=== PATIENT | female | born 1935 | race Caucasian/White ===

== ENCOUNTER 2017-07-21 22:40 | Inpatient (IN) | payer MEDICARE, BC ==
[2017-07-21 22:56] LABS: Glucose,Whole Blood 131 mg/dL (75-99)
--- NOTE | 2017-07-21 23:21 | ED ---
General Adult HPI - General Chief complaint: Recheck/Abnormal Lab/Rx Stated complaint: hypoglycemia Time Seen by Provider: 07/21/17 22:53 Source: patient, family, EMS, RN notes reviewed Mode of arrival: EMS Limitations: no limitations - History of Present Illness Initial comments: 82-year-old female presents with altered mental status confusion. Patient was found by EMS to have a blood sugar in the 40s. She was given dextrose. At the time my evaluation patient was alert and oriented 4, no complaints. She does have past medical history of CAD status post open heart surgery. She is a diabetic currently taking glyburide. She is not on any insulin. She did eat dinner this evening. She has been holding her nighttime dose of glyburide for the past several days secondary to cough and URI symptoms. She took this medication approximately 2 hours prior to the episode. Patient states that multiple family members have influenza and although she had a cough URI symptoms he seemed to be improving. No chest pain or shortness of breath. No nausea vomiting. No diarrhea. - Related Data Home Medications Medication Instructions Recorded Confirmed Allopurinol [Zyloprim] 100 mg PO DAILY 07/21/17 07/21/17 Amiodarone [Cordarone] 200 mg PO DAILY 07/21/17 07/21/17 Furosemide [Lasix] 40 mg PO DAILY 07/21/17 07/21/17 Levothyroxine Sodium [Synthroid] 50 mcg PO DAILY 07/21/17 07/21/17 Metoprolol Tartrate [Lopressor] 25 mg PO BID 07/21/17 07/21/17 Simvastatin [Zocor] 20 mg PO HS 07/21/17 07/21/17 Spironolactone [Aldactone] 25 mg PO BID 07/21/17 07/21/17 glyBURIDE [Diabeta] 5 mg PO AC-BID 07/21/17 07/21/17 Allergies Allergy/AdvReac Type Severity Reaction Status Date / Time No Known Allergies Allergy Verified 07/04/16 18:21 Review of Systems ROS Statement: Those systems with pertinent positive or pertinent negative responses have been documented in the HPI. ROS Other: All systems not noted in ROS Statement are negative. Past Medical History Past Medical History: Coronary Artery Disease (CAD), Diabetes Mellitus, Hypertension, Thyroid Disorder History of Any Multi-Drug Resistant Organisms: None Reported Past Surgical History: Coronary Bypass/CABG, Hysterectomy, Joint Replacement, Orthopedic Surgery Additional Past Surgical History / Comment(s): heart valve replacement, knee replaced, ankle Past Psychological History: No Psychological Hx Reported Smoking Status: Never smoker Past Alcohol Use History: None Reported Past Drug Use History: None Reported General Exam Limitations: no limitations General appearance: alert, in no apparent distress Head exam: Present: atraumatic, normocephalic Eye exam: Present: normal appearance, PERRL ENT exam: Present: normal exam Neck exam: Present: normal inspection. Absent: tenderness, meningismus Respiratory exam: Present: rales (Bilateral lung bases) Cardiovascular Exam: Present: regular rate, normal rhythm GI/Abdominal exam: Present: soft. Absent: distended, tenderness Extremities exam: Present: pedal edema (trace) Neurological exam: Present: alert, oriented X3, CN II-XII intact. Absent: motor sensory deficit Psychiatric exam: Present: normal affect, normal mood Skin exam: Present: warm, dry, intact. Absent: cyanosis, diaphoretic Course Vital Signs 07/21/17 07/22/17 22:42 00:05 Temperature 97 F L Pulse Rate 83 72 Respiratory 18 18 Rate Blood Pressure 165/82 158/95 O2 Sat by Pulse 94 L 96 Oximetry Medical Decision Making - Medical Decision Making 82-year-old female presenting for evaluation of altered mental status, confusion. Patient noted to be hypoglycemic by EMS. Given 1 amp of dextrose. Blood sugar in the emergency department initially normal, there is some down trending with a blood sugar at its lowest 81. Patient is able to eat and drink in the emergency department and blood sugar improved. She is a history of chronic kidney disease, takes glyburide 5 mg twice daily. Took glyburide approximately 2 hours prior to this episode. Patient is also complaining of some shortness of breath and URI symptoms. Influenza A is positive. White blood cell count normal 7.0, hemoglobin 14.7, creatinine is 1.8 which is improved from previous of 2.7. Troponin is elevated at 0.099, no chest pain, likely secondary to CK D. Chest x-ray shows worsening cardiomegaly, pulmonary vascular congestion. BNP is elevated at 5000. Patient does have rails on auscultation. This is likely a combination of congestive heart failure and kidney disease. Patient's symptoms consistent with influenza are improving and greater than 72 hours in duration. Given the mild pulmonary edema and elevated BNP, patient will be placed in observation for diuresis and further monitoring of blood glucose as glyburide has a half-life 10 hours. - Lab Data Result diagrams: 07/21/17 22:51 07/21/17 22:51 Lab Results 07/21/17 07/21/17 07/21/17 Range/Units 22:50 22:51 22:51 WBC 7.1 (3.8-10.6) k/uL RBC 4.51 (3.80-5.40) m/uL Hgb 14.7 (11.4-16.0) gm/dL Hct 46.6 H (34.0-46.0) % MCV 103.4 H (80.0-100.0) fL MCH 32.5 (25.0-35.0) pg MCHC 31.5 (31.0-37.0) g/dL RDW 15.1 (11.5-15.5) % Plt Count 139 L (150-450) k/uL Neutrophils % 87 % Lymphocytes % 6 % Monocytes % 5 % Eosinophils % 0 % Basophils % 1 % Neutrophils # 6.2 (1.3-7.7) k/uL Lymphocytes # 0.4 L (1.0-4.8) k/uL Monocytes # 0.4 (0-1.0) k/uL Eosinophils # 0.0 (0-0.7) k/uL Basophils # 0.0 (0-0.2) k/uL Macrocytosis Slight PT (9.0-12.0) sec INR (<1.2) APTT (22.0-30.0) sec Sodium (137-145) mmol/L Potassium (3.5-5.1) mmol/L Chloride (98-107) mmol/L Carbon Dioxide (22-30) mmol/L Anion Gap mmol/L BUN (7-17) mg/dL Creatinine (0.52-1.04) mg/dL Est GFR (MDRD) Af Amer (>60 ml/min/1.73 sqM) Est GFR (MDRD) Non-Af (>60 ml/min/1.73 sqM) Glucose (74-99) mg/dL POC Glucose (mg/dL) 131 H (75-99) mg/dL POC Glu Bed Manager ID Watt, Emma Calcium (8.4-10.2) mg/dL Magnesium (1.6-2.3) mg/dL Total Bilirubin (0.2-1.3) mg/dL AST (14-36) U/L ALT (9-52) U/L Alkaline Phosphatase (38-126) U/L Total Creatine Kinase 41 (30-135) U/L CK-MB (CK-2) 0.9 (0.0-2.4) ng/mL CK-MB (CK-2) Rel Index 2.2 Troponin I 0.099 H* (0.000-0.034) ng/mL NT-Pro-B Natriuret Pep pg/mL Total Protein (6.3-8.2) g/dL Albumin (3.5-5.0) g/dL Influenza Type A RNA (Not Detectd) Influenza Type B (PCR) (Not Detectd) 07/21/17 07/21/17 07/21/17 Range/Units 22:51 22:51 22:51 WBC (3.8-10.6) k/uL RBC (3.80-5.40) m/uL Hgb (11.4-16.0) gm/dL Hct (34.0-46.0) % MCV (80.0-100.0) fL MCH (25.0-35.0) pg MCHC (31.0-37.0) g/dL RDW (11.5-15.5) % Plt Count (150-450) k/uL Neutrophils % % Lymphocytes % % Monocytes % % Eosinophils % % Basophils % % Neutrophils # (1.3-7.7) k/uL Lymphocytes # (1.0-4.8) k/uL Monocytes # (0-1.0) k/uL Eosinophils # (0-0.7) k/uL Basophils # (0-0.2) k/uL Macrocytosis PT 10.3 (9.0-12.0) sec INR 1.1 (<1.2) APTT 24.9 (22.0-30.0) sec Sodium 134 L (137-145) mmol/L Potassium 3.9 (3.5-5.1) mmol/L Chloride 97 L (98-107) mmol/L Carbon Dioxide 26 (22-30) mmol/L Anion Gap 11 mmol/L BUN 48 H (7-17) mg/dL Creatinine 1.80 H (0.52-1.04) mg/dL Est GFR (MDRD) Af Amer 33 (>60 ml/min/1.73 sqM) Est GFR (MDRD) Non-Af 27 (>60 ml/min/1.73 sqM) Glucose 138 H (74-99) mg/dL POC Glucose (mg/dL) (75-99) mg/dL POC Glu Bed Manager ID Calcium 8.8 (8.4-10.2) mg/dL Magnesium 2.3 (1.6-2.3) mg/dL Total Bilirubin 0.6 (0.2-1.3) mg/dL AST 82 H (14-36) U/L ALT 124 H (9-52) U/L Alkaline Phosphatase 68 (38-126) U/L Total Creatine Kinase (30-135) U/L CK-MB (CK-2) (0.0-2.4) ng/mL CK-MB (CK-2) Rel Index Troponin I (0.000-0.034) ng/mL NT-Pro-B Natriuret Pep 5070 pg/mL Total Protein 5.8 L (6.3-8.2) g/dL Albumin 3.4 L (3.5-5.0) g/dL Influenza Type A RNA (Not Detectd) Influenza Type B (PCR) (Not Detectd) 07/21/17 07/21/17 07/22/17 Range/Units 23:27 23:28 00:04 WBC (3.8-10.6) k/uL RBC (3.80-5.40) m/uL Hgb (11.4-16.0) gm/dL Hct (34.0-46.0) % MCV (80.0-100.0) fL MCH (25.0-35.0) pg MCHC (31.0-37.0) g/dL RDW (11.5-15.5) % Plt Count (150-450) k/uL Neutrophils % % Lymphocytes % % Monocytes % % Eosinophils % % Basophils % % Neutrophils # (1.3-7.7) k/uL Lymphocytes # (1.0-4.8) k/uL Monocytes # (0-1.0) k/uL Eosinophils # (0-0.7) k/uL Basophils # (0-0.2) k/uL Macrocytosis PT (9.0-12.0) sec INR (<1.2) APTT (22.0-30.0) sec Sodium (137-145) mmol/L Potassium (3.5-5.1) mmol/L Chloride (98-107) mmol/L Carbon Dioxide (22-30) mmol/L Anion Gap mmol/L BUN (7-17) mg/dL Creatinine (0.52-1.04) mg/dL Est GFR (MDRD) Af Amer (>60 ml/min/1.73 sqM) Est GFR (MDRD) Non-Af (>60 ml/min/1.73 sqM) Glucose (74-99) mg/dL POC Glucose (mg/dL) 108 H 81 (75-99) mg/dL POC Glu Bed Manager ELAINE Watt, Emma WatEmma romero Calcium (8.4-10.2) mg/dL Magnesium (1.6-2.3) mg/dL Total Bilirubin (0.2-1.3) mg/dL AST (14-36) U/L ALT (9-52) U/L Alkaline Phosphatase (38-126) U/L Total Creatine Kinase (30-135) U/L CK-MB (CK-2) (0.0-2.4) ng/mL CK-MB (CK-2) Rel Index Troponin I (0.000-0.034) ng/mL NT-Pro-B Natriuret Pep pg/mL Total Protein (6.3-8.2) g/dL Albumin (3.5-5.0) g/dL Influenza Type A RNA Detected H (Not Detectd) Influenza Type B (PCR) Not Detected (Not Detectd) 07/22/17 Range/Units 00:42 WBC (3.8-10.6) k/uL RBC (3.80-5.40) m/uL Hgb (11.4-16.0) gm/dL Hct (34.0-46.0) % MCV (80.0-100.0) fL MCH (25.0-35.0) pg MCHC (31.0-37.0) g/dL RDW (11.5-15.5) % Plt Count (150-450) k/uL Neutrophils % % Lymphocytes % % Monocytes % % Eosinophils % % Basophils % % Neutrophils # (1.3-7.7) k/uL Lymphocytes # (1.0-4.8) k/uL Monocytes # (0-1.0) k/uL Eosinophils # (0-0.7) k/uL Basophils # (0-0.2) k/uL Macrocytosis PT (9.0-12.0) sec INR (<1.2) APTT (22.0-30.0) sec Sodium (137-145) mmol/L Potassium (3.5-5.1) mmol/L Chloride (98-107) mmol/L Carbon Dioxide (22-30) mmol/L Anion Gap mmol/L BUN (7-17) mg/dL Creatinine (0.52-1.04) mg/dL Est GFR (MDRD) Af Amer (>60 ml/min/1.73 sqM) Est GFR (MDRD) Non-Af (>60 ml/min/1.73 sqM) Glucose (74-99) mg/dL POC Glucose (mg/dL) 111 H (75-99) mg/dL POC Glu Bed Manager ID Orquidea Weber Calcium (8.4-10.2) mg/dL Magnesium (1.6-2.3) mg/dL Total Bilirubin (0.2-1.3) mg/dL AST (14-36) U/L ALT (9-52) U/L Alkaline Phosphatase (38-126) U/L Total Creatine Kinase (30-135) U/L CK-MB (CK-2) (0.0-2.4) ng/mL CK-MB (CK-2) Rel Index Troponin I (0.000-0.034) ng/mL NT-Pro-B Natriuret Pep pg/mL Total Protein (6.3-8.2) g/dL Albumin (3.5-5.0) g/dL Influenza Type A RNA (Not Detectd) Influenza Type B (PCR) (Not Detectd) Disposition Clinical Impression: Chronic kidney disease, Fluid overload, Hypoglycemia Disposition: ADMITTED IP TO THIS HOSP Condition: Stable Referrals: Rhys Strange DO [Primary Care Provider] - 1-2 days Decision to Admit Reason: Admit from EC Decision Date: 07/22/17 Decision Time: 00:57
[2017-07-21 23:29] LABS: Basophils % (A) 1 %; Eosinophils % (A) 0 %; HCT 46.6 % (34.0-46.0); HGB 14.7 gm/dL (11.4-16.0); Lymphocytes # (A) 0.4 k/uL (1.0-4.8); Lymphocytes % (A) 6 %; MCH 32.5 pg (25.0-35.0); MCHC 31.5 g/dL (31.0-37.0); MCV 103.4 fL (80.0-100.0); Macrocytosis Slight; Mean Platelet Volume 7.7; Monocytes # (A) 0.4 k/uL (0-1.0); Monocytes % (A) 5 %; Neutrophils # (A) 6.2 k/uL (1.3-7.7); Neutrophils % (A) 87 %; Platelet Count 139 k/uL (150-450); RBC 4.51 m/uL (3.80-5.40); RDW 15.1 % (11.5-15.5); WBC 7.1 k/uL (3.8-10.6)
[2017-07-21 23:30] LABS: Glucose,Whole Blood 108 mg/dL (75-99)
[2017-07-21 23:36] LABS: INR 1.1 (<1.2)
[2017-07-21 23:37] LABS: Partial Thromboplastin Time 24.9 sec (22.0-30.0); Prothrombin Time 10.3 sec (9.0-12.0)
[2017-07-21 23:48] LABS: Albumin 3.4 g/dL (3.5-5.0); Calcium 8.8 mg/dL (8.4-10.2); Magnesium 2.3 mg/dL (1.6-2.3); Potassium 3.9 mmol/L (3.5-5.1); Total Bilirubin 0.6 mg/dL (0.2-1.3); Total Protein 5.8 g/dL (6.3-8.2)
--- NOTE | 2017-07-21 23:59 | XR ---
EXAMINATION TYPE: XR chest 2V DATE OF EXAM: 07/21/2017 COMPARISON: NONE HISTORY: Hypertension and difficulty breathing TECHNIQUE: Frontal and lateral views of the chest are obtained. FINDINGS: Heart is enlarged. Thoracic aorta is atheromatous. There are sternal wires. There is mild pulmonary vascular congestion. There is coarse interstitial density. IMPRESSION: Cardiomegaly that appears worse than last exam. Pulmonary interstitial fibrosis. Mild he art failure is probably present. Lung markings are increased slightly compared to last exam.
[2017-07-22 00:07] LABS: Creatine Kinase MB 0.9 ng/mL (0.0-2.4)
[2017-07-22 00:08] LABS: Glucose,Whole Blood 81 mg/dL (75-99)
[2017-07-22 00:17] LABS: Troponin I 0.099 ng/mL (0.000-0.034)
[2017-07-22 00:43] LABS: Glucose,Whole Blood 111 mg/dL (75-99)
[2017-07-22] MEDS ORDERED: FUROSEMIDE 10 MG/ML 4 ML VIAL IV ONE (00:43)
[2017-07-22] MEDS ORDERED: ASPIRIN 325 MG TAB PO STA (00:45)
[2017-07-22] MEDS ORDERED: MORPHINE SULFATE 5 MG/ML SYRINGE IV PRN (00:58)
[2017-07-22] MEDS ORDERED: NALOXONE 0.4 MG/ML 1 ML VIAL IV PRN (00:58)
[2017-07-22 04:27] LABS: Glucose,Whole Blood 44 mg/dL (75-99)
[2017-07-22 05:21] LABS: Glucose,Whole Blood 110 mg/dL (75-99)
[2017-07-22 08:53] LABS: Glucose,Whole Blood 89 mg/dL (75-99)
[2017-07-22] MEDS: SPIRONOLACTONE 25 MG TAB PO SCH ×2 (09:34→21:21)
[2017-07-22] MEDS: FUROSEMIDE 10 MG/ML 2 ML VIAL IV SCH ×2 (09:34→21:21)
[2017-07-22] MEDS: METOPROLOL TARTRATE 25 MG TAB PO SCH ×2 (09:34→21:21)
[2017-07-22] MEDS: AMIODARONE 200 MG TAB PO SCH (09:34)
[2017-07-22] MEDS: LEVOTHYROXINE 50 MCG TAB PO SCH (09:34)
[2017-07-22 11:39] LABS: Glucose,Whole Blood 48 mg/dL (75-99)
[2017-07-22 11:39] LABS: Glucose,Whole Blood 48 mg/dL (75-99)
[2017-07-22 12:21] LABS: Glucose,Whole Blood 61 mg/dL (75-99)
[2017-07-22 12:21] LABS: Glucose,Whole Blood 61 mg/dL (75-99)
[2017-07-22] MEDS: ACETAMINOPHEN TAB 325 MG TAB PO PRN (13:30)
[2017-07-22 14:28] LABS: Appearance,Urine Clear (Clear); Bilirubin,Urine Negative (Negative); Blood,Urine Negative (Negative); Color,Urine Light Yellow; Glucose,Urine (UA) Negative (Negative); Hyaline Casts,Urine 7 /lpf (0-2); Ketones,Urine Negative (Negative); Leukocyte Esterase,Urine Trace (Negative); Mucus,Urine Rare /hpf; Nitrite,Urine Negative (Negative); Protein,Urine Negative (Negative); RBC,Urine 1 /hpf (0-5); Specific Gravity,Urine 1.007 (1.001-1.035); Squamous Epithelial Cell,Urine 1 /hpf (0-4); Urobilinogen,Urine <2.0 mg/dL (<2.0); WBC,Urine 2 /hpf (0-5)
[2017-07-22] MEDS ORDERED: OSELTAMIVIR 75 MG CAP PO SCH (14:30)
[2017-07-22] MEDS: OSELTAMIVIR 60 MG/10 ML ORAL SYRINGE PO SCH (16:29)
[2017-07-22 17:06] LABS: Glucose,Whole Blood 75 mg/dL (75-99)
[2017-07-22] MEDS: D5W WITH KCL 20 MEQ/L 1,000 ML IV SCH (18:33)
[2017-07-22 18:40] LABS: Glucose,Whole Blood 110 mg/dL (75-99)
[2017-07-22] MEDS ORDERED: TEMAZEPAM 15 MG CAP PO PRN (19:10)
[2017-07-22] MEDS ORDERED: ALPRAZolam 0.25 MG TAB PO PRN (19:10)
[2017-07-22 20:53] LABS: Glucose,Whole Blood 77 mg/dL (75-99)
[2017-07-22] MEDS: HEPARIN SODIUM,PORCINE 5,000 UNIT/ML 1 ML VIAL SQ SCH (21:21)
[2017-07-22] MEDS: ATORVASTATIN 10 MG TAB PO SCH (21:21)
--- NOTE | 2017-07-22 22:20 | HP ---
HISTORY AND PHYSICAL DATE OF SERVICE: 07/22/2017 CHIEF COMPLAINT: Change in mental status, hypoglycemia. I am covering for Dr. Strange. HISTORY OF PRESENT ILLNESS: This 82-year-old woman with past medical history of CAD, diabetes, hypertension, history of hyperlipidemia, CHF, CAD and CABG being followed by Dr. Rhys Starnge in the outpatient setting not feeling well since this morning. The patient had a change in mental status and apparently her dog found unresponsive and the patient was EMS was called. Blood sugars in 30s and 40s improved. Subsequently with interventions and the patient was given glucose and patient apparently was not eating for the last several days because of cough and sputum and respiratory symptoms. The patient Influenza A was positive. Troponins found to be 0.9. Patient admitted for further evaluation and treatment. Even after admission, the blood sugar was found to be dropping at 111, 110 and 261 and subsequently 261. There is no history of fever, rigors or chills. No hematochezia or melena at this time. PAST MEDICAL: CAD, CHF, diabetes, hypertension, hypothyroid, CAD, CABG. MEDICATIONS: Prior to admission include: Glyburide, DiaBeta 5 mg a.c. b.i.d., Aldactone 25 mg b.i.d. Zocor 20 mg q.h.s., Lopressor 25 mg b.i.d., Synthroid 50 mg p.o. daily, Lasix 20 mg daily, Cordarone 200 mg daily and Serevent 100 mg p.o. daily. ALLERGIES: None. FAMILY HISTORY: No history of heart disease or strokes in the family. SOCIAL HISTORY: No history of smoking. No alcohol intake. REVIEW OF SYSTEMS: ENT: No diminished vision. No diminished hearing. Cardio system as mentioned earlier. Respiration: No cough or hemoptysis. Gastrointestinal: No nausea or vomiting. : No dysuria. Nervous system: No numbness, weakness. Allergy/Immunology: No asthma or hayfever. Musculoskeletal as mentioned earlier. Hematology/Oncology: No history of anemia. Endocrine: Diabetes. Constitutional: As mentioned earlier. Rheumatology negative. Dermatology: Negative. Psychiatric: As mentioned earlier. PHYSICAL EXAMINATION: Alert and oriented times three. Pulse 92, blood pressure 130/70, respiration 16, temperature 98.2, pulse ox 98% on room air. HEENT: Conjunctivae normal. Oral mucosa moist. Neck is no jugular venous distention. No carotid bruit. No lymph node enlargement. Cardiovascular system: S1, S2 muffled. No S3, no S4. Respiratory: Breath sounds diminished in the bases. A few scattered rhonchi and crackles. ABDOMEN: Soft, nontender. No mass palpable. Legs: No edema and no swelling. Central nervous system: Higher functions as mentioned earlier. Moves all four limbs. No focal motor or sensory deficits. Lymphatics: No lymph nodes palpable in the neck, axillae or groin. Skin no ulcer, rash or bleeding. LABS: WBC 7.9, and MCV 103.4. Sodium 134, otherwise, Accu-Cheks are noted. ASSESSMENT: 1. Severe hypoglycemia possibly medication induced. 2. Change in mental status, metabolic encephalopathy secondary to hypoglycemia. 3. Acute influenza A. 4. Troponin 0.09 indeterminate. 5. History of congestive heart failure. 6. History of coronary artery disease. 7. Diabetes type 2. 8. Hypertension. 9. Hypothyroidism. 10.History of coronary artery disease, coronary artery bypass grafting. 11.History of degenerative joint disease. 12.FULL CODE. RECOMMENDATIONS AND DISCUSSION: This 82-year-old woman who presented with multiple complex medical issues, we will monitor the patient closely. Continue the current management. Continue symptomatic treatment. Stop antidiabetic medications. Continue to monitor, D5 water and monitor potassium closely. Monitor renal functions closely. Otherwise Tamiflu for five doses. DVT prophylaxis. The prognosis is guarded because of multiple complex medical issues. Further recommendations to follow. See orders for details. A copy of dictation being forwarded to Dr. Strange who is the primary physician. [id number] / IJN: [id number] /
[2017-07-22 23:18] VITALS: BMI 28.8
[2017-07-23 01:23] LABS: Glucose,Whole Blood 151 mg/dL (75-99)
[2017-07-23] MEDS: D5W WITH KCL 20 MEQ/L 1,000 ML IV SCH (03:30)
[2017-07-23 05:39] LABS: Glucose,Whole Blood 154 mg/dL (75-99)
[2017-07-23 06:08] LABS: Glucose,Whole Blood 156 mg/dL (75-99)
[2017-07-23] MEDS: PANTOPRAZOLE 40 MG TABLET PO SCH (07:01)
[2017-07-23 07:12] LABS: Basophils % (A) 0 %; Eosinophils % (A) 0 %; HCT 44.5 % (34.0-46.0); HGB 14.6 gm/dL (11.4-16.0); Lymphocytes # (A) 0.8 k/uL (1.0-4.8); Lymphocytes % (A) 9 %; MCH 32.8 pg (25.0-35.0); MCHC 32.9 g/dL (31.0-37.0); MCV 99.7 fL (80.0-100.0); Mean Platelet Volume 7.4; Monocytes # (A) 0.4 k/uL (0-1.0); Monocytes % (A) 5 %; Neutrophils # (A) 6.6 k/uL (1.3-7.7); Neutrophils % (A) 83 %; Platelet Count 150 k/uL (150-450); RBC 4.46 m/uL (3.80-5.40)
[2017-07-23 07:17] LABS: Magnesium 2.1 mg/dL (1.6-2.3); Potassium 4.6 mmol/L (3.5-5.1)
[2017-07-23] MEDS: FUROSEMIDE 10 MG/ML 2 ML VIAL IV SCH ×2 (08:34→21:05)
[2017-07-23] MEDS: METOPROLOL TARTRATE 25 MG TAB PO SCH ×2 (08:35→21:05)
[2017-07-23] MEDS: HEPARIN SODIUM,PORCINE 5,000 UNIT/ML 1 ML VIAL SQ SCH ×2 (08:35→21:05)
[2017-07-23] MEDS: AMIODARONE 200 MG TAB PO SCH (08:35)
[2017-07-23] MEDS: ALLOPURINOL 100 MG TAB PO SCH (08:36)
[2017-07-23] MEDS: LEVOTHYROXINE 50 MCG TAB PO SCH (08:36)
[2017-07-23] MEDS: OSELTAMIVIR 60 MG/10 ML ORAL SYRINGE PO SCH (08:36)
[2017-07-23] MEDS: SPIRONOLACTONE 25 MG TAB PO SCH ×2 (08:37→21:05)
[2017-07-23 10:55] LABS: Glucose,Whole Blood 235 mg/dL (75-99)
--- NOTE | 2017-07-23 12:51 | CDI ---
Last Revision, June 2017 Documentation Clarification Form Date: 07/23/2017 12:27:00 PM From: Paulina Vazquez RN Admit Date: 07/22/2017 12:57:00 AM Patient Name: Kathryn Torres Visit Number: [id number] ATTENTION: The Clinical Documentation Specialists (CDI) and [facility] Coding Staff appreciate your assistance in clarifying documentation. Please respond to the clarification below the line at the bottom and electronically sign. The CDI & [facility] Coding staff will review the response and follow-up if needed. Please note: Queries are made part of the Legal Health Record. If you have any questions, please contact the author of this message via ITS. Carlos Alberto Leger, History/Risk Factors: CHF, CAD, DM, HTN, Hypothyroidism, DJD V Lasix administered Clinical Indicators: On admission: BUN 48, CR 1.80, GFR 27 Current: BUN 42, CR 1.51, GFR 33 Treatment: Monitor Labs In order to capture the severity of condition, please clarify if the condition signifies: Acute renal failure, Please specify etiology (if known) Acute on chronic renal failure please stage if known Chronic renal failure/Chronic Kidney disease (CKD) please stage if known CKD Stage 3 GFR 30-59 CKD Stage 4 GFR 15-29 CKD other Stage Other, please specify Unable to determine Please continue to document in your progress notes and discharge summary in order to capture severity of illness and risk of mortality. Include clinical findings that support your diagnosis. CKD Stage 3 GFR 30-59 MTDD
--- NOTE | 2017-07-23 13:30 | CDI ---
Last Revision, June 2017 Documentation Clarification Form Date: 07/23/2017 1:17:00 PM From: Paulina Vazquez RN Admit Date: 07/22/2017 12:57:00 AM Patient Name: Kathryn Torres Visit Number: [id number] ATTENTION: The Clinical Documentation Specialists (CDI) and [facility] Coding Staff appreciate your assistance in clarifying documentation. Please respond to the clarification below the line at the bottom and electronically sign. The CDI & [facility] Coding staff will review the response and follow-up if needed. Please note: Queries are made part of the Legal Health Record. If you have any questions, please contact the author of this message via ITS. Dr. Ashli Carcamo, History/Risk Factors:. CAD, CHF, DM, HTN, Hypothyroid, CABG Clinical Indicators: BNP: 5070 Chest X Ray: cardiomegaly worse than last exam. Pulmonary interstitial fibrosis. Mild heart failure is probably present. Treatment: Lasix IV q 12 hours In your professional opinion, can you please clarify the acuity and type of CHF if known? Systolic Heart Failure: Acute Chronic Acute on Chronic Diastolic Heart Failure: Acute Chronic Acute on Chronic Systolic & Diastolic Heart Failure: Acute Chronic Acute on Chronic Heart Failure Unable to Determine Other, please specify Please continue to document in your progress notes and discharge summary in order to capture severity of illness and risk of mortality. Include clinical findings that support your diagnosis. chf Unable to Determine MTDD
[2017-07-23 14:50] LABS: Glucose,Whole Blood 184 mg/dL (75-99)
[2017-07-23] MEDS: INSULIN ASPART 100 UNIT/ML 1 ML 10 ML VIAL SQ SCH ×2 (19:01→22:10)
[2017-07-23] MEDS: ATORVASTATIN 10 MG TAB PO SCH (21:05)
[2017-07-23 22:08] LABS: Glucose,Whole Blood 204 mg/dL (75-99)
[2017-07-24 01:58] LABS: Glucose,Whole Blood 115 mg/dL (75-99)
[2017-07-24 02:51] LABS: Hemoglobin A1C 6.2 % (4.0-6.0)
[2017-07-24 05:49] LABS: Glucose,Whole Blood 117 mg/dL (75-99)
[2017-07-24 06:09] LABS: Basophils % (A) 1 %; Eosinophils % (A) 1 %; HCT 44.4 % (34.0-46.0); Lymphocytes # (A) 0.9 k/uL (1.0-4.8); Lymphocytes % (A) 13 %; MCH 31.4 pg (25.0-35.0); MCHC 31.6 g/dL (31.0-37.0); MCV 99.5 fL (80.0-100.0); Macrocytosis Slight; Mean Platelet Volume 7.9; Monocytes # (A) 0.5 k/uL (0-1.0); Monocytes % (A) 7 %; Neutrophils # (A) 5.5 k/uL (1.3-7.7); Neutrophils % (A) 77 %; Platelet Count 166 k/uL (150-450); RBC 4.47 m/uL (3.80-5.40); RDW 14.9 % (11.5-15.5); WBC 7.1 k/uL (3.8-10.6)
[2017-07-24 06:25] LABS: Calcium 9.1 mg/dL (8.4-10.2); Potassium 4.1 mmol/L (3.5-5.1)
[2017-07-24] MEDS: INSULIN ASPART 100 UNIT/ML 1 ML 10 ML VIAL SQ SCH ×4 (06:33→21:33)
[2017-07-24] MEDS: PANTOPRAZOLE 40 MG TABLET PO SCH (06:34)
[2017-07-24] MEDS: ACETAMINOPHEN TAB 325 MG TAB PO PRN (08:34)
[2017-07-24] MEDS: HEPARIN SODIUM,PORCINE 5,000 UNIT/ML 1 ML VIAL SQ SCH (08:41)
[2017-07-24] MEDS: FUROSEMIDE 10 MG/ML 2 ML VIAL IV SCH ×2 (08:41→20:55)
[2017-07-24] MEDS: ALLOPURINOL 100 MG TAB PO SCH (08:41)
[2017-07-24] MEDS: AMIODARONE 200 MG TAB PO SCH (08:41)
[2017-07-24] MEDS: SPIRONOLACTONE 25 MG TAB PO SCH ×2 (08:41→20:56)
[2017-07-24] MEDS: LEVOTHYROXINE 50 MCG TAB PO SCH (08:41)
[2017-07-24] MEDS: METOPROLOL TARTRATE 25 MG TAB PO SCH ×2 (08:41→20:55)
--- NOTE | 2017-07-24 10:03 | P.CRDCN ---
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 Beside that she does have diabetes, hypertension, dyslipidemia. She was brought to the hospital by her daughter who found her confused in the morning. The patient was diagnosed with influenza A and she has been sick for a week where she was not eating and drinking but she continues to take her diabetes medications. She was found to be hypoglycemic. The glucose was 30. She was given glucose with improvement in her symptoms. She did not have any symptoms of chest pain or discomfort or shortness of breath. We get involved in the care of the patient because her cardiac enzymes were slightly elevated but more importantly she was found to be in A. fib with controlled heart rates. She is not aware of any history of atrial fibrillation and she was not receiving any oral anticoagulation as an outpatient. Currently she is in A. fib with controlled heart rate. Beside that the creatinine was slightly elevated. The BNP came in to be around 5000s. On physical examination she does have rhonchi in both lung bases. The patient was started on Lasix. Currently she is on metoprolol for heart rate control but she is not on any oral anticoagulation. Past Medical History Past Medical History: Coronary Artery Disease (CAD), Heart Failure, Diabetes Mellitus, Hypertension, Thyroid Disorder History of Any Multi-Drug Resistant Organisms: None Reported Past Surgical History: Coronary Bypass/CABG, Hysterectomy, Joint Replacement, Orthopedic Surgery Additional Past Surgical History / Comment(s): heart valve replacement, knee replaced, ankle Past Psychological History: No Psychological Hx Reported Smoking Status: Never smoker Past Alcohol Use History: None Reported Past Drug Use History: None Reported Medications and Allergies Home Medications Medication Instructions Recorded Confirmed Type Allopurinol [Zyloprim] 100 mg PO DAILY 07/21/17 07/21/17 History Amiodarone [Cordarone] 200 mg PO DAILY 07/21/17 07/21/17 History Furosemide [Lasix] 40 mg PO DAILY 07/21/17 07/21/17 History Levothyroxine Sodium [Synthroid] 50 mcg PO DAILY 07/21/17 07/21/17 History Metoprolol Tartrate [Lopressor] 25 mg PO BID 07/21/17 07/21/17 History Simvastatin [Zocor] 20 mg PO HS 07/21/17 07/21/17 History Spironolactone [Aldactone] 25 mg PO BID 07/21/17 07/21/17 History glyBURIDE [Diabeta] 5 mg PO AC-BID 07/21/17 07/21/17 History Allergies Allergy/AdvReac Type Severity Reaction Status Date / Time No Known Allergies Allergy Verified 07/04/16 18:21 Physical Exam Vitals: Vital Signs Temp Pulse Resp BP Pulse Ox 07/24/17 04:00 97.8 F 90 19 124/71 97 07/24/17 00:00 98.4 F 70 19 133/67 98 07/23/17 20:00 98.1 F 75 19 122/70 97 07/23/17 16:00 96.4 F L 75 18 140/71 97 07/23/17 12:00 97.8 F 92 16 140/72 96 Intake and Output 07/23/17 07/24/17 07/24/17 22:59 06:59 14:59 Intake Total 240 Output Total 800 Balance -560 Intake: Oral 240 Output: Urine 800 Other: Voiding Method Toilet Toilet # Voids 1 1 Weight 81.9 kg - Constitutional General appearance: no acute distress - Respiratory Respiratory: bilateral: rhonchi - Cardiovascular Rhythm: irregularly irregular Heart sounds: normal: S1, S2 Abnormal Heart Sounds: systolic murmur Results 07/24/17 05:45 07/24/17 05:45 CBC 07/24/17 Range/Units 05:45 WBC 7.1 (3.8-10.6) k/uL RBC 4.47 (3.80-5.40) m/uL Hgb 14.0 (11.4-16.0) gm/dL Hct 44.4 (34.0-46.0) % Plt Count 166 (150-450) k/uL Comprehensive Metabolic Panel 07/24/17 Range/Units 05:45 Sodium 133 L (137-145) mmol/L Potassium 4.1 (3.5-5.1) mmol/L Chloride 98 (98-107) mmol/L Carbon Dioxide 24 (22-30) mmol/L BUN 49 H (7-17) mg/dL Creatinine 1.56 H (0.52-1.04) mg/dL Glucose 116 H (74-99) mg/dL Calcium 9.1 (8.4-10.2) mg/dL Current Medications Generic Name Dose Route Start Last Admin Trade Name Freq PRN Reason Stop Dose Admin Acetaminophen 650 mg 07/22/17 00:58 07/24/17 08:34 Tylenol Tab PO 650 mg Q6HR PRN Administration Mild Pain or Fever > 100.5 Allopurinol 100 mg 07/23/17 09:00 07/24/17 08:41 Zyloprim PO 100 mg DAILY ELIJAH Administration Alprazolam 0.25 mg 07/22/17 19:10 Xanax PO TID PRN Anxiety Amiodarone HCl 200 mg 07/22/17 09:00 07/24/17 08:41 Cordarone PO 200 mg DAILY ELIJAH Administration Atorvastatin Calcium 10 mg 07/22/17 21:00 07/23/17 21:05 Lipitor PO 10 mg HS ELIJAH Administration Furosemide 20 mg 07/22/17 09:00 07/24/17 08:41 Lasix IV 20 mg Q12HR ELIJAH Administration Heparin Sodium (Porcine) 5,000 unit 07/22/17 21:00 07/24/17 08:41 Heparin SQ 5,000 unit Q12HR ELIJAH Administration Insulin Aspart 0 unit 07/23/17 17:30 07/24/17 06:33 Novolog SQ Not Given ACHS [facility] Protocol Levothyroxine Sodium 50 mcg 07/22/17 09:00 07/24/17 08:41 Synthroid PO 50 mcg DAILY ELIJAH Administration Metoprolol Tartrate 25 mg 07/22/17 09:00 07/24/17 08:41 Lopressor PO 25 mg BID ELIJAH Administration Morphine Sulfate 4 mg 07/22/17 00:58 Morphine Sulfate IV Q4HR PRN Severe Pain Naloxone HCl 0.2 mg 07/22/17 00:58 Narcan IV Q2M PRN Opioid Reversal Oseltamivir Phosphate 30 mg 07/22/17 15:00 07/23/17 08:36 Tamiflu PO 07/26/17 09:01 30 mg Q24HR ELIJAH Administration Pantoprazole Sodium 40 mg 07/23/17 07:30 07/24/17 06:34 Protonix PO 40 mg AC-[id number] ELIJAH Administration Spironolactone 25 mg 07/22/17 09:00 07/24/17 08:41 Aldactone PO 25 mg BID ELIJAH Administration Temazepam 15 mg 07/22/17 19:10 Restoril PO HS PRN Insomnia Intake and Output 07/23/17 07/24/17 07/24/17 22:59 06:59 14:59 Intake Total 240 Output Total 800 Balance -560 Intake: Oral 240 Output: Urine 800 Other: Voiding Method Toilet Toilet # Voids 1 1 Weight 81.9 kg 07/24/17 05:45 07/24/17 05:45 Assessment and Plan Assessment: Assessment #1 change in mental status which has improved #2 hypoglycemia which has improved which is likely to be medication related #3 chronic atrial fibrillation was controlled heart rate #4 mild congestive heart failure exacerbation and known if it's due to systolic or diastolic dysfunction #5 chronic artery disease and status post CABG #6 valvular heart disease #7 multiple comorbid conditions Plan #1 continue the metoprolol for heart rate control #2 start the patient on oral anticoagulation #3 obtain an echocardiogram was Doppler #4 check the TSH #5 continue the Lasix for additional 24 hours #6 monitor the kidney function and electrolytes. Thank you for allowing us participate in her care
[2017-07-24] MEDS: OSELTAMIVIR 60 MG/10 ML ORAL SYRINGE PO SCH (11:44)
[2017-07-24 11:58] LABS: Glucose,Whole Blood 144 mg/dL (75-99)
--- NOTE | 2017-07-24 12:44 | ECHOF ---
Referral Reason:a.fib MEASUREMENTS -------- HEIGHT: 170.2 cm WEIGHT: 81.7 kg BP: 124/71 IVSd: 1.2 cm (0.6 - 1.1) LVIDd: 3.3 cm (3.9 - 5.3) LVPWd: 1.1 cm (0.6 - 1.1) IVSs: 1.6 cm LVIDs: 2.7 cm LVPWs: 1.6 cm LAESV Index (A-L): 54.56 ml/m Ao Diam: 2.5 cm (2.0 - 3.7) LA Diam: 3.6 cm (2.7 - 3.8) MV EXCURSION: 14.230 mm (> 18.000) MV EF SLOPE: 73 mm/s (70 - 150) EPSS: 0.8 cm AV maxP.37 mmHg AV meanP.03 mmHg RAP: 5.00 mmHg RVSP: 30.96 mmHg FINDINGS -------- Atrial fibrillation. Paced rhythm. This was a technically difficult study with suboptimal views. The left ventricular size is normal. There is mild concentric left ventricular hypertrophy. Overa ll left ventricular systolic function is severely impaired with, an EF < 20%. Anterior is hypokinet ic Septal Hypokinesis [place] Hypokinesis. The right ventricle is normal in size and function. LA is severely dilated >40 ml/m2 The right atrium is normal in size. 1.5mg of Definity was utilized for enhancement of images Peak/mean gradient across the Aortic Valve is 33.37mmHg / 19.03mmHg. Normally functioning bioprosth etic valve. The mitral valve leaflets are mildly thickened. Mild mitral regurgitation is present. Mild tricuspid regurgitation present. The right ventricular systolic pressure, as measured by Doppl er, is 30.96mmHg. Pulmonic valve appears structurally normal. The aortic root size is normal. The pericardium is normal. CONCLUSIONS -------- 1. Atrial fibrillation. 2. Paced rhythm. 3. This was a technically difficult study with suboptimal views. 4. The left ventricular size is normal. 5. There is mild concentric left ventricular hypertrophy. 6. Overall left ventricular systolic function is severely impaired with, an EF < 20%. 7. Anterior is hypokinetic 8. Septal Hypokinesis 9. [place] Hypokinesis. 10. The right ventricle is normal in size and function. 11. LA is severely dilated >40 ml/m2 12. The right atrium is normal in size. 13. 1.5mg of Definity was utilized for enhancement of images 14. Peak/mean gradient across the Aortic Valve is 33.37mmHg / 19.03mmHg. 15. Normally functioning bioprosthetic valve. 16. The mitral valve leaflets are mildly thickened. 17. Mild mitral regurgitation is present. 18. Mild tricuspid regurgitation present. 19. The right ventricular systolic pressure, as measured by Doppler, is 30.96mmHg. 20. Pulmonic valve appears structurally normal. 21. The aortic root size is normal. 22. The pericardium is normal. TUNNELLER: Yani Garcia RDCS
[2017-07-24] MEDS: APIXABAN 2.5 MG TABLET PO SCH ×2 (14:30→20:55)
[2017-07-24 17:20] LABS: Glucose,Whole Blood 185 mg/dL (75-99)
--- NOTE | 2017-07-24 17:42 | P.PN ---
Subjective Progress Note Date: 07/23/17 Progress note being dictated for Dr. Carcamo. Interval history: This is an 82-year-old female admitted with severe hypoglycemia, possibly medication induced, acute metabolic encephalopathy, acute influenza a, elevated troponin and multiple other medical issues. Maintained on D5W, Tamiflu. Blood sugars ranging from 156 200s. Potassium within normal limits. Renal function improving. Denies chest pain, palpitations or increasing shortness of breath. Objective - Vital Signs Vital signs: Vital Signs Temp 96.4 F L 07/23/17 16:00 Pulse 75 07/23/17 16:00 Resp 18 07/23/17 16:00 BP 140/71 07/23/17 16:00 Pulse Ox 97 07/23/17 16:00 Intake & Output 07/22/17 07/23/17 07/23/17 18:59 06:59 18:59 Intake Total 600 120 Output Total 1300 875 700 Balance -700 -875 -580 Weight 83.461 kg 81.7 kg Intake: Oral 600 120 Output: Urine 1300 875 700 Other: Voiding Method Toilet # Voids 1 1 - Exam PHYSICAL EXAM: VITAL SIGNS: As above GENERAL: Sitting up in bed, no acute distress HEENT: Conjunctivae normal. eyes normal. NECK: No JVD. No thyroid enlargement. No LNs CARDIOVASCULAR: S1, S2 muffled. No murmur RESPIRATION: Breath sounds diminished in the bases. Scattered rhonchi and crackles. No bronchial breathing. ABDOMEN: Soft, nontender . No guarding. no masses palpable. Bowel sounds heard. LEGS: No edema. no swelling PSYCHIATRY: Alert and oriented -3, mood and affect normal. NERVOUS SYSTEM: Cranial N 2-12 grossly normal. Moves all 4 limbs. Diffuse weakness No focal deficits. No sensory deficit. Skin: no ulcer no rash Joints: No active swelling. No inflammation. Lymphatic system. No LN neck axilla or groin. - Labs CBC & Chem 7: 07/24/17 05:45 07/24/17 05:45 Labs: Abnormal Lab Results - Last 24 Hours (Table) 07/22/17 07/23/17 07/23/17 Range/Units 18:20 01:02 05:28 Lymphocytes # (1.0-4.8) k/uL Sodium (137-145) mmol/L Chloride (98-107) mmol/L BUN (7-17) mg/dL Creatinine (0.52-1.04) mg/dL Glucose (74-99) mg/dL POC Glucose (mg/dL) 110 H 151 H 154 H (75-99) mg/dL 07/23/17 07/23/17 07/23/17 Range/Units 06:02 06:44 06:44 Lymphocytes # 0.8 L (1.0-4.8) k/uL Sodium 130 L (137-145) mmol/L Chloride 96 L (98-107) mmol/L BUN 42 H (7-17) mg/dL Creatinine 1.51 H (0.52-1.04) mg/dL Glucose 161 H (74-99) mg/dL POC Glucose (mg/dL) 156 H (75-99) mg/dL 07/23/17 07/23/17 Range/Units 10:43 14:36 Lymphocytes # (1.0-4.8) k/uL Sodium (137-145) mmol/L Chloride (98-107) mmol/L BUN (7-17) mg/dL Creatinine (0.52-1.04) mg/dL Glucose (74-99) mg/dL POC Glucose (mg/dL) 235 H 184 H (75-99) mg/dL Microbiology - Last 24 Hours (Table) 07/22/17 13:30 Urine Culture - Preliminary Urine,Clean Catch Assessment and Plan Assessment: 1. Severe hypoglycemia, possibly medication induced. 2. [ Change in mental status, acute metabolic encephalopathy secondary to hypoglycemia]. 3. [ Acute influenza A]. 4. [ Troponin 0.09, indeterminate]. 5. [ CAD, history of CABG]. 6. [ History of CHF]. 7. [ Diabetes mellitus type 2]. 8. Atrial fibrillation with controlled ventricular rate, possibly new onset but not on any anticoagulation at home. Plan: Continue on current medication regime , Tamiflu, monitoring, symptomatic treatment. Discontinue D5W, initiate NovoLog sliding scale before meals and at bedtime. RN instructed to facilitate diabetic teaching with focus on insulin administration, given potential of being discharged on insulin. Updated on plan of care, stated understanding of, agreed with.Cardiology consulted regarding A. fib. Echo ordered. The impression and plan of care has been dictated as directed. : I performed a history and examination of this patient, discussed the same with the dictator. I agree with the dictator's note ,documented as a scribe. Any additional findings or plans will be noted.
--- NOTE | 2017-07-24 17:47 | P.PN ---
Subjective Progress Note Date: 07/24/17 Progress note being dictated for Dr. Carcamo. Interval history: This is an 82-year-old female admitted with severe hypoglycemia, possibly medication induced, acute metabolic encephalopathy, acute influenza a, elevated troponin and multiple other medical issues. Maintained on D5W, Tamiflu. Blood sugars ranging from 156 200s. Potassium within normal limits. Renal function improving. Denies chest pain, palpitations or increasing shortness of breath. 07/24/2017 no overnight events. Blood sugars controlled. Evaluated by cardiology with recommendations noted, echo pending. Renal function continues to improve. Denies chest pain, palpitations or increasing shortness of breath. Afebrile. Objective - Vital Signs Vital signs: Vital Signs Temp 97.9 F 07/24/17 16:00 Pulse 92 07/24/17 16:00 Resp 19 07/24/17 16:00 BP 129/63 07/24/17 16:00 Pulse Ox 95 07/24/17 16:00 Intake & Output 07/23/17 07/24/17 07/24/17 18:59 06:59 18:59 Intake Total 360 400 Output Total 1150 900 Balance -790 -500 Weight 81.9 kg 81.9 kg Intake: Oral 360 400 Output: Urine 1150 900 Other: Voiding Method Toilet Toilet # Voids 1 1 2 - Exam PHYSICAL EXAM: VITAL SIGNS: As above GENERAL: Sitting up in bed, no acute distress HEENT: Conjunctivae normal. eyes normal. Oral mucosa moist. NECK: No JVD. No thyroid enlargement. No LNs CARDIOVASCULAR: S1, S2 muffled. No murmur RESPIRATION: Breath sounds diminished in the bases. Scattered rhonchi and crackles. ABDOMEN: Soft, nontender . No guarding. no masses palpable. Bowel sounds heard. LEGS: No edema. no swelling PSYCHIATRY: Alert and oriented -3, mood and affect normal. NERVOUS SYSTEM: Cranial N 2-12 grossly normal. Moves all 4 limbs. Diffuse weakness No focal deficits. No sensory deficit. Skin: no ulcer no rash Joints: No active swelling. No inflammation. Lymphatic system. No LN neck axilla or groin. - Labs CBC & Chem 7: 07/24/17 05:45 07/24/17 05:45 Labs: Abnormal Lab Results - Last 24 Hours (Table) 07/21/17 07/23/17 07/24/17 Range/Units 22:51 21:59 01:56 Lymphocytes # (1.0-4.8) k/uL Sodium (137-145) mmol/L BUN (7-17) mg/dL Creatinine (0.52-1.04) mg/dL Glucose (74-99) mg/dL POC Glucose (mg/dL) 204 H 115 H (75-99) mg/dL Hemoglobin A1c 6.2 H (4.0-6.0) % 07/24/17 07/24/17 07/24/17 Range/Units 05:45 05:45 05:48 Lymphocytes # 0.9 L (1.0-4.8) k/uL Sodium 133 L (137-145) mmol/L BUN 49 H (7-17) mg/dL Creatinine 1.56 H (0.52-1.04) mg/dL Glucose 116 H (74-99) mg/dL POC Glucose (mg/dL) 117 H (75-99) mg/dL Hemoglobin A1c (4.0-6.0) % 07/24/17 07/24/17 Range/Units 11:48 17:06 Lymphocytes # (1.0-4.8) k/uL Sodium (137-145) mmol/L BUN (7-17) mg/dL Creatinine (0.52-1.04) mg/dL Glucose (74-99) mg/dL POC Glucose (mg/dL) 144 H 185 H (75-99) mg/dL Hemoglobin A1c (4.0-6.0) % Microbiology - Last 24 Hours (Table) 07/22/17 13:30 Urine Culture - Final Urine,Clean Catch Assessment and Plan Assessment: 1. Severe hypoglycemia, possibly medication induced. 2. [ Change in mental status, acute metabolic encephalopathy secondary to hypoglycemia, improving]. 3. [ Acute influenza A]. 4. [ Troponin 0.09, indeterminate]. 5. [ CAD, history of CABG]. 6. [ History of CHF]. 7. [ Diabetes mellitus type 2]. 8. Atrial fibrillation with controlled ventricular rate, possibly new onset but not on any anticoagulation at home. Plan: Continue on current medication regime , Tamiflu, monitoring, symptomatic treatment. Continue holding oral hypoglycemics, maintain NovoLog sliding scale. Echo pending. Anticoagulated on Eliquis. Follow closely with cardiology. Discharge planning in progress for tomorrow. The impression and plan of care has been dictated as directed. : I performed a history and examination of this patient, discussed the same with the dictator. I agree with the dictator's note ,documented as a scribe. Any additional findings or plans will be noted.
[2017-07-24] MEDS: ATORVASTATIN 10 MG TAB PO SCH (20:55)
[2017-07-24 21:25] LABS: Glucose,Whole Blood 180 mg/dL (75-99)
[2017-07-25 00:29] LABS: Glucose,Whole Blood 144 mg/dL (75-99)
[2017-07-25 06:04] LABS: Basophils # (A) 0.1 k/uL (0-0.2); Basophils % (A) 1 %; Eosinophils # (A) 0.1 k/uL (0-0.7); Eosinophils % (A) 1 %; HCT 45.9 % (34.0-46.0); HGB 14.5 gm/dL (11.4-16.0); Lymphocytes % (A) 13 %; MCH 31.8 pg (25.0-35.0); MCHC 31.7 g/dL (31.0-37.0); MCV 100.5 fL (80.0-100.0); Macrocytosis Slight; Mean Platelet Volume 8.7; Monocytes # (A) 0.7 k/uL (0-1.0); Monocytes % (A) 9 %; Neutrophils # (A) 5.8 k/uL (1.3-7.7); Neutrophils % (A) 74 %; Platelet Count 193 k/uL (150-450); RBC 4.57 m/uL (3.80-5.40); WBC 7.9 k/uL (3.8-10.6)
[2017-07-25 06:08] LABS: Glucose,Whole Blood 133 mg/dL (75-99)
[2017-07-25 06:14] LABS: Calcium 9.2 mg/dL (8.4-10.2); Potassium 4.8 mmol/L (3.5-5.1)
[2017-07-25] MEDS: PANTOPRAZOLE 40 MG TABLET PO SCH (06:20)
[2017-07-25] MEDS: INSULIN ASPART 100 UNIT/ML 1 ML 10 ML VIAL SQ SCH ×4 (06:20→21:36)
[2017-07-25] MEDS: METOPROLOL TARTRATE 25 MG TAB PO SCH ×2 (09:12→20:50)
[2017-07-25] MEDS: AMIODARONE 200 MG TAB PO SCH (09:12)
[2017-07-25] MEDS: FUROSEMIDE 10 MG/ML 2 ML VIAL IV SCH (09:12)
[2017-07-25] MEDS: ALLOPURINOL 100 MG TAB PO SCH (09:12)
[2017-07-25] MEDS: LEVOTHYROXINE 50 MCG TAB PO SCH (09:12)
[2017-07-25] MEDS: OSELTAMIVIR 60 MG/10 ML ORAL SYRINGE PO SCH ×2 (09:12→12:31)
[2017-07-25] MEDS: SPIRONOLACTONE 25 MG TAB PO SCH (09:12)
[2017-07-25] MEDS: APIXABAN 2.5 MG TABLET PO SCH ×2 (09:12→20:50)
[2017-07-25 11:42] LABS: Glucose,Whole Blood 194 mg/dL (75-99)
--- NOTE | 2017-07-25 11:49 | PN ---
PROGRESS NOTE Mrs. Torres is an 82-year-old female with a known history of coronary artery disease, status post coronary artery bypass grafting and aortic valve replacement, who presented with symptoms of confusion and fatigue. She was hypoglycemic. She had some element of heart failure. She is feeling better today. Her breathing is stable. She denies any symptoms of chest pain. She denies any dizziness or palpitation. She denies any nausea. She had an echocardiogram that revealed a severely impaired left ventricular systolic function with segmental wall motion abnormality and normal functioning of her bioprosthetic aortic valve with mild mitral and tricuspid regurgitation. There was no evidence of pulmonary hypertension. She continues to be at this time on: 1. Amiodarone 200 mg daily. 2. Eliquis 2.5 mg twice a day. 3. Lipitor 10 mg daily. 4. Lasix 20 mg daily. 5. Metoprolol tartrate 25 mg twice a day. 6. Spironolactone 25 mg twice a day. PHYSICAL EXAMINATION: Blood pressure 120/50 with a heart rate in the 80s. LUNGS: Mild decrease in the breath sounds. No wheezes. HEART: S1, S2. Irregularly irregular with a systolic ejection murmur. No diastolic murmur. No rub. ABDOMEN: Soft, nontender. Positive bowel sounds. Obese. EXTREMITIES: Trace edema. LAB DATA: BUN and creatinine of 57 and 1.74. IMPRESSION: 1. Status post coronary artery bypass grafting with no evidence to suggest recurrent angina pectoris. 2. Cardiomyopathy, severe; duration unclear. 3. Heart failure with impaired left ventricular systolic function. 4. Change in mental status, improved. 5. Chronic atrial fibrillation. RECOMMENDATION: From the cardiac standpoint, I will change her to oral diuretics. Will follow her renal function. If her GFR remains below 30, then Eliquis needs to be changed. I will add hydralazine to her regimen and I will stop the amiodarone. Depending on her progress, further recommendations will be made. MMODL / IJN: [id number] /
[2017-07-25] MEDS: hydrALAZINE HCL 25 MG TAB PO SCH ×2 (12:40→20:50)
[2017-07-25 16:36] LABS: Glucose,Whole Blood 151 mg/dL (75-99)
[2017-07-25] MEDS: FUROSEMIDE 40 MG TAB PO SCH (18:08)
--- NOTE | 2017-07-25 19:10 | XR ---
EXAMINATION TYPE: XR chest 1V portable DATE OF EXAM: 07/25/2017 CLINICAL HISTORY: Difficulty breathing and CHF progress study. TECHNIQUE: Single AP portable upright view of the chest is obtained. COMPARISON: Chest x-ray from 4 days earlier and older studies. FINDINGS: Sternal wires are redemonstrated. There is persistent gross cardiomegaly. There is atherot ic and ectatic aorta causing mass effect on trachea redemonstrated. There is chronic thickening right paratracheal stripe. There is persistent mild to moderate central vascular congestion. No large pleu ral effusion or pneumothorax is present bilaterally. Osseous structures are intact. IMPRESSION: Suspect CHF exacerbation as there is cardiomegaly with central vascular congestion felt p resent. No significant change from most recent chest x-ray.
[2017-07-25] MEDS: IPRATROPIUM-ALBUTEROL 3 ML NEB INHALATION SCH (19:30)
[2017-07-25] MEDS: ATORVASTATIN 20 MG TAB PO SCH (20:50)
--- NOTE | 2017-07-25 21:02 | PN ---
PROGRESS NOTE DATE OF SERVICE: 07/25/2017. INTERVAL HISTORY: This 82-year-old woman who was admitted with significant hypoglycemia, also had some change in mental status. The patient also had acute influenza A and the patient has been closely monitored at this time. A 2D echo with Doppler was done which showed ejection fraction less than 20%. The chest x-ray done a couple days ago showed cardiomegaly, which is slightly worse than previous and history of pulmonary fibrosis also. The patient's vitals are the pulse ox is normal at this time. Cardiology is following the patient closely, the diuretics have been changed to p.o. PAST MEDICAL: Reviewed. REVIEW OF SYSTEMS: Cardiovascular: As mentioned earlier. Respiratory: As mentioned earlier. GI: No nausea or vomiting. : No dysuria. Central nervous system: No numbness or weakness. CURRENT MEDICATIONS ARE: Reviewed and include: 1. Tylenol 650 p.o. q.6h p.r.n. 2. Zyloprim 100 mg p.o. daily. 3. Xanax 0.25 mg p.o. t.i.d. 4. Eliquis 2.5 mg b.i.d. 5. Lipitor 20 mg q.h.s. 6. Lasix 40 mg p.o. b.i.d. 7. Apresoline 25 mg b.i.d. 8. NovoLog scale. 9. Synthroid 50 mcg. 10.Lopressor 25 mg b.i.d. 11.Morphine sulfate. 12.Narcan. 13.Tamiflu 30 mg p.o. b.i.d. 14.Aldactone. 15.Restoril. 16.Protonix 40 mg p.o. b.i.d. PHYSICAL EXAM: Patient is alert, oriented times three, pulse 70, blood pressure is 120/77, respiratory rate 18, temp 97.4, pulse ox 97% room air. HEENT: Conjunctivae normal. Oral mucosa moist. Neck is no JVD. No carotid bruit. No lymph node enlargement. Cardiovascular S1-S2 muffled. No S3, no S4. Respiratory: Breath sounds diminished at the bases. A few scattered rhonchi. No crackles. ABDOMEN: Soft, nontender. No mass palpable. Legs no edema. Nervous system: Diffusely weak. LABS: Creatinine is 1.74 . Glucose noted. Other labs are noted.flu positive. ASSESSMENT: 1. Severe hypoglycemia possibly medication induced. 2. Change in mental status acute metabolic encephalopathy secondary to hypoglycemia improved. 3. Acute influenza A. 4. Troponin 0.09 indeterminate. 5. History of coronary artery disease, coronary artery bypass grafting. 6. History of congestive heart failure. 7. Diabetes type 2. 8. Cardiomegaly with possible cardiomyopathy of undetermined origin with chronic systolic dysfunction. Ejection fraction of 10 to 20%. 9. Atrial fibrillation with controlled ventricular rate, possibly new onset but not on any anticoagulation at home. RECOMMENDATIONS AND DISCUSSION: Recommend to continue current medications, symptomatic treatment, management and continue to monitor. I would also recommend a chest x-ray today to evaluate for the fluid and electrolytes balance situation and increase ambulation. The patient is stable and if it is okay with Cardiology, the patient might be a candidate for discharge, but as mentioned earlier, the prognosis extremely guarded. МАРИНА / SUJEY: [id number] / MTDD
[2017-07-25 21:46] LABS: Glucose,Whole Blood 195 mg/dL (75-99)
[2017-07-26 06:24] LABS: Basophils # (A) 0.1 k/uL (0-0.2); Basophils % (A) 1 %; Eosinophils # (A) 0.1 k/uL (0-0.7); Eosinophils % (A) 1 %; HCT 45.5 % (34.0-46.0); HGB 14.6 gm/dL (11.4-16.0); Lymphocytes # (A) 1.2 k/uL (1.0-4.8); Lymphocytes % (A) 13 %; MCH 32.2 pg (25.0-35.0); MCHC 32.2 g/dL (31.0-37.0); MCV 100.2 fL (80.0-100.0); Macrocytosis Slight; Mean Platelet Volume 7.7; Monocytes # (A) 0.7 k/uL (0-1.0); Monocytes % (A) 8 %; Neutrophils # (A) 6.9 k/uL (1.3-7.7); Neutrophils % (A) 76 %; Platelet Count 249 k/uL (150-450); RBC 4.54 m/uL (3.80-5.40); RDW 14.6 % (11.5-15.5); WBC 9.1 k/uL (3.8-10.6)
[2017-07-26 06:32] LABS: Glucose,Whole Blood 144 mg/dL (75-99)
[2017-07-26] MEDS: INSULIN ASPART 100 UNIT/ML 1 ML 10 ML VIAL SQ SCH ×4 (06:35→21:33)
[2017-07-26] MEDS: PANTOPRAZOLE 40 MG TABLET PO SCH (06:35)
[2017-07-26 06:38] LABS: Potassium 4.6 mmol/L (3.5-5.1)
[2017-07-26 06:39] LABS: Calcium 9.4 mg/dL (8.4-10.2)
[2017-07-26] MEDS: IPRATROPIUM-ALBUTEROL 3 ML NEB INHALATION SCH ×3 (08:54→20:59)
[2017-07-26] MEDS: LEVOTHYROXINE 50 MCG TAB PO SCH (08:55)
[2017-07-26] MEDS: METOPROLOL TARTRATE 25 MG TAB PO SCH ×2 (08:55→21:32)
[2017-07-26] MEDS: ALLOPURINOL 100 MG TAB PO SCH (08:55)
[2017-07-26] MEDS: FUROSEMIDE 40 MG TAB PO SCH (08:55)
[2017-07-26] MEDS: APIXABAN 2.5 MG TABLET PO SCH ×2 (08:55→21:32)
[2017-07-26] MEDS: hydrALAZINE HCL 25 MG TAB PO SCH ×2 (08:55→21:32)
[2017-07-26] MEDS: SPIRONOLACTONE 25 MG TAB PO SCH (08:55)
[2017-07-26] MEDS: OSELTAMIVIR 60 MG/10 ML ORAL SYRINGE PO SCH (08:56)
[2017-07-26] MEDS: ACETAMINOPHEN TAB 325 MG TAB PO PRN (08:57)
[2017-07-26 11:30] LABS: Glucose,Whole Blood 158 mg/dL (75-99)
--- NOTE | 2017-07-26 13:35 | PN ---
PROGRESS NOTE This is an 82-year-old female with known history of coronary disease status post bypass grafting, history of cardiomyopathy, aortic valve replacement, who presented with symptoms of progressive dyspnea. She is feeling better today. Her breathing is better. She continues to be fatigued. No chest pain. No palpitation. No nausea. She continues to be at this time on Eliquis 2.5 mg twice a day, Lipitor 20 mg daily, furosemide 40 mg twice a day, hydralazine 25 mg twice a day, metoprolol tartrate 25 mg twice a day, and spironolactone 25 mg daily. PHYSICAL EXAMINATION: Blood pressure 137/60 with a heart rate in the 70s. LUNGS: Clear. Heart irregular regular S1, S2. No S3 with systolic murmur. No diastolic murmur. No rub. ABDOMEN: Soft, nontender. Extremities no significant edema. LAB DATA: Reviewed. Creatinine 58 and 1.9. Potassium 4.6. Hemoglobin 14.6. IMPRESSION: 1. Atrial fibrillation. The patient has been anticoagulated, but her renal function GFR is impaired. 2. Status post coronary artery bypass grafting. 3. Hyperlipidemia. 4. Status post aortic valve replacement. 5. Cardiomyopathy. RECOMMENDATION: I will cut down the dose of her Lasix to once a day. If her renal function remains with a GFR below 30, then I would recommend to switch her to Coumadin. In the meantime, we will continue present therapy. Follow her renal function closely and depending on her progress, further recommendation will be made. MMODL / IJN: [id number] /
[2017-07-26 16:59] LABS: Glucose,Whole Blood 193 mg/dL (75-99)
[2017-07-26 21:26] LABS: Glucose,Whole Blood 182 mg/dL (75-99)
[2017-07-26] MEDS: ATORVASTATIN 20 MG TAB PO SCH (21:32)
[2017-07-27 06:15] LABS: Glucose,Whole Blood 183 mg/dL (75-99)
[2017-07-27 06:39] LABS: Basophils # (A) 0.1 k/uL (0-0.2); Basophils % (A) 1 %; Eosinophils # (A) 0.1 k/uL (0-0.7); Eosinophils % (A) 1 %; HGB 14.5 gm/dL (11.4-16.0); Lymphocytes # (A) 0.9 k/uL (1.0-4.8); Lymphocytes % (A) 8 %; MCH 31.8 pg (25.0-35.0); MCHC 30.9 g/dL (31.0-37.0); MCV 102.8 fL (80.0-100.0); Macrocytosis Slight; Mean Platelet Volume 7.4; Monocytes # (A) 0.7 k/uL (0-1.0); Monocytes % (A) 6 %; Neutrophils # (A) 9.8 k/uL (1.3-7.7); Neutrophils % (A) 83 %; Platelet Count 280 k/uL (150-450); RBC 4.57 m/uL (3.80-5.40); WBC 11.8 k/uL (3.8-10.6)
[2017-07-27] MEDS: INSULIN ASPART 100 UNIT/ML 1 ML 10 ML VIAL SQ SCH ×4 (06:39→21:44)
[2017-07-27] MEDS: PANTOPRAZOLE 40 MG TABLET PO SCH (06:39)
[2017-07-27 07:07] LABS: Calcium 9.6 mg/dL (8.4-10.2); Potassium 4.7 mmol/L (3.5-5.1)
[2017-07-27] MEDS: IPRATROPIUM-ALBUTEROL 3 ML NEB INHALATION SCH ×3 (08:07→20:08)
[2017-07-27] MEDS: hydrALAZINE HCL 25 MG TAB PO SCH ×2 (08:49→20:50)
[2017-07-27] MEDS: APIXABAN 2.5 MG TABLET PO SCH ×2 (08:49→20:50)
[2017-07-27] MEDS: FUROSEMIDE 40 MG TAB PO SCH (08:49)
[2017-07-27] MEDS: ALLOPURINOL 100 MG TAB PO SCH (08:49)
[2017-07-27] MEDS: METOPROLOL TARTRATE 25 MG TAB PO SCH ×2 (08:50→20:50)
[2017-07-27] MEDS: LEVOTHYROXINE 50 MCG TAB PO SCH (08:50)
[2017-07-27] MEDS: SPIRONOLACTONE 25 MG TAB PO SCH (08:50)
--- NOTE | 2017-07-27 08:58 | PN ---
PROGRESS NOTE DATE OF SERVICE: 07/26/2017 INTERVAL HISTORY: This 82-year-old woman was admitted with significant hypoglycemia, also had respiratory difficulty. The patient also had recent acute influenza A. The most recent chest x- ray showed some CHF exacerbation. The patient is on a p.o. Lasix at this time. No chest pain. No palpitations. No fever. EXAM: Alert and oriented times three. Pulse is 87, blood pressure 130/60, respiration 18, temperature 97.2, pulse ox 97% on room air. HEENT: Conjunctivae normal. Neck: No jugular venous distention. Cardiovascular: S1, S2 muffled. Respiratory: Breath sounds diminished in the bases. A few scattered rhonchi and crackles. Abdomen is soft, nontender. No mass palpable. Legs: No edema. No swelling. Central nervous system: No focal deficits. LAB STUDIES: At this time shows sodium 135, creatinine 1.74. ASSESSMENT: 1. Severe hypoglycemia possibly medication induced, present on admission. 2. Change in mental status acute metabolic encephalopathy, secondary to hypoglycemia, improved. 3. Acute influenza A. 4. Troponin 0.7 indeterminate. 5. History of coronary artery disease, coronary artery bypass grafting. 6. History of congestive heart failure. 7. Diabetes type 2. 8. Cardiomegaly with possible cardiomyopathy of undetermined origin with chronic systolic dysfunction ejection fraction 20%.No evidence of acute exacerbation. . 9. Atrial fibrillation with controlled ventricular rate, possibly new onset but not on any anticoagulation at home. RECOMMENDATIONS AND DISCUSSION: In this 82-year-old woman who presented with multiple complex medical issues, we will monitor the patient closely, continue the current medications, continue symptomatic treatment. Otherwise, I would recommend repeat labs tomorrow. Otherwise the patient is stable. Patient might be able to be discharged home. Increase ambulation. Otherwise, guarded prognosis because of the multiple complex medical issues and further recommendations to follow. MMODL / IJN: [id number] /
--- NOTE | 2017-07-27 11:21 | P.PN ---
Subjective Progress Note Date: 07/27/17 82-year-old female who presented to the emergency room on 07/21/2017 secondary to mental status changes. In route to the hospital, EMS found the patient's blood sugar to be in the 40s. She was treated with dextrose. The patient states she has been having symptoms of an upper respiratory infection the past 3 days and has not been eating as much. She states she did take her Glyburide a few hours before coming to the hospital. In the emergency room, a chest x-ray was completed revealing cardiomegaly, pulmonary interstitial fibrosis, and evidence of heart failure. The patient was found to be positive for influenza A. BNP was 5070. Troponin 0.099. Sodium 134. Potassium 3.9. BUN 48. Creatinine 1.0. Magnesium 2.3. EKG on admission reveals atrial fibrillation, which appears to be new onset for the patient. The patient has a history of coronary artery disease with previous CABG and aVR , diabetes mellitus, congestive heart failure, hypothyroidism, and hyperlipidemia. Patient was seen and examined at the bedside. She remains in atrial fibrillation with a controlled rate. Blood pressure is stable with a last reading of 146/79. She is on room air with an oxygen saturation greater than 92 %. He repeat chest x-ray was completed on 07/25/2017 which reveals CHF exacerbation, cardia likely, and central venous congestion. Echocardiogram from 07/24/2017 reveals an ejection fraction less than 20%, mild mitral regurgitation, mild tricuspid regurgitation, hypokinesis, and severely dilated left atrium. Cardiology has been following for new onset A. fib. She was taking amiodarone which has since been discontinued per cardiology. She was started on hydralazine 25 mg by mouth twice a day. She is currently taking Eliquis 2.5mg PO BID, however documentation per cardiology is considering switching patient to Coumadin secondary to chronic kidney disease. Her creatinine this morning is 1.89. eGFR is 25. Her blood sugars have been improved and has not had any recent episodes of hypoglycemia. Her blood sugars are ranging from 158 to 193. She remains on a NovoLog sliding scale. Glyburide has been discontinued. A prescription for insulin has been sent to the patient' s preferred pharmacy. Spoke with Lisandro House NP for hospitalist group that was covering for Dr. Strange prior to today. She states the patient has been educated on insulin administration. They recommended patient be discharged home on insulin and continue to hold her glyburide. The patient is to check her blood sugars before meals and at bedtime and cover with NovoLog sliding scale. The patient is to keep a log of her blood sugars and bring them to her follow-up appointment with Dr. Strange. Objective - Vital Signs Vital signs: Vital Signs Temp 98.0 F 07/27/17 08:00 Pulse 72 07/27/17 08:19 Resp 14 07/27/17 08:00 BP 146/79 07/27/17 08:00 Pulse Ox 96 07/27/17 08:00 Intake & Output 07/26/17 07/27/17 07/27/17 18:59 06:59 18:59 Intake Total 1020 240 Output Total 500 Balance 520 240 Weight 80 kg Intake: Oral 1020 240 Output: Urine 500 Other: Voiding Method Toilet Toilet # Voids 1 1 1 # Bowel Movements 0 - Exam GENERAL: This is a 82-year-old female in no apparent distress at the time of examination. Pleasant and cooperative. HEENT: Head is atraumatic, normocephalic. Pupils are equal, round, and reactive to light. Sclerae anicteric. Conjunctivae are clear. Mucus membranes of the mouth are moist. Neck is supple. RESPIRATORY: Diminished at the bases. No use of accessory muscles. Patient maintaining oxygen saturation greater than 92%. No chest wall tenderness is noted on palpation or with deep breathing. CARDIOVASCULAR: Irregular rhythm. Telemetry reveals atrial fibrillation. S1 and S2 noted. Systolic murmur auscultated. No JVD noted. No S3 or S4 noted. GASTROINTESTINAL: No distention noted. Abdomen soft and round. Normal active bowel sounds auscultated X 4 quadrants. No pain or tenderness noted upon palpation. INTEGUMENTARY: No cyanosis. No jaundice. No rashes noted. No cellulitis noted. EXTREMITIES: 2+ peripheral pulses. No peripheral edema. No calf tenderness noted. NEUROLOGIC: Cranial nerves II-XII intact. PSYCHIATRIC: Awake, alert, and oriented X 3. Appropriate affect. Intact judgement and insight. - Labs CBC & Chem 7: 07/27/17 05:48 07/27/17 05:48 Labs: Abnormal Lab Results - Last 24 Hours (Table) 07/26/17 07/26/17 07/26/17 Range/Units 11:28 16:57 21:24 WBC (3.8-10.6) k/uL Hct (34.0-46.0) % MCV (80.0-100.0) fL MCHC (31.0-37.0) g/dL Neutrophils # (1.3-7.7) k/uL Lymphocytes # (1.0-4.8) k/uL Sodium (137-145) mmol/L Chloride (98-107) mmol/L BUN (7-17) mg/dL Creatinine (0.52-1.04) mg/dL Glucose (74-99) mg/dL POC Glucose (mg/dL) 158 H 193 H 182 H (75-99) mg/dL 07/27/17 07/27/17 07/27/17 Range/Units 05:48 05:48 06:11 WBC 11.8 H (3.8-10.6) k/uL Hct 47.0 H (34.0-46.0) % MCV 102.8 H (80.0-100.0) fL MCHC 30.9 L (31.0-37.0) g/dL Neutrophils # 9.8 H (1.3-7.7) k/uL Lymphocytes # 0.9 L (1.0-4.8) k/uL Sodium 134 L (137-145) mmol/L Chloride 97 L (98-107) mmol/L BUN 60 H (7-17) mg/dL Creatinine 1.89 H (0.52-1.04) mg/dL Glucose 178 H (74-99) mg/dL POC Glucose (mg/dL) 183 H (75-99) mg/dL Assessment and Plan Plan: ASSESSMENT: Altered mental status and metabolic encephalopathy, present on admission, secondary to hypoglycemia, resolved Severe hypoglycemia, present on admission, likely medication induced as patient continued to take Glyburide with decreased oral intake, resolved Atrial fibrillation, appears to be new onset, started on anticoagulation with Eliquis Acute influenza A, present on admission, completed course of Tamiflu Acute exacerbation of systolic congestive heart failure, echo reveals EF of 20% Chronic kidney disease, stage IV, eGFR 25 History of diabetes mellitus, type II, hemoglobin A1c 6.2% History of coronary disease with previous CABG and aortic valve replacement Hyperlipidemia PLAN: -Cardiology on consult. Appreciate recommendations and input -Continue Eliquis at this time per cardiology. Possible switch to Coumadin. Await further input from cardiology -Continue Lasix 40 mg by mouth daily -Continue metoprolol and hydralazine per cardiology -Home meds as appropriate -Monitor labs -Continue to hold glyburide -Capillary blood glucose Accu-Cheks before meals and at bedtime -NovoLog sliding scale coverage before meals and at bedtime -Patient to be discharged home on insulin sliding scale AC/HS and is to keep a log of her blood sugars to bring to her follow up appointment with Dr. Strange -GI prophylaxis: Protonix 40 mg by mouth daily -DVT prophylaxis: Currently receiving Eliquis 2.5mg BID -Monitor vital signs and address as appropriate -Consult physical therapy for evaluation -Discharge planning: Patient to return home when stable with home care -Further recommendations pending patient's course -Possible discharge home this afternoon per Dr. Strange pending cardiology recommendations Nurse practitioner note has been reviewed by physician. Signing provider agrees with the documented findings, assessment, and plan of care.
[2017-07-27 12:05] LABS: Glucose,Whole Blood 202 mg/dL (75-99)
--- NOTE | 2017-07-27 12:53 | P.PN ---
Subjective Progress Note Date: 07/27/17 Principal diagnosis: Atrial fibrillation This is a pleasant 82-year-old female with known history of coronary artery disease and prior bypass surgery, history of cardiomyopathy, aortic valve replacement, who presented to the hospital with symptoms of dyspnea. He and examined sitting up in the chair today, overall feeling much better. Lungs are clear today. Blood pressure 126/66, heart rate in the 70s, 95% on room air. BUN 60, creatinine 1.8, potassium 4.7. Objective - Vital Signs Vital signs: Vital Signs Temp 98.1 F 07/27/17 12:00 Pulse 79 07/27/17 12:00 Resp 18 07/27/17 12:00 BP 127/66 07/27/17 12:00 Pulse Ox 95 07/27/17 12:00 Intake & Output 07/26/17 07/27/17 07/27/17 18:59 06:59 18:59 Intake Total 1020 240 Output Total 500 Balance 520 240 Weight 80 kg Intake: Oral 1020 240 Output: Urine 500 Other: Voiding Method Toilet Toilet # Voids 1 1 1 # Bowel Movements 0 - Exam PHYSICAL EXAMINATION: HEENT: Head is atraumatic, normocephalic. Pupils equal, round. Neck is supple. There is no elevated jugular venous pressure. HEART EXAMINATION: Heart S1 and S2 systolic murmur is heard. CHEST EXAMINATION: Lungs are clear to auscultation and precussion. No chest wall tenderness is noted on palpation or with deep breathing. ABDOMEN: Soft, nontender. Bowel sounds are heard. No organomegaly noted. EXTREMITIES: 2+ peripheral pulses with trace evidence of peripheral edema and no calf tenderness noted. NEUROLOGIC patient is awake, alert and oriented -3. . - Labs CBC & Chem 7: 07/27/17 05:48 07/27/17 05:48 Labs: Abnormal Lab Results - Last 24 Hours (Table) 07/26/17 07/26/17 07/27/17 Range/Units 16:57 21:24 05:48 WBC 11.8 H (3.8-10.6) k/uL Hct 47.0 H (34.0-46.0) % MCV 102.8 H (80.0-100.0) fL MCHC 30.9 L (31.0-37.0) g/dL Neutrophils # 9.8 H (1.3-7.7) k/uL Lymphocytes # 0.9 L (1.0-4.8) k/uL Sodium (137-145) mmol/L Chloride (98-107) mmol/L BUN (7-17) mg/dL Creatinine (0.52-1.04) mg/dL Glucose (74-99) mg/dL POC Glucose (mg/dL) 193 H 182 H (75-99) mg/dL 07/27/17 07/27/17 07/27/17 Range/Units 05:48 06:11 11:52 WBC (3.8-10.6) k/uL Hct (34.0-46.0) % MCV (80.0-100.0) fL MCHC (31.0-37.0) g/dL Neutrophils # (1.3-7.7) k/uL Lymphocytes # (1.0-4.8) k/uL Sodium 134 L (137-145) mmol/L Chloride 97 L (98-107) mmol/L BUN 60 H (7-17) mg/dL Creatinine 1.89 H (0.52-1.04) mg/dL Glucose 178 H (74-99) mg/dL POC Glucose (mg/dL) 183 H 202 H (75-99) mg/dL Assessment and Plan Plan: Assessment and plan #1 chronic persistent atrial fibrillation #2 known history of coronary artery disease with prior bypass surgery #3 hyperlipidemia #4 status post aortic valve replacement #5 systolic congestive heart failure acute on chronic Plan We'll check lytes BUN and creatinine in the morning. Continue current medications. Plan for possible discharge home in 24 hours if stable. DNP note has been reviewed, I agree with a documented findings and plan of care. Patient was seen and examined.
[2017-07-27 17:05] LABS: Glucose,Whole Blood 208 mg/dL (75-99)
[2017-07-27] MEDS: ATORVASTATIN 20 MG TAB PO SCH (20:50)
[2017-07-27 21:41] LABS: Glucose,Whole Blood 256 mg/dL (75-99)
[2017-07-27 21:41] LABS: Glucose,Whole Blood 429 mg/dL (75-99)
[2017-07-28 06:02] LABS: Glucose,Whole Blood 167 mg/dL (75-99)
[2017-07-28 06:26] LABS: Calcium 9.3 mg/dL (8.4-10.2); Potassium 4.3 mmol/L (3.5-5.1)
[2017-07-28] MEDS: PANTOPRAZOLE 40 MG TABLET PO SCH (06:37)
[2017-07-28] MEDS: INSULIN ASPART 100 UNIT/ML 1 ML 10 ML VIAL SQ SCH (06:37)
[2017-07-28] MEDS: IPRATROPIUM-ALBUTEROL 3 ML NEB INHALATION SCH ×2 (08:16→12:01)
[2017-07-28] MEDS: ALLOPURINOL 100 MG TAB PO SCH (09:11)
[2017-07-28] MEDS: APIXABAN 2.5 MG TABLET PO SCH (09:11)
[2017-07-28] MEDS: FUROSEMIDE 40 MG TAB PO SCH (09:11)
[2017-07-28] MEDS: hydrALAZINE HCL 25 MG TAB PO SCH (09:11)
[2017-07-28] MEDS: LEVOTHYROXINE 50 MCG TAB PO SCH (09:12)
[2017-07-28] MEDS: METOPROLOL TARTRATE 25 MG TAB PO SCH (09:12)
[2017-07-28] MEDS: SPIRONOLACTONE 25 MG TAB PO SCH (09:12)
[2017-07-28 09:38] VITALS: RESP 16
--- NOTE | 2017-07-28 09:47 | P.DS ---
Providers Date of admission: 07/22/17 00:57 Expected date of discharge: 07/28/17 Attending physician: Rhys Strange Consults: 07/24/17 09:21 Consult Physician Routine Consulting Provider: Romeo Garcia Consult Reason/Comments: New onset afib Do you want consulting provider notified?: Yes Primary care physician: Rhys Strange [facility] Course: 82-year-old female who presented to the emergency room on 07/21/2017 secondary to mental status changes. In route to the hospital, EMS found the patient's blood sugar to be in the 40s. She was treated with dextrose. The patient states she has been having symptoms of an upper respiratory infection the past 3 days and has not been eating as much. She states she did take her Glyburide a few hours before coming to the hospital. In the emergency room, a chest x-ray was completed revealing cardiomegaly, pulmonary interstitial fibrosis, and evidence of heart failure. BNP was 5070. Troponin 0.099. Sodium 134. Potassium 3.9. BUN 48. Creatinine 1.0. Magnesium 2.3. EKG on admission reveals atrial fibrillation. The patient has a history of coronary artery disease with previous CABG and aVR , diabetes mellitus, congestive heart failure, hypothyroidism, and hyperlipidemia. The patient was found to be positive for influenza A. She did complete a course of Tamiflu during hospitalization. Her repeat chest x-ray was completed on 07/25/2017 which reveals CHF exacerbation, cardia likely, and central venous congestion. Echocardiogram from 07/24/2017 reveals an ejection fraction less than 20%, mild mitral regurgitation, mild tricuspid regurgitation, hypokinesis, and severely dilated left atrium. Cardiology has been following for A. fib. She was taking amiodarone which has since been discontinued per cardiology. She was started on hydralazine 25 mg by mouth twice a day and metoprolol 25mg BID per cardiology. She is currently taking Eliquis 2.5mg PO BID. The patient's blood sugars were low initially during hospitalization, likely secondary to decreased oral intake and the patient taking her glyburide. Initially the patient was going to be discharged home on insulin. However at this time her blood sugars have stabilized and she has had no further episodes of hypoglycemia. The patient is requesting to be discharged home on her glyburide and not insulin. Her hemoglobin A1c is 6.2. The patient is to be discharged home on her regular dose of glyburide. The patient was educated on not taking her medication if she is not feeling well or is not eating. Patient verbalized understanding. The patient was deemed stable for discharge per Dr. Strange. She is to follow up on an outpatient basis with Dr. Strange and her indigo vat tender cloth. DISCHARGE DIAGNOSIS: Altered mental status and metabolic encephalopathy, present on admission, secondary to hypoglycemia, resolved Severe hypoglycemia, present on admission, likely medication induced as patient continued to take Glyburide with decreased oral intake, resolved Atrial fibrillation, appears to be new onset, started on anticoagulation with Eliquis Acute influenza A, present on admission, completed course of Tamiflu Acute exacerbation of systolic congestive heart failure, echo reveals EF of 20% Chronic kidney disease, stage IV, eGFR 25 History of diabetes mellitus, type II, hemoglobin A1c 6.2% History of coronary disease with previous CABG and aortic valve replacement Hyperlipidemia Nurse practitioner note has been reviewed by physician. Signing provider agrees with the documented findings, assessment, and plan of care. Patient Condition at Discharge: Stable Plan - Discharge Summary Discharge Rx Participant: Yes New Discharge Prescriptions: New Apixaban [Eliquis] 2.5 mg PO BID tablet Pantoprazole [Protonix] 40 mg PO AC-BRKFST #30 tablet. hydrALAZINE HCL [Apresoline] 25 mg PO BID #60 tab Spironolactone [Aldactone] 25 mg PO DAILY tab glyBURIDE [Diabeta] 5 mg PO AC-BID #60 tablet Continue Levothyroxine Sodium [Synthroid] 50 mcg PO DAILY Simvastatin [Zocor] 20 mg PO HS Metoprolol Tartrate [Lopressor] 25 mg PO BID Furosemide [Lasix] 40 mg PO DAILY Allopurinol [Zyloprim] 100 mg PO DAILY Discontinued Spironolactone [Aldactone] 25 mg PO BID Amiodarone [Cordarone] 200 mg PO DAILY Discharge Medication List Allopurinol [Zyloprim] 100 mg PO DAILY 07/21/17 [History] Furosemide [Lasix] 40 mg PO DAILY 07/21/17 [History] Levothyroxine Sodium [Synthroid] 50 mcg PO DAILY 07/21/17 [History] Metoprolol Tartrate [Lopressor] 25 mg PO BID 07/21/17 [History] Simvastatin [Zocor] 20 mg PO HS 07/21/17 [History] Apixaban [Eliquis] 2.5 mg PO BID tablet 07/24/17 [Rx] Pantoprazole [Protonix] 40 mg PO AC-BRKFST #30 tablet. 07/24/17 [Rx] Spironolactone [Aldactone] 25 mg PO DAILY tab 07/28/17 [Rx] glyBURIDE [Diabeta] 5 mg PO AC-BID #60 tablet 07/28/17 [Rx] hydrALAZINE HCL [Apresoline] 25 mg PO BID #60 tab 07/28/17 [Rx] Follow up Appointment(s)/Referral(s): Thalia Benson MD [STAFF PHYSICIAN] - 08/11/17 9:15 am Rhys Strange DO [Primary Care Provider] - 3 Days () [facility] Visiting Nurse, [NON-STAFF] - Ambulatory/Diagnostic Orders: Complete Blood Count w/diff [LAB.AMB] Time Frame: 3 Days, Location: Determined By Patient Patient Instructions/Handouts: Hypoglycemia in a Person with Diabetes (DC), Influenza (DC) Activity/Diet/Wound Care/Special Instructions: Diet: Consistent carb (DIABETIC DIET) Keep a log of your blood sugars and bring with you to your next appointment with Dr. Strange Activity: Limited until follow up Discharge Disposition: HOME WITH HOME HEALTH SERVICES
[2017-07-28 12:23] LABS: Glucose,Whole Blood 247 mg/dL (75-99)
[2017-07-28 12:37] VITALS: BP 123/78; PULSE 95; TEMP 98
--- NOTE | 2017-07-28 14:42 | P.PN ---
Subjective Progress Note Date: 07/28/17 Principal diagnosis: Atrial fibrillation This is a pleasant 82-year-old female with known history of coronary artery disease and prior bypass surgery, history of cardiomyopathy, aortic valve replacement, who presented to the hospital with symptoms of dyspnea. Seen and examined sitting up in the chair today, overall feeling much better. Lungs are clear today. Blood pressure 126/66, heart rate in the 70s, 95% on room air. BUN 56, creatinine 1.8, potassium 4.3. Patient will be discharged home today, a follow-up appointment will be made with Dr. Lucero in the office post discharge. Objective - Vital Signs Vital signs: Vital Signs Temp 98.0 F 07/28/17 12:00 Pulse 101 H 07/28/17 12:13 Resp 16 07/28/17 12:00 BP 123/78 07/28/17 12:00 Pulse Ox 97 07/28/17 12:00 Intake & Output 07/27/17 07/28/17 07/28/17 18:59 06:59 18:59 Intake Total 200 Balance 200 Weight 80.3 kg Intake: Oral 200 Other: Voiding Method Toilet # Voids 2 2 - Exam PHYSICAL EXAMINATION: HEENT: Head is atraumatic, normocephalic. Pupils equal, round. Neck is supple. There is no elevated jugular venous pressure. HEART EXAMINATION: Heart S1 and S2 systolic murmur is heard. CHEST EXAMINATION: Lungs are clear to auscultation and precussion. No chest wall tenderness is noted on palpation or with deep breathing. ABDOMEN: Soft, nontender. Bowel sounds are heard. No organomegaly noted. EXTREMITIES: 2+ peripheral pulses with trace evidence of peripheral edema and no calf tenderness noted. NEUROLOGIC patient is awake, alert and oriented -3. . - Labs CBC & Chem 7: 07/27/17 05:48 07/28/17 05:40 Labs: Abnormal Lab Results - Last 24 Hours (Table) 07/27/17 07/27/17 07/27/17 Range/Units 17:04 21:37 21:38 Sodium (137-145) mmol/L Chloride (98-107) mmol/L BUN (7-17) mg/dL Creatinine (0.52-1.04) mg/dL Glucose (74-99) mg/dL POC Glucose (mg/dL) 208 H 429 H 256 H (75-99) mg/dL 07/28/17 07/28/17 07/28/17 Range/Units 05:40 05:58 12:19 Sodium 133 L (137-145) mmol/L Chloride 97 L (98-107) mmol/L BUN 56 H (7-17) mg/dL Creatinine 1.65 H (0.52-1.04) mg/dL Glucose 162 H (74-99) mg/dL POC Glucose (mg/dL) 167 H 247 H (75-99) mg/dL Assessment and Plan Plan: Assessment and plan #1 chronic persistent atrial fibrillation #2 known history of coronary artery disease with prior bypass surgery #3 hyperlipidemia #4 status post aortic valve replacement #5 systolic congestive heart failure acute on chronic Plan Patient will be discharged home, f/u with Dr Garcia post discharge. DNP note has been reviewed, I agree with a documented findings and plan of care. Patient was seen and examined.
== END 2017-07-28 13:29 | disposition home health service (06) | DRG 637 ==
LOC: EC 22:40 → 6SEL 07-22 00:57
PROVIDERS: ADMIT Family Medicine; ATTEND Family Medicine
DX: E11.649 Type 2 diabetes mellitus with hypoglycemia without coma (principal); G93.41 Metabolic encephalopathy; I50.23 Acute on chronic systolic (congestive) heart failure; I48.1 Persistent atrial fibrillation; N18.4 Chronic kidney disease, stage 4 (severe); I42.9 Cardiomyopathy, unspecified; I08.1 Rheumatic disorders of both mitral and tricuspid valves; I48.2 Chronic atrial fibrillation; I13.0 Hypertensive heart and chronic kidney disease with heart failure and stage 1 through stage 4 chronic kidney disease, or unspecified chronic kidney disease; E11.22 Type 2 diabetes mellitus with diabetic chronic kidney disease; E03.9 Hypothyroidism, unspecified; E78.5 Hyperlipidemia, unspecified; I25.10 Atherosclerotic heart disease of native coronary artery without angina pectoris; J10.1 Influenza due to other identified influenza virus with other respiratory manifestations; J84.10 Pulmonary fibrosis, unspecified; M19.90 Unspecified osteoarthritis, unspecified site; R74.8 Abnormal levels of other serum enzymes; T38.3X5A Adverse effect of insulin and oral hypoglycemic [antidiabetic] drugs, initial encounter; Z79.899 Other long term (current) drug therapy; Z79.84 Long term (current) use of oral hypoglycemic drugs; Z95.2 Presence of prosthetic heart valve; Z95.1 Presence of aortocoronary bypass graft; Z90.710 Acquired absence of both cervix and uterus; Z96.659 Presence of unspecified artificial knee joint; Y92.009 Unspecified place in unspecified non-institutional (private) residence as the place of occurrence of the external cause
CPT/HCPCS: 36415; 71045; 71046; 80048; 80053; 81001; 82550; 82553; 83036; 83735; 83880; 84484; 85025; 85610; 85730; 87086; 87502; 93005; 93306; 94640; 96374; 99285

== ENCOUNTER 2017-10-08 06:46 | Observation (INO) | payer MEDICARE, BC ==
--- NOTE | 2017-10-08 06:59 | ED ---
SOB HPI <Yadiel Knott - Last Filed: 10/08/17 07:14> <Gorge Fofana - Last Filed: 10/08/17 09:16> - General Stated Complaint: MARY KATE Time Seen by Provider: 10/08/17 06:49 - History of Present Illness Initial Comments: This is an 82-year-old female with a history of CAD, CHF, valve replacement who presents emergency department for shortness of breath. She states that she woke up this morning and felt severely short of breath and had an acid taste in her mouth. She states that she felt like she could not catch her breath. She states that she has not been coughing. No fevers or chills. She denies any chest discomfort or pain. She called her name jasmeet brought her to the emergency department. She did get a breathing treatment in route. She states that she feels improved at this time. States that she does not have any underlying lung disease. She denies any lower [place] swelling that is worse than normal. No leg pain. No history of PE or DVT. No other acute complaints. (Yadiel Knott) - Related Data Home Medications Medication Instructions Recorded Confirmed Allopurinol [Zyloprim] 100 mg PO DAILY 07/21/17 10/08/17 Furosemide [Lasix] 40 mg PO DAILY 07/21/17 10/08/17 Levothyroxine Sodium [Synthroid] 50 mcg PO DAILY 07/21/17 10/08/17 Metoprolol Tartrate [Lopressor] 25 mg PO BID 07/21/17 10/08/17 Simvastatin [Zocor] 20 mg PO HS 07/21/17 10/08/17 Aspirin EC [Ecotrin Low Dose] 81 mg PO DAILY 07/28/17 10/08/17 Ferrous Sulfate [Iron] 325 mg PO DIRECTED 10/08/17 10/08/17 Folic Acid-Vit B Complex-Vit C 1 cap PO DAILY 10/08/17 10/08/17 [Nephrocaps] amLODIPine [Norvasc] 2.5 mg PO DAILY 10/08/17 10/08/17 Previous Rx's Medication Instructions Recorded Apixaban [Eliquis] 2.5 mg PO BID tablet 07/24/17 Pantoprazole [Protonix] 40 mg PO DAILY #30 tab 01/09/18 Spironolactone [Aldactone] 25 mg PO DAILY tab 07/28/17 glyBURIDE [Diabeta] 5 mg PO AC-BID #60 tablet 07/28/17 hydrALAZINE HCL [Apresoline] 25 mg PO BID #60 tab 07/28/17 Allergies Allergy/AdvReac Type Severity Reaction Status Date / Time No Known Allergies Allergy Verified 10/08/17 07:29 Review of Systems ROS Other: All systems not noted in ROS Statement are negative. <Yadiel Knott - Last Filed: 10/08/17 07:14> ROS Other: All systems not noted in ROS Statement are negative. <Gorge Fofana - Last Filed: 10/08/17 09:16> ROS Statement: Those systems with pertinent positive or pertinent negative responses have been documented in the HPI. Past Medical History Past Medical History: Coronary Artery Disease (CAD), Heart Failure, Diabetes Mellitus, Hypertension, Thyroid Disorder History of Any Multi-Drug Resistant Organisms: None Reported Past Surgical History: Coronary Bypass/CABG, Hysterectomy, Joint Replacement, Orthopedic Surgery Additional Past Surgical History / Comment(s): heart valve replacement, knee replaced, ankle Past Psychological History: No Psychological Hx Reported Smoking Status: Never smoker Past Alcohol Use History: None Reported Past Drug Use History: None Reported <Yadiel Knott - Last Filed: 10/08/17 07:14> General Exam <Yadiel Knott - Last Filed: 10/08/17 07:14> <Gorge Fofana - Last Filed: 10/08/17 09:16> - General Exam Comments Initial Comments: Constitutional: Awake alert Appears comfortable Head: Normocephalic atraumatic Eyes: no conjunctival injection No scleral icterus EOMI Neck: No JVD Supple Heart: Irregularly irregular rhythm normal S1-S2 no murmurs Lungs: Clear to auscultation bilaterally No wheezing No rales, decreased breath sounds bilaterally Abdomen: Soft nondistended nontender Extremities: Mild edema to bilateral lower extremities DP pulses intact Radial pulses intact Neuro: A&Ox3 No focal neurologic deficits Psych: Appropriate mood and affect (Yadiel Knott) Course <Yadiel Knott - Last Filed: 10/08/17 07:14> <Gorge Fofana - Last Filed: 10/08/17 09:16> Vital Signs 10/08/17 10/08/17 10/08/17 06:56 07:05 07:27 Temperature 98.3 F 97.6 F Pulse Rate 96 85 Respiratory 20 20 14 Rate Blood Pressure 156/77 127/61 O2 Sat by Pulse 95 2 L Oximetry 10/08/17 09:01 Temperature Pulse Rate 67 Respiratory 14 Rate Blood Pressure 142/64 O2 Sat by Pulse 97 Oximetry - Reevaluation(s) Reevaluation #1: 10/08/17 07:14 EKG showing H of fibrillation with a rate of 90. There is a left bundle-branch block. There is no abnormal ST segment changes or T-wave inversions. QTC is 504. Other intervals are normal except for the QRS which is prolonged because of the bundle-branch block. There is one PVC.. (Yadiel Knott) Medical Decision Making <Yadiel Knott - Last Filed: 10/08/17 07:14> - Lab Data Result diagrams: 10/08/17 07:03 10/08/17 07:03 <Gorge Fofana - Last Filed: 10/08/17 09:16> - Medical Decision Making This patient was signed out to me by Dr. Knott. I went back into reevaluate the patient patient stated she was having some chest discomfort this morning she thought it was heartburn and that with her shortness of breath is the reason she came in. Patient states currently she is feeling pretty good she no longer has any chest discomfort or shortness of breath. Patient did not tell the previous physician that she was having chest discomfort but she indicated to me and told me she just thought it was heartburn. Chest x-ray does show some venous congestion without overt failure. I spoke with Dr. Strange he agreed to admit the patient admitted the patient wrote admitting orders. (Gorge Fofana) - Lab Data Lab Results 10/08/17 10/08/17 10/08/17 Range/Units 07:03 07:03 07:03 WBC 9.3 (3.8-10.6) k/uL RBC 4.02 (3.80-5.40) m/uL Hgb 12.8 (11.4-16.0) gm/dL Hct 39.8 (34.0-46.0) % MCV 99.1 (80.0-100.0) fL MCH 31.9 (25.0-35.0) pg MCHC 32.2 (31.0-37.0) g/dL RDW 14.1 (11.5-15.5) % Plt Count 203 (150-450) k/uL Neutrophils % 72 % Lymphocytes % 16 % Monocytes % 7 % Eosinophils % 2 % Basophils % 1 % Neutrophils # 6.7 (1.3-7.7) k/uL Lymphocytes # 1.5 (1.0-4.8) k/uL Monocytes # 0.6 (0-1.0) k/uL Eosinophils # 0.1 (0-0.7) k/uL Basophils # 0.1 (0-0.2) k/uL Macrocytosis Slight PT (9.0-12.0) sec INR (<1.2) APTT (22.0-30.0) sec Sodium 140 (137-145) mmol/L Potassium 4.1 (3.5-5.1) mmol/L Chloride 103 (98-107) mmol/L Carbon Dioxide 26 (22-30) mmol/L Anion Gap 11 mmol/L BUN 54 H (7-17) mg/dL Creatinine 1.72 H (0.52-1.04) mg/dL Est GFR (CKD-EPI)AfAm 32 (>60 ml/min/1.73 sqM) Est GFR (CKD-EPI)NonAf 27 (>60 ml/min/1.73 sqM) Glucose 95 (74-99) mg/dL Calcium 9.4 (8.4-10.2) mg/dL Magnesium 2.4 H (1.6-2.3) mg/dL Total Bilirubin 0.9 (0.2-1.3) mg/dL AST 18 (14-36) U/L ALT 21 (9-52) U/L Alkaline Phosphatase 90 (38-126) U/L CK-MB (CK-2) 0.6 (0.0-2.4) ng/mL Troponin I <0.012 (0.000-0.034) ng/mL NT-Pro-B Natriuret Pep pg/mL Total Protein 6.0 L (6.3-8.2) g/dL Albumin 3.7 (3.5-5.0) g/dL 10/08/17 10/08/17 Range/Units 07:03 07:03 WBC (3.8-10.6) k/uL RBC (3.80-5.40) m/uL Hgb (11.4-16.0) gm/dL Hct (34.0-46.0) % MCV (80.0-100.0) fL MCH (25.0-35.0) pg MCHC (31.0-37.0) g/dL RDW (11.5-15.5) % Plt Count (150-450) k/uL Neutrophils % % Lymphocytes % % Monocytes % % Eosinophils % % Basophils % % Neutrophils # (1.3-7.7) k/uL Lymphocytes # (1.0-4.8) k/uL Monocytes # (0-1.0) k/uL Eosinophils # (0-0.7) k/uL Basophils # (0-0.2) k/uL Macrocytosis PT 11.0 (9.0-12.0) sec INR 1.1 (<1.2) APTT 25.3 (22.0-30.0) sec Sodium (137-145) mmol/L Potassium (3.5-5.1) mmol/L Chloride (98-107) mmol/L Carbon Dioxide (22-30) mmol/L Anion Gap mmol/L BUN (7-17) mg/dL Creatinine (0.52-1.04) mg/dL Est GFR (CKD-EPI)AfAm (>60 ml/min/1.73 sqM) Est GFR (CKD-EPI)NonAf (>60 ml/min/1.73 sqM) Glucose (74-99) mg/dL Calcium (8.4-10.2) mg/dL Magnesium (1.6-2.3) mg/dL Total Bilirubin (0.2-1.3) mg/dL AST (14-36) U/L ALT (9-52) U/L Alkaline Phosphatase (38-126) U/L CK-MB (CK-2) (0.0-2.4) ng/mL Troponin I (0.000-0.034) ng/mL NT-Pro-B Natriuret Pep 5310 pg/mL Total Protein (6.3-8.2) g/dL Albumin (3.5-5.0) g/dL Disposition <Yadiel Knott - Last Filed: 10/08/17 07:14> Time of Disposition: 09:15 <Gorge Fofana - Last Filed: 10/08/17 09:16> Clinical Impression: Chest pain, Dyspnea Disposition: ADMITTED IP TO THIS HOSP Referrals: Rhys Strange DO [Primary Care Provider] - 1-2 days
[2017-10-08 07:16] LABS: Basophils # (A) 0.1 k/uL (0-0.2); Basophils % (A) 1 %; Eosinophils # (A) 0.1 k/uL (0-0.7); Eosinophils % (A) 2 %; HCT 39.8 % (34.0-46.0); HGB 12.8 gm/dL (11.4-16.0); Lymphocytes # (A) 1.5 k/uL (1.0-4.8); Lymphocytes % (A) 16 %; MCH 31.9 pg (25.0-35.0); MCHC 32.2 g/dL (31.0-37.0); MCV 99.1 fL (80.0-100.0); Macrocytosis Slight; Mean Platelet Volume 7.2; Monocytes # (A) 0.6 k/uL (0-1.0); Monocytes % (A) 7 %; Neutrophils # (A) 6.7 k/uL (1.3-7.7); Neutrophils % (A) 72 %; Platelet Count 203 k/uL (150-450); RBC 4.02 m/uL (3.80-5.40); RDW 14.1 % (11.5-15.5); WBC 9.3 k/uL (3.8-10.6)
[2017-10-08 07:22] LABS: INR 1.1 (<1.2); Partial Thromboplastin Time 25.3 sec (22.0-30.0)
--- NOTE | 2017-10-08 07:22 | XR ---
EXAMINATION TYPE: XR chest 2V DATE OF EXAM: 10/08/2017 COMPARISON: 07/25/2017 HISTORY: Shortness of breath TECHNIQUE: Frontal and lateral views of the chest are obtained. FINDINGS: Scattered senescent parenchymal changes noted. Hyperinflation compatible with COPD. No evidence for infiltrate. No evidence for atelectasis. The heart is enlarged. Pulmonary venous congestion without overt failure. Mediastinal structures are stable and grossly unremarkable. No evidence for hilar prominence. Degenerative changes dorsal spine. IMPRESSION: 1. The heart is enlarged. Pulmonary venous congestion without overt failure.
[2017-10-08 07:33] LABS: Albumin 3.7 g/dL (3.5-5.0); Calcium 9.4 mg/dL (8.4-10.2); Magnesium 2.4 mg/dL (1.6-2.3); Potassium 4.1 mmol/L (3.5-5.1); Total Bilirubin 0.9 mg/dL (0.2-1.3)
[2017-10-08 07:51] LABS: Creatine Kinase MB 0.6 ng/mL (0.0-2.4); Troponin I <0.012 ng/mL (0.000-0.034)
[2017-10-08] MEDS ORDERED: NITROGLYCERIN SL TABS 0.4 MG TAB SUBLINGUAL PRN (09:17)
[2017-10-08] MEDS ORDERED: ASPIRIN 81 MG PO STA (09:17)
[2017-10-08] MEDS ORDERED: FUROSEMIDE 10 MG/ML 4 ML VIAL IV STA (09:20)
[2017-10-08] MEDS ORDERED: NON-FORMULARY DRUG (Aspirin Ec 81 MG) PO SCH (10:45)
[2017-10-08] MEDS ORDERED: FERROUS SULFATE 325 MG TAB PO SCH (10:45)
[2017-10-08] MEDS ORDERED: INFLUENZA VACCINE (6 MOS+) 60 MCG/0.5 ML SYRINGE IM ONE (10:45)
[2017-10-08 11:04] LABS: Glucose,Whole Blood 134 mg/dL (75-99)
[2017-10-08] MEDS ORDERED: LOSARTAN 25 MG TAB PO STA (11:49)
[2017-10-08] MEDS: LEVOTHYROXINE 50 MCG TAB PO SCH (11:55)
[2017-10-08] MEDS: ALLOPURINOL 100 MG TAB PO SCH (11:55)
[2017-10-08] MEDS: PANTOPRAZOLE 40 MG TABLET PO SCH (11:55)
[2017-10-08] MEDS: FOLIC ACID-VIT B COMPLEX-VIT C 1 CAP PO SCH (11:55)
[2017-10-08] MEDS: amLODIPine 2.5 MG TAB PO SCH (11:55)
[2017-10-08] MEDS: glipiZIDE 10 MG TAB PO SCH ×2 (11:56→20:48)
[2017-10-08] MEDS: NITROGLYCERIN OINT 1 INCH/GM PACKET TOPICAL SCH ×2 (12:50→20:24)
[2017-10-08 14:00] LABS: Creatine Kinase MB 0.8 ng/mL (0.0-2.4); Troponin I 0.012 ng/mL (0.000-0.034)
[2017-10-08 17:52] LABS: Glucose,Whole Blood 87 mg/dL (75-99)
[2017-10-08 19:33] LABS: Creatine Kinase MB 0.7 ng/mL (0.0-2.4); Troponin I 0.013 ng/mL (0.000-0.034)
[2017-10-08 20:39] LABS: Glucose,Whole Blood 66 mg/dL (75-99)
[2017-10-08] MEDS: hydrALAZINE HCL 25 MG TAB PO SCH ×3 (20:42→22:18)
[2017-10-08] MEDS: METOPROLOL TARTRATE 25 MG TAB PO SCH (20:48)
[2017-10-08] MEDS: APIXABAN 2.5 MG TABLET PO SCH (20:48)
[2017-10-08] MEDS ORDERED: hydrALAZINE HCL 25 MG TAB PO SCH (21:00)
[2017-10-08] MEDS ORDERED: ATORVASTATIN 10 MG TAB PO SCH (21:00)
[2017-10-08] MEDS ORDERED: FUROSEMIDE 10 MG/ML 4 ML VIAL IV SCH (21:00)
[2017-10-09] MEDS: NITROGLYCERIN OINT 1 INCH/GM PACKET TOPICAL SCH ×2 (05:17→08:03)
[2017-10-09 07:11] LABS: Calcium 9.4 mg/dL (8.4-10.2)
[2017-10-09 07:34] LABS: Glucose,Whole Blood 69 mg/dL (75-99)
[2017-10-09] MEDS ORDERED: ASPIRIN 81 MG PO SCH (09:00)
[2017-10-09] MEDS ORDERED: FUROSEMIDE 40 MG TAB PO SCH (09:00)
[2017-10-09] MEDS ORDERED: SPIRONOLACTONE 25 MG TAB PO SCH (09:00)
[2017-10-09] MEDS ORDERED: hydrALAZINE HCL 25 MG TAB PO SCH (09:00)
[2017-10-09] MEDS ORDERED: LOSARTAN 25 MG TAB PO SCH (09:00)
[2017-10-09] MEDS ORDERED: ASPIRIN 325 MG TAB PO SCH (09:00)
[2017-10-09 09:04] VITALS: RESP 18
[2017-10-09] MEDS: glipiZIDE 10 MG TAB PO SCH (09:32)
[2017-10-09] MEDS: PANTOPRAZOLE 40 MG TABLET PO SCH (09:37)
[2017-10-09] MEDS: APIXABAN 2.5 MG TABLET PO SCH (09:38)
[2017-10-09] MEDS: amLODIPine 2.5 MG TAB PO SCH (09:38)
[2017-10-09] MEDS: FOLIC ACID-VIT B COMPLEX-VIT C 1 CAP PO SCH (09:38)
[2017-10-09] MEDS: ALLOPURINOL 100 MG TAB PO SCH (09:38)
[2017-10-09] MEDS: METOPROLOL TARTRATE 25 MG TAB PO SCH (09:38)
[2017-10-09] MEDS: LEVOTHYROXINE 50 MCG TAB PO SCH (09:39)
[2017-10-09 11:56] VITALS: BP 121/79; PULSE 62; TEMP 97.8
[2017-10-09 12:14] LABS: Glucose,Whole Blood 90 mg/dL (75-99)
--- NOTE | 2017-10-09 14:53 | PN ---
PROGRESS NOTE Mrs Torers is comfortable, resting. Her breathing is easier. Denies chest pain, shortness of breath has improved. Vital signs are stable. S1, S2 heard normally. Ejection systolic murmur at the base is audible. Lungs are clear. Abdomen and lower extremity exam unchanged. This lady has history of CAD, prior bypass surgery and aortic valve replacement. Ejection fraction is significantly impaired, but with the addition of Lasix, she will do better, I hope. We can increase activity and discharged home today. Prognosis remains guarded. Discussed my thoughts in detail with the patient. MMODL / IJN: [id number] /
--- NOTE | 2017-10-09 15:33 | P.DS ---
Providers Date of admission: 10/08/17 09:17 Expected date of discharge: 10/09/17 Attending physician: Rhys Strange Consults: 10/08/17 09:17 Consult Physician Urgent Consulting Provider: [facility] Reason/Comments: Chest pain, dyspnea Do you want consulting provider notified?: Yes Primary care physician: Rhys Strange [facility] Course: This document serves as an H&P and discharge summary 82-year-old female who presented to the emergency room with a chief complaint of chest pain and shortness of breath. patient stated that she felt like she could not catch her breath. Originally, the patient did not have complaints of chest pain but while in the emergency room she complained of an episode of chest pain. The patient denied any further episodes of chest pain. Denies dizziness or lightheadedness. denies nausea or vomiting. Chest x-ray: enlarged heart. Pulmonary venous congestion without overt failure. Laboratory data: WBC 9.3. Hemoglobin 12.8. Platelet count 203. Sodium 140. Potassium 4.1. BUN 54. Creatinine 1.72. GFR 27. Glucose 95. Magnesium 2.4. The patient was admitted to the hospital under the care of Dr. Strange to the observation unit. The patient was evaluated by cardiology during hospitalization. She was started on IV lasix which was transitioned to oral lasix per cardiology. She was lasix lasix one time daily at home. This was increased to BID at the time of discharge. The Patient was also started on Cozaar per cardiology. She was cleared for discharge from a cardiac standpoint. The patient was deemed stable for discharge. She is to follow up on an outpatient basis. Prescriptions were sent to the patients preferred pharmacy for cozaar 25mg daily and lasix 40mg BID. DISCHARGE DIAGNOSIS: Dyspnea and chest pain, present on admission, acute coronary syndrome ruled out , likely secondary to mild exacerbation of systolic congestive heart failure Coronary artery disease with previous CABG and aortic valve replacement Diabetes mellitus, type II Chronic kidney disease, stage III Chronic atrial fibrillation Essential hypertension Hyperlipidemia Nurse practitioner note has been reviewed by physician. Signing provider agrees with the documented findings, assessment, and plan of care. Plan - Discharge Summary Discharge Rx Participant: No New Discharge Prescriptions: New Furosemide [Lasix] 40 mg PO BID@0900,1600 #60 tab Losartan [Cozaar] 25 mg PO DAILY #30 tab Continue Levothyroxine Sodium [Synthroid] 50 mcg PO DAILY Simvastatin [Zocor] 20 mg PO HS Metoprolol Tartrate [Lopressor] 25 mg PO BID Allopurinol [Zyloprim] 100 mg PO DAILY Apixaban [Eliquis] 2.5 mg PO BID tablet hydrALAZINE HCL [Apresoline] 25 mg PO BID #60 tab Spironolactone [Aldactone] 25 mg PO DAILY tab glyBURIDE [Diabeta] 5 mg PO AC-BID #60 tablet Pantoprazole [Protonix] 40 mg PO DAILY #30 tab Aspirin EC [Ecotrin Low Dose] 81 mg PO DAILY Folic Acid-Vit B Complex-Vit C [Nephrocaps] 1 cap PO DAILY amLODIPine [Norvasc] 2.5 mg PO DAILY Ferrous Sulfate [Iron] 325 mg PO DIRECTED Discontinued Furosemide [Lasix] 40 mg PO DAILY Discharge Medication List Allopurinol [Zyloprim] 100 mg PO DAILY 07/21/17 [History] Levothyroxine Sodium [Synthroid] 50 mcg PO DAILY 07/21/17 [History] Metoprolol Tartrate [Lopressor] 25 mg PO BID 07/21/17 [History] Simvastatin [Zocor] 20 mg PO HS 07/21/17 [History] Apixaban [Eliquis] 2.5 mg PO BID tablet 07/24/17 [Rx] Aspirin EC [Ecotrin Low Dose] 81 mg PO DAILY 07/28/17 [History] Pantoprazole [Protonix] 40 mg PO DAILY #30 tab 07/28/17 [Rx] Spironolactone [Aldactone] 25 mg PO DAILY tab 07/28/17 [Rx] glyBURIDE [Diabeta] 5 mg PO AC-BID #60 tablet 07/28/17 [Rx] hydrALAZINE HCL [Apresoline] 25 mg PO BID #60 tab 07/28/17 [Rx] Ferrous Sulfate [Iron] 325 mg PO DIRECTED 10/08/17 [History] Folic Acid-Vit B Complex-Vit C [Nephrocaps] 1 cap PO DAILY 10/08/17 [History] amLODIPine [Norvasc] 2.5 mg PO DAILY 10/08/17 [History] Furosemide [Lasix] 40 mg PO BID@0900,1600 #60 tab 10/09/17 [Rx] Losartan [Cozaar] 25 mg PO DAILY #30 tab 10/09/17 [Rx] Follow up Appointment(s)/Referral(s): Romeo Garcia MD [STAFF PHYSICIAN] - As Needed (Patient currently has an existing appointment next week with Dr. Garcia) Rhys Strange DO [Primary Care Provider] - 10/12/17 Patient Instructions/Handouts: Chest Pain (DC), Dyspnea (GEN) Discharge Disposition: HOME SELF-CARE
== END 2017-10-09 14:51 | disposition home or self-care (01) ==
LOC: EC 06:46 → 3OBS 09:17
PROVIDERS: ADMIT Family Medicine; ATTEND Family Medicine
DX: R06.00 Dyspnea, unspecified (principal); R07.89 Other chest pain; I13.0 Hypertensive heart and chronic kidney disease with heart failure and stage 1 through stage 4 chronic kidney disease, or unspecified chronic kidney disease; I50.20 Unspecified systolic (congestive) heart failure; N18.3 Chronic kidney disease, stage 3 (moderate); E11.22 Type 2 diabetes mellitus with diabetic chronic kidney disease; I25.10 Atherosclerotic heart disease of native coronary artery without angina pectoris; I48.2 Chronic atrial fibrillation; E78.5 Hyperlipidemia, unspecified; Z95.2 Presence of prosthetic heart valve; Z95.1 Presence of aortocoronary bypass graft; Z79.01 Long term (current) use of anticoagulants; Z79.84 Long term (current) use of oral hypoglycemic drugs; Z79.82 Long term (current) use of aspirin; Z79.899 Other long term (current) drug therapy; E07.9 Disorder of thyroid, unspecified
CPT/HCPCS: 99285; 96374 ×2; 96376; 96365; 36415; 93005; 83880; 80061; 80053; 80048; 82550; 82553; 83735; 84484; 85025; 85610; 85730; 83036; 71046; G0378 ×2; J1940

== ENCOUNTER 2018-11-15 02:12 | Emergency (ER) | payer MEDICARE, BC ==
[2018-11-15 02:19] VITALS: TEMP 97.6
--- NOTE | 2018-11-15 02:39 | ED ---
Recheck HPI - General Chief Complaint: Recheck/Abnormal Lab/Rx Stated Complaint: High Blood Pressure Time Seen by Provider: 11/15/18 02:22 Source: patient, family Mode of arrival: wheelchair Limitations: no limitations - History of Present Illness MD Complaint: other -: hour(s) Returns Today for: other Symptoms Since Prior Visit: no new symptoms Associated Symptoms: none - Related Data Home Medications Medication Instructions Recorded Confirmed Allopurinol [Zyloprim] 100 mg PO DAILY 07/21/17 11/15/18 Levothyroxine Sodium [Synthroid] 50 mcg PO DAILY 07/21/17 11/15/18 Metoprolol Tartrate [Lopressor] 25 mg PO BID 07/21/17 11/15/18 Simvastatin [Zocor] 20 mg PO HS 07/21/17 11/15/18 Aspirin EC [Ecotrin Low Dose] 81 mg PO DAILY 07/28/17 11/15/18 Ferrous Sulfate [Iron] 325 mg PO DIRECTED 10/08/17 11/15/18 Folic Acid-Vit B Complex-Vit C 1 cap PO DAILY 10/08/17 11/15/18 [Nephrocaps] amLODIPine [Norvasc] 2.5 mg PO DAILY 10/08/17 11/15/18 Previous Rx's Medication Instructions Recorded Apixaban [Eliquis] 2.5 mg PO BID tablet 07/24/17 Pantoprazole [Protonix] 40 mg PO DAILY #30 tab 07/28/17 Spironolactone [Aldactone] 25 mg PO DAILY tab 07/28/17 glyBURIDE [Diabeta] 5 mg PO AC-BID #60 tablet 07/28/17 hydrALAZINE HCL [Apresoline] 25 mg PO BID #60 tab 07/28/17 Furosemide [Lasix] 40 mg PO BID@0900,1600 #60 tab 10/09/17 Losartan [Cozaar] 25 mg PO DAILY #30 tab 10/09/17 Allergies Allergy/AdvReac Type Severity Reaction Status Date / Time No Known Allergies Allergy Verified 11/15/18 02:19 Review of Systems ROS Statement: Those systems with pertinent positive or pertinent negative responses have been documented in the HPI. ROS Other: All systems not noted in ROS Statement are negative. Past Medical History Past Medical History: Atrial Fibrillation, Coronary Artery Disease (CAD), Heart Failure, Diabetes Mellitus, GERD/Reflux, Hyperlipidemia, Hypertension, Osteoarthritis (OA), Renal Disease, Thyroid Disorder Additional Past Medical History / Comment(s): Pt/yancy state that last admission, pt nearly developed decub on heel and are requesting that heel be kept off bed, NIDDM type II, 07/24/17 echo with 20% EF, chronic kidney disease stage III, bilateral tinnitis, arthritis multiple joints, gout, back pain. 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 Additional Past Anesthesia/Blood Transfusion Reaction / Comment(s): Pt states she was hypertensive after waking from D&C. Pt has clausterphobia. Past Psychological History: No Psychological Hx Reported Smoking Status: Never smoker Past Alcohol Use History: None Reported Past Drug Use History: None Reported - Past Family History Father History Unknown: Yes Mother History Unknown: Yes Additional Family Medical History / Comment(s): Mother after childbirth at the age of 35yrs. General Exam Limitations: no limitations General appearance: alert, in no apparent distress Head exam: Present: atraumatic, normocephalic Eye exam: Present: normal appearance. Absent: scleral icterus, conjunctival injection Respiratory exam: Present: normal lung sounds bilaterally. Absent: respiratory distress, wheezes, rales, rhonchi, stridor Cardiovascular Exam: Present: regular rate, normal rhythm, normal heart sounds. Absent: systolic murmur, diastolic murmur, rubs, gallop GI/Abdominal exam: Present: soft. Absent: distended, tenderness, guarding, rebound, rigid, mass Extremities exam: Present: normal inspection, normal capillary refill. Absent: pedal edema, calf tenderness Neurological exam: Present: alert Skin exam: Present: warm, dry, intact, normal color. Absent: rash Course Vital Signs 11/15/18 11/15/18 11/15/18 02:14 02:30 02:45 Temperature 97.6 F Pulse Rate 112 H Respiratory 20 Rate Blood Pressure 162/85 166/105 O2 Sat by Pulse 100 96 98 Oximetry 11/15/18 03:15 Temperature Pulse Rate 86 Respiratory 18 Rate Blood Pressure 125/83 O2 Sat by Pulse 97 Oximetry Medical Decision Making - Lab Data Result diagrams: 11/15/18 02:34 11/15/18 02:34 Lab Results 11/15/18 11/15/18 11/15/18 Range/Units 02:27 02:34 02:34 WBC 12.2 H (3.8-10.6) k/uL RBC 4.56 (3.80-5.40) m/uL Hgb 14.9 (11.4-16.0) gm/dL Hct 45.0 (34.0-46.0) % MCV 98.7 (80.0-100.0) fL MCH 32.7 (25.0-35.0) pg MCHC 33.2 (31.0-37.0) g/dL RDW 13.7 (11.5-15.5) % Plt Count 213 (150-450) k/uL Neutrophils % 77 % Lymphocytes % 13 % Monocytes % 6 % Eosinophils % 2 % Basophils % 1 % Neutrophils # 9.4 H (1.3-7.7) k/uL Lymphocytes # 1.5 (1.0-4.8) k/uL Monocytes # 0.7 (0-1.0) k/uL Eosinophils # 0.2 (0-0.7) k/uL Basophils # 0.1 (0-0.2) k/uL Sodium 137 (137-145) mmol/L Potassium 3.9 (3.5-5.1) mmol/L Chloride 99 (98-107) mmol/L Carbon Dioxide 26 (22-30) mmol/L Anion Gap 12 mmol/L BUN 49 H (7-17) mg/dL Creatinine 2.22 H (0.52-1.04) mg/dL Est GFR (CKD-EPI)AfAm 23 (>60 ml/min/1.73 sqM) Est GFR (CKD-EPI)NonAf 20 (>60 ml/min/1.73 sqM) Glucose 209 H (74-99) mg/dL POC Glucose (mg/dL) 213 H (75-99) mg/dL POC Glu Cancer Genetics Assistant ID Bhakti Carrion Calcium 9.9 (8.4-10.2) mg/dL Troponin I (0.000-0.034) ng/mL 11/15/18 Range/Units 02:34 WBC (3.8-10.6) k/uL RBC (3.80-5.40) m/uL Hgb (11.4-16.0) gm/dL Hct (34.0-46.0) % MCV (80.0-100.0) fL MCH (25.0-35.0) pg MCHC (31.0-37.0) g/dL RDW (11.5-15.5) % Plt Count (150-450) k/uL Neutrophils % % Lymphocytes % % Monocytes % % Eosinophils % % Basophils % % Neutrophils # (1.3-7.7) k/uL Lymphocytes # (1.0-4.8) k/uL Monocytes # (0-1.0) k/uL Eosinophils # (0-0.7) k/uL Basophils # (0-0.2) k/uL Sodium (137-145) mmol/L Potassium (3.5-5.1) mmol/L Chloride (98-107) mmol/L Carbon Dioxide (22-30) mmol/L Anion Gap mmol/L BUN (7-17) mg/dL Creatinine (0.52-1.04) mg/dL Est GFR (CKD-EPI)AfAm (>60 ml/min/1.73 sqM) Est GFR (CKD-EPI)NonAf (>60 ml/min/1.73 sqM) Glucose (74-99) mg/dL POC Glucose (mg/dL) (75-99) mg/dL POC Glu Cancer Genetics Assistant ID Calcium (8.4-10.2) mg/dL Troponin I <0.012 (0.000-0.034) ng/mL Disposition Clinical Impression: Hypertension Disposition: HOME SELF-CARE Condition: Good Instructions (If sedation given, give patient instructions): Chronic Hypertension (DC) Additional Instructions: As we discussed, your creatinine, which can be a measure of your kidney function, is slightly elevated compared with the last set of lab tests that we have. As we discussed, follow-up with your physician to have this rechecked in 3 days, return here should there be any worsening or any other symptoms develop. Is patient prescribed a controlled substance at d/c from ED?: No Referrals: Rhys Strange DO [Primary Care Provider] - 1-2 days
[2018-11-15] MEDS ORDERED: hydrALAZINE HCL 20 MG/ML 1 ML VIAL IVP STA (02:42)
[2018-11-15 02:56] LABS: Basophils # (A) 0.1 k/uL (0-0.2); Basophils % (A) 1 %; Eosinophils # (A) 0.2 k/uL (0-0.7); Eosinophils % (A) 2 %; HGB 14.9 gm/dL (11.4-16.0); Lymphocytes # (A) 1.5 k/uL (1.0-4.8); Lymphocytes % (A) 13 %; MCH 32.7 pg (25.0-35.0); MCHC 33.2 g/dL (31.0-37.0); MCV 98.7 fL (80.0-100.0); Mean Platelet Volume 6.7; Monocytes # (A) 0.7 k/uL (0-1.0); Monocytes % (A) 6 %; Neutrophils # (A) 9.4 k/uL (1.3-7.7); Neutrophils % (A) 77 %; Platelet Count 213 k/uL (150-450); RBC 4.56 m/uL (3.80-5.40); RDW 13.7 % (11.5-15.5); WBC 12.2 k/uL (3.8-10.6)
[2018-11-15 03:06] LABS: Glucose,Whole Blood 213 mg/dL (75-99)
[2018-11-15 03:06] LABS: Calcium 9.9 mg/dL (8.4-10.2); Potassium 3.9 mmol/L (3.5-5.1)
[2018-11-15 03:24] VITALS: RESP 18
[2018-11-15 03:42] VITALS: BP 136/81; PULSE 73
== END 2018-11-15 04:03 | disposition home or self-care (01) ==
LOC: EC 02:12
DX: I10 Essential (primary) hypertension (principal); I48.91 Unspecified atrial fibrillation; I25.10 Atherosclerotic heart disease of native coronary artery without angina pectoris; I13.0 Hypertensive heart and chronic kidney disease with heart failure and stage 1 through stage 4 chronic kidney disease, or unspecified chronic kidney disease; I50.9 Heart failure, unspecified; N18.3 Chronic kidney disease, stage 3 (moderate); E11.22 Type 2 diabetes mellitus with diabetic chronic kidney disease; E78.5 Hyperlipidemia, unspecified; M19.90 Unspecified osteoarthritis, unspecified site; E07.9 Disorder of thyroid, unspecified; M10.9 Gout, unspecified; Z79.82 Long term (current) use of aspirin; Z79.890 Hormone replacement therapy; Z79.899 Other long term (current) drug therapy; Z95.1 Presence of aortocoronary bypass graft; Z95.2 Presence of prosthetic heart valve; Z96.652 Presence of left artificial knee joint
CPT/HCPCS: 36415; 93005; 80048; 84484; 85025; 99283; 96374; J0360

== ENCOUNTER 2018-11-22 17:29 | Inpatient (IN) | payer MEDICARE, BC ==
[2018-11-22] MEDS ORDERED: SODIUM CHLORIDE 0.9% 1,000 ML IV STA ×2 (17:56→20:38)
--- NOTE | 2018-11-22 17:58 | ED ---
Abdominal Pain HPI - General Chief Complaint: Abdominal Pain Stated Complaint: lump in abd Time Seen by Provider: 11/22/18 17:56 Source: patient, RN notes reviewed, old records reviewed Mode of arrival: ambulatory Limitations: no limitations - History of Present Illness Initial Comments: This is an 83-year-old female the ER for evaluation of bowel pain. Patient is had recent elevated blood pressure and she is complaining of anterior abdominal pain suprapubic pain pelvic pain. No nausea no vomiting no fevers. Patient has no modifying factors for pain. No injury noted. No diarrheal illnesses no dysuria. MD Complaint: abdominal pain (Suprapubic pain) -: hour(s) Location: suprapubic Radiation: suprapubic Migration to: suprapubic Severity: moderate Severity scale (1-10): 4 Quality: aching Consistency: constant Improves With: nothing Worsens With: nothing Associated Symptoms: nausea, diarrhea - Related Data Home Medications Medication Instructions Recorded Confirmed Allopurinol [Zyloprim] 100 mg PO DAILY 07/21/17 11/22/18 Levothyroxine Sodium [Synthroid] 50 mcg PO DAILY 07/21/17 11/22/18 Simvastatin [Zocor] 20 mg PO HS 07/21/17 11/22/18 Aspirin EC [Ecotrin Low Dose] 81 mg PO DAILY 07/28/17 11/22/18 Folic Acid-Vit B Complex-Vit C 1 cap PO DAILY 10/08/17 11/22/18 [Nephrocaps] Ferrous Sulfate [Iron (65 MG 325 mg PO DAILY 11/22/18 11/22/18 Elemental)] Metoprolol Tartrate [Lopressor] 12.5 mg PO DAILY 11/22/18 11/22/18 Metoprolol Tartrate [Lopressor] 25 mg PO DAILY 11/22/18 11/22/18 Previous Rx's Medication Instructions Recorded Apixaban [Eliquis] 2.5 mg PO BID tablet 07/24/17 Pantoprazole [Protonix] 40 mg PO DAILY #30 tab 07/28/17 Spironolactone [Aldactone] 25 mg PO DAILY tab 07/28/17 glyBURIDE [Diabeta] 5 mg PO AC-BID #60 tablet 07/28/17 hydrALAZINE HCL [Apresoline] 25 mg PO BID #60 tab 07/28/17 Furosemide [Lasix] 40 mg PO BID@0900,1600 #60 tab 10/09/17 Allergies Allergy/AdvReac Type Severity Reaction Status Date / Time No Known Allergies Allergy Verified 11/22/18 17:48 Review of Systems ROS Statement: Those systems with pertinent positive or pertinent negative responses have been documented in the HPI. ROS Other: All systems not noted in ROS Statement are negative. Past Medical History Past Medical History: Atrial Fibrillation, Coronary Artery Disease (CAD), Heart Failure, Diabetes Mellitus, GERD/Reflux, Hyperlipidemia, Hypertension, Osteoarthritis (OA), Renal Disease, Thyroid Disorder Additional Past Medical History / Comment(s): Pt/yancy state that last admission, pt nearly developed decub on heel and are requesting that heel be kept off bed, NIDDM type II, 07/24/17 echo with 20% EF, chronic kidney disease stage III, bilateral tinnitis, arthritis multiple joints, gout, back pain. 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 Additional Past Anesthesia/Blood Transfusion Reaction / Comment(s): Pt states she was hypertensive after waking from D&C. Pt has clausterphobia. Past Psychological History: No Psychological Hx Reported Smoking Status: Never smoker Past Alcohol Use History: None Reported Past Drug Use History: None Reported - Past Family History Father History Unknown: Yes Mother History Unknown: Yes Additional Family Medical History / Comment(s): Mother after childbirth at the age of 35yrs. General Exam Limitations: no limitations General appearance: alert, in no apparent distress Head exam: Present: atraumatic, normocephalic, normal inspection Eye exam: Present: normal appearance, PERRL, EOMI. Absent: scleral icterus, conjunctival injection, periorbital swelling ENT exam: Present: normal exam, mucous membranes moist Neck exam: Present: normal inspection. Absent: tenderness, meningismus, lymphadenopathy Respiratory exam: Present: normal lung sounds bilaterally. Absent: respiratory distress, wheezes, rales, rhonchi, stridor Cardiovascular Exam: Present: regular rate, normal rhythm, normal heart sounds. Absent: systolic murmur, diastolic murmur, rubs, gallop, clicks GI/Abdominal exam: Present: soft, normal bowel sounds. Absent: distended, tenderness, guarding, rebound, rigid Extremities exam: Present: normal inspection, full ROM, normal capillary refill. Absent: tenderness, pedal edema, joint swelling, calf tenderness Back exam: Present: normal inspection Neurological exam: Present: alert, oriented X3, CN II-XII intact Psychiatric exam: Present: normal affect, normal mood Skin exam: Present: warm, dry, intact, normal color. Absent: rash Course Vital Signs 11/22/18 11/22/18 17:45 20:00 Temperature 98.2 F 100.7 F H Pulse Rate 83 104 H Respiratory 18 19 Rate Blood Pressure 121/67 150/83 O2 Sat by Pulse 97 99 Oximetry - Reevaluation(s) Reevaluation #1: 11/22/18 18:48 Medical record is reviewed Reevaluation #2: 11/22/18 18:48 Prior ER visit is reviewed Medical Decision Making - Medical Decision Making 83 female the ER for evaluation of jaw pain. Patient does have HYSTERECTOMY surgery, underneath the lower suprapubic area of her scars are and above first suprapubic bone is an abscess on exam as well as labs with a computed tomography scan, will admit for surgical evaluation and IV antibiotics - Lab Data Result diagrams: 11/22/18 18:40 11/22/18 18:40 Lab Results 11/22/18 11/22/18 11/22/18 Range/Units 18:40 18:40 18:40 WBC 15.7 H (3.8-10.6) k/uL RBC 4.75 (3.80-5.40) m/uL Hgb 15.3 (11.4-16.0) gm/dL Hct 46.7 H (34.0-46.0) % MCV 98.4 (80.0-100.0) fL MCH 32.1 (25.0-35.0) pg MCHC 32.6 (31.0-37.0) g/dL RDW 14.4 (11.5-15.5) % Plt Count 325 (150-450) k/uL Neutrophils % 85 % Lymphocytes % 8 % Monocytes % 5 % Eosinophils % 1 % Basophils % 1 % Neutrophils # 13.3 H (1.3-7.7) k/uL Lymphocytes # 1.3 (1.0-4.8) k/uL Monocytes # 0.7 (0-1.0) k/uL Eosinophils # 0.1 (0-0.7) k/uL Basophils # 0.1 (0-0.2) k/uL PT (9.0-12.0) sec INR (<1.2) APTT (22.0-30.0) sec Sodium 136 L (137-145) mmol/L Potassium 3.9 (3.5-5.1) mmol/L Chloride 97 L (98-107) mmol/L Carbon Dioxide 26 (22-30) mmol/L Anion Gap 13 mmol/L BUN 52 H (7-17) mg/dL Creatinine 1.66 H (0.52-1.04) mg/dL Est GFR (CKD-EPI)AfAm 33 (>60 ml/min/1.73 sqM) Est GFR (CKD-EPI)NonAf 28 (>60 ml/min/1.73 sqM) Glucose 186 H (74-99) mg/dL Plasma Lactic Acid Kenneth 1.6 (0.7-2.0) mmol/L Calcium 9.7 (8.4-10.2) mg/dL Total Bilirubin 0.7 (0.2-1.3) mg/dL AST 23 (14-36) U/L ALT 22 (9-52) U/L Alkaline Phosphatase 114 (38-126) U/L Creatine Kinase 40 (30-135) U/L Troponin I (0.000-0.034) ng/mL Total Protein 6.6 (6.3-8.2) g/dL Albumin 4.1 (3.5-5.0) g/dL Amylase 69 (30-110) U/L Lipase 229 (23-300) U/L Urine Color Urine Appearance (Clear) Urine pH (5.0-8.0) Ur Specific Ingalls (1.001-1.035) Urine Protein (Negative) Urine Glucose (UA) (Negative) Urine Ketones (Negative) Urine Blood (Negative) Urine Nitrite (Negative) Urine Bilirubin (Negative) Urine Urobilinogen (<2.0) mg/dL Ur Leukocyte Esterase (Negative) Urine RBC (0-5) /hpf Urine WBC (0-5) /hpf Ur Squamous Epith Cells (0-4) /hpf Hyaline Casts (0-2) /lpf 11/22/18 11/22/18 11/22/18 Range/Units 18:40 18:40 19:00 WBC (3.8-10.6) k/uL RBC (3.80-5.40) m/uL Hgb (11.4-16.0) gm/dL Hct (34.0-46.0) % MCV (80.0-100.0) fL MCH (25.0-35.0) pg MCHC (31.0-37.0) g/dL RDW (11.5-15.5) % Plt Count (150-450) k/uL Neutrophils % % Lymphocytes % % Monocytes % % Eosinophils % % Basophils % % Neutrophils # (1.3-7.7) k/uL Lymphocytes # (1.0-4.8) k/uL Monocytes # (0-1.0) k/uL Eosinophils # (0-0.7) k/uL Basophils # (0-0.2) k/uL PT 10.7 (9.0-12.0) sec INR 1.0 (<1.2) APTT 26.1 (22.0-30.0) sec Sodium (137-145) mmol/L Potassium (3.5-5.1) mmol/L Chloride (98-107) mmol/L Carbon Dioxide (22-30) mmol/L Anion Gap mmol/L BUN (7-17) mg/dL Creatinine (0.52-1.04) mg/dL Est GFR (CKD-EPI)AfAm (>60 ml/min/1.73 sqM) Est GFR (CKD-EPI)NonAf (>60 ml/min/1.73 sqM) Glucose (74-99) mg/dL Plasma Lactic Acid Kenneth (0.7-2.0) mmol/L Calcium (8.4-10.2) mg/dL Total Bilirubin (0.2-1.3) mg/dL AST (14-36) U/L ALT (9-52) U/L Alkaline Phosphatase (38-126) U/L Creatine Kinase (30-135) U/L Troponin I <0.012 (0.000-0.034) ng/mL Total Protein (6.3-8.2) g/dL Albumin (3.5-5.0) g/dL Amylase (30-110) U/L Lipase (23-300) U/L Urine Color Yellow Urine Appearance Clear (Clear) Urine pH 5.5 (5.0-8.0) Ur Specific Ingalls 1.010 (1.001-1.035) Urine Protein Negative (Negative) Urine Glucose (UA) Negative (Negative) Urine Ketones Negative (Negative) Urine Blood Negative (Negative) Urine Nitrite Negative (Negative) Urine Bilirubin Negative (Negative) Urine Urobilinogen <2.0 (<2.0) mg/dL Ur Leukocyte Esterase Moderate H (Negative) Urine RBC 1 (0-5) /hpf Urine WBC 11 H (0-5) /hpf Ur Squamous Epith Cells <1 (0-4) /hpf Hyaline Casts 10 H (0-2) /lpf - Radiology Data Radiology results: report reviewed (CT abd Pelvis positive for abscess), image reviewed Disposition Clinical Impression: UTI (urinary tract infection), Fever, Abdominal pain, Abscess Disposition: ADMITTED IP TO THIS HOSP Condition: Fair Is patient prescribed a controlled substance at d/c from ED?: No Referrals: Rhys Strange DO [Primary Care Provider] - 1-2 days
[2018-11-22 19:01] LABS: Basophils # (A) 0.1 k/uL (0-0.2); Basophils % (A) 1 %; Eosinophils # (A) 0.1 k/uL (0-0.7); Eosinophils % (A) 1 %; HCT 46.7 % (34.0-46.0); HGB 15.3 gm/dL (11.4-16.0); Lymphocytes # (A) 1.3 k/uL (1.0-4.8); Lymphocytes % (A) 8 %; MCH 32.1 pg (25.0-35.0); MCHC 32.6 g/dL (31.0-37.0); MCV 98.4 fL (80.0-100.0); Mean Platelet Volume 7.4; Monocytes # (A) 0.7 k/uL (0-1.0); Monocytes % (A) 5 %; Neutrophils # (A) 13.3 k/uL (1.3-7.7); Neutrophils % (A) 85 %; Platelet Count 325 k/uL (150-450); RBC 4.75 m/uL (3.80-5.40); RDW 14.4 % (11.5-15.5); WBC 15.7 k/uL (3.8-10.6)
[2018-11-22 19:03] LABS: Partial Thromboplastin Time 26.1 sec (22.0-30.0); Prothrombin Time 10.7 sec (9.0-12.0)
[2018-11-22 19:11] LABS: Albumin 4.1 g/dL (3.5-5.0); Calcium 9.7 mg/dL (8.4-10.2); Potassium 3.9 mmol/L (3.5-5.1); Total Bilirubin 0.7 mg/dL (0.2-1.3); Total Protein 6.6 g/dL (6.3-8.2)
[2018-11-22 19:19] LABS: Appearance,Urine Clear (Clear); Bilirubin,Urine Negative (Negative); Blood,Urine Negative (Negative); Color,Urine Yellow; Glucose,Urine (UA) Negative (Negative); Hyaline Casts,Urine 10 /lpf (0-2); Ketones,Urine Negative (Negative); Leukocyte Esterase,Urine Moderate (Negative); Nitrite,Urine Negative (Negative); PH, Urine 5.5 (5.0-8.0); Protein,Urine Negative (Negative); RBC,Urine 1 /hpf (0-5); Squamous Epithelial Cell,Urine <1 /hpf (0-4); Urobilinogen,Urine <2.0 mg/dL (<2.0); WBC,Urine 11 /hpf (0-5)
[2018-11-22] MEDS ORDERED: SODIUM CHLORIDE 0.9% 1,000 ML IV ONE (20:36)
[2018-11-22] MEDS ORDERED: IBUPROFEN 800 MG TAB PO STA (20:36)
[2018-11-22] MEDS ORDERED: ACETAMINOPHEN TAB 325 MG TAB PO STA (20:36)
--- NOTE | 2018-11-22 20:39 | CT ---
EXAMINATION TYPE: CT abdomen pelvis wo con DATE OF EXAM: 11/22/2018 COMPARISON: None HISTORY: abdominal pain, RLQ pain CT DLP: 510.8 mGycm Automated exposure control for dose reduction was used. TECHNIQUE: Helical acquisition of images was performed from the lung bases through the pelvis. FINDINGS: There is minimal scarring or subsegmental atelectasis at the lung bases. Heart is enlarged. Thoracic aorta and abdominal aorta atheromatous. There is no pericardial effusion. Liver appears normal. Bile ducts are not dilated. There are multiple calcified small gallstones. Sple en appears normal. Stomach appears normal. There is no pancreatic mass. There is no adrenal mass. Kidneys have normal size and contour. There is no hydronephrosis. There is small umbilical hernia that contains fat. There is no retroperitoneal adenopathy. Ureters are not dil ated. Bladder distends smoothly. There is complex 4 cm mass in the subcutaneous fat over the right in ferior pubic bone. There is fat stranding around the mass and likely related to an abscess. There is hysterectomy. There are spondylotic changes in the lumbar spine. There is no compression fra cture. Bony pelvis is intact. There is no evidence of free air. There is no ascites. There is no mesenteric edema. There is no evid ence of a bowel obstruction. Appendix is not seen. There is no sign of a thickened appendix. IMPRESSION: MULTIPLE CALCIFIED GALLSTONES. MILD SCARRING IS SUBSEGMENTAL ATELECTASIS AT THE LUNG BASES. ATHEROSCL EROTIC VASCULAR DISEASE. RIGHT SUPRAPUBIC SUBCUTANEOUS MASS CONSISTENT WITH AN ABSCESS.
[2018-11-22] MEDS ORDERED: VANCOMYCIN IV PER PHARMACY 1 EACH MISC MISCELLANE PRN (20:43)
[2018-11-22] MEDS ORDERED: VANCOMYCIN 1,250 MG in SODIUM CHLORIDE 0.9% 250 ML IVPB ONE (22:00)
[2018-11-22 22:30] LABS: Glucose,Whole Blood 148 mg/dL (75-99)
[2018-11-22 22:45] VITALS: BMI 21.9
[2018-11-23] MEDS: AMPICILLIN-SULBACTAM 3 GM in SODIUM CHLORIDE 0.9% 100 ML IVPB SCH ×5 (00:50→23:22)
[2018-11-23 07:05] LABS: Glucose,Whole Blood 91 mg/dL (75-99)
[2018-11-23] MEDS: ACETAMINOPHEN TAB 500 MG TAB PO PRN ×2 (08:42→21:06)
[2018-11-23] MEDS ORDERED: METOPROLOL TARTRATE 25 MG TAB PO SCH (09:00)
[2018-11-23] MEDS: hydrALAZINE HCL 25 MG TAB PO SCH ×2 (10:03→21:07)
[2018-11-23] MEDS: LEVOTHYROXINE 50 MCG TAB PO SCH (10:03)
[2018-11-23] MEDS: METOPROLOL TARTRATE 12.5 MG TAB PO SCH (10:04)
[2018-11-23 10:20] LABS: Calcium 9.2 mg/dL (8.4-10.2); Potassium 3.6 mmol/L (3.5-5.1)
[2018-11-23] MEDS ORDERED: HYDROmorphone 1 MG/ML 1 ML SYRINGE ONE (11:52)
[2018-11-23] MEDS ORDERED: LIDOCAINE 1% INJ 10MG/ML (20 ML MDV) SQ ONE (11:55)
[2018-11-23 12:19] LABS: Glucose,Whole Blood 109 mg/dL (75-99)
--- NOTE | 2018-11-23 12:31 | P.GSCN ---
History of Present Illness Consult date: 11/23/18 Reason for Consult: abscess Requesting physician: Gorge Moy History of present illness: CHIEF COMPLAINT: Abdominal pain HISTORY OF PRESENT ILLNESS: 83-year-old female who presented to the emergency room due to abdominal pain. CAT scan was performed revealing right suprapubic abscess. PAST MEDICAL HISTORY: See list. PAST SURGICAL HISTORY: See list. SOCIAL HISTORY: No illicit drug use. REVIEW OF SYSTEMS: CONSTITUTIONAL: Denies fever or chills. HEENT: Denies blurred vision, vision changes, or eye pain. Denies hemoptysis CARDIOVASCULAR: Denies chest pain or pressure. RESPIRATORY: No shortness of breath. GASTROINTESTINAL: Refer to [facility] for pertinent findings HEMATOLOGIC: Denies bleeding disorders. GENITOURINARY: Denies any blood in urine. SKIN: Denies pruitis. Denies rash. PHYSICAL EXAM: VITAL SIGNS: Reviewed. GENERAL: Well-developed in no acute distress. HEENT: No sclera icterus. Extraocular movements grossly intact. Moist buccal mucosa. Head is atraumatic, normocephalic. ABDOMEN: Soft. Nondistended. Firm mass near pubic region with surrounding erythema. No drainage noted. NEUROLOGIC: Alert and oriented. Cranial nerves II through XII grossly intact. ASSESSMENT: 1. Suprapubic abscess PLAN: 1. Patient to undergo bedside incision and drainage 2. Hold Eliquis. May resume after I&D 3. Diet per primary medicine Nurse practitioner note has been reviewed by physician. Signing provider agrees with the documented findings, assessment, and plan of care. Past Medical History Past Medical History: Atrial Fibrillation, Coronary Artery Disease (CAD), Heart Failure, Diabetes Mellitus, GERD/Reflux, Hyperlipidemia, Hypertension, Osteoarthritis (OA), Renal Disease, Thyroid Disorder Additional Past Medical History / Comment(s): NIDDM type II, 07/24/17 echo with 20% EF, chronic kidney disease stage III, bilateral tinnitis, arthritis multiple joints, gout, back pain. 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 Past Anesthesia/Blood Transfusion Reactions: Previous Problems w/ Anesthesia Additional Past Anesthesia/Blood Transfusion Reaction / Comm: Pt states she was hypertensive after waking from D&C. Pt has clausterphobia. Past Psychological History: Depression Additional Psychological History / Comment(s): Pt resides with her yancy, Alena Mooney. Her daughter is her caregiver. Pt has a walker if she needs to use one but currently does not. Pt no longer drives, yancy takes her to appointments. Smoking Status: Never smoker Past Alcohol Use History: None Reported Past Drug Use History: None Reported - Past Family History Father History Unknown: Yes Additional Family Medical History / Comment(s): pt was adopted Mother History Unknown: Yes Additional Family Medical History / Comment(s): Mother after childbirth at the age of 35yrs. Medications and Allergies Home Medications Medication Instructions Recorded Confirmed Type Allopurinol [Zyloprim] 100 mg PO DAILY 07/21/17 11/22/18 History Levothyroxine Sodium [Synthroid] 50 mcg PO DAILY 07/21/17 11/22/18 History Simvastatin [Zocor] 20 mg PO HS 07/21/17 11/22/18 History Apixaban [Eliquis] 2.5 mg PO BID tablet 07/24/17 11/22/18 Rx Aspirin EC [Ecotrin Low Dose] 81 mg PO DAILY 07/28/17 11/22/18 History Pantoprazole [Protonix] 40 mg PO DAILY #30 tab 07/28/17 11/22/18 Rx Spironolactone [Aldactone] 25 mg PO DAILY tab 07/28/17 11/22/18 Rx glyBURIDE [Diabeta] 5 mg PO AC-BID #60 tablet 07/28/17 11/22/18 Rx hydrALAZINE HCL [Apresoline] 25 mg PO BID #60 tab 07/28/17 11/22/18 Rx Folic Acid-Vit B Complex-Vit C 1 cap PO DAILY 10/08/17 11/22/18 History [Nephrocaps] Furosemide [Lasix] 40 mg PO BID@0900,1600 #60 tab 10/09/17 11/22/18 Rx Ferrous Sulfate [Iron (65 MG 325 mg PO DAILY 11/22/18 11/22/18 History Elemental)] Metoprolol Tartrate [Lopressor] 12.5 mg PO DAILY 11/22/18 11/22/18 History Metoprolol Tartrate [Lopressor] 25 mg PO DAILY 11/22/18 11/22/18 History Allergies Allergy/AdvReac Type Severity Reaction Status Date / Time No Known Allergies Allergy Verified 11/22/18 17:48 Surgical - Exam Vital Signs Temp Pulse Resp BP Pulse Ox 98.2 F 83 18 121/67 97 11/22/18 17:45 11/22/18 17:45 11/22/18 17:45 11/22/18 17:45 11/22/18 17:45 Results - Labs 11/22/18 18:40 11/23/18 08:33 Abnormal Lab Results - Last 24 Hours (Table) 11/22/18 11/22/18 11/22/18 Range/Units 18:40 18:40 19:00 WBC 15.7 H (3.8-10.6) k/uL Hct 46.7 H (34.0-46.0) % Neutrophils # 13.3 H (1.3-7.7) k/uL Sodium 136 L (137-145) mmol/L Chloride 97 L (98-107) mmol/L BUN 52 H (7-17) mg/dL Creatinine 1.66 H (0.52-1.04) mg/dL Glucose 186 H (74-99) mg/dL POC Glucose (mg/dL) (75-99) mg/dL Ur Leukocyte Esterase Moderate H (Negative) Urine WBC 11 H (0-5) /hpf Hyaline Casts 10 H (0-2) /lpf 11/22/18 11/23/18 11/23/18 Range/Units 22:17 08:33 12:18 WBC (3.8-10.6) k/uL Hct (34.0-46.0) % Neutrophils # (1.3-7.7) k/uL Sodium (137-145) mmol/L Chloride (98-107) mmol/L BUN 38 H (7-17) mg/dL Creatinine 1.32 H (0.52-1.04) mg/dL Glucose (74-99) mg/dL POC Glucose (mg/dL) 148 H 109 H (75-99) mg/dL Ur Leukocyte Esterase (Negative) Urine WBC (0-5) /hpf Hyaline Casts (0-2) /lpf Microbiology - Last 24 Hours (Table) 11/22/18 19:00 Urine Culture - Preliminary Urine,Voided Diabetes panel 11/22/18 11/23/18 Range/Units 18:40 08:33 Sodium 136 L 141 (137-145) mmol/L Potassium 3.9 3.6 (3.5-5.1) mmol/L Chloride 97 L 107 (98-107) mmol/L Carbon Dioxide 26 24 (22-30) mmol/L BUN 52 H 38 H (7-17) mg/dL Creatinine 1.66 H 1.32 H (0.52-1.04) mg/dL Glucose 186 H 93 (74-99) mg/dL Calcium 9.7 9.2 (8.4-10.2) mg/dL AST 23 (14-36) U/L ALT 22 (9-52) U/L Alkaline Phosphatase 114 (38-126) U/L Total Protein 6.6 (6.3-8.2) g/dL Albumin 4.1 (3.5-5.0) g/dL Calcium panel 11/22/18 11/23/18 Range/Units 18:40 08:33 Calcium 9.7 9.2 (8.4-10.2) mg/dL Albumin 4.1 (3.5-5.0) g/dL Pituitary panel 11/22/18 11/23/18 Range/Units 18:40 08:33 Sodium 136 L 141 (137-145) mmol/L Potassium 3.9 3.6 (3.5-5.1) mmol/L Chloride 97 L 107 (98-107) mmol/L Carbon Dioxide 26 24 (22-30) mmol/L BUN 52 H 38 H (7-17) mg/dL Creatinine 1.66 H 1.32 H (0.52-1.04) mg/dL Glucose 186 H 93 (74-99) mg/dL Calcium 9.7 9.2 (8.4-10.2) mg/dL Adrenal panel 11/22/18 11/23/18 Range/Units 18:40 08:33 Sodium 136 L 141 (137-145) mmol/L Potassium 3.9 3.6 (3.5-5.1) mmol/L Chloride 97 L 107 (98-107) mmol/L Carbon Dioxide 26 24 (22-30) mmol/L BUN 52 H 38 H (7-17) mg/dL Creatinine 1.66 H 1.32 H (0.52-1.04) mg/dL Glucose 186 H 93 (74-99) mg/dL Calcium 9.7 9.2 (8.4-10.2) mg/dL Total Bilirubin 0.7 (0.2-1.3) mg/dL AST 23 (14-36) U/L ALT 22 (9-52) U/L Alkaline Phosphatase 114 (38-126) U/L Total Protein 6.6 (6.3-8.2) g/dL Albumin 4.1 (3.5-5.0) g/dL
[2018-11-23] MEDS ORDERED: VANCOMYCIN 1,250 MG in SODIUM CHLORIDE 0.9% 250 ML IVPB ONE (16:00)
[2018-11-23] MEDS: HYDROmorphone 0.5 MG/0.5 ML SYRINGE IVP PRN (16:19)
--- NOTE | 2018-11-23 16:58 | P.HPIM ---
History of Present Illness H&P Date: 11/23/18 Chief Complaint: Abdominal pain This is an 83-year-old female admitted to the ER. Abdominal /suprapubic pain in a patient with history of CAD, atrial fibrillation, CHF, diabetes mellitus, gastroesophageal or reflux disease hypertension, thyroid disorder, renal disease, osteoarthritis and multiple other medical issues. Denies nausea vomiting or diarrhea. T-max 100.7, WBC 15.7. Creatinine elevated 1.66, improving with IV fluids down to 1.32.UA with moderate leukocytes. Abdomen/pelvis CT reported right suprapubic subcutaneous abscess. IV antibiotics initiated with vancomycin and Unasyn.Surgery consulted for further recommendations to follow. Review of Systems ROS Statement: Those systems with pertinent positive or pertinent negative responses have been documented in the HPI. ROS Other: All systems not noted in ROS Statement are negative. Past Medical History Past Medical History: Atrial Fibrillation, Coronary Artery Disease (CAD), Heart Failure, Diabetes Mellitus, GERD/Reflux, Hyperlipidemia, Hypertension, Osteoarthritis (OA), Renal Disease, Thyroid Disorder Additional Past Medical History / Comment(s): NIDDM type II, 07/24/17 echo with 20% EF, chronic kidney disease stage III, bilateral tinnitis, arthritis multiple joints, gout, back pain. 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 Past Anesthesia/Blood Transfusion Reactions: Previous Problems w/ Anesthesia Additional Past Anesthesia/Blood Transfusion Reaction / Comment(s): Pt states she was hypertensive after waking from D&C. Pt has clausterphobia. Past Psychological History: Depression Additional Psychological History / Comment(s): Pt resides with her yancy, Alena Mooney. Her daughter is her caregiver. Pt has a walker if she needs to use one but currently does not. Pt no longer drives, yacny takes her to appointments. Smoking Status: Never smoker Past Alcohol Use History: None Reported Past Drug Use History: None Reported - Past Family History Father History Unknown: Yes Additional Family Medical History / Comment(s): pt was adopted Mother History Unknown: Yes Additional Family Medical History / Comment(s): Mother after childbirth at the age of 35yrs. Medications and Allergies Home Medications Medication Instructions Recorded Confirmed Type Allopurinol [Zyloprim] 100 mg PO DAILY 07/21/17 11/22/18 History Levothyroxine Sodium [Synthroid] 50 mcg PO DAILY 07/21/17 11/22/18 History Simvastatin [Zocor] 20 mg PO HS 07/21/17 11/22/18 History Apixaban [Eliquis] 2.5 mg PO BID tablet 07/24/17 11/22/18 Rx Aspirin EC [Ecotrin Low Dose] 81 mg PO DAILY 07/28/17 11/22/18 History Pantoprazole [Protonix] 40 mg PO DAILY #30 tab 07/28/17 11/22/18 Rx Spironolactone [Aldactone] 25 mg PO DAILY tab 07/28/17 11/22/18 Rx glyBURIDE [Diabeta] 5 mg PO AC-BID #60 tablet 07/28/17 11/22/18 Rx hydrALAZINE HCL [Apresoline] 25 mg PO BID #60 tab 07/28/17 11/22/18 Rx Folic Acid-Vit B Complex-Vit C 1 cap PO DAILY 10/08/17 11/22/18 History [Nephrocaps] Furosemide [Lasix] 40 mg PO BID@0900,1600 #60 tab 10/09/17 11/22/18 Rx Ferrous Sulfate [Iron (65 MG 325 mg PO DAILY 11/22/18 11/22/18 History Elemental)] Metoprolol Tartrate [Lopressor] 12.5 mg PO DAILY 11/22/18 11/22/18 History Metoprolol Tartrate [Lopressor] 25 mg PO DAILY 11/22/18 11/22/18 History Allergies Allergy/AdvReac Type Severity Reaction Status Date / Time No Known Allergies Allergy Verified 11/22/18 17:48 Physical Exam Vitals: Vital Signs Temp Pulse Pulse Resp BP BP Pulse Ox 11/23/18 07:56 16 11/23/18 05:00 98.0 F 85 16 142/85 96 11/22/18 22:13 98.5 F 106 H 16 164/95 98 11/22/18 20:00 100.7 F H 104 H 19 150/83 99 11/22/18 17:45 98.2 F 83 18 121/67 97 Intake and Output 11/22/18 11/23/18 11/23/18 22:59 06:59 14:59 Intake Total 1190 Balance 1190 Intake: Intake, IV Titration 600 Amount Ampicillin-Sulbactam 3 gm 200 In Sodium Chloride 0.9% 100 ml @ 200 mls/hr IVPB Q6HR [facility] Rx#:[id number] Sodium Chloride 0.9% 1, 400 000 ml @ 100 mls/hr IV . Q10H [facility] Rx#:[id number] Oral 590 Other: Voiding Method Toilet Toilet Weight 79.379 kg 63.5 kg PHYSICAL EXAM: VITAL SIGNS: [As above] GENERAL: Sitting up in bed, no acute distress HEENT: Conjunctivae normal. eyes normal. Oral mucosa dry NECK: No JVD. No thyroid enlargement. No LNs CARDIOVASCULAR: S1, S2 muffled. No murmur RESPIRATION: Breath sounds diminished in the bases. No rhonchi or crackles. No bronchial breathing. ABDOMEN: Soft, suprapubic area firm with erythema without drainage. No guarding. no masses palpable. Bowel sounds heard. LEGS: No edema. no swelling PSYCHIATRY: Alert and oriented -3, mood and affect normal. NERVOUS SYSTEM: Cranial N 2-12 grossly normal. Moves all 4 limbs. Diffuse weakness No focal deficits. Skin: no lesions, no rash Lymphatic system. No LN neck axilla or groin. Results CBC & Chem 7: 11/22/18 18:40 11/23/18 08:33 Labs: Abnormal Lab Results - Last 24 Hours (Table) 11/22/18 11/22/18 11/22/18 Range/Units 18:40 18:40 19:00 WBC 15.7 H (3.8-10.6) k/uL Hct 46.7 H (34.0-46.0) % Neutrophils # 13.3 H (1.3-7.7) k/uL Sodium 136 L (137-145) mmol/L Chloride 97 L (98-107) mmol/L BUN 52 H (7-17) mg/dL Creatinine 1.66 H (0.52-1.04) mg/dL Glucose 186 H (74-99) mg/dL POC Glucose (mg/dL) (75-99) mg/dL Ur Leukocyte Esterase Moderate H (Negative) Urine WBC 11 H (0-5) /hpf Hyaline Casts 10 H (0-2) /lpf 11/22/18 Range/Units 22:17 WBC (3.8-10.6) k/uL Hct (34.0-46.0) % Neutrophils # (1.3-7.7) k/uL Sodium (137-145) mmol/L Chloride (98-107) mmol/L BUN (7-17) mg/dL Creatinine (0.52-1.04) mg/dL Glucose (74-99) mg/dL POC Glucose (mg/dL) 148 H (75-99) mg/dL Ur Leukocyte Esterase (Negative) Urine WBC (0-5) /hpf Hyaline Casts (0-2) /lpf Microbiology - Last 24 Hours (Table) 11/22/18 19:00 Urine Culture - Preliminary Urine,Voided Thrombosis Risk Factor Assmnt - Choose All That Apply Any of the Below Risk Factors Present?: No Other Risk Factors: Yes Each Risk Factor Represents 3 Points: Age 75 years or older Thrombosis Risk Factor Assessment Total Risk Factor Score: 3 Thrombosis Risk Factor Assessment Level: Moderate Risk Assessment and Plan Assessment: -Abdominal/suprapubic pain, CT suggestive of abscess -Possible acute UTI -Acute renal failure secondary to the above -Diabetes mellitus II -Chronic CHF, systolic dysfunction, EF 20% -CAD -Atrial fibrillation, chronic -Gastroesophageal reflux disease -Hypertension -Hyperlipidemia -Osteoarthritis -Thyroid disorder -Chronic kidney disease, stage III Plan: Continue current medication regime ,monitoring and symptomatic treatment. IV antibiotics. Hold Eliquis for potential I&D and resume once cleared by surgery .Surgery consulted for potential I&D. Home meds have been reviewed and resumed. Further recommendations to follow. The impression and plan of care has been dictated as directed. : I performed a history and examination of this patient, discussed the same with the dictator. I agree with the dictator's note ,documented as a scribe. Any additional findings or plans will be noted. Time taken: 35 minutes
[2018-11-23 17:23] LABS: Glucose,Whole Blood 194 mg/dL (75-99)
[2018-11-23] MEDS: PANTOPRAZOLE 40 MG/10 ML VIAL IVP SCH (18:36)
[2018-11-23] MEDS: HYDROcodone/APAP 7.5-325MG 1 EACH TAB PO PRN (18:36)
[2018-11-23] MEDS: SODIUM CHLORIDE 0.9% 1,000 ML IV SCH (18:40)
[2018-11-23 20:56] LABS: Glucose,Whole Blood 224 mg/dL (75-99)
[2018-11-23] MEDS: ATORVASTATIN 10 MG TAB PO SCH (21:07)
[2018-11-23] MEDS: METOPROLOL TARTRATE 25 MG TAB PO SCH (21:09)
[2018-11-23 21:54] LABS: HCT 36.6 % (34.0-46.0); MCH 33.1 pg (25.0-35.0); MCHC 33.2 g/dL (31.0-37.0); MCV 99.6 fL (80.0-100.0); Macrocytosis Slight; Mean Platelet Volume 7.2; Platelet Count 292 k/uL (150-450); RBC 3.67 m/uL (3.80-5.40); RDW 14.2 % (11.5-15.5); WBC 14.6 k/uL (3.8-10.6)
[2018-11-23 21:59] LABS: HGB 12.2 gm/dL (11.4-16.0)
[2018-11-24] MEDS: HYDROmorphone 0.5 MG/0.5 ML SYRINGE IVP PRN ×3 (00:20→20:00)
[2018-11-24] MEDS: AMPICILLIN-SULBACTAM 3 GM in SODIUM CHLORIDE 0.9% 100 ML IVPB SCH ×4 (05:29→23:30)
[2018-11-24] MEDS: LEVOTHYROXINE 50 MCG TAB PO SCH (05:30)
[2018-11-24 06:58] LABS: Glucose,Whole Blood 119 mg/dL (75-99)
[2018-11-24] MEDS: hydrALAZINE HCL 25 MG TAB PO SCH ×2 (08:00→21:02)
[2018-11-24] MEDS: METOPROLOL TARTRATE 12.5 MG TAB PO SCH (08:01)
[2018-11-24] MEDS: PANTOPRAZOLE 40 MG/10 ML VIAL IVP SCH (08:01)
[2018-11-24 10:09] LABS: HCT 35.7 % (34.0-46.0); HGB 11.9 gm/dL (11.4-16.0); MCH 33.6 pg (25.0-35.0); MCHC 33.3 g/dL (31.0-37.0); MCV 100.8 fL (80.0-100.0); Macrocytosis Slight; Mean Platelet Volume 7.6; Platelet Count 200 k/uL (150-450); RBC 3.54 m/uL (3.80-5.40); RDW 13.7 % (11.5-15.5); WBC 10.7 k/uL (3.8-10.6)
[2018-11-24] MEDS: HYDROcodone/APAP 7.5-325MG 1 EACH TAB PO PRN (11:07)
--- NOTE | 2018-11-24 11:20 | P.PN ---
Subjective Progress Note Date: 11/24/18 CHIEF COMPLAINT: Abdominal pain HISTORY OF PRESENT ILLNESS: Patient is s/p I&D of suprapubic abscess. Patient had a lot of bleeding from site yesterday per nursing. This morning, site looks good. No further bleeding or purulent drainage. Pain is controlled. Hemoglobin 11.9. WBC 10.7. Cultures revealing presumptive staph aureus. PHYSICAL EXAM: VITAL SIGNS: Reviewed. GENERAL: Well-developed in no acute distress. HEENT: No sclera icterus. Extraocular movements grossly intact. Moist buccal mucosa. Head is atraumatic, normocephalic. ABDOMEN: Soft. Nondistended. I&D site without further drainage or bleeding. New dressing applied. NEUROLOGIC: Alert and oriented. Cranial nerves II through XII grossly intact. ASSESSMENT: 1. Suprapubic abscess PLAN: 1. Continue dressing changes daily and PRN 2. Await final wound cultures. Antibiotics per primary medicine. Nurse practitioner note has been reviewed by physician. Signing provider agrees with the documented findings, assessment, and plan of care. Objective - Vital Signs Vital signs: Vital Signs Temp 98 F 11/24/18 05:00 Pulse 103 H 11/24/18 05:00 Resp 16 11/24/18 08:00 BP 132/83 11/24/18 05:00 Pulse Ox 95 11/24/18 05:00 Intake & Output 11/23/18 11/24/18 11/24/18 18:59 06:59 18:59 Intake Total 950 2170 Output Total 350 Balance 950 1820 Weight 64.2 kg Intake: Intake, IV Titration 500 580 Amount Ampicillin-Sulbactam 3 gm 100 100 In Sodium Chloride 0.9% 100 ml @ 200 mls/hr IVPB Q6HR [facility] Rx#:[id number] Sodium Chloride 0.9% 1, 400 000 ml @ 100 mls/hr IV . Q10H [facility] Rx#:[id number] Sodium Chloride 0.9% 1, 480 000 ml @ 50 mls/hr IV . Q20H [facility] Rx#:[id number] Oral 450 1590 Output: Urine 350 Other: Voiding Method Toilet Toilet Toilet Bedside Commode # Voids 3 2 - Labs CBC & Chem 7: 11/24/18 09:36 11/23/18 08:33 Labs: Abnormal Lab Results - Last 24 Hours (Table) 05/07/19 05/07/19 05/07/19 Range/Units 12:18 17:22 20:41 WBC (3.8-10.6) k/uL RBC (3.80-5.40) m/uL MCV (80.0-100.0) fL POC Glucose (mg/dL) 109 H 194 H 224 H (75-99) mg/dL 11/23/18 11/24/18 11/24/18 Range/Units 21:30 06:57 09:36 WBC 14.6 H 10.7 H (3.8-10.6) k/uL RBC 3.67 L 3.54 L (3.80-5.40) m/uL MCV 100.8 H (80.0-100.0) fL POC Glucose (mg/dL) 119 H (75-99) mg/dL Microbiology - Last 24 Hours (Table) 11/23/18 12:00 Gram Stain - Preliminary Abdomen Wound Culture - Preliminary Presumptive Staph aureus 11/22/18 19:00 Urine Culture - Final Urine,Voided
[2018-11-24 11:41] LABS: Calcium 9.6 mg/dL (8.4-10.2)
[2018-11-24 11:46] LABS: Vancomycin,Random 13.1 ug/mL
[2018-11-24 12:07] LABS: Glucose,Whole Blood 141 mg/dL (75-99)
[2018-11-24 12:30] LABS: Potassium 4.4 mmol/L (3.5-5.1)
[2018-11-24] MEDS ORDERED: VANCOMYCIN 1,250 MG in SODIUM CHLORIDE 0.9% 250 ML IVPB ONE (14:00)
[2018-11-24 16:56] LABS: Glucose,Whole Blood 145 mg/dL (75-99)
--- NOTE | 2018-11-24 18:05 | P.PN ---
Subjective Progress Note Date: 11/24/18 This is an 83-year-old female admitted to the ER. Abdominal /suprapubic pain in a patient with history of CAD, atrial fibrillation, CHF, diabetes mellitus, gastroesophageal or reflux disease hypertension, thyroid disorder, renal disease, osteoarthritis and multiple other medical issues. Denies nausea vom iting or diarrhea. T-max 100.7, WBC 15.7. Creatinine elevated 1.66, improving with IV fluids down to 1.32.UA with moderate leukocytes. Abdomen/pelvis CT reported right suprapubic subcutaneous abscess. IV antibiotics initiated with vancomycin and Unasyn.Surgery consulted for further recommendations to follow. 11/24/18 yesterday underwent I&D at bedside with surgery. Nursing reported some bleeding during the night. Hemoglobin stable with no further bleeding. Hemoglobin 11.7. Pain controlled. Afebrile, WBC 10.7. Renal function improving, down to 1.28. Objective - Vital Signs Vital signs: Vital Signs Temp 98.4 F 11/24/18 12:48 Pulse 91 11/24/18 12:48 Resp 16 11/24/18 12:48 BP 134/68 11/24/18 12:48 Pulse Ox 97 11/24/18 12:48 Intake & Output 11/23/18 11/24/18 11/24/18 18:59 06:59 18:59 Intake Total 950 2170 Output Total 350 Balance 950 1820 Weight 64.2 kg Intake: Intake, IV Titration 500 580 Amount Ampicillin-Sulbactam 3 gm 100 100 In Sodium Chloride 0.9% 100 ml @ 200 mls/hr IVPB Q6HR [facility] Rx#:[id number] Sodium Chloride 0.9% 1, 400 000 ml @ 100 mls/hr IV . Q10H [facility] Rx#:[id number] Sodium Chloride 0.9% 1, 480 000 ml @ 50 mls/hr IV . Q20H [facility] Rx#:[id number] Oral 450 1590 Output: Urine 350 Other: Voiding Method Toilet Toilet Toilet Bedside Commode # Voids 3 2 - Exam VITAL SIGNS: [As above] GENERAL: Sitting up in bed, no acute distress HEENT: Conjunctivae normal. eyes normal. Oral mucosa dry NECK: No JVD. No thyroid enlargement. No LNs CARDIOVASCULAR: S1, S2 muffled. No murmur RESPIRATION: Breath sounds diminished in the bases. No rhonchi or crackles. No bronchial breathing. ABDOMEN: Soft, nondistended , dressing clean dry and intact.No guarding. no masses palpable. Bowel sounds heard. LEGS: No edema. no swelling PSYCHIATRY: Alert and oriented -3, mood and affect normal. NERVOUS SYSTEM: Cranial N 2-12 grossly normal. Moves all 4 limbs. Diffuse weakness No focal deficits. Microbiology 11/23/18 09:23 Blood Blood Culture - Preliminary No Growth after 24 hours 11/23/18 12:00 Abdomen Gram Stain - Preliminary 11/23/18 12:00 Abdomen Wound Culture - Preliminary Presumptive Staph aureus 11/22/18 19:00 Urine,Voided Urine Culture - Final - Labs CBC & Chem 7: 11/24/18 09:36 11/24/18 09:36 Labs: Abnormal Lab Results - Last 24 Hours (Table) 11/23/18 11/23/18 11/23/18 Range/Units 17:22 20:41 21:30 WBC 14.6 H (3.8-10.6) k/uL RBC 3.67 L (3.80-5.40) m/uL MCV (80.0-100.0) fL Chloride (98-107) mmol/L Carbon Dioxide (22-30) mmol/L BUN (7-17) mg/dL Creatinine (0.52-1.04) mg/dL Glucose (74-99) mg/dL POC Glucose (mg/dL) 194 H 224 H (75-99) mg/dL 11/24/18 11/24/18 11/24/18 Range/Units 06:57 09:36 09:36 WBC 10.7 H (3.8-10.6) k/uL RBC 3.54 L (3.80-5.40) m/uL MCV 100.8 H (80.0-100.0) fL Chloride 113 H (98-107) mmol/L Carbon Dioxide 18 L (22-30) mmol/L BUN 33 H (7-17) mg/dL Creatinine 1.28 H (0.52-1.04) mg/dL Glucose 193 H (74-99) mg/dL POC Glucose (mg/dL) 119 H (75-99) mg/dL 11/24/18 Range/Units 12:06 WBC (3.8-10.6) k/uL RBC (3.80-5.40) m/uL MCV (80.0-100.0) fL Chloride (98-107) mmol/L Carbon Dioxide (22-30) mmol/L BUN (7-17) mg/dL Creatinine (0.52-1.04) mg/dL Glucose (74-99) mg/dL POC Glucose (mg/dL) 141 H (75-99) mg/dL Microbiology - Last 24 Hours (Table) 11/23/18 09:23 Blood Culture - Preliminary Blood No Growth after 24 hours 11/23/18 12:00 Gram Stain - Preliminary Abdomen Wound Culture - Preliminary Presumptive Staph aureus 11/22/18 19:00 Urine Culture - Final Urine,Voided Assessment and Plan Assessment: -Abdominal/suprapubic pain, CT suggestive of abscess, status post I&D -Possible acute UTI -Acute renal failure secondary to the above -Diabetes mellitus II -Chronic CHF, systolic dysfunction, EF 20% -CAD -Atrial fibrillation, chronic -Gastroesophageal reflux disease -Hypertension -Hyperlipidemia -Osteoarthritis -Thyroid disorder -Chronic kidney disease, stage III Plan: Continue current medication regime ,monitoring and symptomatic treatment. Maintain IV antibiotics, cultures pending. Resume Eliquis tomorrow. Discharge planning in progress for potentially tomorrow pending final culture results, surgical clearance. Further recommendations to follow. The impression and plan of care has been dictated as directed. : I performed a history and examination of this patient, discussed the same with the dictator. I agree with the dictator's note ,documented as a scribe. Any additional findings or plans will be noted. Time taken: 35 minutes
[2018-11-24] MEDS: SODIUM CHLORIDE 0.9% 1,000 ML IV SCH (18:58)
[2018-11-24 20:16] LABS: Glucose,Whole Blood 156 mg/dL (75-99)
[2018-11-24] MEDS: ATORVASTATIN 10 MG TAB PO SCH (21:01)
[2018-11-24] MEDS: METOPROLOL TARTRATE 25 MG TAB PO SCH (21:01)
[2018-11-25] MEDS: HYDROmorphone 0.5 MG/0.5 ML SYRINGE IVP PRN (03:16)
[2018-11-25] MEDS: AMPICILLIN-SULBACTAM 3 GM in SODIUM CHLORIDE 0.9% 100 ML IVPB SCH ×2 (05:39→12:21)
[2018-11-25] MEDS: LEVOTHYROXINE 50 MCG TAB PO SCH (05:39)
[2018-11-25 06:49] LABS: Glucose,Whole Blood 113 mg/dL (75-99)
[2018-11-25] MEDS: hydrALAZINE HCL 25 MG TAB PO SCH (07:26)
[2018-11-25] MEDS ORDERED: PANTOPRAZOLE 40 MG TABLET PO SCH (07:30)
[2018-11-25] MEDS: METOPROLOL TARTRATE 12.5 MG TAB PO SCH (07:31)
[2018-11-25 07:46] LABS: Basophils # (A) 0.1 k/uL (0-0.2); Basophils % (A) 1 %; Eosinophils # (A) 0.2 k/uL (0-0.7); Eosinophils % (A) 2 %; HCT 33.2 % (34.0-46.0); HGB 10.8 gm/dL (11.4-16.0); Lymphocytes # (A) 0.9 k/uL (1.0-4.8); Lymphocytes % (A) 9 %; MCHC 32.6 g/dL (31.0-37.0); Macrocytosis Slight; Mean Platelet Volume 7.1; Monocytes # (A) 0.5 k/uL (0-1.0); Monocytes % (A) 5 %; Neutrophils # (A) 7.7 k/uL (1.3-7.7); Neutrophils % (A) 80 %; Platelet Count 241 k/uL (150-450); RBC 3.28 m/uL (3.80-5.40); RDW 14.3 % (11.5-15.5); WBC 9.6 k/uL (3.8-10.6)
[2018-11-25 08:03] LABS: Calcium 8.6 mg/dL (8.4-10.2); Potassium 3.7 mmol/L (3.5-5.1)
[2018-11-25] MEDS ORDERED: METOPROLOL TARTRATE 12.5 MG TAB PO STA (10:27)
--- NOTE | 2018-11-25 10:34 | P.PN ---
Subjective Progress Note Date: 11/25/18 This is an 83-year-old female admitted to the ER. Abdominal /suprapubic pain in a patient with history of CAD, atrial fibrillation, CHF, diabetes mellitus, gastroesophageal or reflux disease hypertension, thyroid disorder, renal disease, osteoarthritis and multiple other medical issues. Denies nausea vom iting or diarrhea. T-max 100.7, WBC 15.7. Creatinine elevated 1.66, improving with IV fluids down to 1.32.UA with moderate leukocytes. Abdomen/pelvis CT reported right suprapubic subcutaneous abscess. IV antibiotics initiated with vancomycin and Unasyn.Surgery consulted for further recommendations to follow. 11/24/18 yesterday underwent I&D at bedside with surgery. Nursing reported some bleeding during the night. Hemoglobin stable with no further bleeding. Hemoglobin 11.7. Pain controlled. Afebrile, WBC 10.7. Renal function improving, down to 1.28. 11/25/2018 wound cultures currently growing presumptive staph, final results pending. Afebrile, normal WBC. Pain controlled. Good diet intake, no nausea vomiting or diarrhea. Creatinine 1.24. Objective - Vital Signs Vital signs: Vital Signs Temp 98.6 F 11/25/18 04:56 Pulse 101 H 11/25/18 04:56 Resp 18 11/25/18 07:43 BP 121/67 11/25/18 04:56 Pulse Ox 95 11/25/18 04:56 Intake & Output 11/24/18 11/25/18 11/25/18 18:59 06:59 18:59 Intake Total 1070 720 Balance 1070 720 Weight 64 kg Intake: Intake, IV Titration 470 300 Amount Ampicillin-Sulbactam 3 gm 100 100 In Sodium Chloride 0.9% 100 ml @ 200 mls/hr IVPB Q6HR [facility] Rx#:[id number] Sodium Chloride 0.9% 1, 120 200 000 ml @ 50 mls/hr IV . Q20H [facility] Rx#:[id number] Vancomycin 1,250 mg In 250 Sodium Chloride 0.9% 250 ml @ 125 mls/hr IVPB ONCE [facility] Rx#:[id number] Oral 600 420 Other: Voiding Method Toilet Toilet Toilet Bedside Commode Bedside Commode Bedside Commode # Voids 3 1 - Exam VITAL SIGNS: [As above] GENERAL: Sitting up in bed, no acute distress HEENT: Conjunctivae normal. eyes normal. Oral mucosa moist NECK: No JVD. No thyroid enlargement. No LNs CARDIOVASCULAR: S1, S2 muffled. No murmur RESPIRATION: Breath sounds diminished in the bases. No rhonchi,crackles, wheezing. No bronchial breathing. ABDOMEN: Soft, nondistended ,ABD dressing clean, dry and intact.No guarding. no masses palpable. Bowel sounds heard. LEGS: No edema. no swelling PSYCHIATRY: Alert and oriented -3, mood and affect normal. NERVOUS SYSTEM: Cranial N 2-12 grossly normal. Moves all 4 limbs. Diffuse weakness No focal deficits. Microbiology 11/23/18 09:23 Blood Blood Culture - Preliminary No Growth after 24 hours 11/23/18 12:00 Abdomen Gram Stain - Preliminary 11/23/18 12:00 Abdomen Wound Culture - Preliminary Presumptive Staph aureus 11/22/18 19:00 Urine,Voided Urine Culture - Final - Labs CBC & Chem 7: 11/25/18 07:18 11/25/18 07:18 Labs: Abnormal Lab Results - Last 24 Hours (Table) 11/24/18 11/24/18 11/24/18 Range/Units 09:36 12:06 16:54 RBC (3.80-5.40) m/uL Hgb (11.4-16.0) gm/dL Hct (34.0-46.0) % MCV (80.0-100.0) fL Lymphocytes # (1.0-4.8) k/uL Sodium (137-145) mmol/L Chloride 113 H (98-107) mmol/L Carbon Dioxide 18 L (22-30) mmol/L BUN 33 H (7-17) mg/dL Creatinine 1.28 H (0.52-1.04) mg/dL Glucose 193 H (74-99) mg/dL POC Glucose (mg/dL) 141 H 145 H (75-99) mg/dL 11/24/18 11/25/18 11/25/18 Range/Units 20:14 06:48 07:18 RBC (3.80-5.40) m/uL Hgb (11.4-16.0) gm/dL Hct (34.0-46.0) % MCV (80.0-100.0) fL Lymphocytes # (1.0-4.8) k/uL Sodium 135 L (137-145) mmol/L Chloride (98-107) mmol/L Carbon Dioxide (22-30) mmol/L BUN 25 H (7-17) mg/dL Creatinine 1.24 H (0.52-1.04) mg/dL Glucose (74-99) mg/dL POC Glucose (mg/dL) 156 H 113 H (75-99) mg/dL 11/25/18 Range/Units 07:18 RBC 3.28 L (3.80-5.40) m/uL Hgb 10.8 L (11.4-16.0) gm/dL Hct 33.2 L (34.0-46.0) % MCV 101.0 H (80.0-100.0) fL Lymphocytes # 0.9 L (1.0-4.8) k/uL Sodium (137-145) mmol/L Chloride (98-107) mmol/L Carbon Dioxide (22-30) mmol/L BUN (7-17) mg/dL Creatinine (0.52-1.04) mg/dL Glucose (74-99) mg/dL POC Glucose (mg/dL) (75-99) mg/dL Microbiology - Last 24 Hours (Table) 11/23/18 09:23 Blood Culture - Preliminary Blood No Growth after 24 hours 11/23/18 12:00 Gram Stain - Preliminary Abdomen Wound Culture - Preliminary Presumptive Staph aureus Assessment and Plan Assessment: -Abdominal/suprapubic pain, CT suggestive of abscess, status post I&D, moving cultures currently reporting presumptive staph aureus. -Possible acute UTI, culture negative -Acute renal failure secondary to the above, improving -Diabetes mellitus II -Chronic CHF, systolic dysfunction, EF 20% -CAD -Atrial fibrillation, chronic -Gastroesophageal reflux disease -Hypertension -Hyperlipidemia -Osteoarthritis -Thyroid disorder -Chronic kidney disease, stage III Plan: Continue current medication regime ,monitoring and symptomatic treatment. Maintain IV antibiotics, fine cultures pending. If final culture reports MRSA, will consult ID. Beta erinn increased from mild tachycardia. Close monitoring of renal function with repeat labs ordered for a.m. increase ambulation as tolerated. Further recommendations to follow. The impression and plan of care has been dictated as directed. : I performed a history and examination of this patient, discussed the same with the dictator. I agree with the dictator's note ,documented as a scribe. Any additional findings or plans will be noted. Time taken: 35 minutes
[2018-11-25 11:10] LABS: Glucose,Whole Blood 187 mg/dL (75-99)
--- NOTE | 2018-11-25 11:12 | P.PN ---
Subjective Progress Note Date: 11/25/18 CHIEF COMPLAINT: Abdominal pain HISTORY OF PRESENT ILLNESS: Patient is s/p I&D of suprapubic abscess. Patient denies abdominal pain. Cultures positive for MSSA. WBC 9.6. Hemoglobin 10.8 PHYSICAL EXAM: VITAL SIGNS: Reviewed. GENERAL: Well-developed in no acute distress. HEENT: No sclera icterus. Extraocular movements grossly intact. Moist buccal mucosa. Head is atraumatic, normocephalic. ABDOMEN: Soft. Nondistended. I&D site without further drainage or bleeding. Dressing clean dry intact. NEUROLOGIC: Alert and oriented. Cranial nerves II through XII grossly intact. ASSESSMENT: 1. Suprapubic abscess PLAN: 1. Continue dressing changes daily and PRN 2. Antibiotics per primary medicine. 3. Stable for discharge from a surgical standpoint Nurse practitioner note has been reviewed by physician. Signing provider agrees with the documented findings, assessment, and plan of care. Objective - Vital Signs Vital signs: Vital Signs Temp 98.6 F 11/25/18 04:56 Pulse 101 H 11/25/18 04:56 Resp 18 11/25/18 07:43 BP 121/67 11/25/18 04:56 Pulse Ox 95 11/25/18 04:56 Intake & Output 11/24/18 11/25/18 11/25/18 18:59 06:59 18:59 Intake Total 1070 720 Balance 1070 720 Weight 64 kg Intake: Intake, IV Titration 470 300 Amount Ampicillin-Sulbactam 3 gm 100 100 In Sodium Chloride 0.9% 100 ml @ 200 mls/hr IVPB Q6HR [facility] Rx#:[id number] Sodium Chloride 0.9% 1, 120 200 000 ml @ 50 mls/hr IV . Q20H [facility] Rx#:[id number] Vancomycin 1,250 mg In 250 Sodium Chloride 0.9% 250 ml @ 125 mls/hr IVPB ONCE [facility] Rx#:[id number] Oral 600 420 Other: Voiding Method Toilet Toilet Toilet Bedside Commode Bedside Commode Bedside Commode # Voids 3 1 - Labs CBC & Chem 7: 11/25/18 07:18 11/25/18 07:18 Labs: Abnormal Lab Results - Last 24 Hours (Table) 05/08/19 05/08/19 05/08/19 Range/Units 09:36 12:06 16:54 RBC (3.80-5.40) m/uL Hgb (11.4-16.0) gm/dL Hct (34.0-46.0) % MCV (80.0-100.0) fL Lymphocytes # (1.0-4.8) k/uL Sodium (137-145) mmol/L Chloride 113 H (98-107) mmol/L Carbon Dioxide 18 L (22-30) mmol/L BUN 33 H (7-17) mg/dL Creatinine 1.28 H (0.52-1.04) mg/dL Glucose 193 H (74-99) mg/dL POC Glucose (mg/dL) 141 H 145 H (75-99) mg/dL 11/24/18 11/25/18 11/25/18 Range/Units 20:14 06:48 07:18 RBC (3.80-5.40) m/uL Hgb (11.4-16.0) gm/dL Hct (34.0-46.0) % MCV (80.0-100.0) fL Lymphocytes # (1.0-4.8) k/uL Sodium 135 L (137-145) mmol/L Chloride (98-107) mmol/L Carbon Dioxide (22-30) mmol/L BUN 25 H (7-17) mg/dL Creatinine 1.24 H (0.52-1.04) mg/dL Glucose (74-99) mg/dL POC Glucose (mg/dL) 156 H 113 H (75-99) mg/dL 11/25/18 Range/Units 07:18 RBC 3.28 L (3.80-5.40) m/uL Hgb 10.8 L (11.4-16.0) gm/dL Hct 33.2 L (34.0-46.0) % MCV 101.0 H (80.0-100.0) fL Lymphocytes # 0.9 L (1.0-4.8) k/uL Sodium (137-145) mmol/L Chloride (98-107) mmol/L Carbon Dioxide (22-30) mmol/L BUN (7-17) mg/dL Creatinine (0.52-1.04) mg/dL Glucose (74-99) mg/dL POC Glucose (mg/dL) (75-99) mg/dL Microbiology - Last 24 Hours (Table) 11/23/18 12:00 Gram Stain - Final Abdomen Wound Culture - Final Staphylococcus aureus 11/23/18 09:23 Blood Culture - Preliminary Blood No Growth after 24 hours
[2018-11-25 11:48] VITALS: BP 141/62; PULSE 86; RESP 15; TEMP 99.1
--- NOTE | 2018-11-25 12:57 | P.OP ---
Date of Procedure: 11/23/18 Preoperative Diagnosis: Abdominal wall abscess Postoperative Diagnosis: Abdominal wall abscess Procedure(s) Performed: Incision and drainage of abdominal wall abscess Anesthesia: local Surgeon: William Carranza Estimated Blood Loss (ml): 25 Pathology: other (Wound culture) Condition: stable Disposition: floor Description of Procedure: The patient had the procedure performed in her bed. Her abdominal wall was prepped and draped usual fashion. The areas anesthetized 1% local Xylocaine. Using 11 blade a skin incision was made and then the abscess cavity is entered. The wound was cultured. The wound was then packed. Patient top she will well. Sterile dressings was applied.
[2018-11-25] MEDS: SODIUM CHLORIDE 0.9% 1,000 ML IV SCH (13:19)
--- NOTE | 2018-11-25 13:58 | P.DS ---
Providers Date of admission: 11/23/18 07:59 Expected date of discharge: 11/25/18 Attending physician: Rhys Strange Consults: 11/22/18 20:43 Consult Physician Routine Consulting Provider: William Carranza Consult Reason/Comments: abscess Do you want consulting provider notified?: Yes Primary care physician: Rhys Strange [facility] Course: Final Diagnoses: -Abdominal/suprapubic pain, CT reports abscess, status post I&D, wound culture MSSA -Possible acute UTI, culture negative -Acute renal failure secondary to the above, improving -Diabetes mellitus II -Chronic CHF, systolic dysfunction, EF 20% -CAD -Atrial fibrillation, chronic -Gastroesophageal reflux disease -Hypertension -Hyperlipidemia -Osteoarthritis -Thyroid disorder -Chronic kidney disease, stage III Hospital course:This is an 83-year-old female admitted to the ER. Abdominal /suprapubic pain in a patient with history of CAD, atrial fibrillation, CHF, diabetes mellitus, gastroesophageal or reflux disease hypertension, thyroid disorder, renal disease, osteoarthritis and multiple other medical issues. Denies nausea vomiting or diarrhea. T-max 100.7, WBC 15.7. Creatinine elevated 1.66, improving with IV fluids down to 1.32.UA with moderate leukocytes. Abdomen/pelvis CT reported right suprapubic subcutaneous abscess. IV antibiotics initiated with vancomycin and Unasyn.Surgery consulted for further recommendations to follow. 11/24/18 yesterday underwent I&D at bedside with surgery. Nursing reported some bleeding during the night. Hemoglobin stable with no further bleeding. Hemoglobin 11.7. Pain controlled. Afebrile, WBC 10.7. Renal function improving, down to 1.28. 11/25/2018 wound cultures currently growing presumptive staph, final results pending. Afebrile, normal WBC. Pain controlled. Good diet intake, no nausea vomiting or diarrhea. Creatinine 1.24. Wound cultures have returned back with MSSA, cleared by surgery for discharge. Significant clinical improvement. Patient will be discharged home in a stable condition with guarded prognosis. Exam GENERAL: Alert and oriented 3, no acute distress CARDIOVASCULAR: S1, S2 muffled. No murmur RESPIRATION: Breath sounds diminished in the bases. No rhonchi,crackles, wheezing. ABDOMEN: Soft, nondistended ,ABD dressing clean, dry and intact.No guarding. no masses palpable. Bowel sounds heard. NERVOUS SYSTEM: Cranial N 2-12 grossly normal. Moves all 4 limbs. Diffuse weakness No focal deficits. The impression and plan of care has been dictated as directed. : I performed a history and examination of this patient, discussed the same with the dictator. I agree with the dictator's note ,documented as a scribe. Any additional findings or plans will be noted. Time taken: 35 minutes Patient Condition at Discharge: Stable Plan - Discharge Summary Discharge Rx Participant: No New Discharge Prescriptions: New Metoprolol Tartrate [Lopressor] 25 mg PO BID #60 tab Spironolactone [Aldactone] 25 mg PO DAILY #1 tablet Cephalexin [Keflex] 500 mg PO Q8HR #21 cap Continue Levothyroxine Sodium [Synthroid] 50 mcg PO DAILY Simvastatin [Zocor] 20 mg PO HS Allopurinol [Zyloprim] 100 mg PO DAILY Apixaban [Eliquis] 2.5 mg PO BID tablet hydrALAZINE HCL [Apresoline] 25 mg PO BID #60 tab glyBURIDE [Diabeta] 5 mg PO AC-BID #60 tablet Pantoprazole [Protonix] 40 mg PO DAILY #30 tab Aspirin EC [Ecotrin Low Dose] 81 mg PO DAILY Folic Acid-Vit B Complex-Vit C [Nephrocaps] 1 cap PO DAILY Furosemide [Lasix] 40 mg PO BID@0900,1600 #60 tab Ferrous Sulfate [Iron (65 MG Elemental)] 325 mg PO DAILY Discontinued Spironolactone [Aldactone] 25 mg PO DAILY tab Metoprolol Tartrate [Lopressor] 12.5 mg PO DAILY Metoprolol Tartrate [Lopressor] 25 mg PO DAILY Discharge Medication List Allopurinol [Zyloprim] 100 mg PO DAILY 07/21/17 [History] Levothyroxine Sodium [Synthroid] 50 mcg PO DAILY 07/21/17 [History] Simvastatin [Zocor] 20 mg PO HS 07/21/17 [History] Apixaban [Eliquis] 2.5 mg PO BID tablet 07/24/17 [Rx] Aspirin EC [Ecotrin Low Dose] 81 mg PO DAILY 07/28/17 [History] Pantoprazole [Protonix] 40 mg PO DAILY #30 tab 07/28/17 [Rx] glyBURIDE [Diabeta] 5 mg PO AC-BID #60 tablet 07/28/17 [Rx] hydrALAZINE HCL [Apresoline] 25 mg PO BID #60 tab 07/28/17 [Rx] Folic Acid-Vit B Complex-Vit C [Nephrocaps] 1 cap PO DAILY 10/08/17 [History] Furosemide [Lasix] 40 mg PO BID@0900,1600 #60 tab 10/09/17 [Rx] Ferrous Sulfate [Iron (65 MG Elemental)] 325 mg PO DAILY 11/22/18 [History] Cephalexin [Keflex] 500 mg PO Q8HR #21 cap 11/25/18 [Rx] Metoprolol Tartrate [Lopressor] 25 mg PO BID #60 tab 11/25/18 [Rx] Spironolactone [Aldactone] 25 mg PO DAILY #1 tablet 11/25/18 [Rx] Follow up Appointment(s)/Referral(s): Rhys Strange DO [Primary Care Provider] - 12/06/18 11:50 am William Carranza MD [STAFF PHYSICIAN] - 12/02/18 2:40 pm Ambulatory/Diagnostic Orders: Complete Blood Count w/diff [LAB.AMB] Time Frame: 3 Days, Location: None Selected Patient Instructions/Handouts: Cephalexin (By mouth), Metoprolol (By mouth), Spironolactone (By mouth), Urinary Tract Infection in Women (DC), Fever in Adults (ED), Acute Abdominal Pain (DC)
[2018-11-25] MEDS ORDERED: VANCOMYCIN 1,250 MG in SODIUM CHLORIDE 0.9% 250 ML IVPB ONE (14:00)
[2018-11-25] MEDS ORDERED: METOPROLOL TARTRATE 25 MG TAB PO SCH (21:00)
--- NOTE | 2018-11-28 09:26 | P.PN ---
Progress Note - Text Patient was discharged after she was treated for a MSSA infection after incision and drainage. Patient was given Keflex for about a week. Received a call from lab that her blood cultures are positive appears to be staph aureus most probably MSSA. Did call the patient and her daughter patient is doing well without any fever or fatigue. Patient requires at least 2 weeks of antibiotics for bacteremia she is sick she doesn't have any symptoms patient probably doesn't need to come to ER again. Patient is doing well at home. I did tell the daughter that if she feels more fatigued and tired and if she starts having fever she has to come back to ER. Also asked her to make an earlier appointment with Dr. Strange she presently has an appointment on December 06. Asked her to let Dr. Strange no about bacteria in the blood. I tried to reach Dr. Strange and Dr. Strange nurse practitioner but unable to at this time.
== END 2018-11-25 15:45 | disposition home or self-care (01) | DRG 580 ==
LOC: EC 17:29 → 3NMEDONC 19:32 → OBSVTOIN 11-23 07:59 → 3NMEDONC 11-24 17:26
PROVIDERS: ADMIT Family Medicine; ATTEND Family Medicine
PROC: 0W9F0ZZ Drainage of Abdominal Wall, Open Approach (ICD-10-PCS; principal; 2018-11-23)
DX: L02.211 Cutaneous abscess of abdominal wall (principal); I50.22 Chronic systolic (congestive) heart failure; I13.0 Hypertensive heart and chronic kidney disease with heart failure and stage 1 through stage 4 chronic kidney disease, or unspecified chronic kidney disease; R78.81 Bacteremia; N17.9 Acute kidney failure, unspecified; N39.0 Urinary tract infection, site not specified; E11.22 Type 2 diabetes mellitus with diabetic chronic kidney disease; B95.61 Methicillin susceptible Staphylococcus aureus infection as the cause of diseases classified elsewhere; I48.2 Chronic atrial fibrillation; N18.3 Chronic kidney disease, stage 3 (moderate); I25.10 Atherosclerotic heart disease of native coronary artery without angina pectoris; K21.9 Gastro-esophageal reflux disease without esophagitis; E78.5 Hyperlipidemia, unspecified; M19.90 Unspecified osteoarthritis, unspecified site; E07.9 Disorder of thyroid, unspecified; M10.9 Gout, unspecified; M54.9 Dorsalgia, unspecified; H93.13 Tinnitus, bilateral; Z79.01 Long term (current) use of anticoagulants; Z79.82 Long term (current) use of aspirin; Z79.84 Long term (current) use of oral hypoglycemic drugs; Z79.890 Hormone replacement therapy; Z79.899 Other long term (current) drug therapy; Z95.2 Presence of prosthetic heart valve; Z95.1 Presence of aortocoronary bypass graft; Z96.652 Presence of left artificial knee joint; Z90.710 Acquired absence of both cervix and uterus; Z86.59 Personal history of other mental and behavioral disorders; Z96.1 Presence of intraocular lens; Z98.41 Cataract extraction status, right eye; Z98.42 Cataract extraction status, left eye; Z84.89 Family history of other specified conditions
CPT/HCPCS: 36415; 74176; 80048; 80053; 80202; 81001; 82150; 82550; 83605; 83690; 84484; 85025; 85027; 85610; 85730; 87040; 87070; 87077; 87086; 87186; 87205; 96361; 96365; 99285

== ENCOUNTER 2020-10-20 22:16 | Observation (INO) | payer MEDICARE ==
[2020-10-20 23:22] LABS: Basophils # (A) 0.1 k/uL (0-0.2); Basophils % (A) 0 %; Eosinophils # (A) 0.1 k/uL (0-0.7); Eosinophils % (A) 0 %; HCT 45.8 % (34.0-46.0); HGB 15.4 gm/dL (11.4-16.0); Lymphocytes # (A) 0.5 k/uL (1.0-4.8); Lymphocytes % (A) 3 %; MCH 33.3 pg (25.0-35.0); MCHC 33.5 g/dL (31.0-37.0); MCV 99.4 fL (80.0-100.0); Mean Platelet Volume 7.7; Monocytes # (A) 0.8 k/uL (0-1.0); Monocytes % (A) 5 %; Neutrophils # (A) 16.9 k/uL (1.3-7.7); Neutrophils % (A) 92 %; Platelet Count 201 k/uL (150-450); RBC 4.61 m/uL (3.80-5.40); RDW 13.2 % (11.5-15.5); WBC 18.4 k/uL (3.8-10.6)
[2020-10-20 23:38] LABS: INR 1.1 (<1.2); Partial Thromboplastin Time 25.4 sec (22.0-30.0); Prothrombin Time 11.9 sec (9.0-12.0)
--- NOTE | 2020-10-20 23:40 | XR ---
EXAMINATION TYPE: XR chest 2V DATE OF EXAM: 10/20/2020 COMPARISON: 10/08/2017 HISTORY: Syncope TECHNIQUE: FINDINGS: There is no heart failure. There is some interstitial infiltrate in the left midlung. There are sternal wires. There are chest leads. Costophrenic angles are fairly clear. Thoracic aorta is at heromatous. There is mild coarsening of interstitial markings. IMPRESSION: There is some mild interstitial infiltrate in the left midlung which is similar to old ex am. This probably relates to some pulmonary fibrosis. No heart failure seen.
--- NOTE | 2020-10-20 23:47 | CT ---
EXAMINATION TYPE: CT brain julianna wo con DATE OF EXAM: 10/20/2020 COMPARISON: 05/19/2012 HISTORY: Syncope CT DLP: 1427.1 mGycm Automated exposure control for dose reduction was used. There is mild cerebral atrophy. There is no mass effect nor midline shift. There is no sign of intrac ranial hemorrhage. The calvarium is intact. Skull base is intact. There is normal aeration of the mas toid sinuses. There is some ethmoid sinus mucosal thickening. Cervical vertebra have fairly normal alignment. Disc spaces are well-maintained for the patient's age . There is no compression fracture. There is mild cervical hypertrophic facet arthropathy. There is n o evidence of a fracture. IMPRESSION: Negative CT scan of the cervical spine. No change. No fracture. Mild cerebral atrophy. No acute intracranial abnormality. No change.
[2020-10-21] LABS: Albumin 4.1 g/dL (3.5-5.0); Calcium 9.3 mg/dL (8.4-10.2); D-Dimer 0.66 mg/L FEU (<0.60); Magnesium 2.1 mg/dL (1.6-2.3); Total Bilirubin 1.1 mg/dL (0.2-1.3); Total Protein 6.6 g/dL (6.3-8.2)
[2020-10-21] MEDS ORDERED: cefTRIAXone IN SWFI 1,000 MG/10 ML SYRINGE IVP ONE
[2020-10-21 00:08] LABS: Potassium 4.4 mmol/L (3.5-5.1)
[2020-10-21] MEDS ORDERED: SODIUM CHLORIDE 0.9% 500 ML 500 ML IV ONE (00:18)
[2020-10-21] MEDS: SODIUM CHLORIDE 0.9% 1,000 ML IV SCH ×2 (00:28→14:52)
[2020-10-21 00:46] LABS: Appearance,Urine Clear (Clear); Bacteria,Urine Rare /hpf; Bilirubin,Urine Negative (Negative); Blood,Urine Negative (Negative); Color,Urine Yellow; Glucose,Urine (UA) Negative (Negative); Hyaline Casts,Urine 6 /lpf (0-2); Ketones,Urine Trace (Negative); Leukocyte Esterase,Urine Trace (Negative); Mucus,Urine Rare /hpf; Nitrite,Urine Negative (Negative); Protein,Urine Trace (Negative); RBC,Urine 1 /hpf (0-5); Specific Gravity,Urine 1.017 (1.001-1.035); Squamous Epithelial Cell,Urine <1 /hpf (0-4); Urobilinogen,Urine <2.0 mg/dL (<2.0); WBC,Urine 1 /hpf (0-5)
--- NOTE | 2020-10-21 01:10 | ED ---
General Adult HPI - General Source: patient, EMS Mode of arrival: EMS Limitations: no limitations <Danya Sampson - Last Filed: 10/21/20 01:43> <Jose Moss - Last Filed: 10/22/20 07:09> - General Chief complaint: Syncope Stated complaint: syncope Time Seen by Provider: 10/20/20 22:19 - History of Present Illness Initial comments: 85-year-old female with history of atrial fibrillation diabetes CHF thyroid dis order presenting with family member for syncopal episode just prior to arrival. Patient presents today complaining of symptoms syncopal episode generalized weakness. Patient states that her entire family has Covid, the last few days she has had decreased appetite with little oral intake. She states she has felt weak all over she denies any chest pain shortness of breath and leg swelling calf pain hemoptysis indigestion belching nausea vomiting return back pain jaw or arm pain. Patient denies any cough. Patient denies any dysuria urgency frequency or abdominal pain patient has a nausea vomiting diarrhea. Patient states that today she went to get up and passed out her she was caught by her family member and did not hit the floor. She states she has slight discomfort of the neck from jerking. pt is on eliquis for her atrial fibrillation. Upon arrival patient appears nontoxic she does appear dry her heart rate is slightly elevated. (Danya Sampson) - Related Data Home Medications Medication Instructions Recorded Confirmed Levothyroxine Sodium [Synthroid] 50 mcg PO DAILY 07/21/17 10/21/20 allopurinoL [Zyloprim] 100 mg PO DAILY 07/21/17 10/21/20 Aspirin EC [Ecotrin Low Dose] 81 mg PO HS 07/28/17 10/21/20 Furosemide [Lasix] 40 mg PO DAILY 10/21/20 10/21/20 Nephro-Fabio 1 tab PO HS 10/21/20 10/21/20 Pantoprazole [Protonix] 40 mg PO HS 10/21/20 10/21/20 Simvastatin [Zocor] 40 mg PO HS 10/21/20 10/21/20 Spironolactone [Aldactone] 25 mg PO BID 10/21/20 10/21/20 glyBURIDE [Diabeta] 5 mg PO HS 10/21/20 10/21/20 glyBURIDE [Diabeta] 10 mg PO DAILY 10/21/20 10/21/20 Previous Rx's Medication Instructions Recorded Apixaban [Eliquis] 2.5 mg PO BID tablet 07/24/17 hydrALAZINE HCL [Apresoline] 25 mg PO BID #60 tab 07/28/17 Metoprolol Tartrate [Lopressor] 25 mg PO BID #60 tab 11/25/18 Allergies Allergy/AdvReac Type Severity Reaction Status Date / Time No Known Allergies Allergy Verified 10/21/20 07:47 Review of Systems ROS Other: All systems not noted in ROS Statement are negative. <Danya Sampson - Last Filed: 10/21/20 01:43> ROS Other: All systems not noted in ROS Statement are negative. <Jose Moss - Last Filed: 10/22/20 07:09> ROS Statement: Those systems with pertinent positive or pertinent negative responses have been documented in the HPI. Past Medical History Past Medical History: Atrial Fibrillation, Coronary Artery Disease (CAD), Heart Failure, Diabetes Mellitus, GERD/Reflux, Hyperlipidemia, Hypertension, Osteoarthritis (OA), Renal Disease, Thyroid Disorder Additional Past Medical History / Comment(s): NIDDM type II, 07/24/17 echo with 20% EF, chronic kidney disease stage III, bilateral tinnitis, arthritis multiple joints, gout, back pain. 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 Past Anesthesia/Blood Transfusion Reactions: Previous Problems w/ Anesthesia Additional Past Anesthesia/Blood Transfusion Reaction / Comment(s): Pt states she was hypertensive after waking from D&C. Pt has clausterphobia. Past Psychological History: Depression Past Alcohol Use History: None Reported Past Drug Use History: None Reported - Past Family History Father History Unknown: Yes Additional Family Medical History / Comment(s): pt was adopted Mother History Unknown: Yes Additional Family Medical History / Comment(s): Mother after childbirth at the age of 35yrs. <Danya Sampson - Last Filed: 10/21/20 01:43> General Exam Limitations: no limitations <Danya Sampson - Last Filed: 10/21/20 01:43> - General Exam Comments Initial Comments: General: The patient is awake and alert, in no distress, and does not appear acutely ill. Eye: Pupils are equal, round and reactive to light, extra-ocular movements are intact. No nystagmus. There is normal conjunctiva bilaterally. No signs of icterus. Ears, nose, mouth and throat: There are dry mucous membranes and no oral lesions. Neck: The neck is supple, there is no tenderness or JVD. Cardiovascular: There is a regular rate and rhythm. No murmur, rub or gallop is appreciated. Respiratory: Lungs are clear to auscultation, respirations are non-labored, breath sounds are equal. No wheezes, stridor, rales, or rhonchi. Gastrointestinal: Soft, non-distended, non-tender abdomen without masses or org anomegaly noted. There is no rebound or guarding present. No CVA tenderness. Musculoskeletal: Normal ROM, no tenderness. Strength 5/5. Sensation intact. Radial and DPpulses equal bilaterally 2+. Neurological: A&O x 3. CN II-XII intact, There are no obvious motor or sensory deficits. Coordination appears grossly intact. Speech is normal. Skin: Skin is warm and dry and no rashes or lesions are noted. no pitting edema Psychiatric: Cooperative, appropriate mood & affect, normal judgment. (HumbertoclintonDanya L) Course Vital Signs 10/20/20 10/20/20 10/21/20 22:18 23:20 00:22 Temperature 99.3 F 99.9 F H Pulse Rate 103 H 84 89 Respiratory 18 18 20 Rate Blood Pressure 145/107 156/79 158/85 O2 Sat by Pulse 97 98 96 Oximetry 10/21/20 10/21/20 10/21/20 02:00 04:00 06:00 Temperature 98.6 F 98.7 F Pulse Rate 90 82 89 Respiratory 20 18 16 Rate Blood Pressure 155/83 142/77 O2 Sat by Pulse 95 94 L 93 L Oximetry 10/21/20 10/21/20 10/21/20 07:28 09:50 11:44 Temperature 99 F 98.4 F Pulse Rate 77 75 74 Respiratory 20 20 18 Rate Blood Pressure 135/79 157/92 134/75 O2 Sat by Pulse 94 L 96 97 Oximetry 10/21/20 13:36 Temperature 98.4 F Pulse Rate 74 Respiratory 18 Rate Blood Pressure 134/75 O2 Sat by Pulse 97 Oximetry Medical Decision Making - Lab Data Result diagrams: 10/20/20 22:43 10/20/20 22:43 <Danya Sampson - Last Filed: 10/21/20 01:43> - Lab Data Result diagrams: 10/20/20 22:43 10/20/20 22:43 <Jose Moss - Last Filed: 10/22/20 07:09> - Medical Decision Making 85-year-old female presenting for syncopal episode. Patient is at baseline no focal neurological deficits. Patient denies any chest pain/pressure or shortness of breath. Patient states she feels just weak all over. Patient is covid positive. No significant changes on the chest x-ray however patient does have leukocytosis was thus given Rocephin. Blood cultures are pending. Patient was hydrated. BNP much less than baseline. Troponin negative. EKG no significant findings. Patient's blood pressure elevated. At this time given patient looks dry, slightly increase of patient's baseline creatinine-with history of decreased oral intake patient will be admitted for gentle hydration as well as cardiology evaluation. Patient is agreeable to this care plan as well as admission (Danya Sampson) I saw this patient in conjunction with the physician administrative library assistant. I performed independent history and physical exam. Agree with case management. (Jose Moss) - Lab Data Lab Results 10/20/20 10/20/20 10/20/20 Range/Units 22:43 22:43 22:43 WBC 18.4 H (3.8-10.6) k/uL RBC 4.61 (3.80-5.40) m/uL Hgb 15.4 (11.4-16.0) gm/dL Hct 45.8 (34.0-46.0) % MCV 99.4 (80.0-100.0) fL MCH 33.3 (25.0-35.0) pg MCHC 33.5 (31.0-37.0) g/dL RDW 13.2 (11.5-15.5) % Plt Count 201 (150-450) k/uL MPV 7.7 Neutrophils % 92 % Lymphocytes % 3 % Monocytes % 5 % Eosinophils % 0 % Basophils % 0 % Neutrophils # 16.9 H (1.3-7.7) k/uL Lymphocytes # 0.5 L (1.0-4.8) k/uL Monocytes # 0.8 (0-1.0) k/uL Eosinophils # 0.1 (0-0.7) k/uL Basophils # 0.1 (0-0.2) k/uL PT 11.9 (9.0-12.0) sec INR 1.1 (<1.2) APTT 25.4 (22.0-30.0) sec D-Dimer 0.66 H (<0.60) mg/L FEU Sodium 134 L (137-145) mmol/L Potassium 4.4 (3.5-5.1) mmol/L Chloride 97 L (98-107) mmol/L Carbon Dioxide 26 (22-30) mmol/L Anion Gap 11 mmol/L BUN 42 H (7-17) mg/dL Creatinine 1.61 H (0.52-1.04) mg/dL Est GFR (CKD-EPI)AfAm 33 (>60 ml/min/1.73 sqM) Est GFR (CKD-EPI)NonAf 29 (>60 ml/min/1.73 sqM) Glucose 130 H (74-99) mg/dL Calcium 9.3 (8.4-10.2) mg/dL Magnesium 2.1 (1.6-2.3) mg/dL Total Bilirubin 1.1 (0.2-1.3) mg/dL AST 34 (14-36) U/L ALT 13 (4-34) U/L Alkaline Phosphatase 85 (38-126) U/L Troponin I (0.000-0.034) ng/mL NT-Pro-B Natriuret Pep pg/mL Total Protein 6.6 (6.3-8.2) g/dL Albumin 4.1 (3.5-5.0) g/dL Urine Color Urine Appearance (Clear) Urine pH (5.0-8.0) Ur Specific [place] (1.001-1.035) Urine Protein (Negative) Urine Glucose (UA) (Negative) Urine Ketones (Negative) Urine Blood (Negative) Urine Nitrite (Negative) Urine Bilirubin (Negative) Urine Urobilinogen (<2.0) mg/dL Ur Leukocyte Esterase (Negative) Urine RBC (0-5) /hpf Urine WBC (0-5) /hpf Ur Squamous Epith Cells (0-4) /hpf Urine Bacteria (None) /hpf Hyaline Casts (0-2) /lpf Urine Mucus (None) /hpf Coronavirus (PCR) (Not Detectd) 10/20/20 10/20/20 10/20/20 Range/Units 22:43 23:12 23:20 WBC (3.8-10.6) k/uL RBC (3.80-5.40) m/uL Hgb (11.4-16.0) gm/dL Hct (34.0-46.0) % MCV (80.0-100.0) fL MCH (25.0-35.0) pg MCHC (31.0-37.0) g/dL RDW (11.5-15.5) % Plt Count (150-450) k/uL MPV Neutrophils % % Lymphocytes % % Monocytes % % Eosinophils % % Basophils % % Neutrophils # (1.3-7.7) k/uL Lymphocytes # (1.0-4.8) k/uL Monocytes # (0-1.0) k/uL Eosinophils # (0-0.7) k/uL Basophils # (0-0.2) k/uL PT (9.0-12.0) sec INR (<1.2) APTT (22.0-30.0) sec D-Dimer (<0.60) mg/L FEU Sodium (137-145) mmol/L Potassium (3.5-5.1) mmol/L Chloride (98-107) mmol/L Carbon Dioxide (22-30) mmol/L Anion Gap mmol/L BUN (7-17) mg/dL Creatinine (0.52-1.04) mg/dL Est GFR (CKD-EPI)AfAm (>60 ml/min/1.73 sqM) Est GFR (CKD-EPI)NonAf (>60 ml/min/1.73 sqM) Glucose (74-99) mg/dL Calcium (8.4-10.2) mg/dL Magnesium (1.6-2.3) mg/dL Total Bilirubin (0.2-1.3) mg/dL AST (14-36) U/L ALT (4-34) U/L Alkaline Phosphatase (38-126) U/L Troponin I <0.012 (0.000-0.034) ng/mL NT-Pro-B Natriuret Pep 1420 pg/mL Total Protein (6.3-8.2) g/dL Albumin (3.5-5.0) g/dL Urine Color Urine Appearance (Clear) Urine pH (5.0-8.0) Ur Specific [place] (1.001-1.035) Urine Protein (Negative) Urine Glucose (UA) (Negative) Urine Ketones (Negative) Urine Blood (Negative) Urine Nitrite (Negative) Urine Bilirubin (Negative) Urine Urobilinogen (<2.0) mg/dL Ur Leukocyte Esterase (Negative) Urine RBC (0-5) /hpf Urine WBC (0-5) /hpf Ur Squamous Epith Cells (0-4) /hpf Urine Bacteria (None) /hpf Hyaline Casts (0-2) /lpf Urine Mucus (None) /hpf Coronavirus (PCR) Detected A (Not Detectd) 10/21/20 Range/Units 00:15 WBC (3.8-10.6) k/uL RBC (3.80-5.40) m/uL Hgb (11.4-16.0) gm/dL Hct (34.0-46.0) % MCV (80.0-100.0) fL MCH (25.0-35.0) pg MCHC (31.0-37.0) g/dL RDW (11.5-15.5) % Plt Count (150-450) k/uL MPV Neutrophils % % Lymphocytes % % Monocytes % % Eosinophils % % Basophils % % Neutrophils # (1.3-7.7) k/uL Lymphocytes # (1.0-4.8) k/uL Monocytes # (0-1.0) k/uL Eosinophils # (0-0.7) k/uL Basophils # (0-0.2) k/uL PT (9.0-12.0) sec INR (<1.2) APTT (22.0-30.0) sec D-Dimer (<0.60) mg/L FEU Sodium (137-145) mmol/L Potassium (3.5-5.1) mmol/L Chloride (98-107) mmol/L Carbon Dioxide (22-30) mmol/L Anion Gap mmol/L BUN (7-17) mg/dL Creatinine (0.52-1.04) mg/dL Est GFR (CKD-EPI)AfAm (>60 ml/min/1.73 sqM) Est GFR (CKD-EPI)NonAf (>60 ml/min/1.73 sqM) Glucose (74-99) mg/dL Calcium (8.4-10.2) mg/dL Magnesium (1.6-2.3) mg/dL Total Bilirubin (0.2-1.3) mg/dL AST (14-36) U/L ALT (4-34) U/L Alkaline Phosphatase (38-126) U/L Troponin I (0.000-0.034) ng/mL NT-Pro-B Natriuret Pep pg/mL Total Protein (6.3-8.2) g/dL Albumin (3.5-5.0) g/dL Urine Color Yellow Urine Appearance Clear (Clear) Urine pH 5.0 (5.0-8.0) Ur Specific [place] 1.017 (1.001-1.035) Urine Protein Trace H (Negative) Urine Glucose (UA) Negative (Negative) Urine Ketones Trace H (Negative) Urine Blood Negative (Negative) Urine Nitrite Negative (Negative) Urine Bilirubin Negative (Negative) Urine Urobilinogen <2.0 (<2.0) mg/dL Ur Leukocyte Esterase Trace H (Negative) Urine RBC 1 (0-5) /hpf Urine WBC 1 (0-5) /hpf Ur Squamous Epith Cells <1 (0-4) /hpf Urine Bacteria Rare H (None) /hpf Hyaline Casts 6 H (0-2) /lpf Urine Mucus Rare H (None) /hpf Coronavirus (PCR) (Not Detectd) Disposition Is patient prescribed a controlled substance at d/c from ED?: No Time of Disposition: 01:10 Decision to Admit Reason: Admit from EC Decision Date: 10/21/20 Decision Time: 01:10 <Danya Sampson - Last Filed: 10/21/20 01:43> <Jose Moss - Last Filed: 10/22/20 07:09> Clinical Impression: Syncope, COVID-19, Dehydration, Generalized weakness Disposition: ADMITTED IP TO THIS HOSP Condition: Stable
[2020-10-21] MEDS ORDERED: NALOXONE 0.4 MG/ML 1 ML VIAL IV PRN (01:30)
[2020-10-21] MEDS ORDERED: IBUPROFEN 400 MG TAB PO PRN (01:30)
--- NOTE | 2020-10-21 10:12 | P.CRDCN ---
History of Present Illness Consult date: 10/21/20 Requesting physician: Ashli Carcamo Reason for Consult (text): syncope Chief complaint: dizziness, weakness History of present illness: This is an 85-year-old female patient who presented to the emergency department with decreased oral intake, weakness, fatigue and near syncope. She was found t o be positive for COVID-19 and therefore the HPI and past medical history was obtained from the chart and nursing staff. He has a past medical history of hypertension, hyperlipidemia, CAD with prior CABG, persistent atrial fibrillation for which she is anticoagulated on Eliquis, prior aortic valve replacement, diabetes. Apparently her family had been diagnosed with COVID. Over the last few days she has had decreased appetite and decreased oral intake. She presented to the emergency department due to complaints of weakness and a near syncopal episode upon standing. Again she was noted to be positive for COVID. EKG on admission showed atrial fibrillation with controlled ventricular response with no evidence of acute ischemia. Chest x-ray showed interstitial infiltrate in the left midlung, similar to previous exam, likely related to some pulmonary fibrosis, no heart failure seen. Computed tomography scan of the head was done due to patient being on anticoagulation falling which showed no acute intracranial abnormality. Left ventricular evaluation White blood cell count of 18,400, sodium 134, potassium 4.4, BUN 42 and creatinine 1.61, troponin negative 1 with an NT proBNP of 1420. Past Medical History Past Medical History: Atrial Fibrillation, Coronary Artery Disease (CAD), Heart Failure, Diabetes Mellitus, GERD/Reflux, Hyperlipidemia, Hypertension, Osteoarthritis (OA), Renal Disease, Thyroid Disorder Additional Past Medical History / Comment(s): NIDDM type II, 07/24/17 echo with 20% EF, chronic kidney disease stage III, bilateral tinnitis, arthritis multiple joints, gout, back pain. 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 Past Anesthesia/Blood Transfusion Reactions: Previous Problems w/ Anesthesia Additional Past Anesthesia/Blood Transfusion Reaction / Comment(s): Pt states she was hypertensive after waking from D&C. Pt has clausterphobia. Past Psychological History: Depression Past Alcohol Use History: None Reported Past Drug Use History: None Reported - Past Family History Father History Unknown: Yes Additional Family Medical History / Comment(s): pt was adopted Mother History Unknown: Yes Additional Family Medical History / Comment(s): Mother after childbirth at the age of 35yrs. Medications and Allergies Home Medications Medication Instructions Recorded Confirmed Type Levothyroxine Sodium [Synthroid] 50 mcg PO DAILY 07/21/17 10/21/20 History allopurinoL [Zyloprim] 100 mg PO DAILY 07/21/17 10/21/20 History Apixaban [Eliquis] 2.5 mg PO BID tablet 07/24/17 10/21/20 Rx Aspirin EC [Ecotrin Low Dose] 81 mg PO HS 07/28/17 10/21/20 History hydrALAZINE HCL [Apresoline] 25 mg PO BID #60 tab 07/28/17 10/21/20 Rx Metoprolol Tartrate [Lopressor] 25 mg PO BID #60 tab 11/25/18 10/21/20 Rx Furosemide [Lasix] 40 mg PO DAILY 10/21/20 10/21/20 History Nephro-Fabio 1 tab PO HS 10/21/20 10/21/20 History Pantoprazole [Protonix] 40 mg PO HS 10/21/20 10/21/20 History Simvastatin [Zocor] 40 mg PO HS 10/21/20 10/21/20 History Spironolactone [Aldactone] 25 mg PO BID 10/21/20 10/21/20 History glyBURIDE [Diabeta] 5 mg PO HS 10/21/20 10/21/20 History glyBURIDE [Diabeta] 10 mg PO DAILY 10/21/20 10/21/20 History Allergies Allergy/AdvReac Type Severity Reaction Status Date / Time No Known Allergies Allergy Verified 10/21/20 07:47 Physical Exam Vitals: Vital Signs Temp Pulse Resp BP Pulse Ox 10/21/20 09:50 99 F 75 20 157/92 96 10/21/20 07:28 77 20 135/79 94 L 10/21/20 06:00 89 16 93 L 10/21/20 04:00 98.7 F 82 18 142/77 94 L 10/21/20 02:00 98.6 F 90 20 155/83 95 10/21/20 00:22 99.9 F H 89 20 158/85 96 10/20/20 23:20 84 18 156/79 98 10/20/20 22:18 99.3 F 103 H 18 145/107 97 Intake and Output 10/20/20 10/21/20 10/21/20 22:59 06:59 14:59 Other: Weight 77.111 kg PHYSICAL EXAMINATION: This is a 85-year-old -year-old female. Thorough physical examination was deferred secondary to COVID infection. VITAL SIGNS: Blood pressure 157/92, heart rate 75, respirations 20, temp 99F. Patient is 96 % on room air. Results 10/20/20 22:43 10/20/20 22:43 Cardiac Enzymes 10/20/20 10/20/20 Range/Units 22:43 22:43 AST 34 (14-36) U/L Troponin I <0.012 (0.000-0.034) ng/mL Coagulation 10/20/20 Range/Units 22:43 PT 11.9 (9.0-12.0) sec APTT 25.4 (22.0-30.0) sec CBC 10/20/20 Range/Units 22:43 WBC 18.4 H (3.8-10.6) k/uL RBC 4.61 (3.80-5.40) m/uL Hgb 15.4 (11.4-16.0) gm/dL Hct 45.8 (34.0-46.0) % Plt Count 201 (150-450) k/uL Comprehensive Metabolic Panel 10/20/20 Range/Units 22:43 Sodium 134 L (137-145) mmol/L Potassium 4.4 (3.5-5.1) mmol/L Chloride 97 L (98-107) mmol/L Carbon Dioxide 26 (22-30) mmol/L BUN 42 H (7-17) mg/dL Creatinine 1.61 H (0.52-1.04) mg/dL Glucose 130 H (74-99) mg/dL Calcium 9.3 (8.4-10.2) mg/dL AST 34 (14-36) U/L ALT 13 (4-34) U/L Alkaline Phosphatase 85 (38-126) U/L Total Protein 6.6 (6.3-8.2) g/dL Albumin 4.1 (3.5-5.0) g/dL Current Medications Generic Name Dose Route Start Last Admin Trade Name Vasiliyq PRN Reason Stop Dose Admin Acetaminophen 650 mg 10/21/20 01:30 Acetaminophen Tab 325 Mg Tab PO Q6HR PRN Mild Pain or Fever > 100.5 Sodium Chloride 1,000 mls @ 75 mls/hr 10/21/20 00:30 10/21/20 00:28 Saline 0.9% IV 75 mls/hr .[id number] Administration Ibuprofen 400 mg 10/21/20 01:30 Ibuprofen 400 Mg Tab PO Q6HR PRN Mild Pain or Fever > 100.5 Naloxone HCl 0.2 mg 10/21/20 01:30 Naloxone 0.4 Mg/Ml 1 Ml Vial IV Q2M PRN Opioid Reversal Intake and Output 10/20/20 10/21/20 10/21/20 22:59 06:59 14:59 Other: Weight 77.111 kg 10/20/20 22:43 10/20/20 22:43 Assessment and Plan Assessment: #1 COVID-19 infection #2 weakness, near syncope, fall likely secondary to above #3 CAD with prior CABG #4 prior aortic valve replacement #5 persistent atrial fibrillation, anticoagulated, rate controlled #6 diabetes mellitus #7 hypertension #8 hyperlipidemia #9 hypothyroidism Plan: From cardiology's perspective we'll obtain a 2-D echo with Doppler to assess cardiac structure and function. We will resume his home cardiac medications. Further recommendations to be made depending on clinical course and diagnostic findings. The above dictated assessment and findings were discussed with signing physician. The impression and plan of care have been directed as dictated. Tita Mckeon, Nurse Practitioner, acting as scribe for signing physician.
[2020-10-21] MEDS: ACETAMINOPHEN TAB 325 MG TAB PO PRN ×2 (10:17→16:41)
--- NOTE | 2020-10-21 13:21 | P.HPIM ---
History of Present Illness Patient is a pleasant 85-year-old female came in because of her decreased by mouth intake and generalized weakness and fatigue and had a syncopal episode. Patient was tested positive for covid 19. Patient is bit hyponatremic believed to be bit dehydrated and receiving IV fluids patient the does have history of congestive heart failure EF of around 25% but patient is presently euvolemic at this time patient has mildly elevated proBNP of 1422 troponins are negative repeat echocardiogram is being obtained patient does have some leukocytosis chest x-ray showed some interstitial infiltrate which appeared to be secondary to pulmonary fibrosis as per the radiologist's reading. Patient had multiple family members that are positive for Covid patient did receive both the vaccines because of which in spite of her age patient doesn't have hypoxemia does have minimal symptoms. Patient was monitored overnight. Review of Systems REVIEW OF SYSTEMS: CONSTITUTIONAL: No fever, no malaise, no fatigue. HEENT: No recent visual problems or hearing problems. Denied any sore throat. CARDIOVASCULAR: No chest pain, orthopnea, PND, no palpitations. PULMONARY: No shortness of breath, no cough, no hemoptysis. GASTROINTESTINAL: No diarrhea, no nausea, no vomiting, no abdominal pain. NEUROLOGICAL: No headaches, no weakness, no numbness. HEMATOLOGICAL: Denies any bleeding or petechiae. GENITOURINARY: Denies any burning micturition, frequency, or urgency. MUSCULOSKELETAL/RHEUMATOLOGICAL: Denies any joint pain, swelling, or any muscle pain. ENDOCRINE: Denies any polyuria or polydipsia. The rest of the 14-point review of systems is negative. Past Medical History Past Medical History: Atrial Fibrillation, Coronary Artery Disease (CAD), Heart Failure, Diabetes Mellitus, GERD/Reflux, Hyperlipidemia, Hypertension, Osteoarthritis (OA), Renal Disease, Thyroid Disorder Additional Past Medical History / Comment(s): NIDDM type II, 07/24/17 echo with 20% EF, chronic kidney disease stage III, bilateral tinnitis, arthritis multiple joints, gout, back pain. 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 Past Anesthesia/Blood Transfusion Reactions: Previous Problems w/ Anesthesia Additional Past Anesthesia/Blood Transfusion Reaction / Comment(s): Pt states she was hypertensive after waking from D&C. Pt has clausterphobia. Past Psychological History: Depression Past Alcohol Use History: None Reported Past Drug Use History: None Reported - Past Family History Father History Unknown: Yes Additional Family Medical History / Comment(s): pt was adopted Mother History Unknown: Yes Additional Family Medical History / Comment(s): Mother after childbirth at the age of 35yrs. Medications and Allergies Home Medications Medication Instructions Recorded Confirmed Type Levothyroxine Sodium [Synthroid] 50 mcg PO DAILY 07/21/17 10/21/20 History allopurinoL [Zyloprim] 100 mg PO DAILY 07/21/17 10/21/20 History Apixaban [Eliquis] 2.5 mg PO BID tablet 07/24/17 10/21/20 Rx Aspirin EC [Ecotrin Low Dose] 81 mg PO HS 07/28/17 10/21/20 History hydrALAZINE HCL [Apresoline] 25 mg PO BID #60 tab 07/28/17 10/21/20 Rx Metoprolol Tartrate [Lopressor] 25 mg PO BID #60 tab 11/25/18 10/21/20 Rx Furosemide [Lasix] 40 mg PO DAILY 10/21/20 10/21/20 History Nephro-Fabio 1 tab PO HS 10/21/20 10/21/20 History Pantoprazole [Protonix] 40 mg PO HS 10/21/20 10/21/20 History Simvastatin [Zocor] 40 mg PO HS 10/21/20 10/21/20 History Spironolactone [Aldactone] 25 mg PO BID 10/21/20 10/21/20 History glyBURIDE [Diabeta] 5 mg PO HS 10/21/20 10/21/20 History glyBURIDE [Diabeta] 10 mg PO DAILY 10/21/20 10/21/20 History Allergies Allergy/AdvReac Type Severity Reaction Status Date / Time No Known Allergies Allergy Verified 10/21/20 07:47 Physical Exam Vitals: Vital Signs Temp Pulse Resp BP Pulse Ox 10/21/20 11:44 98.4 F 74 18 134/75 97 10/21/20 09:50 99 F 75 20 157/92 96 10/21/20 07:28 77 20 135/79 94 L 10/21/20 06:00 89 16 93 L 10/21/20 04:00 98.7 F 82 18 142/77 94 L 10/21/20 02:00 98.6 F 90 20 155/83 95 10/21/20 00:22 99.9 F H 89 20 158/85 96 10/20/20 23:20 84 18 156/79 98 10/20/20 22:18 99.3 F 103 H 18 145/107 97 Intake and Output 10/20/20 10/21/20 10/21/20 22:59 06:59 14:59 Other: Weight 77.111 kg PHYSICAL EXAMINATION: GENERAL: The patient is alert and oriented x3, not in any acute distress. Well developed, well nourished. HEENT: Pupils are round and equally reacting to light. EOMI. No scleral icterus. No conjunctival pallor. Normocephalic, atraumatic. No pharyngeal erythema. No thyromegaly. CARDIOVASCULAR: S1 and S2 present. No murmurs, rubs, or gallops. PULMONARY: Chest is clear to auscultation, no wheezing or crackles. ABDOMEN: Soft, nontender, nondistended, normoactive bowel sounds. No palpable organomegaly. MUSCULOSKELETAL: No joint swelling or deformity. EXTREMITIES: No cyanosis, clubbing, or pedal edema. NEUROLOGICAL: Gross neurological examination did not reveal any focal deficits. SKIN: No rashes. Results CBC & Chem 7: 10/20/20 22:43 10/20/20 22:43 Labs: Abnormal Lab Results - Last 24 Hours (Table) 10/20/20 10/20/20 10/20/20 Range/Units 22:43 22:43 22:43 WBC 18.4 H (3.8-10.6) k/uL Neutrophils # 16.9 H (1.3-7.7) k/uL Lymphocytes # 0.5 L (1.0-4.8) k/uL D-Dimer 0.66 H (<0.60) mg/L FEU Sodium 134 L (137-145) mmol/L Chloride 97 L (98-107) mmol/L BUN 42 H (7-17) mg/dL Creatinine 1.61 H (0.52-1.04) mg/dL Glucose 130 H (74-99) mg/dL Urine Protein (Negative) Urine Ketones (Negative) Ur Leukocyte Esterase (Negative) Urine Bacteria (None) /hpf Hyaline Casts (0-2) /lpf Urine Mucus (None) /hpf Coronavirus (PCR) (Not Detectd) 10/20/20 10/21/20 Range/Units 23:20 00:15 WBC (3.8-10.6) k/uL Neutrophils # (1.3-7.7) k/uL Lymphocytes # (1.0-4.8) k/uL D-Dimer (<0.60) mg/L FEU Sodium (137-145) mmol/L Chloride (98-107) mmol/L BUN (7-17) mg/dL Creatinine (0.52-1.04) mg/dL Glucose (74-99) mg/dL Urine Protein Trace H (Negative) Urine Ketones Trace H (Negative) Ur Leukocyte Esterase Trace H (Negative) Urine Bacteria Rare H (None) /hpf Hyaline Casts 6 H (0-2) /lpf Urine Mucus Rare H (None) /hpf Coronavirus (PCR) Detected A (Not Detectd) Assessment and Plan Plan: -Near Syncope believed to be secondary to Covid 19 infection and dehydration from Covid 19. Patient does have dehydration secondary to that patient's diuretics will be held. Coronary artery disease and CABG in the past and ischemic cardiomyopathy EF of around 25% -I did well the placement -Persistent atrial fibrillation anticoagulated patient will be resumed on anti- coagulation -chronic kidney disease stage 3-4 probably diabetic nephropathy patient the creatinine is at her baseline now -Hyperlipidemia -Hypertension next and have an hypothyroidism -Type 2 diabetes mellitus For above-mentioned chronic medical problems patient will be resumed on appropriate home medications
[2020-10-21] MEDS: APIXABAN 2.5 MG TABLET PO SCH ×2 (13:29→21:31)
[2020-10-21 17:54] LABS: Glucose,Whole Blood 161 mg/dL (75-99)
[2020-10-21 19:34] LABS: Glucose,Whole Blood 256 mg/dL (75-99)
[2020-10-21] MEDS: ATORVASTATIN 20 MG TAB PO SCH (21:24)
[2020-10-21] MEDS: ASPIRIN 81 MG PO SCH (21:24)
[2020-10-21] MEDS: PANTOPRAZOLE 40 MG TABLET PO SCH (21:24)
[2020-10-21] MEDS: METOPROLOL TARTRATE 25 MG TAB PO SCH (21:24)
[2020-10-21] MEDS: FOLIC ACID-VIT B COMPLEX-VIT C 1 CAP PO SCH (21:24)
[2020-10-21] MEDS: hydrALAZINE HCL 25 MG TAB PO SCH (21:24)
[2020-10-21] MEDS: SPIRONOLACTONE 25 MG TAB PO SCH (21:24)
[2020-10-22] MEDS: ACETAMINOPHEN TAB 325 MG TAB PO PRN ×2 (03:24→18:21)
[2020-10-22] MEDS: SODIUM CHLORIDE 0.9% 1,000 ML IV SCH ×2 (04:17→17:13)
[2020-10-22] MEDS: LEVOTHYROXINE 50 MCG TAB PO SCH (05:59)
[2020-10-22 07:07] LABS: Glucose,Whole Blood 134 mg/dL (75-99)
[2020-10-22] MEDS: METOPROLOL TARTRATE 25 MG TAB PO SCH ×2 (08:20→19:56)
[2020-10-22] MEDS: SPIRONOLACTONE 25 MG TAB PO SCH ×2 (08:21→19:56)
[2020-10-22] MEDS: hydrALAZINE HCL 25 MG TAB PO SCH ×2 (08:21→19:56)
[2020-10-22] MEDS: APIXABAN 2.5 MG TABLET PO SCH ×2 (08:21→19:56)
[2020-10-22 09:50] LABS: African American GFR (CKD) 47 (>60 ml/min/1.73 sqM); Anion Gap 10 mmol/L; Blood Urea Nitrogen 37 mg/dL (7-17); Carbon Dioxide 20 mmol/L (22-30); Chloride 101 mmol/L (98-107); Glucose 135 mg/dL (74-99); Non-African American GFR(CKD) 41 (>60 ml/min/1.73 sqM); Sodium 131 mmol/L (137-145)
[2020-10-22 09:51] LABS: Potassium 4.4 mmol/L (3.5-5.1)
[2020-10-22 10:07] LABS: Basophils # (A) 0.1 k/uL (0-0.2); Basophils % (A) 0 %; Eosinophils # (A) 0.1 k/uL (0-0.7); Eosinophils % (A) 0 %; HCT 40.4 % (34.0-46.0); HGB 14.2 gm/dL (11.4-16.0); Lymphocytes # (A) 0.2 k/uL (1.0-4.8); Lymphocytes % (A) 1 %; MCH 34.9 pg (25.0-35.0); MCHC 35.2 g/dL (31.0-37.0); MCV 99.2 fL (80.0-100.0); Mean Platelet Volume 8.4; Monocytes # (A) 1.1 k/uL (0-1.0); Monocytes % (A) 5 %; Neutrophils # (A) 18.1 k/uL (1.3-7.7); Neutrophils % (A) 92 %; Platelet Count 215 k/uL (150-450); RBC 4.07 m/uL (3.80-5.40); RDW 13.3 % (11.5-15.5); WBC 19.6 k/uL (3.8-10.6)
[2020-10-22 11:25] LABS: Glucose,Whole Blood 217 mg/dL (75-99)
--- NOTE | 2020-10-22 12:55 | P.PN ---
Subjective Progress Note Date: 10/22/20 CHIEF COMPLAINT: Syncope HISTORY OF PRESENT ILLNESS: This is an 85-year-old female patient who presented to the emergency department with decreased oral intake, weakness, fatigue and near syncope. She was found to be positive for COVID-19 and therefore the HPI and past medical history was obtained from the chart and nursing staff. He has a past medical history of hypertension, hyperlipidemia, CAD with prior CABG, persistent atrial fibrillati on for which she is anticoagulated on Eliquis, prior aortic valve replacement, diabetes. Apparently her family had been diagnosed with COVID. Over the last few days she has had decreased appetite and decreased oral intake. She presented to the emergency department due to complaints of weakness and a near syncopal episode upon standing. Again she was noted to be positive for COVID. EKG on admission showed atrial fibrillation with controlled ventricular response with no evidence of acute ischemia. Chest x-ray showed interstitial infiltrate in the left midlung, similar to previous exam, likely related to some pulmonary fibrosis, no heart failure seen. Computed tomography scan of the head was done due to patient being on anticoagulation falling which showed no acute intracranial abnormality. Left ventricular evaluation White blood cell count of 18,400, sodium 134, potassium 4.4, BUN 42 and creatinine 1.61, troponin negative 1 with an NT proBNP of 1420. 10/21/2020 Patient remains in atrial fibrillation with heart rate in the 90s. She is on Eliquis for anticoagulation. Blood pressure 137/74. He is afebrile. WBC 19.6. Potassium 4.4. BUN 34. Creatinine 1.21. PHYSICAL EXAM: Thorough physical exam not completed secondary to limited evaluation/examination and due to Covid19 ASSESSMENT: #1 COVID-19 infection #2 weakness, near syncope, fall likely secondary to above #3 CAD with prior CABG #4 prior aortic valve replacement #5 persistent atrial fibrillation, anticoagulated, rate controlled #6 diabetes mellitus #7 hypertension #8 hyperlipidemia #9 hypothyroidism PLAN: 2-D echo ordered. Await results Continue current cardiac medications If 2-D echo does not reveal any significant abnormalities, we will sign off. Patient to follow-up on an outpatient basis. Nurse practitioner note has been reviewed by physician. Signing provider agrees with the documented findings, assessment, and plan of care. Objective - Vital Signs Vital signs: Vital Signs Temp 98.5 F 10/22/20 08:52 Pulse 110 H 10/22/20 08:52 Resp 16 10/22/20 08:52 BP 137/74 10/22/20 08:52 Pulse Ox 95 10/22/20 08:52 Intake & Output 10/21/20 10/22/20 10/22/20 18:59 06:59 18:59 Output Total 0 Balance 0 Weight 77.111 kg Output: Urine 0 Other: Voiding Method External Catheter External Catheter External Catheter # Voids 1 - Labs CBC & Chem 7: 10/22/20 09:00 10/22/20 09:00 Labs: Abnormal Lab Results - Last 24 Hours (Table) 10/21/20 10/21/20 10/22/20 Range/Units 17:52 19:32 07:06 WBC (3.8-10.6) k/uL Sodium (137-145) mmol/L Carbon Dioxide (22-30) mmol/L BUN (7-17) mg/dL Creatinine (0.52-1.04) mg/dL Glucose (74-99) mg/dL POC Glucose (mg/dL) 161 H 256 H 134 H (75-99) mg/dL 10/22/20 10/22/20 10/22/20 Range/Units 09:00 09:00 11:24 WBC 19.6 H (3.8-10.6) k/uL Sodium 131 L (137-145) mmol/L Carbon Dioxide 20 L (22-30) mmol/L BUN 37 H (7-17) mg/dL Creatinine 1.21 H (0.52-1.04) mg/dL Glucose 135 H (74-99) mg/dL POC Glucose (mg/dL) 217 H (75-99) mg/dL Microbiology - Last 24 Hours (Table) 10/21/20 00:20 Blood Culture - Preliminary Blood No Growth after 24 hours 10/21/20 00:15 Blood Culture - Preliminary Blood No Growth after 24 hours
[2020-10-22] MEDS: INSULIN ASPART (NovoLOG) 100 UNIT/ML VIAL SQ SCH ×3 (13:51→21:23)
--- NOTE | 2020-10-22 16:19 | P.PN ---
Subjective Progress Note Date: 10/22/20 This is an 85-year-old female admitted with near-syncope, acute coated 19 infection, dehydration, CAD with ischemic cardiomyopathy and multiple other medical issues. Received both [place] vaccines early . Maintaining O2 sats in the 90s on room air. Denies cough. Receiving gentle IV fluid hydra tion. Telemetry atrial fibrillation with controlled ventricular rate. Denies chest pain, palpitations.reports last night she developed chills and rigors, but without fever .Afebrile, WBC 19.6. Renal function improved today down to 1.21, which appears to be near baseline. Sodium 131. Echo pending. Objective - Vital Signs Vital signs: Vital Signs Temp 98.5 F 10/22/20 08:52 Pulse 110 H 10/22/20 08:52 Resp 16 10/22/20 08:52 BP 137/74 10/22/20 08:52 Pulse Ox 95 10/22/20 08:52 Intake & Output 10/21/20 10/22/20 10/22/20 18:59 06:59 18:59 Output Total 0 Balance 0 Weight 77.111 kg Output: Urine 0 Other: Voiding Method External Catheter External Catheter # Voids 1 - Exam PHYSICAL EXAMINATION: GENERAL: Sitting up in bed, alert and oriented x3, NAD HEENT: Pupils are round and equally reacting to light. EOMI. No scleral icterus. No conjunctival pallor. Normocephalic, atraumatic. No pharyngeal erythema. No thyromegaly. CARDIOVASCULAR: S1 and S2 present. No murmurs, rubs, or gallops. PULMONARY: Chest is clear to auscultation, no wheezing or crackles. ABDOMEN: Soft, nontender, nondistended, normoactive bowel sounds. No palpable organomegaly. MUSCULOSKELETAL: No joint swelling or deformity. EXTREMITIES: No cyanosis, clubbing, mild 1+ pedal edema-chronic. NEUROLOGICAL: Gross neurological examination did not reveal any focal deficits. SKIN: Warm and dry, No rashes. - Labs CBC & Chem 7: 10/22/20 09:00 10/22/20 09:00 Labs: Abnormal Lab Results - Last 24 Hours (Table) 10/21/20 10/21/20 10/22/20 Range/Units 17:52 19:32 07:06 WBC (3.8-10.6) k/uL Sodium (137-145) mmol/L Carbon Dioxide (22-30) mmol/L BUN (7-17) mg/dL Creatinine (0.52-1.04) mg/dL Glucose (74-99) mg/dL POC Glucose (mg/dL) 161 H 256 H 134 H (75-99) mg/dL 10/22/20 10/22/20 Range/Units 09:00 09:00 WBC 19.6 H (3.8-10.6) k/uL Sodium 131 L (137-145) mmol/L Carbon Dioxide 20 L (22-30) mmol/L BUN 37 H (7-17) mg/dL Creatinine 1.21 H (0.52-1.04) mg/dL Glucose 135 H (74-99) mg/dL POC Glucose (mg/dL) (75-99) mg/dL Microbiology - Last 24 Hours (Table) 10/21/20 00:20 Blood Culture - Preliminary Blood No Growth after 24 hours 10/21/20 00:15 Blood Culture - Preliminary Blood No Growth after 24 hours Assessment and Plan Assessment: Near-syncope, increased generalized weakness, fall suspect related to dehydration related to Acute Covid-19 infection Acute Covid 19 pneumonitis in a patient who completed both [place] vaccines beginning of September 2020 CAD with history of CABG Ischemic cardiomyopathy EF 25% Persistent atrial fibrillation, anticoagulated on Eliquis Diabetes mellitus II Acute on chronic kidney disease stage 3 Hyperlipidemia Hypertension Hypothyroidism Plan: Continue on current medication regime ,monitoring and symptomatic treatment. vitamin supplements, Decadron ordered. Echo pending. IV fluid hydration, encourage oral intake. Cardiology consult in place, recommendations pending. The impression and plan of care has been dictated as directed. : I performed a history and examination of this patient, discussed the same with the dictator. I agree with the dictator's note ,documented as a scribe. Any additional findings or plans will be noted.
[2020-10-22] MEDS: CHOLECALCIFEROL 25 MCG (1000 IU) TABLET PO SCH (17:01)
[2020-10-22] MEDS: ZINC SULFATE 220 MG CAP PO SCH (17:01)
[2020-10-22] MEDS: DEXAMETHASONE SOD PHOSPHATE 10 MG/ML 1 ML VIAL IV SCH (17:01)
[2020-10-22 17:28] LABS: Glucose,Whole Blood 172 mg/dL (75-99)
--- NOTE | 2020-10-22 18:00 | ECHOF ---
Referral Reason:syncope MEASUREMENTS -------- HEIGHT: 165.1 cm WEIGHT: 77.1 kg BP: 138/87 IVSd: 1.1 cm (0.6 - 1.1) LVIDd: 2.7 cm (3.9 - 5.3) LVPWd: 1.2 cm (0.6 - 1.1) EDV(Teich): 28 ml IVSs: 1.5 cm LVIDs: 1.6 cm LVPWs: 1.7 cm %IVS Thck: 36 % ESV(Teich): 7 ml EF(Teich): 75 % %FS: 42 % SV(Teich): 21 ml LVOT Diam: 1.5 cm LALs A4C: 7.6 cm LAAs A4C: 39.8 cm LAESV A-L A4C: 177 ml LAESV MOD A4C: 163 ml LALs A2C: 6.8 cm LAAs A2C: 25.4 cm LAESV A-L A2C: 80 ml LAESV MOD A2C: 73 ml LAESV(A-L): 126 ml LAESV Index (A-L): 67.93 ml/m Ao Diam: 3.5 cm (2.0 - 3.7) AV Cusp: 1.2 cm (1.5 - 2.6) MV E Chris: 1.43 m/s MV DecT: 185 ms MV Dec [place]: 7.7 m/s MV A Chris: 0.29 m/s MV E/A Ratio: 4.86 MV PHT: 54 ms MV PHT: 57 ms MVA By PHT: 3.9 cm MV Vmax: 1.66 m/s MV Vmean: 0.75 m/s MV maxP.01 mmHg MV meanP.20 mmHg MV VTI: 31.1 cm MR Vmax: 2.09 m/s MR maxP.54 mmHg LVOT Vmax: 0.93 m/s LVOT maxP.48 mmHg AV Vmax: 3.52 m/s AV maxP.04 mmHg BABATUNDE Vmax, Pt: 0.4 cm AV Vmax: 3.58 m/s AV Vmean: 2.82 m/s AV maxP.81 mmHg AV meanP.81 mmHg AV Env.Ti: 217 ms AV VTI: 61.3 cm [place]DE Vmax, Pt: 0.4 cm TR Vmax: 2.77 m/s TR maxP.66 mmHg RAP: 5.00 mmHg RVSP: 35.66 mmHg FINDINGS -------- Undetermined rhythm. This was a technically difficult study with suboptimal views. There is borderline concentric left ventricular hypertrophy. Overall left ventricular systolic func tion is mildly impaired with, an EF between 45 - 50 %. There is paradoxical/dysynergic septal motio n consistent with post-operative status. Increased LAP Grade 2 Diastolic Dysfunction. Basal infer oseptal LV wall motion is hypokinetic. The right ventricle is normal in size. LA is severely dilated >40 ml/m2 The right atrial size is normal. Aortic valve is trileaflet and is severely thickened. Peak/mean gradient across the Aortic Valve is 51.81mmHg / 33.81mmHg. 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 The mitral valve is normal. The mitral valve leaflets are moderately thickened. Moderate mitral a nnular calcification present. Mild mitral regurgitation is present. The peak and mean MV gradien ts are 11.01mmHg 3.20mmHg as measured by doppler. The tricuspid valve appears structurally normal. Mild tricuspid regurgitation present. There is b orderline pulmonary hypertension. The right ventricular systolic pressure, as measured by Doppler, is 35.66mmHg. The pulmonic valve was not well visualized. The aortic root size is normal. IVC Not well visulized. There is no pericardial effusion. Lumason used CONCLUSIONS -------- 1. Undetermined rhythm. 2. There is borderline concentric left ventricular hypertrophy. 3. Overall left ventricular systolic function is mildly impaired with, an EF between 45 - 50 %. 4. There is paradoxical/dysynergic septal motion consistent with post-operative status. 5. Increased LAP Grade 2 Diastolic Dysfunction. 6. Basal inferoseptal LV wall motion is hypokinetic. 7. LA is severely dilated >40 ml/m2 8. Aortic valve is trileaflet and is severely thickened. 9. Peak/mean gradient across the Aortic Valve is 51.81mmHg / 33.81mmHg. 10. The mitral valve leaflets are moderately thickened. 11. Moderate mitral annular calcification present. 12. Mild mitral regurgitation is present. 13. The peak and mean MV gradients are 11.01mmHg 3.20mmHg as measured by doppler. 14. Mild tricuspid regurgitation present. 15. There is borderline pulmonary hypertension. 16. The right ventricular systolic pressure, as measured by Doppler, is 35.66mmHg. 17. There is no pericardial effusion. BUSINESS OBJECTS ARCHITECT: Yani Garcia RDCS
[2020-10-22] MEDS: ASPIRIN 81 MG PO SCH (19:56)
[2020-10-22] MEDS: ATORVASTATIN 20 MG TAB PO SCH (19:56)
[2020-10-22] MEDS: PANTOPRAZOLE 40 MG TABLET PO SCH (19:56)
[2020-10-22] MEDS: ASCORBIC ACID 500 MG TAB PO SCH (19:56)
[2020-10-22] MEDS: FOLIC ACID-VIT B COMPLEX-VIT C 1 CAP PO SCH (19:57)
[2020-10-22 20:24] LABS: Glucose,Whole Blood 163 mg/dL (75-99)
[2020-10-22 23:24] VITALS: RESP 18
[2020-10-23] MEDS: SODIUM CHLORIDE 0.9% 1,000 ML IV SCH (04:45)
[2020-10-23] MEDS: LEVOTHYROXINE 50 MCG TAB PO SCH (05:36)
[2020-10-23 07:25] LABS: Glucose,Whole Blood 165 mg/dL (75-99)
[2020-10-23] MEDS: METOPROLOL TARTRATE 25 MG TAB PO SCH (08:11)
[2020-10-23] MEDS: hydrALAZINE HCL 25 MG TAB PO SCH (08:11)
[2020-10-23] MEDS: APIXABAN 2.5 MG TABLET PO SCH (08:11)
[2020-10-23] MEDS: ZINC SULFATE 220 MG CAP PO SCH (08:11)
[2020-10-23] MEDS: SPIRONOLACTONE 25 MG TAB PO SCH (08:11)
[2020-10-23] MEDS: CHOLECALCIFEROL 25 MCG (1000 IU) TABLET PO SCH (08:11)
[2020-10-23] MEDS: ASCORBIC ACID 500 MG TAB PO SCH (08:11)
[2020-10-23] MEDS: ACETAMINOPHEN TAB 325 MG TAB PO PRN (08:21)
[2020-10-23] MEDS: DEXAMETHASONE SOD PHOSPHATE 10 MG/ML 1 ML VIAL IV SCH (08:22)
[2020-10-23] MEDS: INSULIN ASPART (NovoLOG) 100 UNIT/ML VIAL SQ SCH ×2 (08:38→15:20)
[2020-10-23 09:14] VITALS: BP 161/81; PULSE 74; TEMP 97.5
[2020-10-23 10:51] LABS: African American GFR (CKD) 46 (>60 ml/min/1.73 sqM); Anion Gap 10 mmol/L; Blood Urea Nitrogen 45 mg/dL (7-17); Calcium 8.9 mg/dL (8.4-10.2); Carbon Dioxide 21 mmol/L (22-30); Chloride 100 mmol/L (98-107); Glucose 257 mg/dL (74-99); Non-African American GFR(CKD) 39 (>60 ml/min/1.73 sqM); Potassium 4.2 mmol/L (3.5-5.1); Sodium 131 mmol/L (137-145)
[2020-10-23 11:28] LABS: Glucose,Whole Blood 283 mg/dL (75-99)
--- NOTE | 2020-10-23 14:38 | P.PN ---
Subjective Progress Note Date: 10/23/20 CHIEF COMPLAINT: Syncope HISTORY OF PRESENT ILLNESS: This is an 85-year-old female patient who presented to the emergency department with decreased oral intake, weakness, fatigue and near syncope. She was found to be positive for COVID-19 and therefore the HPI and past medical history was obtained from the chart and nursing staff. He has a past medical history of hypertension, hyperlipidemia, CAD with prior CABG, persistent atrial fibrillati on for which she is anticoagulated on Eliquis, prior aortic valve replacement, diabetes. Apparently her family had been diagnosed with COVID. Over the last few days she has had decreased appetite and decreased oral intake. She presented to the emergency department due to complaints of weakness and a near syncopal episode upon standing. Again she was noted to be positive for COVID. EKG on admission showed atrial fibrillation with controlled ventricular response with no evidence of acute ischemia. Chest x-ray showed interstitial infiltrate in the left midlung, similar to previous exam, likely related to some pulmonary fibrosis, no heart failure seen. Computed tomography scan of the head was done due to patient being on anticoagulation falling which showed no acute intracranial abnormality. Left ventricular evaluation White blood cell count of 18,400, sodium 134, potassium 4.4, BUN 42 and creatinine 1.61, troponin negative 1 with an NT proBNP of 1420. 10/22/2020 Patient remains in atrial fibrillation with heart rate in the 90s. She is on Eliquis for anticoagulation. Blood pressure 137/74. He is afebrile. WBC 19.6. Potassium 4.4. BUN 34. Creatinine 1.21. 10/23/2020 Patient remains in atrial fibrillation with controlled ventricular rate. She remains on Eliquis for anticoagulation. Vital signs are stable. Echocardiogram completed revealed ejection fraction 45-50%. PHYSICAL EXAM: Thorough physical exam not completed secondary to limited evaluation/examination and due to Covid19 ASSESSMENT: #1 COVID-19 infection #2 weakness, near syncope, fall likely secondary to above #3 CAD with prior CABG #4 prior aortic valve replacement #5 persistent atrial fibrillation, anticoagulated, rate controlled #6 diabetes mellitus #7 hypertension #8 hyperlipidemia #9 hypothyroidism PLAN: Continue current cardiac medications Patient is stable from a cardiac standpoint. We will sign off. Please reconsult if needed. Nurse practitioner note has been reviewed by physician. Signing provider agrees with the documented findings, assessment, and plan of care. Objective - Vital Signs Vital signs: Vital Signs Temp 97.5 F L 10/23/20 08:06 Pulse 74 10/23/20 08:06 Resp 18 10/23/20 08:06 BP 161/81 10/23/20 08:06 Pulse Ox 97 10/23/20 08:06 Intake & Output 10/22/20 10/23/20 10/23/20 18:59 06:59 18:59 Intake Total 1000 Output Total 600 300 Balance -600 1000 -300 Intake: Intake, IV Titration 1000 Amount Sodium Chloride 0.9% 1, 1000 000 ml @ 75 mls/hr IV . [id number] [facility] Rx#:[id number] Output: Urine 300 300 Post Void Residual 300 Other: Voiding Method External Catheter External Catheter Bedside Commode # Voids 2 1 1 - Labs CBC & Chem 7: 10/22/20 09:00 10/23/20 09:54 Labs: Abnormal Lab Results - Last 24 Hours (Table) 10/22/20 10/22/20 10/23/20 Range/Units 17:27 20:23 07:24 Sodium (137-145) mmol/L Carbon Dioxide (22-30) mmol/L BUN (7-17) mg/dL Creatinine (0.52-1.04) mg/dL Glucose (74-99) mg/dL POC Glucose (mg/dL) 172 H 163 H 165 H (75-99) mg/dL 10/23/20 10/23/20 Range/Units 09:54 11:26 Sodium 131 L (137-145) mmol/L Carbon Dioxide 21 L (22-30) mmol/L BUN 45 H (7-17) mg/dL Creatinine 1.25 H (0.52-1.04) mg/dL Glucose 257 H (74-99) mg/dL POC Glucose (mg/dL) 283 H (75-99) mg/dL Microbiology - Last 24 Hours (Table) 10/21/20 00:20 Blood Culture - Preliminary Blood No Growth after 48 hours 10/21/20 00:15 Blood Culture - Preliminary Blood No Growth after 48 hours
--- NOTE | 2020-10-24 10:10 | P.DS ---
Providers Date of admission: 10/21/20 00:41 Expected date of discharge: 10/23/20 Attending physician: Rhys Strange Primary care physician: Rhys Strange [facility] Course: Final Diagnoses: Near-syncope, increased generalized weakness, fall suspect related to dehydration related to Acute Covid-19 infection Acute Covid 19 pneumonitis in a patient who completed both [place] vaccines beginning of September 2020 CAD with history of CABG Ischemic cardiomyopathy EF 25%. Repeat echo reporting EF between 45-50%. Persistent atrial fibrillation, anticoagulated on Eliquis Diabetes mellitus II Acute on chronic kidney disease stage 3 Hyperlipidemia Hypertension Hypothyroidism Hospital course:This is an 85-year-old female admitted with near-syncope, acute coated 19 infection, dehydration, CAD with ischemic cardiomyopathy and multiple other medical issues. Received both [place] vaccines early . Maintaining O2 sats in the 90s on room air. Denies cough. Receiving gentle IV fluid hydration. Telemetry atrial fibrillation with controlled ventricular rate. Denies chest pain, palpitations.reports last night she developed chills and rigors, but without fever .Afebrile, WBC 19.6. Renal function improved today down to 1.21, which appears to be near baseline. Sodium 131. Echo pending. Echocardiogram reported basal inferior septal LV wall motion hypokinetic severely dilated LA, borderline pulmonary hypertension EF 45-50% . Anti coagulated on Eliquis for controlled atrial fibrillation .Significant clinical improvement. Cleared by cardiology for discharge. Patient will be discharged home in a stable condition with guarded prognosis. The impression and plan of care has been dictated as directed. : I performed a history and examination of this patient, discussed the same with the dictator. I agree with the dictator's note ,documented as a scribe. Any additional findings or plans will be noted. Patient Condition at Discharge: Stable Plan - Discharge Summary New Discharge Prescriptions: New Cholecalciferol [Vitamin D3 (25 Mcg = 1000 Iu)] 50 mcg PO DAILY tablet Zinc Sulfate [Orazinc] 220 mg PO DAILY #30 cap Ascorbic Acid [Vitamin C] 500 mg PO BID tab dexAMETHasone [Hexadrol] 6 mg PO DAILY 8 Days #8 tablet Continue Levothyroxine Sodium [Synthroid] 50 mcg PO DAILY allopurinoL [Zyloprim] 100 mg PO DAILY Apixaban [Eliquis] 2.5 mg PO BID tablet hydrALAZINE HCL [Apresoline] 25 mg PO BID #60 tab Aspirin EC [Ecotrin Low Dose] 81 mg PO HS Metoprolol Tartrate [Lopressor] 25 mg PO BID #60 tab glyBURIDE [Diabeta] 10 mg PO DAILY Spironolactone [Aldactone] 25 mg PO BID Pantoprazole [Protonix] 40 mg PO HS Nephro-Fabio 1 tab PO HS Simvastatin [Zocor] 40 mg PO HS glyBURIDE [Diabeta] 5 mg PO HS Furosemide [Lasix] 40 mg PO DAILY Discharge Medication List Levothyroxine Sodium [Synthroid] 50 mcg PO DAILY 07/21/17 [History] allopurinoL [Zyloprim] 100 mg PO DAILY 07/21/17 [History] Apixaban [Eliquis] 2.5 mg PO BID tablet 07/24/17 [Rx] Aspirin EC [Ecotrin Low Dose] 81 mg PO HS 07/28/17 [History] hydrALAZINE HCL [Apresoline] 25 mg PO BID #60 tab 07/28/17 [Rx] Metoprolol Tartrate [Lopressor] 25 mg PO BID #60 tab 11/25/18 [Rx] Furosemide [Lasix] 40 mg PO DAILY 10/21/20 [History] Nephro-Fabio 1 tab PO HS 10/21/20 [History] Pantoprazole [Protonix] 40 mg PO HS 10/21/20 [History] Simvastatin [Zocor] 40 mg PO HS 10/21/20 [History] Spironolactone [Aldactone] 25 mg PO BID 10/21/20 [History] glyBURIDE [Diabeta] 5 mg PO HS 10/21/20 [History] glyBURIDE [Diabeta] 10 mg PO DAILY 10/21/20 [History] Ascorbic Acid [Vitamin C] 500 mg PO BID tab 10/23/20 [Rx] Cholecalciferol [Vitamin D3 (25 Mcg = 1000 Iu)] 50 mcg PO DAILY tablet 10/23/20 [Rx] Zinc Sulfate [Orazinc] 220 mg PO DAILY #30 cap 10/23/20 [Rx] dexAMETHasone [Hexadrol] 6 mg PO DAILY 8 Days #8 tablet 10/23/20 [Rx] Follow up Appointment(s)/Referral(s): Romeo Garcia MD [STAFF PHYSICIAN] - 2 Weeks Rhys Strange DO [Primary Care Provider] - 3 Days Ambulatory/Diagnostic Orders: Complete Blood Count w/diff [LAB.AMB] Time Frame: 3 Days, Location: None Selected Discharge Disposition: HOME SELF-CARE
== END 2020-10-23 15:30 | disposition home or self-care (01) ==
LOC: EC 22:16 → 6NMEDSUR 10-21 00:41
PROVIDERS: ADMIT Family Medicine; ATTEND Family Medicine
DX: U07.1 COVID-19 (principal); J12.82 Pneumonia due to coronavirus disease 2019; N17.9 Acute kidney failure, unspecified; I13.0 Hypertensive heart and chronic kidney disease with heart failure and stage 1 through stage 4 chronic kidney disease, or unspecified chronic kidney disease; N18.30 Chronic kidney disease, stage 3 unspecified; I50.9 Heart failure, unspecified; I25.5 Ischemic cardiomyopathy; E86.0 Dehydration; E11.22 Type 2 diabetes mellitus with diabetic chronic kidney disease; I48.19 Other persistent atrial fibrillation; E78.5 Hyperlipidemia, unspecified; I25.10 Atherosclerotic heart disease of native coronary artery without angina pectoris; K21.9 Gastro-esophageal reflux disease without esophagitis; M10.9 Gout, unspecified; E03.9 Hypothyroidism, unspecified; D72.829 Elevated white blood cell count, unspecified; R55 Syncope and collapse; W19.XXXA Unspecified fall, initial encounter; F40.240 Claustrophobia; F32.9 Major depressive disorder, single episode, unspecified; M13.0 Polyarthritis, unspecified; E87.1 Hypo-osmolality and hyponatremia; Z79.890 Hormone replacement therapy; Z79.82 Long term (current) use of aspirin; Z79.84 Long term (current) use of oral hypoglycemic drugs; Z79.01 Long term (current) use of anticoagulants; Z79.899 Other long term (current) drug therapy; Z90.710 Acquired absence of both cervix and uterus; Z95.1 Presence of aortocoronary bypass graft; Z95.2 Presence of prosthetic heart valve; Z98.42 Cataract extraction status, left eye; Z98.41 Cataract extraction status, right eye; Z96.1 Presence of intraocular lens; Z96.652 Presence of left artificial knee joint
CPT/HCPCS: 96361 ×5; 96374 ×2; 96376; 96375; 99285; 36415; 93005; 85379; 83880; 80053; 80048 ×2; 83735; 84484; 85025 ×2; 85610; 85730; 81001; 87040; 87635; 71046; 72125; 70450; G0378 ×3; C8929; J1100 ×2; J0696; Q9950; 93306

== ENCOUNTER 2022-07-07 21:14 | Emergency (ER) | payer MEDICARE ==
[2022-07-07 22:20] VITALS: BP 121/66; PULSE 72; RESP 20; TEMP 97.2
[2022-07-07] MEDS ORDERED: HYDROcodone/APAP 5-325MG 1 EACH TAB PO STA (23:04)
[2022-07-07] MEDS ORDERED: VANCOMYCIN IV PER PHARMACY 1 EACH MISC MISCELLANE PRN (23:07)
[2022-07-07 23:37] LABS: Basophils # (A) 0.1 k/uL (0-0.2); Basophils % (A) 1 %; Eosinophils # (A) 0.1 k/uL (0-0.7); Eosinophils % (A) 1 %; HCT 42.3 % (34.0-46.0); HGB 14.8 gm/dL (11.4-16.0); Lymphocytes # (A) 1.4 k/uL (1.0-4.8); Lymphocytes % (A) 10 %; MCH 34.1 pg (25.0-35.0); MCV 97.6 fL (80.0-100.0); Mean Platelet Volume 9.6; Monocytes # (A) 0.7 k/uL (0-1.0); Monocytes % (A) 5 %; Neutrophils # (A) 11.8 k/uL (1.3-7.7); Neutrophils % (A) 81 %; Platelet Count 180 k/uL (150-450); RBC 4.34 m/uL (3.80-5.40); RDW 13.3 % (11.5-15.5); WBC 14.5 k/uL (3.8-10.6)
--- NOTE | 2022-07-07 23:45 | XR ---
EXAMINATION TYPE: XR forearm LT DATE OF EXAM: 07/07/2022 CLINICAL HISTORY: Focal pain and swelling rule out infection. TECHNIQUE: Two views of the left forearm are obtained. COMPARISON: None. FINDINGS: Osseous structures are demineralized which is noted to radiographic sensitivity There is n o acute fracture or dislocation seen in the left radius or ulna. The left elbow and wrist joints young ear within normal limits. No suspicious bony destruction is seen. The overlying soft tissue appears within normal limits. IMPRESSION: As above.
[2022-07-07 23:47] LABS: Albumin 4.1 g/dL (3.5-5.0); Calcium 9.6 mg/dL (8.4-10.2); Potassium 3.9 mmol/L (3.5-5.1); Total Bilirubin 0.6 mg/dL (0.2-1.3); Total Protein 6.3 g/dL (6.3-8.2)
[2022-07-08] MEDS ORDERED: DOXYCYCLINE 100 MG CAP PO STA (00:04)
--- NOTE | 2022-07-08 00:10 | ED ---
Skin/Abscess/FB HPI - General Chief complaint: Skin/Abscess/Foreign Body Stated complaint: lt arm infected/post skin cancer Time Seen by Provider: 07/07/22 22:57 Source: patient Mode of arrival: ambulatory Limitations: no limitations - History of Present Illness Initial comments: Patient is an 87-year-old female presenting with chief complaint of infection to the left arm. Patient had a skin cancer removed a few days ago at that site. Patient states that at 6 PM the area was beginning to look a bit pink, by 9 PM the area was red and there was some pus. Patient states that there is only pain with pressure applied. No difficulty with range of motion. No fever or chills. No nausea or vomiting. No chest pain or difficulty breathing. No palpitations or weakness. No headache, vision or hearing changes, neck pain or stiffness. - Related Data Home Medications Medication Instructions Recorded Confirmed Levothyroxine Sodium [Synthroid] 50 mcg PO DAILY 07/21/17 10/21/20 allopurinoL [Zyloprim] 100 mg PO DAILY 07/21/17 10/21/20 Aspirin EC [Ecotrin Low Dose] 81 mg PO HS 07/28/17 10/21/20 Furosemide [Lasix] 40 mg PO DAILY 10/21/20 10/21/20 Nephro-Fabio 1 tab PO HS 10/21/20 10/21/20 Pantoprazole [Protonix] 40 mg PO HS 10/21/20 10/21/20 Simvastatin [Zocor] 40 mg PO HS 10/21/20 10/21/20 Spironolactone [Aldactone] 25 mg PO BID 10/21/20 10/21/20 glyBURIDE [Diabeta] 5 mg PO HS 10/21/20 10/21/20 glyBURIDE [Diabeta] 10 mg PO DAILY 10/21/20 10/21/20 Previous Rx's Medication Instructions Recorded Apixaban [Eliquis] 2.5 mg PO BID tablet 07/24/17 hydrALAZINE HCL [Apresoline] 25 mg PO BID #60 tab 07/28/17 Metoprolol Tartrate [Lopressor] 25 mg PO BID #60 tab 11/25/18 Ascorbic Acid [Vitamin C] 500 mg PO BID tab 10/23/20 Cholecalciferol [Vitamin D3 (25 50 mcg PO DAILY tablet 10/23/20 Mcg = 1000 Iu)] Zinc Sulfate [Orazinc] 220 mg PO DAILY #30 cap 10/23/20 dexAMETHasone ORAL [Hexadrol] 6 mg PO DAILY 8 Days #8 tablet 10/23/20 Cephalexin [Keflex] 500 mg PO Q6HR 10 Days #40 cap 07/08/22 Doxycycline [Vibramycin] 100 mg PO BID 7 Days #14 capsule 07/08/22 Allergies Allergy/AdvReac Type Severity Reaction Status Date / Time No Known Allergies Allergy Verified 07/07/22 22:20 Review of Systems ROS Statement: Those systems with pertinent positive or pertinent negative responses have been documented in the HPI. ROS Other: All systems not noted in ROS Statement are negative. Past Medical History Past Medical History: Atrial Fibrillation, Coronary Artery Disease (CAD), Heart Failure, Diabetes Mellitus, GERD/Reflux, Hyperlipidemia, Hypertension, Osteoarthritis (OA), Renal Disease, Thyroid Disorder Additional Past Medical History / Comment(s): NIDDM type II, 07/24/17 echo with 20% EF, chronic kidney disease stage III, bilateral tinnitis, arthritis multiple joints, gout, back pain. 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 Past Anesthesia/Blood Transfusion Reactions: Previous Problems w/ Anesthesia Additional Past Anesthesia/Blood Transfusion Reaction / Comment(s): Pt states she was hypertensive after waking from D&C. Pt has clausterphobia. Past Psychological History: Depression Smoking Status: Never smoker Past Alcohol Use History: None Reported Past Drug Use History: None Reported - Past Family History Father History Unknown: Yes Additional Family Medical History / Comment(s): pt was adopted Mother History Unknown: Yes Additional Family Medical History / Comment(s): Mother after childbirth at the age of 35yrs. General Exam Limitations: no limitations General appearance: alert, in no apparent distress Head exam: Present: atraumatic, normocephalic, normal inspection Eye exam: Present: normal appearance Neck exam: Present: normal inspection Respiratory exam: Present: normal lung sounds bilaterally. Absent: respiratory distress, wheezes, rales, rhonchi, stridor Cardiovascular Exam: Present: regular rate, normal rhythm, normal heart sounds. Absent: systolic murmur, diastolic murmur, rubs, gallop, clicks Neurological exam: Present: alert, oriented X3, CN II-XII intact Psychiatric exam: Present: normal affect, normal mood Skin exam: Present: erythema (Area of erythema surrounding post surgical site, patient recently had skin cancer removed on the left arm. There is a mild amou nt of pus was able to be expressed with pressure applied.) Course Vital Signs 07/07/22 22:17 Temperature 97.2 F L Pulse Rate 72 Respiratory 20 Rate Blood Pressure 121/66 O2 Sat by Pulse 97 Oximetry Medical Decision Making - Medical Decision Making Patient is an 87-year-old female presenting with chief complaint of redness and discharge coming from her surgical site on the left arm. Patient had skin cancer removed a few days ago, today noted some tenderness and discharge to the area. On physical examination erythema and tenderness are noted, small amount of discharge is expressed and sent for wound culture. Neurovascularly intact. WBC 14.5. BUN and creatinine are elevated consistent with her chronic kidney disease. X-ray of the forearm shows no suspicious bony destruction and overlying soft tissue appears WNL. Cefazolin and vancomycin were ordered, patient states that she did not want to wait the amount of time it would take for IV vancomycin. She was given oral doxycycline to cover for MRSA. Sutures near the site of elevation and discharge were removed, 3 sutures remaining. Sent home on Keflex and doxycycline. Educated on wound care and signs of worsening infection. Follow-up with PCP. Report back to ER with any new or worsening symptoms. Discussed return parameters and answered all questions. Patient conveyed verbal understanding and agreed to the plan. I discussed this case in detail with my attending Dr. Moy - Lab Data Result diagrams: 07/07/22 23:30 07/07/22 23:30 Lab Results 07/07/22 07/07/22 07/07/22 Range/Units 23:30 23:30 23:30 WBC 14.5 H (3.8-10.6) k/uL RBC 4.34 (3.80-5.40) m/uL Hgb 14.8 (11.4-16.0) gm/dL Hct 42.3 (34.0-46.0) % MCV 97.6 (80.0-100.0) fL MCH 34.1 (25.0-35.0) pg MCHC 35.0 (31.0-37.0) g/dL RDW 13.3 (11.5-15.5) % Plt Count 180 (150-450) k/uL MPV 9.6 Neutrophils % 81 % Lymphocytes % 10 % Monocytes % 5 % Eosinophils % 1 % Basophils % 1 % Neutrophils # 11.8 H (1.3-7.7) k/uL Lymphocytes # 1.4 (1.0-4.8) k/uL Monocytes # 0.7 (0-1.0) k/uL Eosinophils # 0.1 (0-0.7) k/uL Basophils # 0.1 (0-0.2) k/uL Sodium 138 (137-145) mmol/L Potassium 3.9 (3.5-5.1) mmol/L Chloride 105 (98-107) mmol/L Carbon Dioxide 19 L (22-30) mmol/L Anion Gap 14 mmol/L BUN 53 H (7-17) mg/dL Creatinine 1.68 H (0.52-1.04) mg/dL Est GFR (CKD-EPI)AfAm 31 (>60 ml/min/1.73 sqM) Est GFR (CKD-EPI)NonAf 27 (>60 ml/min/1.73 sqM) Glucose 221 H (74-99) mg/dL Plasma Lactic Acid Kenneth 1.0 (0.7-2.0) mmol/L Calcium 9.6 (8.4-10.2) mg/dL Total Bilirubin 0.6 (0.2-1.3) mg/dL AST 17 (14-36) U/L ALT 13 (4-34) U/L Alkaline Phosphatase 87 (38-126) U/L Total Protein 6.3 (6.3-8.2) g/dL Albumin 4.1 (3.5-5.0) g/dL Disposition Clinical Impression: Cellulitis Disposition: HOME SELF-CARE Condition: Good Instructions (If sedation given, give patient instructions): Cellulitis (ED) Additional Instructions: Follow-up with PCP. Report back to ER with any new or worsening symptoms. Take medication as prescribed. Take Motrin and Tylenol as needed for pain control. Prescriptions: Cephalexin [Keflex] 500 mg PO Q6HR 10 Days #40 cap Doxycycline [Vibramycin] 100 mg PO BID 7 Days #14 capsule Is patient prescribed a controlled substance at d/c from ED?: No Referrals: Rhys Strange DO [Primary Care Provider] - 1-2 days Time of Disposition: 00:10
[2022-07-08] MEDS ORDERED: VANCOMYCIN 1,250 MG in SODIUM CHLORIDE 0.9% 250 ML IVPB ONE (01:00)
== END 2022-07-08 00:40 | disposition home or self-care (01) ==
LOC: EC 21:14
DX: L03.90 Cellulitis, unspecified (principal); I48.91 Unspecified atrial fibrillation; I13.0 Hypertensive heart and chronic kidney disease with heart failure and stage 1 through stage 4 chronic kidney disease, or unspecified chronic kidney disease; I50.9 Heart failure, unspecified; E11.22 Type 2 diabetes mellitus with diabetic chronic kidney disease; N18.30 Chronic kidney disease, stage 3 unspecified; I25.10 Atherosclerotic heart disease of native coronary artery without angina pectoris; E78.5 Hyperlipidemia, unspecified; K21.9 Gastro-esophageal reflux disease without esophagitis; M19.90 Unspecified osteoarthritis, unspecified site; F32.A Depression, unspecified; Z79.01 Long term (current) use of anticoagulants; Z79.82 Long term (current) use of aspirin; Z79.84 Long term (current) use of oral hypoglycemic drugs; Z79.899 Other long term (current) drug therapy
CPT/HCPCS: 36415; 80053; 83605; 85025; 87070; 87205; 87077; 87186; 73090; 99283; 96365; J0690

== ENCOUNTER 2023-04-17 13:24 | Observation (INO) | payer MEDICARE ==
--- NOTE | 2023-04-17 14:19 | ED ---
Chest Pain HPI - General Source: patient, family, RN notes reviewed Mode of arrival: wheelchair Limitations: no limitations - History of Present Illness MD Complaint: chest pain <Maria Guadalupe Ross - Last Filed: 04/17/23 14:19> <Mery Justin - Last Filed: 04/18/23 03:04> - General Chief Complaint: Chest Pain Stated Complaint: Chest tightness,sob Time Seen by Provider: 04/17/23 14:17 - History of Present Illness Initial Comments: This is an 88-year-old female who presents to the emergency department for chest tightness. Symptoms started this morning and had been occurring intermittently. States that the pain is centralized. She does have a substantial cardiac history, including requiring a CABG for CAD. (Maria Guadalupe oRss) 88-year-old female presents to the emergency department with chest pain. Patient states that she has had intermittent chest pain since this morning. She describes it as a pressure sensation which only lasts a couple of seconds before it resolves. She has had several episodes. Denies history of similar. She does have a history of coronary artery disease with bypass surgery greater than 10 years ago. She has not followed up with cardiology in several years. She denies any associated shortness of breath. No nausea, vomiting. No diaphoresis. No ripping or tearing sensation to her back. She did not take anything for the pain. No other alleviating, precipitating or modifying factors (Mery Justin) - Related Data Home Medications Medication Instructions Recorded Confirmed Levothyroxine Sodium [Synthroid] 50 mcg PO DAILY 07/21/17 04/17/23 allopurinoL [Zyloprim] 100 mg PO DAILY 07/21/17 04/17/23 Aspirin EC [Ecotrin Low Dose] 81 mg PO DAILY 07/28/17 04/17/23 Furosemide [Lasix] 40 mg PO DAILY 10/21/20 04/17/23 Nephro-Fabio 1 tab PO HS 10/21/20 04/17/23 Pantoprazole [Protonix] 40 mg PO DAILY 10/21/20 04/17/23 Simvastatin [Zocor] 40 mg PO HS 10/21/20 04/17/23 Spironolactone [Aldactone] 25 mg PO BID 10/21/20 04/17/23 glyBURIDE [Diabeta] 5 mg PO BID 10/21/20 04/17/23 Previous Rx's Medication Instructions Recorded Apixaban [Eliquis] 2.5 mg PO BID tablet 07/24/17 hydrALAZINE HCL [Apresoline] 25 mg PO BID #60 tab 07/28/17 Metoprolol Tartrate [Lopressor] 25 mg PO BID #60 tab 11/25/18 Cholecalciferol [Vitamin D3 (25 50 mcg PO DAILY tablet 10/23/20 Mcg = 1000 Iu)] Allergies Allergy/AdvReac Type Severity Reaction Status Date / Time No Known Allergies Allergy Verified 04/17/23 16:17 Review of Systems ROS Other: All systems not noted in ROS Statement are negative. <Maria Guadalupe Ross - Last Filed: 04/17/23 14:19> ROS Other: All systems not noted in ROS Statement are negative. <Mery Justin - Last Filed: 04/18/23 03:04> ROS Statement: Those systems with pertinent positive or pertinent negative responses have been documented in the HPI. Past Medical History Past Medical History: Atrial Fibrillation, Coronary Artery Disease (CAD), Heart Failure, Diabetes Mellitus, GERD/Reflux, Hyperlipidemia, Hypertension, Osteoarthritis (OA), Renal Disease, Thyroid Disorder Additional Past Medical History / Comment(s): NIDDM type II, 07/24/17 echo with 20% EF, chronic kidney disease stage III, bilateral tinnitis, arthritis multiple joints, gout, back pain. 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 Past Anesthesia/Blood Transfusion Reactions: Previous Problems w/ Anesthesia Additional Past Anesthesia/Blood Transfusion Reaction / Comment(s): Pt states she was hypertensive after waking from D&C. Pt has clausterphobia. Past Psychological History: Depression Smoking Status: Never smoker Past Alcohol Use History: None Reported Past Drug Use History: None Reported - Past Family History Father History Unknown: Yes Additional Family Medical History / Comment(s): pt was adopted Mother History Unknown: Yes Additional Family Medical History / Comment(s): Mother after childbirth at the age of 35yrs. <Maria Guadalupe Ross - Last Filed: 04/17/23 14:19> General Exam Limitations: no limitations <Maria Guadalupe Ross - Last Filed: 04/17/23 14:19> General appearance: alert, in no apparent distress Head exam: Present: atraumatic, normocephalic, normal inspection Eye exam: Present: normal appearance, PERRL, EOMI. Absent: scleral icterus, conjunctival injection, periorbital swelling ENT exam: Present: normal exam, mucous membranes moist Neck exam: Present: normal inspection. Absent: tenderness, meningismus, lymphadenopathy Respiratory exam: Present: normal lung sounds bilaterally. Absent: respiratory distress, wheezes, rales, rhonchi, stridor Cardiovascular Exam: Present: regular rate, normal rhythm, normal heart sounds. Absent: systolic murmur, diastolic murmur, rubs, gallop, clicks GI/Abdominal exam: Present: soft, normal bowel sounds. Absent: distended, tenderness, guarding, rebound, rigid Extremities exam: Present: normal inspection, full ROM, normal capillary refill. Absent: tenderness, pedal edema, joint swelling, calf tenderness Back exam: Present: normal inspection Neurological exam: Present: alert, oriented X3, CN II-XII intact Psychiatric exam: Present: normal affect, normal mood Skin exam: Present: warm, dry, intact, normal color. Absent: rash <KelmaydaMery Geoff - Last Filed: 04/18/23 03:04> - General Exam Comments Initial Comments: Visual Physical Exam Vital signs reviewed General: Well-appearing, nontoxic, no acute distress. Head: Normocephalic, atraumatic Eyes: PERRLA, EOMI ENT: Airway patent Chest: Nonlabored breathing Skin: No visual rash, normal skin tone Neuro: Alert and oriented 3 Musculoskeletal: No gross abnormalities I performed the QuickNote portion of this chart. Signed Maria Guadalupe Ross PA-C. (Maria Guadalupe Ross) Course Vital Signs 04/17/23 04/17/23 04/17/23 13:25 15:14 15:15 Temperature 98.0 F Pulse Rate 71 92 97 Respiratory 18 9 L 18 Rate Blood Pressure 163/77 185/103 O2 Sat by Pulse 99 99 99 Oximetry 04/17/23 04/17/23 04/17/23 15:20 15:30 15:40 Temperature Pulse Rate 76 74 70 Respiratory 11 L 11 L 9 L Rate Blood Pressure 185/103 176/98 164/82 O2 Sat by Pulse 99 99 98 Oximetry 04/17/23 04/17/23 04/17/23 15:50 16:00 16:10 Temperature Pulse Rate 68 72 80 Respiratory 16 16 12 Rate Blood Pressure 175/91 175/91 165/88 O2 Sat by Pulse 97 97 98 Oximetry 04/17/23 18:10 Temperature Pulse Rate 85 Respiratory 18 Rate Blood Pressure 133/63 O2 Sat by Pulse 98 Oximetry Chest Pain MDM <Mery Justin A - Last Filed: 04/18/23 03:04> - MDM Was pt. sent in by a medical professional or institution (, PA, PARKING LOT SIGNALER, urgent care, hospital, or retirement...) When possible be specific @ -No Did you speak to anyone other than the patient for history (EMS, parent, family, police, friend...)? What history was obtained from this source @ -No Did you review nursing and triage notes (agree or disagree)? Why? @ -I reviewed and agree with nursing and triage notes Were old charts reviewed (outside hosp., previous admission, EMS record, old EKG, old radiological studies, urgent care reports/EKG's, retirement records)? Report findings @ -No old charts were reviewed Differential Diagnosis (chest pain, altered mental status, abdominal pain women, abdominal pain men, vaginal bleeding, weakness, fever, dyspnea, syncope, headache, dizziness, GI bleed, back pain, seizure, CVA, palpatations, mental health, musculoskeletal)? @ -Differential Chest Pain: Stable Angina, Unstable Angina, STEMI, NSTEMI Aortic Dissection, Pneumothorax, Musculoskeletal, Esophageal Spasm GERD, Cholecystitis, Pancreatitis, Zoster, this is not meant to be an all-inclusive list. EKG interpreted by me (3pts min.). @ -Yes. EKG completed at 1334 demonstrates A. fib with a left bundle-branch block. Rate of 80. QRS 149. QTC of 448. Some PVCs. Negative for sgarbossa criteria Repeat EKG when patient was having chest pain demonstrates continued A. fib with a rate of 77. QRS 158. QTC of 474. Negative for sgarbossa criteria X-rays interpreted by me (1pt min.). @ -Yes and demonstrates no acute process CT interpreted by me (1pt min.). @ -None done U/S interpreted by me (1pt. min.). @ -None done What testing was considered but not performed or refused? (CT, X-rays, U/S, labs)? Why? @ -None What meds were considered but not given or refused? Why? @ -None Did you discuss the management of the patient with other professionals (professionals i.e. , PA, PARKING LOT SIGNALER, lab, RT, psych nurse, community mental health social worker, field installer, teacher, commissioned defence force officer, family service caseworker)? Give summary @ -Spoke with Duane from [facility] who agreed to admit the patient Was smoking cessation discussed for >3mins.? @ -No Was critical care preformed (if so, how long)? @ -No Were there social determinants of health that impacted care today? How? (Homelessness, low income, unemployed, alcoholism, drug addiction, transporta tion, low edu. Level, literacy, decrease access to med. care, retirement, rehab)? @ -No Was there de-escalation of care discussed even if they declined (Discuss DNR or withdrawal of care, Hospice)? DNR status @ -No What co-morbidities impacted this encounter? (DM, HTN, Smoking, COPD, CAD, Cancer, CVA, ARF, Chemo, Hep., AIDS, mental health diagnosis, sleep apnea, morbid obesity)? @ -Coronary artery disease Was patient admitted / discharged? Hospital course, mention meds given and route, prescriptions, significant lab abnormalities, going to OR and other pertinent info. @ -Arrival patient was placed in room 7. Thorough history and physical exam was performed. Patient placed on continuous pulse ox and cardiac monitoring. 12 EKG is obtained. Laboratory studies are conducted. Chest x-ray was performed. Patient continues to have episodes of pain. I did recommend admission for cardiology consultation. Patient was agreeable and admitted in stable condition. Spoke with Duane from [facility] Undiagnosed new problem with uncertain prognosis? @ -Yes Drug Therapy requiring intensive monitoring for toxicity (Heparin, Nitro, Insulin, Cardizem)? @ -No Were any procedures done? @ -No Diagnosis/symptom? @ -Acute chest pain, history of coronary artery disease Acute, or Chronic, or Acute on Chronic? @ -Acute Uncomplicated (without systemic symptoms) or Complicated (systemic symptoms)? @ -Complicated Side effects of treatment? @ -No Exacerbation, Progression, or Severe Exacerbation? @ -No Poses a threat to life or bodily function? How? (Chest pain, [place], [place], pneumonia, PE, COPD, DKA, ARF, appy, cholecystitis, CVA, Diverticulitis, Homicidal, Suicidal, threat to staff... and all critical care pts) @ -No (Mery Justin) Disposition <Maria Guadalupe Ross - Last Filed: 04/17/23 14:19> Is patient prescribed a controlled substance at d/c from ED?: No Time of Disposition: 17:43 Decision to Admit Reason: Admit from EC Decision Date: 04/17/23 Decision Time: 17:43 <Mery Justin - Last Filed: 04/18/23 03:04> Clinical Impression: Chest pain Disposition: ADMITTED IP TO THIS [facility] Condition: Stable
--- NOTE | 2023-04-17 14:21 | XR ---
EXAMINATION TYPE: XR chest 2V DATE OF EXAM: 04/17/2023 COMPARISON: 10/20/2020 TECHNIQUE: PA and lateral views submitted. HISTORY: 10/20/2020 FINDINGS: There is atherosclerotic change aorta. Hyperinflation suggests COPD. Prominence of the upper mediasti num may reflect vascular ectasia. No sizable pleural effusion or pneumothorax. Hypertrophic and degen erative change of the spine. Median sternotomy changes noted. IMPRESSION: 1. No definite acute process. Correlate for COPD.
[2023-04-17 15:42] LABS: Basophils % (A) 0 %; Eosinophils # (A) 0.1 k/uL (0-0.7); Eosinophils % (A) 1 %; HCT 42.3 % (34.0-46.0); HGB 13.7 gm/dL (11.4-16.0); Lymphocytes # (A) 1.5 k/uL (1.0-4.8); Lymphocytes % (A) 13 %; MCH 33.3 pg (25.0-35.0); MCHC 32.4 g/dL (31.0-37.0); MCV 102.6 fL (80.0-100.0); Macrocytosis Slight; Mean Platelet Volume 8.1; Monocytes # (A) 0.6 k/uL (0-1.0); Monocytes % (A) 6 %; Neutrophils # (A) 8.9 k/uL (1.3-7.7); Neutrophils % (A) 78 %; Platelet Count 204 k/uL (150-450); RBC 4.12 m/uL (3.80-5.40); RDW 14.3 % (11.5-15.5); WBC 11.4 k/uL (3.8-10.6)
[2023-04-17 15:56] LABS: ALT 15 U/L (4-34); AST 24 U/L (14-36); African American GFR (CKD) 34 (>60 ml/min/1.73 sqM); Albumin 4.3 g/dL (3.5-5.0); Alkaline Phosphatase 81 U/L (38-126); Anion Gap 12 mmol/L; Blood Urea Nitrogen 47 mg/dL (7-17); Carbon Dioxide 25 mmol/L (22-30); Chloride 101 mmol/L (98-107); Glucose 201 mg/dL (74-99); Magnesium 2.2 mg/dL (1.6-2.3); Non-African American GFR(CKD) 30 (>60 ml/min/1.73 sqM); Potassium 4.8 mmol/L (3.5-5.1); Sodium 138 mmol/L (137-145); Total Bilirubin 0.7 mg/dL (0.2-1.3); Total Protein 6.8 g/dL (6.3-8.2)
[2023-04-17] MEDS ORDERED: NALOXONE 0.4 MG/ML 1 ML VIAL IV PRN (17:44)
[2023-04-17] MEDS ORDERED: ASPIRIN 325 MG TAB PO STA (17:46)
[2023-04-17 20:09] LABS: Glucose,Whole Blood 205 mg/dL (70-110)
[2023-04-17] MEDS: METOPROLOL TARTRATE 25 MG TAB PO SCH (21:00)
[2023-04-17] MEDS ORDERED: ATORVASTATIN 20 MG TAB PO SCH (21:00)
[2023-04-17] MEDS: hydrALAZINE HCL 25 MG TAB PO SCH (21:00)
[2023-04-17] MEDS: glipiZIDE 10 MG TAB PO SCH (21:00)
[2023-04-17] MEDS: FOLIC ACID-VIT B COMPLEX-VIT C 1 CAP PO SCH (21:01)
[2023-04-17] MEDS: APIXABAN 2.5 MG TABLET PO SCH (21:01)
[2023-04-17] MEDS: SPIRONOLACTONE 25 MG TAB PO SCH (21:01)
[2023-04-17] MEDS: ACETAMINOPHEN TAB 325 MG TAB PO PRN (21:05)
[2023-04-18] MEDS: LEVOTHYROXINE 50 MCG TAB PO SCH (05:37)
[2023-04-18 06:13] LABS: Glucose,Whole Blood 85 mg/dL (70-110)
[2023-04-18] MEDS: hydrALAZINE HCL 25 MG TAB PO SCH ×2 (08:09→19:51)
[2023-04-18] MEDS: FUROSEMIDE 40 MG TAB PO SCH (08:09)
[2023-04-18] MEDS: ASPIRIN 81 MG PO SCH (08:09)
[2023-04-18] MEDS: CHOLECALCIFEROL 25 MCG (1000 IU) TABLET PO SCH (08:10)
[2023-04-18] MEDS: PANTOPRAZOLE 40 MG TABLET PO SCH (08:10)
[2023-04-18] MEDS: allopurinoL 100 MG TAB PO SCH (08:10)
[2023-04-18] MEDS: APIXABAN 2.5 MG TABLET PO SCH ×2 (08:10→19:51)
[2023-04-18] MEDS: glipiZIDE 10 MG TAB PO SCH ×2 (08:10→19:51)
[2023-04-18] MEDS: SPIRONOLACTONE 25 MG TAB PO SCH ×2 (08:10→19:51)
[2023-04-18] MEDS: METOPROLOL TARTRATE 25 MG TAB PO SCH ×2 (08:10→19:51)
[2023-04-18 08:57] LABS: Basophils # (A) 0.06 X 10*3/uL (0.00-0.10); Basophils % (A) 0.7 %; Eosinophils # (A) 0.16 X 10*3/uL (0.04-0.35); Eosinophils % (A) 1.9 %; HCT 40.7 % (37.2-46.3); HGB 13.4 d/dL (12.0-15.0); Lymphocytes # (A) 1.82 X 10*3/uL (0.90-5.00); MCH 33.3 pg (27.0-32.0); MCHC 32.9 d/dL (32.0-37.0); MCV 101.2 FL (80.0-97.0); Monocytes # (A) 0.78 X 10*3/uL (0.20-1.00); Monocytes % (A) 9.4 %; NRBC Per 100 WBC 0 X 10*3/uL (0.00-0.01); Neutrophils # (A) 5.44 X 10*3/uL (1.80-7.70); Neutrophils % (A) 65.6 %; Platelet Count 179 X 10*3/uL (140-440); RBC 4.02 X 10*6/uL (4.10-5.20); RDW 14.2 % (11.5-14.5); WBC 8.29 X 10*3/uL (4.50-10.00)
[2023-04-18 09:36] LABS: Blood Urea Nitrogen 47.2 mg/dL (9.0-27.0); Calcium 9.8 mg/dL (8.7-10.3); Carbon Dioxide 21.8 mmol/L (21.6-31.8); Chloride 104 mmol/L (96-109); Glucose 72 mg/dL (70-110); Potassium 3.9 mmol/L (3.5-5.5); Sodium 142 mmol/L (135-145)
[2023-04-18 11:35] LABS: Glucose,Whole Blood 298 mg/dL (70-110)
--- NOTE | 2023-04-18 14:25 | P.CRDCN ---
History of Present Illness Consult date: 04/18/23 Consult reason: chest pain History of present illness: This is Brain Dodson NP, I'm dictating on behalf of Dr. Ritchie's H&P and A&P The patient was interviewed and examined. HPI: Patient is a pleasant 88-year-old female with a past medical history that includes atrial fibrillation, coronary artery disease, heart failure, diabetes, GERD, hyperlipidemia, hypertension, osteoarthritis, chronic kidney disease stage III, hypothyroidism, tendinitis, gout, and history of cardiac valve replacement, who presents to hospital with complaints of chest pain. Patient reports that she had a squeezing feeling in her chest at home yesterday, while drinking coffee in bed. She states it only lasted a few seconds. She states that after that, she had been up and was moving around, and she had the sensation happen again later. Due to this, she came to the emergency department for evaluation. In the emergency department, the patient had a EKG completed which demonstrated atrial fibrillation with controlled ventricular response, and a left bundle branch block. Patient had a chest x-ray completed the demonstrated no definitive acute process, but wanted correlation for COPD. Labwork demonstrates her chronic kidney disease, but is otherwise fairly noncontributory. Patient was admitted for further evaluation of the chest pain. This morning patient reports that she's had no further episodes of chest pain since admission. She remains in atrial fibrillation, but with controlled ventricular response on telemetry. Patient is currently denying chest pain, shortness of breath, and heart palpitations. ROS: [No fever, chills, or rigors] [no cough, phlegm, or expectoration] [no nausea, vomiting, or diarrhea] [no hematuria, dysuria] [no musculoskelatal complaints] [no strokes or seizures] [no skin lesions] EXAMINATION: GENERAL: Well-appearing, well-nourished and in no acute distress. NECK: Supple without JVD or thyromegaly. LUNGS: Breath sounds clear to auscultation bilaterally. Respiration equal and unlabored. No wheezes, rales or rhonchi. HEART: Regular rate and irregular rhythm without murmurs, rubs or gallops. S1 and S2 heard. EXTREMITIES: Normal range of motion, no edema. No clubbing or cyanosis. Peripheral pulses intact and strong. REVIEW OF LABS, ECG & MEDICAL DATA: LABS: White count 8.2, hemoglobin 13.4, platelets 179, sodium 142, potassium 3.9, BUN 47.2, creatinine 1.6, calcium 9.8, troponin less than 0.012 EKG: Atrial fibrillation with controlled ventricular response, left bundle branch block IMAGING: Chest x-ray dated 04/17/2023 demonstrates no definite acute process, correlate for COPD. VITALS: Temp 97.5, pulse 63, respirations 16, blood pressure 154/67, O2 saturation 97% on room air IMPRESSION: 1. Chest pain, history of triple bypass 2. Atrial fibrillation, controlled ventricular response 3. Hypertension 4. Hyperlipidemia PLAN: Patient may be out of bed, and should be ambulated. Patient may eat. Increase atorvastatin 40 mg daily. Evaluate patient to see if she has any further chest pain, especially during ambulation. We'll consider Lexiscan stress test on Thursday. Further recommendations based on patient's clinical course. Thank you for the consult and allowing us to participate in the care of this patient. Past Medical History Past Medical History: Atrial Fibrillation, Coronary Artery Disease (CAD), Heart Failure, Diabetes Mellitus, GERD/Reflux, Hyperlipidemia, Hypertension, Osteoarthritis (OA), Renal Disease, Thyroid Disorder Additional Past Medical History / Comment(s): NIDDM type II, 07/24/17 echo with 20% EF, chronic kidney disease stage III, bilateral tinnitis, arthritis multiple joints, gout, back pain. History of Any Multi-Drug Resistant Organisms: None Reported Past Surgical History: Adenoidectomy, Cardiac Valve Replacement, Coronary Bypa ss/CABG, Hysterectomy, Joint Replacement, Orthopedic Surgery, Tonsillectomy Additional Past Surgical History / Comment(s): 2009 CABG-3 vessels and aortic valve replacement, L knee replaced, R ankle with pins and post op infection requiring PICC line, thyroid bx, D&C, bilateral cataract removal with lens implants. skin ca removed Past Anesthesia/Blood Transfusion Reactions: Previous Problems w/ Anesthesia Additional Past Anesthesia/Blood Transfusion Reaction / Comment(s): Pt states she was hypertensive after waking from D&C. Pt has clausterphobia. Past Psychological History: Depression Additional Psychological History / Comment(s): Pt resides with her yancy, Alena Mooney. Her daughter is her caregiver. Pt has a walker if she needs to use one but currently does not. Pt no longer drives, yancy takes her to appointments. Smoking Status: Never smoker Past Alcohol Use History: None Reported Past Drug Use History: None Reported - Past Family History Father History Unknown: Yes Additional Family Medical History / Comment(s): pt was adopted Mother History Unknown: Yes Additional Family Medical History / Comment(s): Mother after childbirth at the age of 35yrs. Medications and Allergies Home Medications Medication Instructions Recorded Confirmed Type Levothyroxine Sodium [Synthroid] 50 mcg PO DAILY 07/21/17 04/17/23 History allopurinoL [Zyloprim] 100 mg PO DAILY 07/21/17 04/17/23 History Apixaban [Eliquis] 2.5 mg PO BID tablet 07/24/17 04/17/23 Rx Aspirin EC [Ecotrin Low Dose] 81 mg PO DAILY 07/28/17 04/17/23 History hydrALAZINE HCL [Apresoline] 25 mg PO BID #60 tab 07/28/17 04/17/23 Rx Metoprolol Tartrate [Lopressor] 25 mg PO BID #60 tab 11/25/18 04/17/23 Rx Furosemide [Lasix] 40 mg PO DAILY 10/21/20 04/17/23 History Nephro-Fabio 1 tab PO HS 10/21/20 04/17/23 History Pantoprazole [Protonix] 40 mg PO DAILY 10/21/20 04/17/23 History Simvastatin [Zocor] 40 mg PO HS 10/21/20 04/17/23 History Spironolactone [Aldactone] 25 mg PO BID 10/21/20 04/17/23 History glyBURIDE [Diabeta] 5 mg PO BID 10/21/20 04/17/23 History Cholecalciferol [Vitamin D3 (25 50 mcg PO DAILY tablet 10/23/20 04/17/23 Rx Mcg = 1000 Iu)] Allergies Allergy/AdvReac Type Severity Reaction Status Date / Time No Known Allergies Allergy Verified 04/17/23 16:17 Physical Exam Vitals: Vital Signs Temp Pulse Pulse Resp BP BP Pulse Ox 04/18/23 07:00 97.5 F L 63 16 154/67 97 04/18/23 01:37 97.4 F L 74 16 125/68 97 04/17/23 18:34 98.1 F 66 16 161/74 98 04/17/23 18:10 85 18 133/63 98 04/17/23 16:10 80 12 165/88 98 04/17/23 16:00 72 16 175/91 97 04/17/23 15:50 68 16 175/91 97 04/17/23 15:40 70 9 L 164/82 98 04/17/23 15:30 74 11 L 176/98 99 04/17/23 15:20 76 11 L 185/103 99 04/17/23 15:15 97 18 185/103 99 04/17/23 15:14 92 9 L 99 Intake and Output 04/17/23 04/18/23 04/18/23 22:59 06:59 14:59 Other: # Voids 1 1 3 Weight 72.121 kg Results 04/18/23 05:07 04/18/23 05:07 Cardiac Enzymes 04/17/23 04/17/23 04/17/23 Range/Units 15:23 15:23 18:14 AST 24 (14-36) U/L Troponin I <0.012 <0.012 (0.000-0.034) ng/mL 04/17/23 Range/Units 22:57 AST (14-36) U/L Troponin I <0.012 (0.000-0.034) ng/mL Coagulation 04/17/23 Range/Units 15:23 PT 11.0 (9.0-12.0) sec APTT 24.0 (22.0-30.0) sec CBC 04/17/23 04/18/23 Range/Units 15:23 05:07 WBC 11.4 H 8.29 (3.8-10.6) k/uL RBC 4.12 4.02 L (3.80-5.40) m/uL Hgb 13.7 13.4 (11.4-16.0) gm/dL Hct 42.3 40.7 (34.0-46.0) % Plt Count 204 179 (150-450) k/uL Comprehensive Metabolic Panel 04/17/23 04/18/23 Range/Units 15:23 05:07 Sodium 138 142 (137-145) mmol/L Potassium 4.8 3.9 (3.5-5.1) mmol/L Chloride 101 104 (98-107) mmol/L Carbon Dioxide 25 21.8 (22-30) mmol/L BUN 47 H 47.2 H (7-17) mg/dL Creatinine 1.55 H 1.6 H (0.52-1.04) mg/dL Glucose 201 H 72 (74-99) mg/dL Calcium 10.0 9.8 (8.4-10.2) mg/dL AST 24 (14-36) U/L ALT 15 (4-34) U/L Alkaline Phosphatase 81 (38-126) U/L Total Protein 6.8 (6.3-8.2) g/dL Albumin 4.3 (3.5-5.0) g/dL Current Medications Generic Name Dose Route Start Last Admin Trade Name Freq PRN Reason Stop Dose Admin Acetaminophen 650 mg 04/17/23 18:33 04/17/23 21:05 Acetaminophen Tab 325 Mg Tab PO 650 mg Q6HR PRN Administration Fever and/ or Pain Allopurinol 100 mg 04/18/23 09:00 04/18/23 08:10 Allopurinol 100 Mg Tab PO 100 mg DAILY ELIJAH Administration Apixaban 2.5 mg 04/17/23 21:00 04/18/23 08:10 Apixaban 2.5 Mg Tablet PO 2.5 mg BID ELIJAH Administration Protocol Aspirin 81 mg 04/18/23 09:00 04/18/23 08:09 Aspirin 81 Mg PO 81 mg DAILY ELIJAH Administration Atorvastatin Calcium 40 mg 04/18/23 21:00 Atorvastatin 40 Mg Tab PO HS [facility] Cholecalciferol 50 mcg 04/18/23 09:00 04/18/23 08:10 Cholecalciferol 25 Mcg (1000 Iu) Tablet PO 50 mcg DAILY ELIJAH Administration Furosemide 40 mg 04/18/23 09:00 04/18/23 08:09 Furosemide 40 Mg Tab PO 40 mg DAILY ELIJAH Administration Glipizide 10 mg 04/17/23 21:00 04/18/23 08:10 Glipizide 10 Mg Tab PO 10 mg BID ELIJAH Administration Hydralazine HCl 25 mg 04/17/23 21:00 04/18/23 08:09 Hydralazine Hcl 25 Mg Tab PO 25 mg BID ELIJAH Administration Levothyroxine Sodium 50 mcg 04/18/23 06:30 04/18/23 05:37 Levothyroxine 50 Mcg Tab PO 50 mcg 0630 ELIJAH Administration Metoprolol Tartrate 25 mg 04/17/23 21:00 04/18/23 08:10 Metoprolol Tartrate 25 Mg Tab PO 25 mg BID ELIJAH Administration Multivit/Ca Carb/B Cmplx/FA/Prenat 1 each 04/17/23 21:00 04/17/23 21:01 Folic Acid-Vit B Complex-Vit C 1 Cap PO 1 each HS ELIJAH Administration Naloxone HCl 0.2 mg 04/17/23 17:44 Naloxone 0.4 Mg/Ml 1 Ml Vial IV Q2M PRN Opioid Reversal Pantoprazole Sodium 40 mg 04/18/23 09:00 04/18/23 08:10 Pantoprazole 40 Mg Tablet PO 40 mg DAILY ELIJAH Administration Spironolactone 25 mg 04/17/23 21:00 04/18/23 08:10 Spironolactone 25 Mg Tab PO 25 mg BID ELIJAH Administration Intake and Output 04/17/23 04/18/23 04/18/23 22:59 06:59 14:59 Other: # Voids 1 1 3 Weight 72.121 kg 04/18/23 05:07 04/18/23 05:07
[2023-04-18 17:31] LABS: Glucose,Whole Blood 178 mg/dL (70-110)
--- NOTE | 2023-04-18 19:00 | P.HPIM ---
History of Present Illness H&P Date: 04/18/23 This is a pleasant 88-year-old female who presented to the emergency department with chest pain. Patient reports it was not a chest pain although was a chest squeezing and tightening episode that lasted approximately 5 seconds and had multiple episodes of this. Patient reports she was not doing anything strenuous and one of the episodes was well laying in bed and another episode while up and walking and also reported episodes while in the ER. Patient follows with Dr. Strange in the outpatient setting with a past medical history of atrial fibrillation, coronary artery disease, heart failure, diabetes mellitus, GERD, hyperlipidemia, hypertension, osteoarthritis, renal disease, thyroid dis order, chronic kidney disease stage III, anxiety and denies any smoking or alcohol use and denies any illicit drug use. Labs reviewed and within normal limits although creatinine is 1.6 and patient does have history of chronic kidney disease stage III maintained on Lasix. EKG showed atrial fibrillation with controlled rate and x-ray showed no acute process. Patient was admitted for cardiology evaluation. Review Of Systems: Constitutional: No fever, no chills, no night sweats. No weight change. No weakness, fatigue or lethargy. No daytime sleepiness. EENT: No headache. No blurred vision or double vision, no loss of vision. No loss of Hearing, no ringing in the ears, no dizziness. No nasal drainage or congestion. No epistaxis. No sore throat. Lungs: No shortness of breath, cough, no sputum production. No wheezing. Cardiovascular: Reports of chest squeezing episodes 3, no lower extremity edema. No palpitations. No paroxysmal nocturnal dyspnea. No orthopnea. No lightheadedness or dizziness. No syncopal episodes. Abdominal: No abdominal pain. No nausea, vomiting. No diarrhea. No constipation. No bloody or tarry stools.. No loss of appetite. Genitourinary: No dysuria, increased frequency, urgency. No urinary retention. Musculoskeletal: No myalgias. No muscle weakness, no gait dysfunction, no frequent falls. No back pain. No neck pain. Integumentary: No wounds, no lesions. No rash or pruritus. No unusual bruising. No change in hair or nails. Neurologic: No aphasia. No facial droop. No change in mentation. No head injury. No headache. No paralysis. No paresthesia. Psychiatric: No depression. No anxiety. No mood swings. Endocrine: No abnormal blood sugars. No weight change. No excessive sweating or thirst. No cold intolerance. PHYSICAL EXAMINATION: GENERAL: The patient is alert and oriented x4, Well developed, well nourished. Elderly-appearing HEENT: Pupils are round and equally reacting to light. EOMI. no scleral icterus. No conjunctival pallor. Normocephalic, atraumatic. No pharyngeal erythema. No thyromegaly. CARDIOVASCULAR: S1 and S2 muffled, irregular PULMONARY: Breath sounds clear bilaterally with no wheezing or rhonchi noted. ABDOMEN: soft. Nontender on exam. non-distended, normoactive bowel sounds. No palpable organomegaly. MUSCULOSKELETAL: No joint swelling or deformity. EXTREMITIES: No cyanosis, clubbing, or pedal edema. NEUROLOGICAL: Gross neurological examination did not reveal any focal deficits. SKIN: No rashes. Assessment: Chest pain, ruled out ACS, troponins 3 were negative History of atrial fibrillation, currently rate controlled Coronary artery disease history with CABG in 2009 History of heart failure, unknown EF Diabetes mellitus type 2 GERD Hyperlipidemia Hypertension History of osteoarthritis Chronic kidney disease stage III history History of gout History of anxiety GI prophylaxis DVT prophylaxis patient is on eliquis Full code Plan: Patient was admitted for cardiology evaluation. Patient is continued on telemetry monitoring currently in atrial fibrillation with controlled rate. Cardiology recommending monitoring with possible stress testing on Thursday Home medications reviewed and resumed as appropriate Recommend Accu-Cheks before meals and at bedtime and will use sliding scale as needed as patient is a diabetic Encouraged increased activity as tolerated Encouraged oral intake Follow-up on repeat labs his kidney functions were 1.6 although patient does have chronic kidney disease and is maintained on Lasix daily The impression and plan of care has been dictated by Kaya Lewis, nurse practitioner as directed. Dr. Scott MD I have performed a history and examination and MDM of this patient, discussed the same with the dictator, and agree with the dictator's assessment and plan as written ,documented as a scribe. Based on total visit time, I have performed more than 50% of the visit. Any additional findings or plans will be noted. Past Medical History Past Medical History: Atrial Fibrillation, Coronary Artery Disease (CAD), Heart Failure, Diabetes Mellitus, GERD/Reflux, Hyperlipidemia, Hypertension, Osteoarthritis (OA), Renal Disease, Thyroid Disorder Additional Past Medical History / Comment(s): NIDDM type II, 07/24/17 echo with 20% EF, chronic kidney disease stage III, bilateral tinnitis, arthritis multiple joints, gout, back pain. 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 skin ca removed Past Anesthesia/Blood Transfusion Reactions: Previous Problems w/ Anesthesia Additional Past Anesthesia/Blood Transfusion Reaction / Comment(s): Pt states she was hypertensive after waking from D&C. Pt has clausterphobia. Past Psychological History: Depression Additional Psychological History / Comment(s): Pt resides with her yancy, Alena Mooney. Her daughter is her caregiver. Pt has a walker if she needs to use one but currently does not. Pt no longer drives, yancy takes her to appointments. Smoking Status: Never smoker Past Alcohol Use History: None Reported Past Drug Use History: None Reported - Past Family History Father History Unknown: Yes Additional Family Medical History / Comment(s): pt was adopted Mother History Unknown: Yes Additional Family Medical History / Comment(s): Mother after childbirth at the age of 35yrs. Medications and Allergies Home Medications Medication Instructions Recorded Confirmed Type Levothyroxine Sodium [Synthroid] 50 mcg PO DAILY 07/21/17 04/17/23 History allopurinoL [Zyloprim] 100 mg PO DAILY 07/21/17 04/17/23 History Apixaban [Eliquis] 2.5 mg PO BID tablet 07/24/17 04/17/23 Rx Aspirin EC [Ecotrin Low Dose] 81 mg PO DAILY 07/28/17 04/17/23 History hydrALAZINE HCL [Apresoline] 25 mg PO BID #60 tab 07/28/17 04/17/23 Rx Metoprolol Tartrate [Lopressor] 25 mg PO BID #60 tab 11/25/18 04/17/23 Rx Furosemide [Lasix] 40 mg PO DAILY 10/21/20 04/17/23 History Nephro-Fabio 1 tab PO HS 10/21/20 04/17/23 History Pantoprazole [Protonix] 40 mg PO DAILY 10/21/20 04/17/23 History Simvastatin [Zocor] 40 mg PO HS 10/21/20 04/17/23 History Spironolactone [Aldactone] 25 mg PO BID 10/21/20 04/17/23 History glyBURIDE [Diabeta] 5 mg PO BID 10/21/20 04/17/23 History Cholecalciferol [Vitamin D3 (25 50 mcg PO DAILY tablet 10/23/20 04/17/23 Rx Mcg = 1000 Iu)] Allergies Allergy/AdvReac Type Severity Reaction Status Date / Time No Known Allergies Allergy Verified 04/17/23 16:17 Physical Exam Vitals: Vital Signs Temp Pulse Pulse Resp BP BP Pulse Ox 04/18/23 07:00 97.5 F L 63 16 154/67 97 04/18/23 01:37 97.4 F L 74 16 125/68 97 04/17/23 18:34 98.1 F 66 16 161/74 98 04/17/23 18:10 85 18 133/63 98 04/17/23 16:10 80 12 165/88 98 04/17/23 16:00 72 16 175/91 97 04/17/23 15:50 68 16 175/91 97 04/17/23 15:40 70 9 L 164/82 98 04/17/23 15:30 74 11 L 176/98 99 04/17/23 15:20 76 11 L 185/103 99 04/17/23 15:15 97 18 185/103 99 04/17/23 15:14 92 9 L 99 04/17/23 13:25 98.0 F 71 18 163/77 99 Intake and Output 04/17/23 04/18/23 04/18/23 22:59 06:59 14:59 Other: # Voids 1 1 0 Weight 72.121 kg Results CBC & Chem 7: 04/18/23 05:07 04/18/23 05:07 Labs: Abnormal Lab Results - Last 24 Hours (Table) 04/17/23 04/17/23 04/17/23 Range/Units 15:23 15:23 20:08 WBC 11.4 H (3.8-10.6) k/uL RBC (4.10-5.20) X 10*6/uL MCV 102.6 H (80.0-100.0) fL MCH (27.0-32.0) pg Neutrophils # 8.9 H (1.3-7.7) k/uL Anion Gap (4.00-12.00) mmol/L BUN 47 H (7-17) mg/dL Creatinine 1.55 H (0.52-1.04) mg/dL Est GFR (CKD-EPI) (>=60) BUN/Creatinine Ratio (12.00-20.00) Ratio Glucose 201 H (74-99) mg/dL POC Glucose (mg/dL) 205 H (70-110) mg/dL 04/18/23 04/18/23 04/18/23 Range/Units 05:07 05:07 11:31 WBC (3.8-10.6) k/uL RBC 4.02 L (4.10-5.20) X 10*6/uL MCV 101.2 H (80.0-100.0) fL MCH 33.3 H (27.0-32.0) pg Neutrophils # (1.3-7.7) k/uL Anion Gap 16.20 H (4.00-12.00) mmol/L BUN 47.2 H (7-17) mg/dL Creatinine 1.6 H (0.52-1.04) mg/dL Est GFR (CKD-EPI) 31 L (>=60) BUN/Creatinine Ratio 29.50 H (12.00-20.00) Ratio Glucose (74-99) mg/dL POC Glucose (mg/dL) 298 H (70-110) mg/dL Thrombosis Risk Factor Assmnt - Choose All That Apply Each Risk Factor Represents 3 Points: Age 75 years or older Thrombosis Risk Factor Assessment Total Risk Factor Score: 3 Thrombosis Risk Factor Assessment Level: Moderate Risk Assessment and Plan Time with Patient: Greater than 30
[2023-04-18] MEDS: FOLIC ACID-VIT B COMPLEX-VIT C 1 CAP PO SCH (19:51)
[2023-04-18] MEDS: ATORVASTATIN 40 MG TAB PO SCH (19:51)
[2023-04-18 21:16] LABS: Glucose,Whole Blood 229 mg/dL (70-110)
[2023-04-18] MEDS: ACETAMINOPHEN TAB 325 MG TAB PO PRN (21:19)
[2023-04-19] MEDS: LEVOTHYROXINE 50 MCG TAB PO SCH (05:32)
[2023-04-19 06:15] LABS: Glucose,Whole Blood 113 mg/dL (70-110)
[2023-04-19 06:44] LABS: Basophils % (A) 0 %; Eosinophils # (A) 0.2 k/uL (0-0.7); Eosinophils % (A) 3 %; HCT 41.2 % (34.0-46.0); HGB 13.3 gm/dL (11.4-16.0); Lymphocytes # (A) 1.6 k/uL (1.0-4.8); Lymphocytes % (A) 19 %; MCH 33.1 pg (25.0-35.0); MCHC 32.4 g/dL (31.0-37.0); MCV 102.2 fL (80.0-100.0); Macrocytosis Slight; Mean Platelet Volume 8.6; Monocytes # (A) 0.6 k/uL (0-1.0); Monocytes % (A) 7 %; Neutrophils # (A) 5.8 k/uL (1.3-7.7); Neutrophils % (A) 67 %; Platelet Count 149 k/uL (150-450); RBC 4.03 m/uL (3.80-5.40); RDW 14.5 % (11.5-15.5); WBC 8.6 k/uL (3.8-10.6)
[2023-04-19] MEDS: glipiZIDE 10 MG TAB PO SCH ×2 (07:53→20:15)
[2023-04-19] MEDS: hydrALAZINE HCL 25 MG TAB PO SCH ×2 (07:53→20:15)
[2023-04-19] MEDS: METOPROLOL TARTRATE 25 MG TAB PO SCH ×2 (07:53→20:15)
[2023-04-19] MEDS: SPIRONOLACTONE 25 MG TAB PO SCH ×2 (07:53→20:15)
[2023-04-19] MEDS: FUROSEMIDE 40 MG TAB PO SCH (07:53)
[2023-04-19] MEDS: ASPIRIN 81 MG PO SCH (07:53)
[2023-04-19] MEDS: PANTOPRAZOLE 40 MG TABLET PO SCH (07:53)
[2023-04-19] MEDS: CHOLECALCIFEROL 25 MCG (1000 IU) TABLET PO SCH (07:53)
[2023-04-19] MEDS: allopurinoL 100 MG TAB PO SCH (07:53)
[2023-04-19] MEDS: APIXABAN 2.5 MG TABLET PO SCH ×2 (07:53→20:15)
[2023-04-19 08:28] LABS: African American GFR (CKD) 36 (>60 ml/min/1.73 sqM); Anion Gap 6 mmol/L; Blood Urea Nitrogen 47 mg/dL (7-17); Calcium 9.5 mg/dL (8.4-10.2); Carbon Dioxide 27 mmol/L (22-30); Chloride 104 mmol/L (98-107); Glucose 105 mg/dL (74-99); Magnesium 2.2 mg/dL (1.6-2.3); Non-African American GFR(CKD) 31 (>60 ml/min/1.73 sqM); Potassium 4.1 mmol/L (3.5-5.1); Sodium 137 mmol/L (137-145)
[2023-04-19 11:33] LABS: Glucose,Whole Blood 194 mg/dL (70-110)
--- NOTE | 2023-04-19 16:22 | P.PN ---
Subjective Progress Note Date: 04/19/23 This is Brain Dodson NP, I'm dictating on behalf of Dr. Ritchie's H&P and A&P. Patient was interviewed and examined. Patient is a pleasant 88-year-old female who initially presented to the hospital with complaints of chest pain and tightness. Patient had a squeezing feeling in her chest at home, while drinking coffee in bed. She subsequent had another episode, which brought her to the hospital. Patient reports that she is feeling fine today. She currently is denying chest pain, shortness of breath, and heart palpitations. She does report that she had another episode of chest tightness around 2 AM after taking a Tums for some heartburn. Patient has been ambulating around the hallway without any other symptoms. GENERAL: Well-appearing, well-nourished and in no acute distress. NECK: Supple without JVD or thyromegaly. LUNGS: Breath sounds clear to auscultation bilaterally. Respiration equal and unlabored. No wheezes, rales or rhonchi. HEART: Regular rate and irregular rhythm without murmurs, rubs or gallops. S1 and S2 heard. EXTREMITIES: Normal range of motion, no edema. No clubbing or cyanosis. Peripheral pulses intact and strong. VITALS: Temp 98.0, pulse 76, respirations 16, blood pressure 146/74, O2 saturation 99% on room air TELEMETRY: Atrial fibrillation with controlled ventricular response LABS: White count 8.6, hemoglobin 13.3, platelets 149, sodium 137, potassium 4.1, chloride 104, BUN 47, creatinine 1.49, calcium 9.5, magnesium 2.2, TSH 5.6 IMPRESSION: 1. Chest pain, history of triple bypass 2. Atrial fibrillation, controlled ventricular response 3. Hypertension 4. Hyperlipidemia PLAN: Nothing by mouth after midnight. Lexiscan stress test tomorrow. Further recommendations based on patient's clinical course. Objective - Vital Signs Vital signs: Vital Signs Temp 98 F 04/19/23 07:00 Pulse 76 04/19/23 07:00 Resp 16 04/19/23 07:00 BP 146/74 04/19/23 07:00 Pulse Ox 99 04/19/23 07:00 FiO2 Intake & Output 04/18/23 04/19/23 04/19/23 18:59 06:59 18:59 Intake Total 120 240 Balance 120 240 Intake: Oral 120 240 Other: # Voids 1 2 2 - Labs CBC & Chem 7: 04/19/23 05:51 04/19/23 06:58 Labs: Abnormal Lab Results - Last 24 Hours (Table) 04/18/23 04/18/23 04/18/23 Range/Units 05:07 17:29 21:15 MCV (80.0-100.0) fL Plt Count (150-450) k/uL BUN (7-17) mg/dL Creatinine (0.52-1.04) mg/dL Glucose (74-99) mg/dL POC Glucose (mg/dL) 178 H 229 H (70-110) mg/dL TSH 5.610 H (0.350-5.500) UIU/ML 04/19/23 04/19/23 04/19/23 Range/Units 05:51 06:14 06:58 MCV 102.2 H (80.0-100.0) fL Plt Count 149 L (150-450) k/uL BUN 47 H (7-17) mg/dL Creatinine 1.49 H (0.52-1.04) mg/dL Glucose 105 H (74-99) mg/dL POC Glucose (mg/dL) 113 H (70-110) mg/dL TSH (0.350-5.500) UIU/ML 04/19/23 Range/Units 11:31 MCV (80.0-100.0) fL Plt Count (150-450) k/uL BUN (7-17) mg/dL Creatinine (0.52-1.04) mg/dL Glucose (74-99) mg/dL POC Glucose (mg/dL) 194 H (70-110) mg/dL TSH (0.350-5.500) UIU/ML
[2023-04-19 17:42] LABS: Glucose,Whole Blood 135 mg/dL (70-110)
[2023-04-19] MEDS: ATORVASTATIN 40 MG TAB PO SCH (20:15)
[2023-04-19] MEDS: ACETAMINOPHEN TAB 325 MG TAB PO PRN (20:15)
[2023-04-19] MEDS: FOLIC ACID-VIT B COMPLEX-VIT C 1 CAP PO SCH (20:15)
[2023-04-19 21:22] LABS: Glucose,Whole Blood 163 mg/dL (70-110)
--- NOTE | 2023-04-19 22:03 | P.PN ---
Subjective Progress Note Date: 04/19/23 This is a pleasant 88-year-old female who presented to the emergency department with chest pain. Patient reports it was not a chest pain although was a chest squeezing and tightening episode that lasted approximately 5 seconds and had multiple episodes of this. Patient reports she was not doing anything strenuous and one of the episodes was well laying in bed and another episode while up and walking and also reported episodes while in the ER. Patient follows with Dr. Strange in the outpatient setting with a past medical history of atrial fibrillation, coronary artery disease, heart failure, diabetes mellitus, GERD, hyperlipidemia, hypertension, osteoarthritis, renal disease, thyroid disorder, chronic kidney disease stage III, anxiety and denies any smoking or alcohol use and denies any illicit drug use. Labs reviewed and within normal limits although creatinine is 1.6 and patient does have history of chronic kidney disease stage III maintained on Lasix. EKG showed atrial fibrillation with controlled rate and x-ray showed no acute process. Patient was admitted for cardiology evaluation. 04/19/2023 Patient is evaluated today did have an episode of chest pain around 2 am states she was already awake at the time and was not associated with food patient was just resting in bed. She does endorse family dynamic issues with her daughter being hospitalized and feels this may just be anxiety. Cardiology recommending possible lexiscan stress test thursday. Creatinine stable at 1.49. TSH was checked and elevated at 5.610 and Free T4 is normal. Review of Systems Constitutional: Denied any fatigue denied any fever. Cardio vascular: Reports intermittent episodes of left chest wall discomfort, no palpitations Gastrointestinal: denied any nausea, vomiting, diarrhea Pulmonary: Denied any shortness of breath cough Neurologic denied any new focal deficits All inpatient medications were reviewed and appropriate changes in these medications as dictated in the interval history and assessment and plan. PHYSICAL EXAMINATION: GENERAL: The patient is alert and oriented x4, Well developed, well nourished. Elderly-appearing HEENT: Pupils are round and equally reacting to light. EOMI. no scleral icterus. No conjunctival pallor. Normocephalic, atraumatic. No pharyngeal erythema. No t hyromegaly. CARDIOVASCULAR: S1 and S2 muffled, irregular PULMONARY: Breath sounds clear bilaterally with no wheezing or rhonchi noted. ABDOMEN: soft. Nontender on exam. non-distended, normoactive bowel sounds. No palpable organomegaly. MUSCULOSKELETAL: No joint swelling or deformity. EXTREMITIES: No cyanosis, clubbing, or pedal edema. NEUROLOGICAL: Gross neurological examination did not reveal any focal deficits. SKIN: No rashes. Assessment: Chest pain, ruled out ACS, troponins 3 were negative History of atrial fibrillation, currently rate controlled Coronary artery disease history with CABG in 2009 History of heart failure, unknown EF Diabetes mellitus type 2 GERD Hyperlipidemia Hypertension History of osteoarthritis Chronic kidney disease stage III history History of gout History of anxiety GI prophylaxis DVT prophylaxis patient is on eliquis Full code Plan: Patient was admitted for cardiology evaluation. Patient is continued on telemetry monitoring currently in atrial fibrillation with controlled rate. Cardiology recommending monitoring with stress testing on Thursday Home medications reviewed and resumed as appropriate Recommend Accu-Cheks before meals and at bedtime and will use sliding scale as needed as patient is a diabetic Encouraged increased activity as tolerated Encouraged oral intake Follow-up on repeat labs, although patient does have chronic kidney disease and is maintained on Lasix daily creatinine stable at 1.49 The impression and plan of care has been dictated by Barbi Richmond Nurse Practitioner as directed. Dr. Scott MD I have performed a history and physical examination and medical decision making of this patient, discussed the same with the dictator, and agree with the dictators assessment and plan as written, documented as a scribe. Based on total visit time, I have performed more than 50% of this visit. Objective - Vital Signs Vital signs: Vital Signs Temp 98 F 04/19/23 07:00 Pulse 76 04/19/23 07:00 Resp 16 04/19/23 07:00 BP 146/74 04/19/23 07:00 Pulse Ox 99 04/19/23 07:00 FiO2 Intake & Output 04/18/23 04/19/23 04/19/23 18:59 06:59 18:59 Intake Total 120 240 Balance 120 240 Intake: Oral 120 240 Other: # Voids 1 2 2 - Labs CBC & Chem 7: 04/19/23 05:51 04/19/23 06:58 Labs: Abnormal Lab Results - Last 24 Hours (Table) 04/18/23 04/18/23 04/18/23 Range/Units 05:07 17:29 21:15 MCV (80.0-100.0) fL Plt Count (150-450) k/uL BUN (7-17) mg/dL Creatinine (0.52-1.04) mg/dL Glucose (74-99) mg/dL POC Glucose (mg/dL) 178 H 229 H (70-110) mg/dL TSH 5.610 H (0.350-5.500) UIU/ML 04/19/23 04/19/23 04/19/23 Range/Units 05:51 06:14 06:58 MCV 102.2 H (80.0-100.0) fL Plt Count 149 L (150-450) k/uL BUN 47 H (7-17) mg/dL Creatinine 1.49 H (0.52-1.04) mg/dL Glucose 105 H (74-99) mg/dL POC Glucose (mg/dL) 113 H (70-110) mg/dL TSH (0.350-5.500) UIU/ML 04/19/23 Range/Units 11:31 MCV (80.0-100.0) fL Plt Count (150-450) k/uL BUN (7-17) mg/dL Creatinine (0.52-1.04) mg/dL Glucose (74-99) mg/dL POC Glucose (mg/dL) 194 H (70-110) mg/dL TSH (0.350-5.500) UIU/ML Assessment and Plan Time with Patient: Less than 30
[2023-04-20] MEDS: LEVOTHYROXINE 50 MCG TAB PO SCH (05:22)
[2023-04-20] MEDS ORDERED: REGADENOSON 0.4 MG/5 ML SYRINGE IV PRN (06:00)
[2023-04-20] MEDS ORDERED: AMINOPHYLLINE 500 MG/20 ML VIAL IV PRN (06:00)
[2023-04-20] MEDS ORDERED: CAFFEINE CITRATE 60 MG/3 ML VIAL IV PRN (06:00)
[2023-04-20 06:17] LABS: Glucose,Whole Blood 94 mg/dL (70-110)
[2023-04-20] MEDS: hydrALAZINE HCL 25 MG TAB PO SCH ×2 (08:32→20:23)
--- NOTE | 2023-04-20 08:55 | P.PN ---
Subjective Progress Note Date: 04/20/23 Patient is a pleasant 88-year-old female who initially presented to the hospital with complaints of chest pain and tightness. Patient had a squeezing feeling in her chest at home, while drinking coffee in bed. She subsequent had another episode, which brought her to the hospital. Patient reports that she is feeling fine today. She currently is denying chest pain, shortness of breath, and heart palpitations. She does report that she had another episode of chest tightness around 2 AM after taking a Tums for some heartburn. Patient has been ambulating around the hallway without any other symptoms. 04/20 She denies having any chest pain, no lightheadedness or dizziness. No shortness of breath. Heart rate has been in the 60s and 70s, blood pressure 150/74. She is scheduled for Lexiscan stress test this morning. We will add an echocardiogram as well. Telemetry is atrial fibrillation. No repeat blood work available. GENERAL: Well-appearing, well-nourished and in no acute distress. NECK: Supple without JVD or thyromegaly. LUNGS: Breath sounds clear to auscultation bilaterally. Respiration equal and unlabored. No wheezes, rales or rhonchi. HEART: Regular rate and irregular rhythm without murmurs, rubs or gallops. S1 and S2 heard. EXTREMITIES: Normal range of motion, no edema. No clubbing or cyanosis. Peripheral pulses intact and strong. IMPRESSION: 1. Chest pain, history of triple bypass 2. Atrial fibrillation, controlled ventricular response 3. Hypertension 4. Hyperlipidemia PLAN: Nothing by mouth after midnight. Lexiscan stress test today. Obtain 2-D echocardiogram. If stress test and echocardiogram are unremarkable, patient cleared for discharge home with follow-up in the office with Dr. Garcia in 1-2 weeks. Nurse practitioner note has been reviewed, I agree with the documented findings and plan of care. Patient was seen and examined. Objective - Vital Signs Vital signs: Vital Signs Temp 97.7 F 04/20/23 07:00 Pulse 69 04/20/23 07:00 Resp 18 04/20/23 07:00 BP 150/74 04/20/23 07:00 Pulse Ox 100 04/20/23 07:00 FiO2 Intake & Output 04/19/23 04/20/23 04/20/23 18:59 06:59 18:59 Intake Total 480 Balance 480 Intake: Oral 480 Other: # Voids 1 2 - Labs CBC & Chem 7: 04/19/23 05:51 04/19/23 06:58 Labs: Abnormal Lab Results - Last 24 Hours (Table) 04/18/23 04/19/23 04/19/23 Range/Units 05:07 06:58 11:31 BUN 47 H (7-17) mg/dL Creatinine 1.49 H (0.52-1.04) mg/dL Glucose 105 H (74-99) mg/dL POC Glucose (mg/dL) 194 H (70-110) mg/dL TSH 5.610 H (0.350-5.500) UIU/ML 04/19/23 04/19/23 Range/Units 17:34 21:20 BUN (7-17) mg/dL Creatinine (0.52-1.04) mg/dL Glucose (74-99) mg/dL POC Glucose (mg/dL) 135 H 163 H (70-110) mg/dL TSH (0.350-5.500) UIU/ML
[2023-04-20 10:20] LABS: BUN/Creat Ratio 30.88 Ratio (12.00-20.00); Blood Urea Nitrogen 49.4 mg/dL (9.0-27.0); Calcium 9.6 mg/dL (8.7-10.3); Carbon Dioxide 23.5 mmol/L (21.6-31.8); Chloride 102 mmol/L (96-109); Glucose 98 mg/dL (70-110); Potassium 4.1 mmol/L (3.5-5.5); Sodium 137 mmol/L (135-145)
[2023-04-20] MEDS: APIXABAN 2.5 MG TABLET PO SCH ×2 (10:39→20:23)
[2023-04-20] MEDS: ASPIRIN 81 MG PO SCH (10:39)
[2023-04-20] MEDS: glipiZIDE 10 MG TAB PO SCH ×2 (10:39→20:22)
[2023-04-20] MEDS: allopurinoL 100 MG TAB PO SCH (10:39)
[2023-04-20] MEDS: FUROSEMIDE 40 MG TAB PO SCH (10:39)
[2023-04-20] MEDS: PANTOPRAZOLE 40 MG TABLET PO SCH (10:40)
[2023-04-20] MEDS: SPIRONOLACTONE 25 MG TAB PO SCH ×2 (10:40→20:23)
[2023-04-20] MEDS: METOPROLOL TARTRATE 25 MG TAB PO SCH ×2 (10:40→20:23)
[2023-04-20] MEDS: CHOLECALCIFEROL 25 MCG (1000 IU) TABLET PO SCH (11:35)
[2023-04-20 11:47] LABS: Glucose,Whole Blood 140 mg/dL (70-110)
--- NOTE | 2023-04-20 13:12 | NM ---
EXAMINATION TYPE: NM stress lexiscan cardiolite DATE OF EXAM: 04/20/2023 COMPARISON: NONE CLINICAL INDICATION: Female, 88 years old with history of Chest Discomfort; TECHNIQUE: After the intravenous administration of 10.5 mCi Tc 99m Sestamibi - Cardiolite resting SP ECT images acquired 75 minutes post injection. The patient received 0.4mg Lexiscan, 25.5 mCi Tc 99m Sestamibi - Stress images obtained [address] injection FINDINGS: Review of stress and rest SPECT images demonstrates no distinct perfusion abnormality. Gated analysi s shows normal wall motion with an estimated left ventricular ejection fraction of 58 %. IMPRESSION: No scintigraphic evidence for reversible ischemia.
--- NOTE | 2023-04-20 16:16 | P.DS ---
Providers Date of admission: 04/17/23 17:44 Expected date of discharge: 04/20/23 Attending physician: Rhys Strange Consults: 04/17/23 17:44 Consult Physician Urgent Consulting Provider: [facility] Consult Reason/Comments: acute chest pain, hx ascad with cabg Do you want consulting provider notified?: Yes Primary care physician: Rhys Strange Hospital Course: Final Diagnoses: Chest pain in a patient with history of CAD, CABG,AVR, troponins negative, stress tests pending Chronic Atrial fibrillation, controlled ventricular rate Chronic CHF, systolic dysfunction, echo in progress Hypertension Hyperlipidemia CKD III DM II Hypothyroidism Gastroesophageal reflux disease Hospital course: This is an 88-year-old female admitted with chest pain in a patient with history of CAD, CABG, diabetes mellitus,CKD and multiple other medical issues. By cardiology and patient is scheduled for Lexiscan stress test and echo today. Denies chest pain, palpitations or shortness of breath. Maintaining O2 sats in the high 90s to 100% on room air. Denies cough or congestion, afebrile. Significant clinical improvement. Patient will be discharged home today in a stable condition with guarded prognosis pending echo, stress test, final DC recommendations and clearance per cardiology. The impression and plan of care has been dictated as directed. : I performed a history and examination of this patient, discussed the same with the dictator. I agree with the dictator's note ,documented as a scribe. Any additional findings or plans will be noted. Patient Condition at Discharge: Stable Plan - Discharge Summary New Discharge Prescriptions: Continue Levothyroxine Sodium [Synthroid] 50 mcg PO DAILY allopurinoL [Zyloprim] 100 mg PO DAILY Apixaban [Eliquis] 2.5 mg PO BID tablet hydrALAZINE HCL [Apresoline] 25 mg PO BID #60 tab Aspirin EC [Ecotrin Low Dose] 81 mg PO DAILY Metoprolol Tartrate [Lopressor] 25 mg PO BID #60 tab Spironolactone [Aldactone] 25 mg PO BID Pantoprazole [Protonix] 40 mg PO DAILY Nephro-Fabio 1 tab PO HS Cholecalciferol [Vitamin D3 (25 Mcg = 1000 Iu)] 50 mcg PO DAILY tablet Simvastatin [Zocor] 40 mg PO HS glyBURIDE [Diabeta] 5 mg PO BID Furosemide [Lasix] 40 mg PO DAILY Discharge Medication List Levothyroxine Sodium [Synthroid] 50 mcg PO DAILY 07/21/17 [History] allopurinoL [Zyloprim] 100 mg PO DAILY 07/21/17 [History] Apixaban [Eliquis] 2.5 mg PO BID tablet 07/24/17 [Rx] Aspirin EC [Ecotrin Low Dose] 81 mg PO DAILY 07/28/17 [History] hydrALAZINE HCL [Apresoline] 25 mg PO BID #60 tab 07/28/17 [Rx] Metoprolol Tartrate [Lopressor] 25 mg PO BID #60 tab 11/25/18 [Rx] Furosemide [Lasix] 40 mg PO DAILY 10/21/20 [History] Nephro-Fabio 1 tab PO HS 10/21/20 [History] Pantoprazole [Protonix] 40 mg PO DAILY 10/21/20 [History] Simvastatin [Zocor] 40 mg PO HS 10/21/20 [History] Spironolactone [Aldactone] 25 mg PO BID 10/21/20 [History] glyBURIDE [Diabeta] 5 mg PO BID 10/21/20 [History] Cholecalciferol [Vitamin D3 (25 Mcg = 1000 Iu)] 50 mcg PO DAILY tablet 10/23/20 [Rx] Follow up Appointment(s)/Referral(s): Romeo Garcia MD [STAFF PHYSICIAN] - 1 Week Rhys Strange DO [Primary Care Provider] - 3 Days Ambulatory/Diagnostic Orders: Basic Metabolic Panel [LAB.AMB] Time Frame: 3 Days, Location: None Selected
[2023-04-20 17:32] LABS: Glucose,Whole Blood 213 mg/dL (70-110)
--- NOTE | 2023-04-20 17:42 | CA ---
Transthoracic Echo Report Name: Kathryn Torres Age: 88 Gender: F : 1935 Exam Date: 04/20/2023 15:52 Exam Location: [place] Echo Ht (in): 65 Wt (lb): 159 Ordering Physician: Iona Ambrosio Attending/Referring Phys: [id number], Hebert Flake Miller Helper Poonam Yen [facility] Procedure CPT: Indications: LVF Cardiac Hx: Technical Quality: Technically difficult study Contrast 1: Total Dose (mL): Contrast 2: Total Dose (mL): MEASUREMENTS (Male / Female) Normal Values 2D ECHO LV Diastolic Diameter PLAX 4.2 cm 4.2 - 5.9 / 3.9 - 5.3 cm LV Systolic Diameter PLAX 3.5 cm IVS Diastolic Thickness 1.6 cm 0.6 - 1.0 / 0.6 - 0.9 cm LVPW Diastolic Thickness 1.4 cm 0.6 - 1.0 / 0.6 - 0.9 cm LV Relative Wall Thickness 0.7 LVOT Diameter 1.9 cm DOPPLER AV Peak Velocity 361.3 cm/s AV Peak Gradient 52.2 mmHg AV Mean Velocity 288.3 cm/s AV Mean Gradient 35.9 mmHg AV Velocity Time Integral 85.1 cm AI Peak Velocity 453.4 cm/s AI Peak Gradient 82.2 mmHg AI Pressure Half Time 301.6 ms LVOT Peak Velocity 153.0 cm/s LVOT Peak Gradient 9.4 mmHg LVOT Velocity Time Integral 34.3 cm LVOT Stroke Volume 99.1 cm??? LVOT Stroke Volume Index 55.2 ml/m??? LVOT Cardiac Index 5026.4 cm???/min???m??? AV Area Cont Eq vti 1.2 cm??? AV Area Cont Eq pk 1.2 cm??? MR Peak Velocity 601.4 cm/s MR Peak Gradient 144.7 mmHg Mitral E Valsalva Velocity 146.0 cm/s MV Deceleration Time 177.4 ms TR Peak Velocity 321.3 cm/s TR Peak Gradient 41.3 mmHg Right Atrial Pressure 8.0 mmHg Pulmonary Artery Systolic Pressu 49.3 mmHg Right Ventricular Systolic Press 49.3 mmHg FINDINGS Left Ventricle Moderately increased septal wall thickness. Moderately increased posterior wall thickness. Moderate concentric left ventricular hypertrophy. Abnormal (paradoxical) septal motion consistent with postoperative state. Low normal left ventricular systolic function with no obvious regional wall motion abnormalities. Left ventricular ejection fraction is estimated at 50-55%. Right Ventricle Moderate pulmonary hypertension. Mild right ventricular dilatation. Right Atrium Moderate right atrial dilatation. Left Atrium Severe left atrial dilatation. Mitral Valve Mitral valve thickened. Moderate mitral annular calcification. Moderate mitral regurgitation. Aortic Valve Thickened aortic valve. Bioprosthetic aortic valve. Moderate prosthetic aortic valve stenosis with a peak gradient of 52.2 mmHg and a mean gradient of 35.9 mmHg. Moderate prosthetic aortic valve regurgitation. Tricuspid Valve Structurally normal tricuspid valve. Moderate tricuspid regurgitation. Pulmonic Valve Pulmonic valve not well visualized. Pericardium No pericardial effusion. Echo free space anterior to the right ventricle likely represents a fat pad. Aorta Aortic root and proximal ascending aorta not well visualized. CONCLUSIONS Normal LV systolic function Moderate mitral regurgitation moderate bioprosthetic valve stenosis with a peak gradient of 52 mm and the mean gradient of 35 mm across the valve Moderate regurgitation of the prosthetic aortic valve Moderate tricuspid regurgitation Pulmonary hypertension Previewed by: Dr. Harrison Scott MD (Electronically Signed) Final Date: 20 April 2023 17:41
--- NOTE | 2023-04-20 17:58 | CA ---
Lexiscan Nuclear Stress Test Report Name: Kathryn Torres Exam Date: 04/20/2023 09:07 Exam Location: [place] Stress Ht (in): 65 Wt (lb): 159 BSA: 1.79 Ordering Phys: Brain Dodson NPC Referring Phys: JV, Technologist: Dickson Hogan Age: 88 Gender: F : 1935 Procedure CPT: Indications: Reflex order-Stress test ICD-10 Codes: Patient History: CHEST PRESSURE, DIFFICULTY IN BREATHING, PALPITATIONS, HTN, DIABETIC, ELEVATED CHOLESTEROL LEVELS, FAMILY HX OF HEART DISEASE, PRIOR CARDIAC CATH, CABG X 3 Medications: Meds past 24 hrs: Pretest Chest Pain: STRESS TEST Lexiscan Protocol Exercise Duration (min:sec): 02:[address] Depressions (mm): Angina Score: Damico Score: Resting HR (bpm): 74 Peak HR (bpm): 95 Resting BP (mmHg): 141 / 53 Peak BP (mmHg): 141 / 53 MPHR: 132 Target HR: 112 % MPHR: 72 METS: 1.0 Total Dose: Peak Dose: Atropine: Double Product: 01815 BP Response: Stress Termination: INFUSION COMPLETE Stress Symptoms: NO SYMPTOMS Stress Summary: ECG ANALYSIS Resting ECG: Normal sinus rhythm with left bundle branch block Stress ECG: Patient received Lexiscan as a protocol EKG changes are nondiagnostic CONCLUSIONS Inconclusive EKG part of the stress test due to left bundle branch block Cardiolite portion of the stress test will be reported separately Dr. Harrison Scott MD (Electronically Signed) Final Date: 20 April 2023 17:58
[2023-04-20] MEDS: ATORVASTATIN 40 MG TAB PO SCH (20:23)
[2023-04-20] MEDS: FOLIC ACID-VIT B COMPLEX-VIT C 1 CAP PO SCH (20:23)
[2023-04-20] MEDS: ACETAMINOPHEN TAB 325 MG TAB PO PRN (20:28)
[2023-04-20 21:08] LABS: Glucose,Whole Blood 190 mg/dL (70-110)
[2023-04-20 22:29] VITALS: RESP 16
[2023-04-21] MEDS: LEVOTHYROXINE 50 MCG TAB PO SCH (05:44)
[2023-04-21 06:24] LABS: Glucose,Whole Blood 112 mg/dL (70-110)
[2023-04-21 07:44] VITALS: BP 150/75; PULSE 72; TEMP 98.1
--- NOTE | 2023-04-21 08:33 | P.PN ---
Subjective Progress Note Date: 04/21/23 Patient is a pleasant 88-year-old female who initially presented to the hospital with complaints of chest pain and tightness. Patient had a squeezing feeling in her chest at home, while drinking coffee in bed. She subsequent had another episode, which brought her to the hospital. Patient reports that she is feeling fine today. She currently is denying chest pain, shortness of breath, and heart palpitations. She does report that she had another episode of chest tightness around 2 AM after taking a Tums for some heartburn. Patient has been ambulating around the hallway without any other symptoms. 04/20 She denies having any chest pain, no lightheadedness or dizziness. No shortness of breath. Heart rate has been in the 60s and 70s, blood pressure 150/74. She is scheduled for Lexiscan stress test this morning. We will add an echocardiogram as well. Telemetry is atrial fibrillation. No repeat blood work available. 04/21 Patient underwent Lexiscan stress test yesterday that did not show any reversible ischemia, inconclusive EKG part and stress test due to left bundle branch block. Echocardiogram revealed EF 50-55%. Moderate mitral regurgitation, moderate bioprosthetic valve stenosis, moderate regurgitation of the prosthetic aortic valve, moderate tricuspid regurgitation, pulmonary hypertension. GENERAL: Well-appearing, well-nourished and in no acute distress. NECK: Supple without JVD or thyromegaly. LUNGS: Breath sounds clear to auscultation bilaterally. Respiration equal and unlabored. No wheezes, rales or rhonchi. HEART: Regular rate and irregular rhythm without murmurs, rubs or gallops. S1 and S2 heard. EXTREMITIES: Normal range of motion, no edema. No clubbing or cyanosis. Peripheral pulses intact and strong. IMPRESSION: 1. Chest pain, history of triple bypass 2. Atrial fibrillation, controlled ventricular response 3. Hypertension 4. Hyperlipidemia 5. Moderate bioprosthetic valve stenosis PLAN: Patient cleared for discharge home with follow-up in the office with Dr. Garcia in 1-2 weeks. Evaluation of the prosthetic valve stenosis will be done with [facility] as an outpatient. Nurse practitioner note has been reviewed, I agree with the documented findings and plan of care. Patient was seen and examined. Objective - Vital Signs Vital signs: Vital Signs Temp 98.1 F 04/21/23 07:00 Pulse 72 04/21/23 07:00 Resp 16 04/21/23 07:00 BP 150/75 04/21/23 07:00 Pulse Ox 97 04/21/23 07:00 FiO2 Intake & Output 04/20/23 04/21/23 04/21/23 18:59 06:59 18:59 Intake Total 210 Balance 210 Intake: Oral 210 Other: # Voids 0 1 - Labs CBC & Chem 7: 04/19/23 05:51 04/20/23 05:29 Labs: Abnormal Lab Results - Last 24 Hours (Table) 04/20/23 04/20/23 04/20/23 Range/Units 05:29 11:45 17:29 BUN 49.4 H (9.0-27.0) mg/dL Creatinine 1.6 H (0.6-1.5) mg/dL Est GFR (CKD-EPI) 31 L (>=60) BUN/Creatinine Ratio 30.88 H (12.00-20.00) Ratio POC Glucose (mg/dL) 140 H 213 H (70-110) mg/dL 04/20/23 04/21/23 Range/Units 21:07 06:23 BUN (9.0-27.0) mg/dL Creatinine (0.6-1.5) mg/dL Est GFR (CKD-EPI) (>=60) BUN/Creatinine Ratio (12.00-20.00) Ratio POC Glucose (mg/dL) 190 H 112 H (70-110) mg/dL
[2023-04-21] MEDS: ASPIRIN 81 MG PO SCH (09:21)
[2023-04-21] MEDS: glipiZIDE 10 MG TAB PO SCH (09:21)
[2023-04-21] MEDS: FUROSEMIDE 40 MG TAB PO SCH (09:22)
[2023-04-21] MEDS: allopurinoL 100 MG TAB PO SCH (09:22)
[2023-04-21] MEDS: METOPROLOL TARTRATE 25 MG TAB PO SCH (09:22)
[2023-04-21] MEDS: hydrALAZINE HCL 25 MG TAB PO SCH (09:22)
[2023-04-21] MEDS: PANTOPRAZOLE 40 MG TABLET PO SCH (09:22)
[2023-04-21] MEDS: SPIRONOLACTONE 25 MG TAB PO SCH (09:22)
[2023-04-21] MEDS: APIXABAN 2.5 MG TABLET PO SCH (09:22)
[2023-04-21] MEDS: CHOLECALCIFEROL 25 MCG (1000 IU) TABLET PO SCH (09:23)
== END 2023-04-21 10:35 | disposition home or self-care (01) ==
LOC: EC 13:24 → 6NMEDSUR 17:44
PROVIDERS: ADMIT Family Medicine; ATTEND Family Medicine
DX: R07.89 Other chest pain (principal); I27.20 Pulmonary hypertension, unspecified; T82.6XXA Infection and inflammatory reaction due to cardiac valve prosthesis, initial encounter; I33.0 Acute and subacute infective endocarditis; Y71.2 Prosthetic and other implants, materials and accessory cardiovascular devices associated with adverse incidents; Y83.8 Other surgical procedures as the cause of abnormal reaction of the patient, or of later complication, without mention of misadventure at the time of the procedure; I25.10 Atherosclerotic heart disease of native coronary artery without angina pectoris; I48.20 Chronic atrial fibrillation, unspecified; I13.0 Hypertensive heart and chronic kidney disease with heart failure and stage 1 through stage 4 chronic kidney disease, or unspecified chronic kidney disease; I50.22 Chronic systolic (congestive) heart failure; N18.30 Chronic kidney disease, stage 3 unspecified; K21.9 Gastro-esophageal reflux disease without esophagitis; E78.5 Hyperlipidemia, unspecified; E11.22 Type 2 diabetes mellitus with diabetic chronic kidney disease; F32.A Depression, unspecified; E03.9 Hypothyroidism, unspecified; M10.9 Gout, unspecified; M19.90 Unspecified osteoarthritis, unspecified site; F41.9 Anxiety disorder, unspecified; I08.1 Rheumatic disorders of both mitral and tricuspid valves; Z95.2 Presence of prosthetic heart valve; Z95.1 Presence of aortocoronary bypass graft; Z79.890 Hormone replacement therapy; Z79.899 Other long term (current) drug therapy; Z79.82 Long term (current) use of aspirin; Z79.84 Long term (current) use of oral hypoglycemic drugs; Z79.01 Long term (current) use of anticoagulants
CPT/HCPCS: 99285; 36415; 93005; 93017; 93306; 84439; 80053; 80048 ×3; 84443; 83735 ×2; 84484; 85025 ×3; 85610; 85730; 71046; 78452; G0378 ×5; A9500; J2785

== ENCOUNTER 2023-04-22 10:05 | Emergency (ER) | payer MEDICARE ==
[2023-04-22 10:20] VITALS: RESP 18; TEMP 98.1
--- NOTE | 2023-04-22 11:10 | XR ---
EXAMINATION TYPE: XR pelvis AP view DATE OF EXAM: 04/22/2023 11:07 AM INDICATION: Patient age:Female; 88 years old; Reason for study: left hip pain; PHH. COMPARISON: None TECHNIQUE: The pelvis was examined in a single projection. FINDINGS: There is no evidence of fracture or dislocation. There is no soft tissue abnormality. Degen erative changes of the pubic symphysis. Multilevel degenerative changes of the lower spine. Vascular sclerosis. IMPRESSION: No acute osseous pathology.
[2023-04-22] MEDS ORDERED: MORPHINE SULFATE 4 MG/ML SYRINGE IM STA (11:17)
--- NOTE | 2023-04-22 11:33 | ED ---
Dizziness HPI - General Chief Complaint: Dizziness Stated Complaint: L hip pain Time Seen by Provider: 04/22/23 10:15 Source: patient, EMS Mode of arrival: EMS Limitations: no limitations - History of Present Illness Initial Comments: 88-year-old female presents to the ED with chief complaint of hip pain. Patient notes has had intermittent complaints of dizziness and nausea especially with movement. Was evaluated at this hospital for this. Had stress test 04/21/23 that showed no evidence for reversible ischemia. Patient has outpatient follow- up with Dr. Garcia for [facility] in the next 1-2 weeks. Patient presenting today with hip pain. Patient states that she was experiencing left hip pain while she was here however since discharge notes that she has noticed it more. Patient believes that she has hip pain due to the way she is sleeping. Denies any new injury or trauma. Has been using Tylenol for the pain which has been providing some relief. Otherwise, denies chest pain, shortness of breath, abdominal pain, urinary symptoms. No other complaints at this time. - Related Data Home Medications Medication Instructions Recorded Confirmed Levothyroxine Sodium [Synthroid] 50 mcg PO DAILY 07/21/17 04/17/23 allopurinoL [Zyloprim] 100 mg PO DAILY 07/21/17 04/17/23 Aspirin EC [Ecotrin Low Dose] 81 mg PO DAILY 07/28/17 04/17/23 Furosemide [Lasix] 40 mg PO DAILY 10/21/20 04/17/23 Nephro-Fabio 1 tab PO HS 10/21/20 04/17/23 Pantoprazole [Protonix] 40 mg PO DAILY 10/21/20 04/17/23 Simvastatin [Zocor] 40 mg PO HS 10/21/20 04/17/23 Spironolactone [Aldactone] 25 mg PO BID 10/21/20 04/17/23 glyBURIDE [Diabeta] 5 mg PO BID 10/21/20 04/17/23 Previous Rx's Medication Instructions Recorded Apixaban [Eliquis] 2.5 mg PO BID tablet 07/24/17 hydrALAZINE HCL [Apresoline] 25 mg PO BID #60 tab 07/28/17 Metoprolol Tartrate [Lopressor] 25 mg PO BID #60 tab 11/25/18 Cholecalciferol [Vitamin D3 (25 50 mcg PO DAILY tablet 10/23/20 Mcg = 1000 Iu)] Allergies Allergy/AdvReac Type Severity Reaction Status Date / Time No Known Allergies Allergy Verified 04/17/23 16:17 Review of Systems ROS Statement: Those systems with pertinent positive or pertinent negative responses have been documented in the HPI. ROS Other: All systems not noted in ROS Statement are negative. Past Medical History Past Medical History: Atrial Fibrillation, Coronary Artery Disease (CAD), Heart Failure, Diabetes Mellitus, GERD/Reflux, Hyperlipidemia, Hypertension, Osteoarthritis (OA), Renal Disease, Thyroid Disorder Additional Past Medical History / Comment(s): NIDDM type II, 07/24/17 echo with 20% EF, chronic kidney disease stage III, bilateral tinnitis, arthritis multiple joints, gout, back pain. 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 skin ca removed Past Anesthesia/Blood Transfusion Reactions: Previous Problems w/ Anesthesia Additional Past Anesthesia/Blood Transfusion Reaction / Comment(s): Pt states she was hypertensive after waking from D&C. Pt has clausterphobia. Past Psychological History: Depression Smoking Status: Never smoker Past Alcohol Use History: None Reported Past Drug Use History: None Reported - Past Family History Father History Unknown: Yes Additional Family Medical History / Comment(s): pt was adopted Mother History Unknown: Yes Additional Family Medical History / Comment(s): Mother after childbirth at the age of 35yrs. General Exam Limitations: no limitations General appearance: alert, in no apparent distress Neck exam: Present: normal inspection Respiratory exam: Present: normal lung sounds bilaterally Cardiovascular Exam: Present: regular rate, normal rhythm GI/Abdominal exam: Present: soft Extremities exam: Present: other (Left hip stable on log roll. No instability of the pelvis. Strength and sensation equal and intact in bilateral lower extremities.) Neurological exam: Present: alert, oriented X3 Skin exam: Present: warm, dry Course Vital Signs 04/22/23 10:07 Temperature 98.1 F Pulse Rate 77 Respiratory 18 Rate Blood Pressure 150/65 O2 Sat by Pulse 99 Oximetry Medical Decision Making - Medical Decision Making Was pt. sent in by a medical professional or institution (, [facility], [employer], urgent care, hospital, or senior living...) When possible be specific @ -No Did you speak to anyone other than the patient for history (EMS, parent, family, police, friend...)? What history was obtained from this source @ -No Did you review nursing and triage notes (agree or disagree)? Why? @ -I reviewed and agree with nursing and triage notes Were old charts reviewed (outside hosp., previous admission, EMS record, old EKG, old radiological studies, urgent care reports/EKG's, senior living records)? Report findings @ -Prior chart reviewed. For further details please see HPI. Differential Diagnosis (chest pain, altered mental status, abdominal pain women, abdominal pain men, vaginal bleeding, weakness, fever, dyspnea, syncope, headache, dizziness, GI bleed, back pain, seizure, CVA, palpatations, mental health, musculoskeletal)? @ -Differential Musculoskeletal Muscular strain, contusion, ligament sprain, fracture, arthritis, septic arthritis, bursitis, cellulitis, muscle spasm, nerve compression, DVT, arterial occlusion, herpes zoster, electrolyte abnormality, tumor.... This is not meant to be in all inclusive list EKG interpreted by me (3pts min.). @ -As above X-rays interpreted by me (1pt min.). @ -None done CT interpreted by me (1pt min.). @ -None done U/S interpreted by me (1pt. min.). @ -None done What testing was considered but not performed or refused? (CT, X-rays, U/S, labs)? Why? @ -None What meds were considered but not given or refused? Why? @ -None Did you discuss the management of the patient with other professionals (professionals i.e. , [facility], [employer], lab, RT, psych nurse, social worker palliative care, radiology clerk, teacher, prison officer, case management assistant)? Give summary @ -No Was smoking cessation discussed for >3mins.? @ -No Was critical care preformed (if so, how long)? @ -No Were there social determinants of health that impacted care today? How? (Homelessness, low income, unemployed, alcoholism, drug addiction, transportation, low edu. Level, literacy, decrease access to med. care, [facility], rehab)? @ -No Was there de-escalation of care discussed even if they declined (Discuss DNR or withdrawal of care, Hospice)? DNR status @ -No What co-morbidities impacted this encounter? (DM, HTN, Smoking, COPD, CAD, Cancer, CVA, ARF, Chemo, Hep., AIDS, mental health diagnosis, sleep apnea, morbid obesity)? @ -None Was patient admitted / discharged? Hospital course, mention meds given and route, prescriptions, significant lab abnormalities, going to OR and other pertinent info. @ -Discharge 88-year-old female presented to the ED with chief complaint of left hip pain. Patient reports just wanted to get her left hip checked out. Reports no injury or trauma. Also notes continued symptoms of dizziness and nausea especially with standing however currently denies any other symptoms. Workup at this time for those symptoms felt unnecessary as patient reports no current complaints of it and patient had stress test performed yesterday that showed no evidence of reversible ischemia. At this time, patient discharged home in stable condition. Discussed return precautions with patient who verbalizes agreement. Undiagnosed new problem with uncertain prognosis? @ -No Drug Therapy requiring intensive monitoring for toxicity (Heparin, Nitro, Insulin, Cardizem)? @ -No Were any procedures done? @ -No Diagnosis/symptom? @ -Hip pain Acute, or Chronic, or Acute on Chronic? @ -Acute Uncomplicated (without systemic symptoms) or Complicated (systemic symptoms)? @ -Uncomplicated Side effects of treatment? @ -No Exacerbation, Progression, or Severe Exacerbation? @ -No Poses a threat to life or bodily function? How? (Chest pain, [place], [place], pneumonia, PE, COPD, DKA, ARF, appy, cholecystitis, CVA, Diverticulitis, Homicidal, Suicidal, threat to staff... and all critical care pts) @ -No Disposition Clinical Impression: Hip pain Disposition: HOME SELF-CARE Condition: Good Additional Instructions: Please return to the Emergency Department if symptoms worsen or any other concerns. Please follow-up with PCP. Please follow up with cardiology as scheduled. Is patient prescribed a controlled substance at d/c from ED?: No Referrals: Rhys Strange DO [Primary Care Provider] - 1-2 days Time of Disposition: 11:35
[2023-04-22 11:57] VITALS: BP 145/84; PULSE 72
== END 2023-04-22 12:01 | disposition home or self-care (01) ==
LOC: EC 10:05
DX: M25.552 Pain in left hip (principal); I48.91 Unspecified atrial fibrillation; I25.10 Atherosclerotic heart disease of native coronary artery without angina pectoris; I11.0 Hypertensive heart disease with heart failure; I50.9 Heart failure, unspecified; E11.9 Type 2 diabetes mellitus without complications; E78.5 Hyperlipidemia, unspecified; K21.9 Gastro-esophageal reflux disease without esophagitis; M19.90 Unspecified osteoarthritis, unspecified site; E07.9 Disorder of thyroid, unspecified; F32.A Depression, unspecified; Z79.890 Hormone replacement therapy; Z79.82 Long term (current) use of aspirin; Z79.84 Long term (current) use of oral hypoglycemic drugs; Z79.899 Other long term (current) drug therapy
CPT/HCPCS: 72170; 99284; 96372; J2270

== ENCOUNTER 2023-04-28 13:30 | Inpatient (IN) | payer MEDICARE ==
[2023-04-28] MEDS ORDERED: SODIUM CHLORIDE 0.9% 500 ML 500 ML IV ONE (15:09)
--- NOTE | 2023-04-28 15:12 | ED ---
General Adult HPI - General Chief complaint: Weakness Stated complaint: AMS Time Seen by Provider: 04/28/23 14:45 Source: patient, EMS, RN notes reviewed, old records reviewed Mode of arrival: EMS - History of Present Illness Initial comments: This is an 88-year-old female presents emergency Department with her daughter stating that she was in the hospital about a week ago and was discharged home. Ever since she's been home she's been altered mentally as well as unable to and blood because of left hip pain. Patient stopped her primary medical care doctor and they gave her some steroids but has not helped at all. According to the daughter the patient is incontinent of urine as well which is something new. Patient denies any falls in the hospital or at home. She denies any headache patient denies numbness weakness. Patient states chest pain difficulty breathing or shortness of breath. Patient denies any abdominal pain patient denies nausea vomiting diarrhea. - Related Data Home Medications Medication Instructions Recorded Confirmed Levothyroxine Sodium [Synthroid] 50 mcg PO DAILY 07/21/17 04/17/23 allopurinoL [Zyloprim] 100 mg PO DAILY 07/21/17 04/17/23 Aspirin EC [Ecotrin Low Dose] 81 mg PO DAILY 07/28/17 04/17/23 Furosemide [Lasix] 40 mg PO DAILY 10/21/20 04/17/23 Nephro-Fabio 1 tab PO HS 10/21/20 04/17/23 Pantoprazole [Protonix] 40 mg PO DAILY 10/21/20 04/17/23 Simvastatin [Zocor] 40 mg PO HS 10/21/20 04/17/23 Spironolactone [Aldactone] 25 mg PO BID 10/21/20 04/17/23 glyBURIDE [Diabeta] 5 mg PO BID 10/21/20 04/17/23 Previous Rx's Medication Instructions Recorded Apixaban [Eliquis] 2.5 mg PO BID tablet 07/24/17 hydrALAZINE HCL [Apresoline] 25 mg PO BID #60 tab 07/28/17 Metoprolol Tartrate [Lopressor] 25 mg PO BID #60 tab 11/25/18 Cholecalciferol [Vitamin D3 (25 50 mcg PO DAILY tablet 10/23/20 Mcg = 1000 Iu)] Allergies Allergy/AdvReac Type Severity Reaction Status Date / Time No Known Allergies Allergy Verified 04/28/23 13:58 Review of Systems ROS Statement: Those systems with pertinent positive or pertinent negative responses have been documented in the HPI. ROS Other: All systems not noted in ROS Statement are negative. Past Medical History Past Medical History: Atrial Fibrillation, Coronary Artery Disease (CAD), Heart Failure, Diabetes Mellitus, GERD/Reflux, Hyperlipidemia, Hypertension, Osteoarthritis (OA), Renal Disease, Thyroid Disorder Additional Past Medical History / Comment(s): NIDDM type II, 07/24/17 echo with 20% EF, chronic kidney disease stage III, bilateral tinnitis, arthritis multiple joints, gout, back pain. 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 skin ca removed Past Anesthesia/Blood Transfusion Reactions: Previous Problems w/ Anesthesia Additional Past Anesthesia/Blood Transfusion Reaction / Comment(s): Pt states she was hypertensive after waking from D&C. Pt has clausterphobia. Past Psychological History: Depression Smoking Status: Never smoker Past Alcohol Use History: None Reported Past Drug Use History: None Reported - Past Family History Father History Unknown: Yes Additional Family Medical History / Comment(s): pt was adopted Mother History Unknown: Yes Additional Family Medical History / Comment(s): Mother after childbirth at the age of 35yrs. General Exam - General Exam Comments Initial Comments: GENERAL: Patient is well-developed and well-nourished. Patient is nontoxic and well- hydrated and is in no acute distress. ENT: Neck is soft and supple. No significant lymphadenopathy is noted. Oropharynx is clear. Moist mucous membranes. Neck has full range of motion without eliciting any pain. EYES: The sclera were anicteric and conjunctiva were pink and moist. Extraocular movements were intact and pupils were equal round and reactive to light. Eyelids were unremarkable. PULMONARY: Unlabored respirations. Good breath sounds bilaterally. No audible rales rhonchi or wheezing was noted. CARDIOVASCULAR: There is a regular rate and rhythm without any murmurs gallops or rubs. ABDOMEN: Soft and nontender with normal bowel sounds. SKIN: Skin is clear with no lesions or rashes and otherwise unremarkable. NEUROLOGIC: Patient is alert and oriented 2. Cranial nerves II through XII are grossly intact. Motor and sensory are also intact. Normal speech, volume and content. Symmetrical smile. MUSCULOSKELETAL: Patient has pain in the left lateral hip. Patient has pain with movement of the left hip LYMPHATICS: No significant lymphadenopathy is noted PSYCHIATRIC: Normal psychiatric evaluation. Course Vital Signs 04/28/23 04/28/23 13:52 19:57 Temperature 97.9 F Pulse Rate 77 90 Respiratory 16 16 Rate Blood Pressure 181/84 163/90 O2 Sat by Pulse 99 98 Oximetry Medical Decision Making - Medical Decision Making EKG as interpreted by myself EKG shows atrial fibrillation at 60 bpm QRS is a 46 QT interval is 492 QTC is 427. Patient's EKG shows a left bundle branch block. Was pt. sent in by a medical professional or institution (, PA, DIAMOND WHEEL EDGER, urgent care, hospital, or jail...) When possible be specific @ -No Did you speak to anyone other than the patient for history (EMS, parent, family, police, friend...)? What history was obtained from this source @ -Daughter gave almost all the history Did you review nursing and triage notes (agree or disagree)? Why? @ -I reviewed and agree with nursing and triage notes Were old charts reviewed (outside hosp., previous admission, EMS record, old EKG, old radiological studies, urgent care reports/EKG's, jail records)? Report findings @ -I reviewed prior charts in prior lab work Differential Diagnosis (chest pain, altered mental status, abdominal pain women, abdominal pain men, vaginal bleeding, weakness, fever, dyspnea, syncope, headache, dizziness, GI bleed, back pain, seizure, CVA, palpatations, mental health, musculoskeletal)? @ -Differential Altered Mental Status: Hypoglycemia, DKA, hypercapnia, ETOH, overdose, CO poisoning, trauma, myxedema coma, HTN encephalopathy, infection, encephalitis, psychosis, intercranial hemorrhage, hepatic encephalopathy, meningitis, CVA, this is not meant to be an all-inclusive list EKG interpreted by me (3pts min.). @ -As above X-rays interpreted by me (1pt min.). @ -Chest x-ray showed no acute abnormality CT interpreted by me (1pt min.). @ -CT of the hip showed no acute abnormality U/S interpreted by me (1pt. min.). @ -None done What testing was considered but not performed or refused? (CT, X-rays, U/S, labs)? Why? @ -None What meds were considered but not given or refused? Why? @ -None Did you discuss the management of the patient with other professionals ( professionals i.e. DrNighat, PA, DIAMOND WHEEL EDGER, lab, RT, psych nurse, medical social worker, lump receiver, teacher, stream control officer, showcase maker)? Give summary @ -I spoke with Dr. Strange he agreed to admit the patient Was smoking cessation discussed for >3mins.? @ -No Was critical care preformed (if so, how long)? @ -No Were there social determinants of health that impacted care today? How? (Homelessness, low income, unemployed, alcoholism, drug addiction, transportation, low edu. Level, literacy, decrease access to med. care, prison, rehab)? @ -No Was there de-escalation of care discussed even if they declined (Discuss DNR or withdrawal of care, Hospice)? DNR status @ -No What co-morbidities impacted this encounter? (DM, HTN, Smoking, COPD, CAD, Cancer, CVA, ARF, Chemo, Hep., AIDS, mental health diagnosis, sleep apnea, morbid obesity)? @ -None Was patient admitted / discharged? Hospital course, mention meds given and route, prescriptions, significant lab abnormalities, going to OR and other pertinent info. @ -Patient still was confused throughout her ED course and was unable to get up and put weight on her legs. I spoke with Dr. Strange he agreed to admit the patient admitted the patient wrote admitting orders Undiagnosed new problem with uncertain prognosis? @ -No Drug Therapy requiring intensive monitoring for toxicity (Heparin, Nitro, Insulin, Cardizem)? @ -No Were any procedures done? @ -No Diagnosis/symptom? @ -Altered mental status Acute, or Chronic, or Acute on Chronic? @ -Acute Uncomplicated (without systemic symptoms) or Complicated (systemic symptoms)? @ -Complicated Side effects of treatment? @ -No Exacerbation, Progression, or Severe Exacerbation? @ -No Poses a threat to life or bodily function? How? (Chest pain, [place], [place], pneumonia, PE, COPD, DKA, ARF, appy, cholecystitis, CVA, Diverticulitis, Homicidal, Suicidal, threat to staff... and all critical care pts) @ -No Diagnosis/symptom? @ -Inability to ambulate Acute, or Chronic, or Acute on Chronic? @ -Acute Uncomplicated (without systemic symptoms) or Complicated (systemic symptoms)? @ -Complicated Side effects of treatment? @ -none Exacerbation, Progression, or Severe Exacerbation] @ -no Poses a threat to life or bodily function? @ -no - Lab Data Result diagrams: 04/28/23 15:48 04/28/23 15:48 Lab Results 04/28/23 04/28/23 04/28/23 Range/Units 15:48 15:48 15:48 WBC 21.1 H (3.8-10.6) k/uL RBC 4.47 (3.80-5.40) m/uL Hgb 14.8 (11.4-16.0) gm/dL Hct 45.6 (34.0-46.0) % MCV 102.0 H (80.0-100.0) fL MCH 33.1 (25.0-35.0) pg MCHC 32.4 (31.0-37.0) g/dL RDW 14.1 (11.5-15.5) % Plt Count 127 L (150-450) k/uL MPV 8.9 Neutrophils % 92 % Lymphocytes % 2 % Monocytes % 4 % Eosinophils % 0 % Basophils % 0 % Neutrophils # 19.3 H (1.3-7.7) k/uL Lymphocytes # 0.5 L (1.0-4.8) k/uL Monocytes # 0.9 (0-1.0) k/uL Eosinophils # 0.0 (0-0.7) k/uL Basophils # 0.1 (0-0.2) k/uL Macrocytosis Slight PT 11.6 (9.0-12.0) sec INR 1.1 (<1.2) APTT 22.2 (22.0-30.0) sec Sodium (137-145) mmol/L Potassium (3.5-5.1) mmol/L Chloride (98-107) mmol/L Carbon Dioxide (22-30) mmol/L Anion Gap mmol/L BUN (7-17) mg/dL Creatinine (0.52-1.04) mg/dL Est GFR (CKD-EPI)AfAm (>60 ml/min/1.73 sqM) Est GFR (CKD-EPI)NonAf (>60 ml/min/1.73 sqM) Glucose (74-99) mg/dL POC Glucose (mg/dL) (70-110) mg/dL POC Glu Steam Box Operator ID Calcium (8.4-10.2) mg/dL Total Bilirubin (0.2-1.3) mg/dL AST (14-36) U/L ALT (4-34) U/L Alkaline Phosphatase (38-126) U/L Troponin I (0.000-0.034) ng/mL Total Protein (6.3-8.2) g/dL Albumin (3.5-5.0) g/dL Urine Color Colorless Urine Appearance Clear (Clear) Urine pH 5.0 (5.0-8.0) Ur Specific [place] 1.010 (1.001-1.035) Urine Protein Negative (Negative) Urine Glucose (UA) Negative (Negative) Urine Ketones Negative (Negative) Urine Blood Negative (Negative) Urine Nitrite Negative (Negative) Urine Bilirubin Negative (Negative) Urine Urobilinogen <2.0 (<2.0) mg/dL Ur Leukocyte Esterase Trace H (Negative) Urine RBC <1 (0-5) /hpf Urine WBC 1 (0-5) /hpf Ur Squamous Epith Cells <1 (0-4) /hpf Urine Mucus Rare H (None) /hpf Urine Opiates Screen Not Detected (NotDetected) Ur Oxycodone Screen Not Detected (NotDetected) Urine Methadone Screen Not Detected (NotDetected) Ur Propoxyphene Screen Not Detected (NotDetected) Ur Barbiturates Screen Not Detected (NotDetected) U Tricyclic Antidepress Not Detected (NotDetected) Ur Phencyclidine Scrn Not Detected (NotDetected) Ur Amphetamines Screen Not Detected (NotDetected) U Methamphetamines Scrn Not Detected (NotDetected) U Benzodiazepines Scrn Not Detected (NotDetected) Urine Cocaine Screen Not Detected (NotDetected) U Marijuana (THC) Screen Not Detected (NotDetected) 04/28/23 04/28/23 04/28/23 Range/Units 15:48 15:48 17:07 WBC (3.8-10.6) k/uL RBC (3.80-5.40) m/uL Hgb (11.4-16.0) gm/dL Hct (34.0-46.0) % MCV (80.0-100.0) fL MCH (25.0-35.0) pg MCHC (31.0-37.0) g/dL RDW (11.5-15.5) % Plt Count (150-450) k/uL MPV Neutrophils % % Lymphocytes % % Monocytes % % Eosinophils % % Basophils % % Neutrophils # (1.3-7.7) k/uL Lymphocytes # (1.0-4.8) k/uL Monocytes # (0-1.0) k/uL Eosinophils # (0-0.7) k/uL Basophils # (0-0.2) k/uL Macrocytosis PT (9.0-12.0) sec INR (<1.2) APTT (22.0-30.0) sec Sodium 134 L (137-145) mmol/L Potassium 4.8 (3.5-5.1) mmol/L Chloride 99 (98-107) mmol/L Carbon Dioxide 22 (22-30) mmol/L Anion Gap 13 mmol/L BUN 86 H (7-17) mg/dL Creatinine 1.38 H (0.52-1.04) mg/dL Est GFR (CKD-EPI)AfAm 39 (>60 ml/min/1.73 sqM) Est GFR (CKD-EPI)NonAf 34 (>60 ml/min/1.73 sqM) Glucose 268 H (74-99) mg/dL POC Glucose (mg/dL) 285 H (70-110) mg/dL POC Glu Steam Box Operator ID Esteban, Celeste Calcium 10.0 (8.4-10.2) mg/dL Total Bilirubin 0.9 (0.2-1.3) mg/dL AST 27 (14-36) U/L ALT 40 H (4-34) U/L Alkaline Phosphatase 90 (38-126) U/L Troponin I <0.012 (0.000-0.034) ng/mL Total Protein 6.4 (6.3-8.2) g/dL Albumin 3.6 (3.5-5.0) g/dL Urine Color Urine Appearance (Clear) Urine pH (5.0-8.0) Ur Specific [place] (1.001-1.035) Urine Protein (Negative) Urine Glucose (UA) (Negative) Urine Ketones (Negative) Urine Blood (Negative) Urine Nitrite (Negative) Urine Bilirubin (Negative) Urine Urobilinogen (<2.0) mg/dL Ur Leukocyte Esterase (Negative) Urine RBC (0-5) /hpf Urine WBC (0-5) /hpf Ur Squamous Epith Cells (0-4) /hpf Urine Mucus (None) /hpf Urine Opiates Screen (NotDetected) Ur Oxycodone Screen (NotDetected) Urine Methadone Screen (NotDetected) Ur Propoxyphene Screen (NotDetected) Ur Barbiturates Screen (NotDetected) U Tricyclic Antidepress (NotDetected) Ur Phencyclidine Scrn (NotDetected) Ur Amphetamines Screen (NotDetected) U Methamphetamines Scrn (NotDetected) U Benzodiazepines Scrn (NotDetected) Urine Cocaine Screen (NotDetected) U Marijuana (THC) Screen (NotDetected) Disposition Clinical Impression: Inability to ambulate due to hip, Altered mental status Disposition: ADMITTED IP TO THIS [facility] Referrals: Rhys Strange DO [Primary Care Provider] - 1-2 days Time of Disposition: 20:42
[2023-04-28 17:08] LABS: Glucose,Whole Blood 285 mg/dL (70-110)
[2023-04-28 17:34] LABS: Basophils # (A) 0.1 k/uL (0-0.2); Basophils % (A) 0 %; Eosinophils % (A) 0 %; HCT 45.6 % (34.0-46.0); HGB 14.8 gm/dL (11.4-16.0); Lymphocytes # (A) 0.5 k/uL (1.0-4.8); Lymphocytes % (A) 2 %; MCH 33.1 pg (25.0-35.0); MCHC 32.4 g/dL (31.0-37.0); Macrocytosis Slight; Mean Platelet Volume 8.9; Monocytes # (A) 0.9 k/uL (0-1.0); Monocytes % (A) 4 %; Neutrophils # (A) 19.3 k/uL (1.3-7.7); Neutrophils % (A) 92 %; Platelet Count 127 k/uL (150-450); RBC 4.47 m/uL (3.80-5.40); RDW 14.1 % (11.5-15.5); WBC 21.1 k/uL (3.8-10.6)
[2023-04-28 18:00] LABS: INR 1.1 (<1.2); Partial Thromboplastin Time 22.2 sec (22.0-30.0); Prothrombin Time 11.6 sec (9.0-12.0)
[2023-04-28 18:06] LABS: Potassium 4.8 mmol/L (3.5-5.1)
[2023-04-28 18:07] LABS: ALT 40 U/L (4-34); AST 27 U/L (14-36); African American GFR (CKD) 39 (>60 ml/min/1.73 sqM); Albumin 3.6 g/dL (3.5-5.0); Alkaline Phosphatase 90 U/L (38-126); Anion Gap 13 mmol/L; Blood Urea Nitrogen 86 mg/dL (7-17); Carbon Dioxide 22 mmol/L (22-30); Chloride 99 mmol/L (98-107); Glucose 268 mg/dL (74-99); Non-African American GFR(CKD) 34 (>60 ml/min/1.73 sqM); Sodium 134 mmol/L (137-145); Total Bilirubin 0.9 mg/dL (0.2-1.3); Total Protein 6.4 g/dL (6.3-8.2)
--- NOTE | 2023-04-28 18:21 | CT ---
EXAMINATION TYPE: CT hip RT wo con DATE OF EXAM: 04/28/2023 COMPARISON: None HISTORY: right hip pain CT DLP: 481.5 mGycm Automated exposure control for dose reduction was used. Contrast: None Technique: Axial images through millimeters thick sections. Reconstructed images in the coronal and s agittal planes. 3-D reconstructed images are performed on a separate computer by the technologist FINDINGS: No acute fractures are evident. Femoral head articulates with the acetabulum. Joint space narrowing i s evident. Soft tissues appear unremarkable. IMPRESSION: 1. NO ACUTE FRACTURE RIGHT HIP
[2023-04-28 19:01] LABS: Amphetamine Screen,Urine Not Detected (NotDetected); Appearance,Urine Clear (Clear); Barbiturate Screen,Urine Not Detected (NotDetected); Benzodiazepines Screen,Urine Not Detected (NotDetected); Bilirubin,Urine Negative (Negative); Blood,Urine Negative (Negative); Cocaine Screen,Urine Not Detected (NotDetected); Color,Urine Colorless; Glucose,Urine (UA) Negative (Negative); Ketones,Urine Negative (Negative); Leukocyte Esterase,Urine Trace (Negative); Methadone Screen, Urine Not Detected (NotDetected); Mucus,Urine Rare /hpf; Nitrite,Urine Negative (Negative); Opiate Screen,Urine Not Detected (NotDetected); Oxycodone Screen, Urine Not Detected (NotDetected); Phencyclidine Screen,Urine Not Detected (NotDetected); Protein,Urine Negative (Negative); RBC,Urine <1 /hpf (0-5); Squamous Epithelial Cell,Urine <1 /hpf (0-4); Tricyclic Antidepressant,Urine Not Detected (NotDetected); Urn Cannabinoid Scrn Not Detected (NotDetected); Urobilinogen,Urine <2.0 mg/dL (<2.0); WBC,Urine 1 /hpf (0-5)
--- NOTE | 2023-04-28 19:51 | XR ---
EXAMINATION TYPE: XR chest 2V DATE OF EXAM: 04/28/2023 COMPARISON: 04/17/2023, 10/08/2017 INDICATION: Altered mental status TECHNIQUE: Frontal and lateral views of the chest are obtained. FINDINGS: The heart size is normal. The pulmonary vasculature is normal. The lungs are clear. There is exaggeration of thoracic kyphosis with increased AP diameter. Correlat e for senile emphysematous change. Mediastinal silhouette frontal projection appears stable. IMPRESSION: 1. No acute pulmonary process.
[2023-04-28] MEDS ORDERED: SODIUM CHLORIDE 0.9% 1,000 ML IV ONE (20:43)
--- NOTE | 2023-04-28 20:51 | CT ---
EXAMINATION TYPE: CT hip LT wo con DATE OF EXAM: 04/28/2023 COMPARISON: None HISTORY: Left hip pain. images pulled from Raw Data of RT Hip done earlier today. CT DLP: Not recorded mGycm Automated exposure control for dose reduction was used. Contrast: None Technique: Axial images 3 mm thick sections. Reconstructed images in the coronal and sagittal planes. 3-D reconstructed images are reviewed performance of computer by the technologist. FINDINGS: No acute fractures are evident. The femoral head articulates with the acetabulum. Soft tissues appear normal. Some joint space narrowing is evident. Surrounding soft tissues are unremarkable. IMPRESSION: 1. NO ACUTE FRACTURES LEFT HIP
[2023-04-29 07:52] LABS: Glucose,Whole Blood 326 mg/dL (70-110)
[2023-04-29] MEDS ORDERED: diazePAM 5 MG TAB PO STA (09:49)
--- NOTE | 2023-04-29 11:03 | P.CNNES ---
History of Present Illness Consult date: 04/29/23 Requesting physician: Rhys Strange Reason for Consult: ams History of Present Illness: Is an 88-year-old woman with history of arthritis who presented emergency department because of altered mental status as well as left hip pain. Some of the history is obtained from the patient's the granddaughter in law. It seems the patient lives with her daughter and is fairly active but has significant rheumatoid arthritis. It seems the patient was discharged a week ago home and has been complaining of some hip pain per medical record in that it seems that she received steroids as well as the patient did verify that she did receive steroids. She stated that she was having difficulty getting and received steroids recently. Seems the patient was confused recently but the is drastically better. She denies any history of stroke or any seizures. Denies of any focal weakness or numbness or any headache or any visual disturbance. It seems that the patient has not had any recent falls. Some other workup during this hospital visit consisted of: Patient glucose has been in the range of 200s to 300s. Sodium is 134, calcium 10.0 Plasma lactic acid vein is 1.6. Urine drug screen was not detected. Review of Systems The positive and negative as per HPI. Past Medical History Past Medical History: Atrial Fibrillation, Coronary Artery Disease (CAD), Heart Failure, Diabetes Mellitus, GERD/Reflux, Hyperlipidemia, Hypertension, Osteoarthritis (OA), Renal Disease, Thyroid Disorder Additional Past Medical History / Comment(s): NIDDM type II, 07/24/17 echo with 20% EF, chronic kidney disease stage III, bilateral tinnitis, arthritis multiple joints, gout, back pain. 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 skin ca removed Past Anesthesia/Blood Transfusion Reactions: Previous Problems w/ Anesthesia Additional Past Anesthesia/Blood Transfusion Reaction / Comment(s): Pt states she was hypertensive after waking from D&C. Pt has clausterphobia. Smoking Status: Never smoker - Past Family History Father History Unknown: Yes Additional Family Medical History / Comment(s): pt was adopted Mother History Unknown: Yes Additional Family Medical History / Comment(s): Mother after childbirth at the age of 35yrs. Medications and Allergies Home Medications Medication Instructions Recorded Confirmed Type Levothyroxine Sodium [Synthroid] 50 mcg PO DAILY 07/21/17 04/28/23 History allopurinoL [Zyloprim] 100 mg PO DAILY 07/21/17 04/28/23 History Apixaban [Eliquis] 2.5 mg PO BID tablet 07/24/17 04/28/23 Rx Aspirin EC [Ecotrin Low Dose] 81 mg PO DAILY 07/28/17 04/28/23 History hydrALAZINE HCL [Apresoline] 25 mg PO BID #60 tab 07/28/17 04/28/23 Rx Metoprolol Tartrate [Lopressor] 25 mg PO BID #60 tab 11/25/18 04/28/23 Rx Furosemide [Lasix] 40 mg PO DAILY 10/21/20 04/28/23 History Nephro-Fabio 1 tab PO HS 10/21/20 04/28/23 History Pantoprazole [Protonix] 40 mg PO DAILY 10/21/20 04/28/23 History Simvastatin [Zocor] 40 mg PO HS 10/21/20 04/28/23 History Spironolactone [Aldactone] 25 mg PO BID 10/21/20 04/28/23 History glyBURIDE [Diabeta] 5 mg PO BID 10/21/20 04/28/23 History Cholecalciferol [Vitamin D3 (25 50 mcg PO DAILY tablet 10/23/20 04/28/23 Rx Mcg = 1000 Iu)] Baclofen 10 mg PO BID PRN 04/28/23 04/28/23 History methylPREDNISolone [Medrol Dose See Taper PO DIRECTED 04/28/23 04/28/23 History Pack] Allergies Allergy/AdvReac Type Severity Reaction Status Date / Time No Known Allergies Allergy Verified 04/28/23 21:54 Physical Examination - Vital Signs Vital Signs: Vital Signs Temp Pulse Pulse Resp BP BP Pulse Ox 04/29/23 08:00 97.2 F L 100 19 138/82 98 04/29/23 03:31 98.9 F 108 H 16 159/96 100 04/28/23 22:55 99.6 F 104 H 18 155/85 96 04/28/23 22:12 99.0 F 97 18 127/80 98 04/28/23 19:57 90 16 163/90 98 04/28/23 13:52 97.9 F 77 16 181/84 99 Intake and Output 04/28/23 04/29/23 04/29/23 22:59 06:59 14:59 Output Total 901 Balance -901 Output: Urine 900 Stool 1 Other: Voiding Method Indwelling Catheter Indwelling Catheter Weight 68.039 kg GENERAL: The patient is lying in bed and is not in acute distress. NEUROLOGICAL: Higher mental function: The patient is awake, alert, oriented to self, place and time. Patient is following simple commands. Patient correctly named objects such as a pen and watch glasses. No aphasia and no neglect. Cranial nerves: The pupils are round, equal and reactive to light. Visual valdez are full to confrontation throughout. Extraocular movement is intact no nystagmus is noted. Facial sensation is normal to touch throughout. The facial strength is normal throughout. Hearing is mildly to moderately decreased b ilaterally to hand rub. Tongue is midline and moved [id number] without any difficulty. No dysarthria is noted. Shoulder shrug is normal bilaterally. Motor: The strength is lifting all extremities above gravity equally and no focality. Patient has significant arthtitis changes of the hands and feet. Normal tone and bulk. Has edema in lower distal extremities. Cerebellum: Normal finger to nose bilaterally. Has subtle tremor at end of action. Sensation: Sensation is normal to touch throughout. Reflexes (right/left): 1+ throughout. Plantars are mute bilaterally. Results - Laboratory Findings CBC and BMP: 04/28/23 15:48 04/28/23 15:48 Abnormal Lab Findings: Abnormal Labs 04/28/23 04/28/23 04/28/23 15:48 15:48 15:48 WBC 21.1 H MCV 102.0 H Plt Count 127 L Neutrophils # 19.3 H Lymphocytes # 0.5 L Sodium 134 L BUN 86 H Creatinine 1.38 H Glucose 268 H POC Glucose (mg/dL) ALT 40 H Ur Leukocyte Esterase Trace H Urine Mucus Rare H 04/28/23 04/29/23 17:07 07:49 WBC MCV Plt Count Neutrophils # Lymphocytes # Sodium BUN Creatinine Glucose POC Glucose (mg/dL) 285 H 326 H ALT Ur Leukocyte Esterase Urine Mucus Assessment and Plan Assessment: This is an 88-year-old woman with history of rheumatoid arthritis who was recently the been given steroids and had the recent confusion but that her confusion has resolved. He is having left hip pain. Encephalopathy likely due to underlying medication (steroids use). Mentation improved. Left hip pain Underlying Rheumatoid arthritis and seems as severe Plan: I ordered the CT of the head without rule out any underlying acute or subacute ischemia which I feel unlikely. I also ordered a routine EEG to rule out any underlying seizure discharges which I also feel it is unlikely Ordered vitamin B12, folate, ammonia level. Patient had a recent TSH on 04/18/2023 which was 5.610, the free T4 was 1.20. We'll defer the management to the primary team. Orthopedic surgery team is on board and that they ordered the MRI of the hip. Defer the rest of the medical management to primary team Plan discussed with the patient, her granddaughter in law and her nurse. Thank you for the consultation. Time with Patient: Greater than 30
[2023-04-29] MEDS ORDERED: DEXTROSE 50% SYRINGE 50 ML IVP PRN ×2 (11:10)
--- NOTE | 2023-04-29 11:12 | P.CNOR ---
History of Present Illness - [facility] Consult date: 04/29/23 Consult reason: joint pain (Left hip pain) History of present illness: Patient is an 88-year-old female who has been admitted to [facility] for multiple medical issues, he is to include altered mental status, difficulty with ambulation, left hip pain. Patient was recently in the hospital a week ago with regards to left hip pain, initial x-rays demonstrated no acute fractures or dislocations. Patient also underwent a stress test on 04/21/2023 that revealed no acute cardiac process. Patient has a very complex medical history including cardiac disease along with chronic kidney disease. Our orthopedic team was consulted due to the left hip pain. Patient was evaluated at bedside today, she is resting in her hospital bed. Patient seems mildly confused, she is aware of the year, month and current city she lives in, she had very difficult time explaining the last week or so. Patient vaguely remembers being in the hospital. Apparently she did see her primary care doctor for the left hip pain in the last week, she was prescribed steroids which resulted in worsening mental status changes and incomplete resolution of symptoms. Patient denies any recent trauma, this including falls. Patient normally utilizes a walker for ambulation, she does live with her daughter. Attempt was made to contact the daughter to achieve more history, there was no answer. CT scans of both hips were done at this hospital visit, no acute processes were noted. Osteoarthritic changes are noted to the bilateral hips. Patient is having no discomfort in her right hip at this time. Patient notes no discomfort in the left hip with stationary, she notes most discomfort when ambulatory. She denies any previous surgery involving her left hip. She does have a history of a left total knee replacement. Patient denies any knee pain bilaterally, foot or ankle pain bilaterally. Patient is denying any numbness or tingling involving the bilateral lower extremities. She denies any low back pain at this time. Patient denies any loss of bowel function, urinary catheter is present currently. It was mentioned in the previous note the patient did note urinary incontinence, hoping to discuss her daughter this further detail. MRI of the pelvis has been ordered for further evaluation of the osseous structures. Review of Systems Constitutional: Reports as per HPI Past Medical History Past Medical History: Atrial Fibrillation, Coronary Artery Disease (CAD), Heart Failure, Diabetes Mellitus, GERD/Reflux, Hyperlipidemia, Hypertension, Osteoarthritis (OA), Renal Disease, Thyroid Disorder Additional Past Medical History / Comment(s): NIDDM type II, 07/24/17 echo with 20% EF, chronic kidney disease stage III, bilateral tinnitis, arthritis multiple joints, gout, back pain. 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 skin ca removed Past Anesthesia/Blood Transfusion Reactions: Previous Problems w/ Anesthesia Additional Past Anesthesia/Blood Transfusion Reaction / Comm: Pt states she was hypertensive after waking from D&C. Pt has clausterphobia. Smoking Status: Never smoker - Past Family History Father History Unknown: Yes Additional Family Medical History / Comment(s): pt was adopted Mother History Unknown: Yes Additional Family Medical History / Comment(s): Mother after childbirth at the age of 35yrs. Medications and Allergies Home Medications Medication Instructions Recorded Confirmed Type Levothyroxine Sodium [Synthroid] 50 mcg PO DAILY 07/21/17 04/28/23 History allopurinoL [Zyloprim] 100 mg PO DAILY 07/21/17 04/28/23 History Apixaban [Eliquis] 2.5 mg PO BID tablet 07/24/17 04/28/23 Rx Aspirin EC [Ecotrin Low Dose] 81 mg PO DAILY 07/28/17 04/28/23 History hydrALAZINE HCL [Apresoline] 25 mg PO BID #60 tab 07/28/17 04/28/23 Rx Metoprolol Tartrate [Lopressor] 25 mg PO BID #60 tab 11/25/18 04/28/23 Rx Furosemide [Lasix] 40 mg PO DAILY 10/21/20 04/28/23 History Nephro-Fabio 1 tab PO HS 10/21/20 04/28/23 History Pantoprazole [Protonix] 40 mg PO DAILY 10/21/20 04/28/23 History Simvastatin [Zocor] 40 mg PO HS 10/21/20 04/28/23 History Spironolactone [Aldactone] 25 mg PO BID 10/21/20 04/28/23 History glyBURIDE [Diabeta] 5 mg PO BID 10/21/20 04/28/23 History Cholecalciferol [Vitamin D3 (25 50 mcg PO DAILY tablet 10/23/20 04/28/23 Rx Mcg = 1000 Iu)] Baclofen 10 mg PO BID PRN 04/28/23 04/28/23 History methylPREDNISolone [Medrol Dose See Taper PO DIRECTED 04/28/23 04/28/23 Histo ry Pack] Allergies Allergy/AdvReac Type Severity Reaction Status Date / Time No Known Allergies Allergy Verified 04/28/23 21:54 Physical Examination Left lower extremity: No obvious open lesions are visualized throughout the extremity, there is no areas of erythema. Well-healed incision over the anterior aspect of the knee No tenderness with palpation is noted to the proximal femur, knee, lower leg, foot or ankle Plantar flexion, dorsiflexion, EHL, FHL are intact. Active extension and flexion are intact at the knee, no pain is reproduced. Patient is able to straight leg raise with minimal difficulty. Logroll maneuver along with hip flexion with internal and external rotation of the hip reproduces no pain. Strength testing of the extremity reveals generalized weakness due to age and me dical state, no obvious focal deficits are appreciated Sensation to light touch throughout the extremity is intact Skin is warm to touch Gen. orthopedic exam: No point tenderness is reproduced throughout the bilateral upper extremities, range of motion of the bilateral upper extremities intact in all major muscle groups, no focal deficits appreciated No point tenderness is reproduced throughout the right lower extremity. Range of motion in all major muscle groups of the right lower extremity, no focal deficits. Logroll maneuver reproduces no pain in the groin, negative straight leg raise Results - Labs Labs: Abnormal Lab Results - Last 24 Hours (Table) 04/28/23 04/28/23 04/28/23 Range/Units 15:48 15:48 15:48 WBC 21.1 H (3.8-10.6) k/uL MCV 102.0 H (80.0-100.0) fL Plt Count 127 L (150-450) k/uL Neutrophils # 19.3 H (1.3-7.7) k/uL Lymphocytes # 0.5 L (1.0-4.8) k/uL Sodium 134 L (137-145) mmol/L BUN 86 H (7-17) mg/dL Creatinine 1.38 H (0.52-1.04) mg/dL Glucose 268 H (74-99) mg/dL POC Glucose (mg/dL) (70-110) mg/dL ALT 40 H (4-34) U/L Ur Leukocyte Esterase Trace H (Negative) Urine Mucus Rare H (None) /hpf 04/28/23 04/29/23 Range/Units 17:07 07:49 WBC (3.8-10.6) k/uL MCV (80.0-100.0) fL Plt Count (150-450) k/uL Neutrophils # (1.3-7.7) k/uL Lymphocytes # (1.0-4.8) k/uL Sodium (137-145) mmol/L BUN (7-17) mg/dL Creatinine (0.52-1.04) mg/dL Glucose (74-99) mg/dL POC Glucose (mg/dL) 285 H 326 H (70-110) mg/dL ALT (4-34) U/L Ur Leukocyte Esterase (Negative) Urine Mucus (None) /hpf H & H 04/28/23 Range/Units 15:48 Hgb 14.8 (11.4-16.0) gm/dL Hct 45.6 (34.0-46.0) % Coagulation 04/28/23 Range/Units 15:48 INR 1.1 (<1.2) Result Diagrams: 04/28/23 15:48 04/28/23 15:48 - Diagnostic results Hip CT: report reviewed, image reviewed (Images and reports in the bilateral hip CTs from 04/28/2023 were reviewed. Images demonstrate no acute fractures or dislocations. Osteoarthritic changes noted to the bilateral hips) Assessment and Plan Assessment: Left hip pain Left hip osteoarthritis Right hip osteoarthritis Leukocytosis Multiple medical comorbidities Plan: I was able to discuss the case, this including both physical exam findings and imaging studies my attending Dr. Andres. No emergent orthopedic surgical intervention is recommended at this time MRI of the pelvis has been ordered for further osseous structure evaluation, weight images and report. I did order Valium 5 mg by mouth to be given once prior to her MRI, she does note she is claustrophobic We'll continue to attempt contacting daughter to achieve a better history on this patient Local concerned for septic arthropathy of either hip at this time to physical exam findings, leukocytosis noted on the CBC be due to recent oral steroids Pain per primary medical service DVT prophylaxis per primary medical service Weightbearing status will be addressed after MRI of the pelvis Further recommendations to follow Time with Patient: Less than 30
[2023-04-29] MEDS ORDERED: APIXABAN 2.5 MG TABLET PO SCH (11:15)
[2023-04-29 11:17] LABS: Glucose,Whole Blood 354 mg/dL (70-110)
[2023-04-29] MEDS: INSULIN DETEMIR (LEVEMIR) 100 UNIT/ML SYR SQ SCH (12:16)
[2023-04-29] MEDS: CHOLECALCIFEROL 25 MCG (1000 IU) TABLET PO SCH (12:16)
[2023-04-29] MEDS: LEVOTHYROXINE 50 MCG TAB PO SCH (12:17)
[2023-04-29] MEDS: hydrALAZINE HCL 25 MG TAB PO SCH ×2 (12:17→20:39)
[2023-04-29] MEDS: METOPROLOL TARTRATE 25 MG TAB PO SCH ×2 (12:17→20:39)
[2023-04-29] MEDS: PANTOPRAZOLE 40 MG TABLET PO SCH (12:17)
[2023-04-29 12:18] LABS: African American GFR (CKD) 45 (>60 ml/min/1.73 sqM); Anion Gap 10 mmol/L; Blood Urea Nitrogen 83 mg/dL (7-17); Calcium 9.2 mg/dL (8.4-10.2); Carbon Dioxide 19 mmol/L (22-30); Chloride 106 mmol/L (98-107); Glucose 334 mg/dL (74-99); HCT 41.4 % (34.0-46.0); HGB 13.4 gm/dL (11.4-16.0); Hypochromasia Slight; MCH 33.5 pg (25.0-35.0); MCHC 32.3 g/dL (31.0-37.0); MCV 103.7 fL (80.0-100.0); Macrocytosis Slight; Mean Platelet Volume 9.1; Non-African American GFR(CKD) 39 (>60 ml/min/1.73 sqM); RBC 3.99 m/uL (3.80-5.40); RDW 14.2 % (11.5-15.5); Sodium 135 mmol/L (137-145); WBC 22.4 k/uL (3.8-10.6)
[2023-04-29] MEDS: INSULIN ASPART (NovoLOG) 100 UNIT/ML VIAL SQ SCH ×3 (12:24→20:40)
[2023-04-29 12:25] LABS: Potassium 5.1 mmol/L (3.5-5.1)
[2023-04-29 13:49] LABS: Platelet Count 70 k/uL (150-450)
--- NOTE | 2023-04-29 14:14 | CT ---
EXAMINATION TYPE: CT brain wo con DATE OF EXAM: 04/29/2023 COMPARISON: 10/20/2020 HISTORY: 88-year-old female with confusion, ams TECHNIQUE: Examination was done in axial plane without intravenous contrast. Coronal and sagittal r econstructions performed. CT DLP: 1047.1 mGycm Automated exposure control for dose reduction was used. FINDINGS: There is no evidence of acute intracranial hemorrhage, acute ischemic changes, mass, mass-effect, or extra-axial fluid collection. There is no effacement of cerebral sulci or basal subarachnoid cister ns. There is no midline shift. Michel-white matter distinction is preserved. There is similar anterior soft tissue extension within the right side of the sella compared to 10/21/19 21. Query any previous surgical intervention here. Atherosclerotic calcifications within the adjacent carotid siphons. Mild age related cerebral cortical volume loss. Mild ventricular prominence likely secondary to centr al cerebral atrophy. Old lacunar infarct right basal ganglia is unchanged. Paranasal sinuses and mastoid air cells are well pneumatized. The globes are intact. IMPRESSION: 1. Mild cerebral atrophy. No acute intracranial abnormality seen. 2. Similar anterior soft tissue extension within the right side of the sella as compared to 10/20/2020 suggests a chronic, benign etiology. Query any previous surgical intervention here.
--- NOTE | 2023-04-29 15:11 | P.HPIM ---
History of Present Illness H&P Date: 04/29/23 Chief Complaint: Altered mental status, This is an 88-year-old female with past medical history significant for CAD with prior CABG, persistent atrial fibrillation anticoagulated on Eliquis, hypertension,hyperlipidemia, diabetes mellitus, COVID, recently completed Lexiscan stress test on 04/21/2023 that failed to report reversible ischemia ,inconclusive EKG part and stress test due to left bundle branch block. Echo reported EF 50-55%, moderate mitral regurgitation ,moderate bioprosthetic valve stenosis with evaluation of prosthetic valve stenosis MARIELLE recommended for ou tpatient, pulmonary hypertension, admitted with altered mental [id number], minimal activity-normally ambulates with walker, complaining of left hip pain upon standing. Denies numbness, tingling . Denies any fall or trauma. New-onset urinary incontinence, UA negative. Toxicology screen negative. Denies nausea vomiting or diarrhea. Denies abdominal pain. Denies chest pain, palpitations or shortness of breath. Denies lightheadedness, dizziness or focal deficits. Patient also reports she not been eating much. BUN elevated on admission in the 80s with creatinine near baseline 1.38. Afebrile, T-max 99.6, lactic acid 1.6, WBC 21.1, 22.4-patient had recently completed a Medrol Dosepak prescribed by PCP last week for possible bursitis. Bilateral Hips CT reported no acute Fractures. Chest x-ray. No acute pulmonary process. Blood sugars in the 300s, received a regular breakfast tray. Review of Systems ROS Statement: Those systems with pertinent positive or pertinent negative responses have been documented in the HPI. ROS Other: All systems not noted in ROS Statement are negative. Past Medical History Past Medical History: Atrial Fibrillation, Coronary Artery Disease (CAD), Heart Failure, Diabetes Mellitus, GERD/Reflux, Hyperlipidemia, Hypertension, Osteoarthritis (OA), Renal Disease, Thyroid Disorder Additional Past Medical History / Comment(s): NIDDM type II, 07/24/17 echo with 20% EF, chronic kidney disease stage III, bilateral tinnitis, arthritis multiple joints, gout, back pain. History of Any Multi-Drug Resistant Organisms: None Reported Past Surgical History: Adenoidectomy, Cardiac Valve Replacement, Coronary Bypass/CABG, Hysterectomy, Joint Replacement, Orthopedic Surgery, Tonsillectomy Additional Past Surgical History / Comment(s): 2010 CABG-3 vessels and aortic valve replacement, L knee replaced, R ankle with pins and post op infection requiring PICC line, thyroid bx, D&C, bilateral cataract removal with lens implants. skin ca removed Past Anesthesia/Blood Transfusion Reactions: Previous Problems w/ Anesthesia Additional Past Anesthesia/Blood Transfusion Reaction / Comment(s): Pt states she was hypertensive after waking from D&C. Pt has clausterphobia. Smoking Status: Never smoker - Past Family History Father History Unknown: Yes Additional Family Medical History / Comment(s): pt was adopted Mother History Unknown: Yes Additional Family Medical History / Comment(s): Mother after childbirth at the age of 35yrs. Medications and Allergies Home Medications Medication Instructions Recorded Confirmed Type Levothyroxine Sodium [Synthroid] 50 mcg PO DAILY 07/21/17 04/28/23 History allopurinoL [Zyloprim] 100 mg PO DAILY 07/21/17 04/28/23 History Apixaban [Eliquis] 2.5 mg PO BID tablet 07/24/17 04/28/23 Rx Aspirin EC [Ecotrin Low Dose] 81 mg PO DAILY 07/28/17 04/28/23 History hydrALAZINE HCL [Apresoline] 25 mg PO BID #60 tab 07/28/17 04/28/23 Rx Metoprolol Tartrate [Lopressor] 25 mg PO BID #60 tab 11/25/18 04/28/23 Rx Furosemide [Lasix] 40 mg PO DAILY 10/21/20 04/28/23 History Nephro-Fabio 1 tab PO HS 10/21/20 04/28/23 History Pantoprazole [Protonix] 40 mg PO DAILY 10/21/20 04/28/23 History Simvastatin [Zocor] 40 mg PO HS 10/21/20 04/28/23 History Spironolactone [Aldactone] 25 mg PO BID 10/21/20 04/28/23 History glyBURIDE [Diabeta] 5 mg PO BID 10/21/20 04/28/23 History Cholecalciferol [Vitamin D3 (25 50 mcg PO DAILY tablet 10/23/20 04/28/23 Rx Mcg = 1000 Iu)] Baclofen 10 mg PO BID PRN 04/28/23 04/28/23 History methylPREDNISolone [Medrol Dose See Taper PO DIRECTED 04/28/23 04/28/23 History Pack] Allergies Allergy/AdvReac Type Severity Reaction Status Date / Time No Known Allergies Allergy Verified 04/28/23 21:54 Physical Exam Vitals: Vital Signs Temp Pulse Pulse Resp BP BP Pulse Ox 04/29/23 08:00 97.2 F L 100 19 138/82 98 04/29/23 03:31 98.9 F 108 H 16 159/96 100 04/28/23 22:55 99.6 F 104 H 18 155/85 96 04/28/23 22:12 99.0 F 97 18 127/80 98 04/28/23 19:57 90 16 163/90 98 04/28/23 13:52 97.9 F 77 16 181/84 99 Intake and Output 04/28/23 04/29/23 04/29/23 22:59 06:59 14:59 Output Total 901 Balance -901 Output: Urine 900 Stool 1 Other: Voiding Method Indwelling Catheter Indwelling Catheter Weight 68.039 kg GENERAL: The patient is pleasant, alert and oriented x3, Well developed, well nourished. Elderly-appearing, sitting up in bed, NAD. HEENT: Normocephalic, Pupils are round and equally reacting to light. EOMI. no scleral icterus. No conjunctival pallor. CARDIOVASCULAR: S1 and S2 muffled, irregular PULMONARY: Unlabored, equal air entry .Breath sounds clear bilaterally with no wheezing or rhonchi noted. ABDOMEN: soft. Nontender, non-distended, normoactive bowel sounds. No palpable organomegaly. EXTREMITIES: Small left thigh bruising,Small leftNo cyanosis, clubbing, or pedal edema. NEUROLOGICAL: Gross neurological examination did not reveal any focal deficits. SKIN: No rashes. Warm and dry. Results CBC & Chem 7: 04/29/23 11:40 04/29/23 11:40 Labs: Abnormal Lab Results - Last 24 Hours (Table) 04/28/23 04/28/23 04/28/23 Range/Units 15:48 15:48 15:48 WBC 21.1 H (3.8-10.6) k/uL MCV 102.0 H (80.0-100.0) fL Plt Count 127 L (150-450) k/uL Neutrophils # 19.3 H (1.3-7.7) k/uL Lymphocytes # 0.5 L (1.0-4.8) k/uL Sodium 134 L (137-145) mmol/L BUN 86 H (7-17) mg/dL Creatinine 1.38 H (0.52-1.04) mg/dL Glucose 268 H (74-99) mg/dL POC Glucose (mg/dL) (70-110) mg/dL ALT 40 H (4-34) U/L Ur Leukocyte Esterase Trace H (Negative) Urine Mucus Rare H (None) /hpf 04/28/23 04/29/23 04/29/23 Range/Units 17:07 07:49 11:14 WBC (3.8-10.6) k/uL MCV (80.0-100.0) fL Plt Count (150-450) k/uL Neutrophils # (1.3-7.7) k/uL Lymphocytes # (1.0-4.8) k/uL Sodium (137-145) mmol/L BUN (7-17) mg/dL Creatinine (0.52-1.04) mg/dL Glucose (74-99) mg/dL POC Glucose (mg/dL) 285 H 326 H 354 H (70-110) mg/dL ALT (4-34) U/L Ur Leukocyte Esterase (Negative) Urine Mucus (None) /hpf Thrombosis Risk Factor Assmnt - Choose All That Apply Each Factor Represents 1 point: Abnormal pulmonary function (COPD) Each Risk Factor Represents 3 Points: Age 75 years or older Thrombosis Risk Factor Assessment Total Risk Factor Score: 4 Thrombosis Risk Factor Assessment Level: Moderate Risk Assessment and Plan Assessment: Left hip pain worsened with standing, in a patient with history of osteoarthritis CT reporting no acute fractures of bilateral hips, MRI pending Mental status changes with confusion prior to admission, metabolic encephalopathy secondary to potential steroids, resolved Leukocytosis in a patient who recently completed a Medrol Dosepak secondary to potential bursitis Chronic Atrial fibrillation, controlled ventricular rate Chronic CHF, systolic dysfunction CAD, history of CABG Moderate bioprosthetic valve stenosis, further evaluation outpatient via MARIELLE as per cardiology. Hypertension Hyperlipidemia CKD III DM II Hypothyroidism Gastroesophageal reflux disease Plan: Continue on current medication regime ,monitoring and symptomatic treatment. Orthopedic and neurology consults in place. Resume eliquis pending brain ct. MRI of left hip pending. Empiric ceftriaxone. Patient initially had a regular diet , changed to consistent carb. Lantus and NovoLog sliding scale added to med regimen. Close monitoring of renal function, electrolytes with repeat labs ordered for a.m. The impression and plan of care has been dictated as directed. : I performed a history and examination of this patient, discussed the same with the dictator. I agree with the dictator's note ,documented as a scribe. Any additional findings or plans will be noted.
[2023-04-29 15:12] VITALS: BMI 25.0
--- NOTE | 2023-04-29 17:53 | EEG ---
ELECTROENCEPHALOGRAM REPORT CLINICAL HISTORY: This is an 88-year-old woman with altered mental status. The video EEG is obtained to evaluate for seizure and epileptiform discharges. RELEVANT MEDICATIONS: Valium. EEG TYPE: A routine 21-channel EEG with video using the 10/20 electrode placement system. DESCRIPTION: Wakefulness and drowsiness are obtained. During awake state, the background consists of [id number] voltage of 5.5 to 6.5 Hz activity and at times consists of nonrhythmic delta activity. There is no physiological stage II sleep architecture. There is no focal slowing. INTERICTAL AND ICTAL: None. ACTIVATION PROCEDURE: Photic stimulation did not evoke a posterior driving response. There is no abnormality during the photic stimulation. Hyperventilation is not performed. CLINICAL INTERPRETATION: This is an abnormal routine EEG. The background slowing is suggestive of mild-to- moderate encephalopathy. Otherwise, there is no focal slowing, epileptiform discharge, or seizure on the EEG. Clinical correlation is recommended. МАРИНА / SUJEY: [id number] /
[2023-04-29 18:14] LABS: Glucose,Whole Blood 311 mg/dL (70-110)
[2023-04-29 20:24] LABS: Glucose,Whole Blood 372 mg/dL (70-110)
[2023-04-29] MEDS: APIXABAN 2.5 MG TABLET PO SCH (20:39)
[2023-04-29] MEDS: ATORVASTATIN 20 MG TAB PO SCH (20:39)
[2023-04-29] MEDS: FOLIC ACID-VIT B COMPLEX-VIT C 1 CAP PO SCH (20:40)
[2023-04-29] MEDS ORDERED: INSULIN DETEMIR (LEVEMIR) 100 UNIT/ML SYR SQ SCH (21:00)
[2023-04-30] MEDS: LEVOTHYROXINE 50 MCG TAB PO SCH (05:35)
[2023-04-30 07:21] LABS: Glucose,Whole Blood 182 mg/dL (70-110)
[2023-04-30] MEDS: PANTOPRAZOLE 40 MG TABLET PO SCH (08:53)
[2023-04-30] MEDS: ASPIRIN 81 MG PO SCH (08:53)
[2023-04-30] MEDS: CHOLECALCIFEROL 25 MCG (1000 IU) TABLET PO SCH (08:53)
[2023-04-30] MEDS: INSULIN DETEMIR (LEVEMIR) 100 UNIT/ML SYR SQ SCH ×2 (08:54→23:32)
[2023-04-30] MEDS: METOPROLOL TARTRATE 25 MG TAB PO SCH ×2 (08:54→21:33)
[2023-04-30] MEDS: hydrALAZINE HCL 25 MG TAB PO SCH ×2 (08:54→21:33)
[2023-04-30] MEDS: APIXABAN 2.5 MG TABLET PO SCH ×2 (08:54→21:35)
[2023-04-30] MEDS: INSULIN ASPART (NovoLOG) 100 UNIT/ML VIAL SQ SCH ×4 (08:54→23:31)
[2023-04-30] MEDS ORDERED: diazePAM 5 MG TAB PO PRN (09:54)
[2023-04-30] MEDS ORDERED: diazePAM 5 MG TAB PO STA (09:55)
[2023-04-30 11:26] LABS: BUN/Creat Ratio 56.45 Ratio (12.00-20.00); Blood Urea Nitrogen 62.1 mg/dL (9.0-27.0); Calcium 9.5 mg/dL (8.7-10.3); Carbon Dioxide 20.8 mmol/L (21.6-31.8); Chloride 102 mmol/L (96-109); Glucose 216 mg/dL (70-110); Potassium 4.6 mmol/L (3.5-5.5); Sodium 134 mmol/L (135-145)
[2023-04-30 12:45] LABS: HCT 38.8 % (37.2-46.3); HGB 12.4 d/dL (12.0-15.0); Immature Platelet Fraction 7.6 % (1.1-6.1); Mean Platelet Volume 12.6 FL (9.5-12.2); NRBC Per 100 WBC 0 X 10*3/uL (0.00-0.01); Platelet Count 61 X 10*3/uL (140-440); RBC 3.88 X 10*6/uL (4.10-5.20); RDW 14.6 % (11.5-14.5); WBC 21.82 X 10*3/uL (4.50-10.00)
[2023-04-30 12:46] LABS: Acanthocytes 2+; Basophils # (A) 0.11 X 10*3/uL (0.00-0.10); Basophils % (A) 0.5 %; Eosinophils # (A) 0.02 X 10*3/uL (0.04-0.35); Eosinophils % (A) 0.1 %; Lymphocytes # (A) 1.56 X 10*3/uL (0.90-5.00); Lymphocytes % (A) 7.1 %; Monocytes # (A) 1.58 X 10*3/uL (0.20-1.00); Monocytes % (A) 7.2 %; Neutrophils # (A) 18.04 X 10*3/uL (1.80-7.70); Neutrophils % (A) 82.8 %
[2023-04-30 12:50] LABS: Glucose,Whole Blood 228 mg/dL (70-110)
--- NOTE | 2023-04-30 13:00 | MR ---
EXAMINATION TYPE: MR pelvis wo con DATE OF EXAM: 04/30/2023 COMPARISON: Correlation CT 04/28/2023 HISTORY: 80-year-old female with pain, r/o hip fractures of bilat hips TECHNIQUE: Multiplanar, multisequence images of the pelvis were obtained without IV contrast. FINDINGS: The sacrum and SI joints are intact though there is asymmetric degenerative change and periarticular edema at the left SI joint. Some edema tracks along the left iliac areas and there is more extensive focal edema within the left piriformis. There may be some distortion of fibrous air. There is moderate degenerative change at the bilateral hips. Reactive small bilateral joint effusions . Osteitis pubis. 9 mm intrasubstance tear at the origin of the left hamstrings. No acute or healing fracture is seen. There is symmetric edema within the bilateral gluteus minimus. Also, at the bilateral adductor muscul ature. Byrd catheter is in place. No abnormal fluid collection in the pelvis or pelvic lymphadenopathy seen . Scattered mild edema within the proximal thighs. Sigmoid diverticulosis. IMPRESSION: 1. Extensive muscular edema deep to the left hip especially involving the left piriformis and left il iacus muscles. There may be some distortion of left piriformis muscle fibers that could represent a t ear along the myotendinous junction. Correlate for muscle strains. 2. Lesser degree of edema/strains involving the bilateral adductor and bilateral gluteal musculature. 3. Some edema seems to be centered along the subarticular and periarticular region of the left SI flores nt as well. Consider a left-sided SI joint sprain versus acute exacerbation of underlying OA. Correla te with inflammatory markers and WBC count to exclude the possibility of an early infection. Short in terval follow-up as clinically indicated. 4. Moderate bilateral hip OA. Small joint effusions are likely reactive. 5. No acute or healing fracture is identified. 6. Small 9 mm intrasubstance tear at the left hamstrings origin.
--- NOTE | 2023-04-30 13:42 | P.PN ---
Subjective Progress Note Date: 04/30/23 Principal diagnosis: Left hip pain Patient was evaluated today at bedside, she was resting in her hospital bed. Patient was able to undergo the pelvic MRI today, she states that the Valium did help quite a bit with the overall claustrophobia. Patient continues to have minimal discomfort in the left hip when lying still. She states that when they brought her down for the MRI when they were moving her she did have some discomfort in the left hip region. She hasn't been up working with physical therapy at this time. Urinary catheter remains in place at this time. She has no other orthopedic complaints currently. Objective - Vital Signs Vital signs: Vital Signs Temp 97.8 F 04/30/23 10:00 Pulse 90 04/30/23 10:00 Resp 16 04/30/23 10:00 BP 159/85 04/30/23 10:00 Pulse Ox 99 04/30/23 10:00 FiO2 Intake & Output 04/29/23 04/30/23 04/30/23 18:59 06:59 18:59 Intake Total 50 590 0 Output Total 600 1000 Balance -550 -410 0 Weight 68.039 kg Intake: Intake, IV Titration 50 Amount cefTRIAXone 2 gm In 50 Sodium Chloride 0.9% 50 ml @ 100 mls/hr IVPB HS ELIJAH Rx#:[id number] Oral 590 0 Output: Urine 600 1000 Other: Voiding Method Indwelling Catheter Indwelling Catheter Indwelling Catheter # Voids 0 # Bowel Movements 0 - Exam Left lower extremity: No obvious open lesions are visualized throughout the extremity, there is no areas of erythema. Well-healed incision over the anterior aspect of the knee No tenderness with palpation is noted to the proximal femur, knee, lower leg, foot or ankle Plantar flexion, dorsiflexion, EHL, FHL are intact. Active extension and flexion are intact at the knee, no pain is reproduced. Patient is able to straight leg raise with minimal difficulty. Logroll maneuver along with hip flexion with internal and external rotation of the hip reproduces no pain. Strength testing of the extremity reveals generalized weakness due to age and medical state, no obvious focal deficits are appreciated Sensation to light touch throughout the extremity is intact Skin is warm to touch Gen. orthopedic exam: No point tenderness is reproduced throughout the bilateral upper extremities, range of motion of the bilateral upper extremities intact in all major muscle groups, no focal deficits appreciated No point tenderness is reproduced throughout the right lower extremity. Range of motion in all major muscle groups of the right lower extremity, no focal deficits. Logroll maneuver reproduces no pain in the groin, negative straight leg raise - Labs CBC & Chem 7: 04/30/23 05:51 04/30/23 05:51 Labs: Abnormal Lab Results - Last 24 Hours (Table) 04/29/23 04/29/23 04/29/23 Range/Units 11:40 11:40 18:04 WBC (4.50-10.00) X 10*3/uL RBC (4.10-5.20) X 10*6/uL MCV (80.0-97.0) FL RDW (11.5-14.5) % Plt Count 70 L (150-450) k/uL MPV (9.5-12.2) FL Neutrophils # (1.80-7.70) X 10*3/uL Monocytes # (0.20-1.00) X 10*3/uL Eosinophils # (0.04-0.35) X 10*3/uL Basophils # (0.00-0.10) X 10*3/uL Immature Plt Fraction (1.1-6.1) % Acanthocytes (Spur) Sodium (135-145) mmol/L Carbon Dioxide (21.6-31.8) mmol/L BUN (9.0-27.0) mg/dL Est GFR (CKD-EPI) (>=60) BUN/Creatinine Ratio (12.00-20.00) Ratio Glucose (70-110) mg/dL POC Glucose (mg/dL) 311 H (70-110) mg/dL Hemoglobin A1c (<=6.0) % Vitamin B12 1319.0 H (200.0-944.0) pg/mL 04/29/23 04/30/23 04/30/23 Range/Units 20:22 05:51 05:51 WBC 21.82 H (4.50-10.00) X 10*3/uL RBC 3.88 L (4.10-5.20) X 10*6/uL MCV 100.0 H (80.0-97.0) FL RDW 14.6 H (11.5-14.5) % Plt Count 61 L (150-450) k/uL MPV 12.6 H (9.5-12.2) FL Neutrophils # 18.04 H (1.80-7.70) X 10*3/uL Monocytes # 1.58 H (0.20-1.00) X 10*3/uL Eosinophils # 0.02 L (0.04-0.35) X 10*3/uL Basophils # 0.11 H (0.00-0.10) X 10*3/uL Immature Plt Fraction 7.6 H (1.1-6.1) % Acanthocytes (Spur) 2+ A Sodium (135-145) mmol/L Carbon Dioxide (21.6-31.8) mmol/L BUN (9.0-27.0) mg/dL Est GFR (CKD-EPI) (>=60) BUN/Creatinine Ratio (12.00-20.00) Ratio Glucose (70-110) mg/dL POC Glucose (mg/dL) 372 H (70-110) mg/dL Hemoglobin A1c 7.5 H (<=6.0) % Vitamin B12 (200.0-944.0) pg/mL 04/30/23 04/30/23 04/30/23 Range/Units 05:51 07:20 12:44 WBC (4.50-10.00) X 10*3/uL RBC (4.10-5.20) X 10*6/uL MCV (80.0-97.0) FL RDW (11.5-14.5) % Plt Count (150-450) k/uL MPV (9.5-12.2) FL Neutrophils # (1.80-7.70) X 10*3/uL Monocytes # (0.20-1.00) X 10*3/uL Eosinophils # (0.04-0.35) X 10*3/uL Basophils # (0.00-0.10) X 10*3/uL Immature Plt Fraction (1.1-6.1) % Acanthocytes (Spur) Sodium 134 L (135-145) mmol/L Carbon Dioxide 20.8 L (21.6-31.8) mmol/L BUN 62.1 H (9.0-27.0) mg/dL Est GFR (CKD-EPI) 48 L (>=60) BUN/Creatinine Ratio 56.45 H (12.00-20.00) Ratio Glucose 216 H (70-110) mg/dL POC Glucose (mg/dL) 182 H 228 H (70-110) mg/dL Hemoglobin A1c (<=6.0) % Vitamin B12 (200.0-944.0) pg/mL Microbiology - Last 24 Hours (Table) 04/28/23 21:45 Blood Culture Gram Stain - Preliminary Blood Assessment and Plan Assessment: Left hip pain Bilateral hip osteoarthritis Left SI joint osteoarthritis Multiple left lower extremity muscle strains Leukocytosis Multiple medical comorbidities Plan: I was able to discuss the case, this including both physical exam findings and imaging studies my attending Dr. Andres. No emergent orthopedic surgical intervention is recommended at this time MRI of the pelvis images and reports were reviewed, please see report for further description. Significant muscle edema is noted in multiple muscles thro ughout the left lower extremity mainly surrounding the hip. Osteoarthritic changes were again noted the bilateral hips along with the left SI joint. Considering a remote fall for this patient with her MRI findings. Very little concern for septic arthropathy of the left hip at this time, pelvic MRI demonstrates no acute abscess formation either. Recommending aggressive physical therapy with weightbearing as tolerated with walker. Pain control, recommended use of Tylenol or NSAIDs. Even a low-dose narcotic may help with patient's symptoms initially. Avoid stronger narcotics to prevent confusion DVT prophylaxis per primary medical service Orthopedically patient remained stable at this time, please contact her service with any further questions
--- NOTE | 2023-04-30 15:09 | P.PN ---
Subjective Progress Note Date: 04/30/23 I am following-up with patient and she is accompanied with her daughter and son who patient feels she is doing well. Her family members agree her confusion has resolved. Denies of any neurological issues. It seems she was started on steroids for her hip pain. Objective - Vital Signs Vital signs: Vital Signs Temp 98.3 F 04/30/23 13:44 Pulse 65 04/30/23 13:44 Resp 20 04/30/23 13:44 BP 160/83 04/30/23 13:44 Pulse Ox 94 L 04/30/23 13:44 FiO2 Intake & Output 04/29/23 04/30/23 04/30/23 18:59 06:59 18:59 Intake Total 50 590 0 Output Total 600 1000 Balance -550 -410 0 Weight 68.039 kg Intake: Intake, IV Titration 50 Amount cefTRIAXone 2 gm In 50 Sodium Chloride 0.9% 50 ml @ 100 mls/hr IVPB HS ELIJAH Rx#:[id number] Oral 590 0 Output: Urine 600 1000 Other: Voiding Method Indwelling Catheter Indwelling Catheter Indwelling Catheter # Voids 0 # Bowel Movements 0 - Exam GENERAL: The patient is lying in bed and is not in acute distress. NEUROLOGICAL: Higher mental function: The patient is awake, alert, oriented to self, place and time. Patient is following simple commands. Patient correctly named objects such as a pen and watch glasses. No aphasia and no neglect. Cranial nerves: The pupils are round, equal and reactive to light. Visual valdez are full to confrontation throughout. Extraocular movement is intact no nystagmus is noted. Facial sensation is normal to touch throughout. The facial strength is normal throughout. Hearing is mildly to moderately decreased bilaterally to hand rub. Tongue is midline and moved [id number] without any difficulty. No dysarthria is noted. Shoulder shrug is normal bilaterally. Motor: The strength is lifting all extremities above gravity equally and no focality. Patient has significant arthtitis changes of the hands and feet. Normal tone and bulk. Has edema in lower distal extremities. Cerebellum: Normal finger to nose bilaterally. Has subtle tremor at end of action. Sensation: Sensation is normal to touch throughout. Reflexes (right/left): 1+ throughout. Plantars are mute bilaterally. Some other workup during this hospital visit consisted of: Patient glucose has been in the range of 200s to 300s. Sodium is 134, calcium 10.0 Plasma lactic acid vein is 1.6. Vitamin B12: 1319 Folate 15.9 Ammonia <9 Urine drug screen was not detected. Routine EEG: Is abnormal. The background slowing is suggestive of mild to moderate encephalopathy. Otherwise, there is no focal slowing, epileptiform discharge or seizure on the EEG. CT Brain: Is reported as mild cerebral atrophy. No acute intracranial abnormality seen. Similar anterior soft tissue extension within right side of sella as compared to 10/20/20 suggest a chronic benign etiology. Query any previous surgical intervention here. - Labs CBC & Chem 7: 04/30/23 05:51 04/30/23 05:51 Labs: Abnormal Lab Results - Last 24 Hours (Table) 04/29/23 04/29/23 04/29/23 Range/Units 11:40 18:04 20:22 WBC (4.50-10.00) X 10*3/uL RBC (4.10-5.20) X 10*6/uL MCV (80.0-97.0) FL RDW (11.5-14.5) % Plt Count (140-440) X 10*3/uL MPV (9.5-12.2) FL Neutrophils # (1.80-7.70) X 10*3/uL Monocytes # (0.20-1.00) X 10*3/uL Eosinophils # (0.04-0.35) X 10*3/uL Basophils # (0.00-0.10) X 10*3/uL Immature Plt Fraction (1.1-6.1) % Acanthocytes (Spur) Sodium (135-145) mmol/L Carbon Dioxide (21.6-31.8) mmol/L BUN (9.0-27.0) mg/dL Est GFR (CKD-EPI) (>=60) BUN/Creatinine Ratio (12.00-20.00) Ratio Glucose (70-110) mg/dL POC Glucose (mg/dL) 311 H 372 H (70-110) mg/dL Hemoglobin A1c (<=6.0) % Vitamin B12 1319.0 H (200.0-944.0) pg/mL 04/30/23 04/30/23 04/30/23 Range/Units 05:51 05:51 05:51 WBC 21.82 H (4.50-10.00) X 10*3/uL RBC 3.88 L (4.10-5.20) X 10*6/uL MCV 100.0 H (80.0-97.0) FL RDW 14.6 H (11.5-14.5) % Plt Count 61 L (140-440) X 10*3/uL MPV 12.6 H (9.5-12.2) FL Neutrophils # 18.04 H (1.80-7.70) X 10*3/uL Monocytes # 1.58 H (0.20-1.00) X 10*3/uL Eosinophils # 0.02 L (0.04-0.35) X 10*3/uL Basophils # 0.11 H (0.00-0.10) X 10*3/uL Immature Plt Fraction 7.6 H (1.1-6.1) % Acanthocytes (Spur) 2+ A Sodium 134 L (135-145) mmol/L Carbon Dioxide 20.8 L (21.6-31.8) mmol/L BUN 62.1 H (9.0-27.0) mg/dL Est GFR (CKD-EPI) 48 L (>=60) BUN/Creatinine Ratio 56.45 H (12.00-20.00) Ratio Glucose 216 H (70-110) mg/dL POC Glucose (mg/dL) (70-110) mg/dL Hemoglobin A1c 7.5 H (<=6.0) % Vitamin B12 (200.0-944.0) pg/mL 04/30/23 04/30/23 Range/Units 07:20 12:44 WBC (4.50-10.00) X 10*3/uL RBC (4.10-5.20) X 10*6/uL MCV (80.0-97.0) FL RDW (11.5-14.5) % Plt Count (140-440) X 10*3/uL MPV (9.5-12.2) FL Neutrophils # (1.80-7.70) X 10*3/uL Monocytes # (0.20-1.00) X 10*3/uL Eosinophils # (0.04-0.35) X 10*3/uL Basophils # (0.00-0.10) X 10*3/uL Immature Plt Fraction (1.1-6.1) % Acanthocytes (Spur) Sodium (135-145) mmol/L Carbon Dioxide (21.6-31.8) mmol/L BUN (9.0-27.0) mg/dL Est GFR (CKD-EPI) (>=60) BUN/Creatinine Ratio (12.00-20.00) Ratio Glucose (70-110) mg/dL POC Glucose (mg/dL) 182 H 228 H (70-110) mg/dL Hemoglobin A1c (<=6.0) % Vitamin B12 (200.0-944.0) pg/mL Microbiology - Last 24 Hours (Table) 04/28/23 21:45 Blood Culture Gram Stain - Preliminary Blood Assessment and Plan Assessment: This is an 88-year-old woman with history of rheumatoid arthritis who was recently the been given steroids and had the recent confusion but that her confusion has resolved. He is having left hip pain. Encephalopathy likely due to underlying medication (steroids use). Mentation improved. Left hip pain Underlying Rheumatoid arthritis and seems as severe Plan: CT Brain: Is reported as mild cerebral atrophy. No acute intracranial abnorm ality seen. Similar anterior soft tissue extension within right side of sella as compared to 10/20/20 suggest a chronic benign etiology. Query any previous surgical intervention here. I will obtain MRI Brain w/ and w/o since not being discharged but if we consider it as outpatient. Patient had a recent TSH on 04/18/2023 which was 5.610, the free T4 was 1.20. We'll defer the management to the primary team. Orthopedic surgery team is on board . Defer the rest of the medical management to primary team Plan discussed with the patient, her children who are at bedside and her nurse. Time with Patient: Less than 30
[2023-04-30 17:38] LABS: Glucose,Whole Blood 184 mg/dL (70-110)
--- NOTE | 2023-04-30 19:14 | P.PN ---
Subjective Progress Note Date: 04/30/23 H&P Date: 04/29/23 Chief Complaint: Altered mental status, This is an 88-year-old female with past medical history significant for CAD with prior CABG, persistent atrial fibrillation anticoagulated on Eliquis, hypertension,hyperlipidemia, diabetes mellitus, COVID, recently completed Lexiscan stress test on 04/21/2023 that failed to report reversible ischemia ,inconclusive EKG part and stress test due to left bundle branch block. Echo reported EF 50-55%, moderate mitral regurgitation ,moderate bioprosthetic valve stenosis with evaluation of prosthetic valve stenosis [facility]LE recommended for outpatient, pulmonary hypertension, admitted with altered mental [id number], minimal activity-normally ambulates with walker, complaining of left hip pain upon standing. Denies numbness, tingling . Denies any fall or trauma. New-onset urinary incontinence, UA negative. Toxicology screen negative. Denies nausea vomiting or diarrhea. Denies abdominal pain. Denies chest pain, palpitations or shortness of breath. Denies lightheadedness, dizziness or focal deficits. Patient also reports she not been eating much. BUN elevated on admission in the 80s with creatinine near baseline 1.38. Afebrile, T-max 99.6, lactic acid 1.6, WBC 21.1, 22.4-patient had recently completed a Medrol Dosepak prescribed by PCP last week for possible bursitis. Bilateral Hips CT reported no acute Fractures. Chest x-ray. No acute pulmonary process. Blood sugars in the 300s, received a regular breakfast tray. On 04/30/2023 pelvic MRI pending. No hip pain at rest. Denies chest pain, palpitations or shortness of breath. Lantus initiated yesterday, blood sugars improving. Neuro workup in progress .EEG performed yesterday, reported abnormal, background slowing suggestive of mild to moderate encephalopathy otherwise no focal slowing,epileptiform discharge or seizure on EEG. Brain CT reported similar anterior soft tissue extension within the right side of the sella compared to 10/20/2020 suggesting a chronic benign etiology. Brain MRI pending. Afebrile, WBC decreased to 21.8 to, MCV decreased ,100. Renal function improving, BUN 62, creatinine 1.1. Preliminary blood cultures reporting gram-positive cocci in clusters,pharmacy reporting staph Lugdunesis. Objective - Vital Signs Vital signs: Vital Signs Temp 98.3 F 04/30/23 13:44 Pulse 65 04/30/23 13:44 Resp 20 04/30/23 13:44 BP 160/83 04/30/23 13:44 Pulse Ox 94 L 04/30/23 13:44 FiO2 Intake & Output 04/29/23 04/30/23 04/30/23 18:59 06:59 18:59 Intake Total 50 590 100 Output Total 600 1000 1000 Balance -550 -410 -900 Weight 68.039 kg Intake: Intake, IV Titration 50 Amount cefTRIAXone 2 gm In 50 Sodium Chloride 0.9% 50 ml @ 100 mls/hr IVPB HS ELIJAH Rx#:[id number] Oral 590 100 Output: Urine 600 1000 1000 Other: Voiding Method Indwelling Catheter Indwelling Catheter Indwelling Catheter # Voids 0 # Bowel Movements 0 - Exam GENERAL: The patient is pleasant, alert and oriented x3, Well developed, well nourished. Elderly-appearing, sitting up in bed, NAD. HEENT: Normocephalic, Pupils are round and equally reacting to light. EOMI. no scleral icterus. No conjunctival pallor. CARDIOVASCULAR: S1 and S2 muffled, irregular PULMONARY: Unlabored, equal air entry .Breath sounds clear bilaterally with no wheezing or rhonchi noted. ABDOMEN: soft. Nontender, non-distended, normoactive bowel sounds. No palpable organomegaly. EXTREMITIES: Small left thigh bruising,Small leftNo cyanosis, clubbing, or pedal edema. NEUROLOGICAL: Gross neurological examination did not reveal any focal deficits. SKIN: No rashes. Warm and dry. - Labs CBC & Chem 7: 04/30/23 05:51 04/30/23 05:51 Labs: Abnormal Lab Results - Last 24 Hours (Table) 04/29/23 04/30/23 04/30/23 Range/Units 20:22 05:51 05:51 WBC 21.82 H (4.50-10.00) X 10*3/uL RBC 3.88 L (4.10-5.20) X 10*6/uL MCV 100.0 H (80.0-97.0) FL RDW 14.6 H (11.5-14.5) % Plt Count 61 L (140-440) X 10*3/uL MPV 12.6 H (9.5-12.2) FL Neutrophils # 18.04 H (1.80-7.70) X 10*3/uL Monocytes # 1.58 H (0.20-1.00) X 10*3/uL Eosinophils # 0.02 L (0.04-0.35) X 10*3/uL Basophils # 0.11 H (0.00-0.10) X 10*3/uL Immature Plt Fraction 7.6 H (1.1-6.1) % Acanthocytes (Spur) 2+ A Sodium (135-145) mmol/L Carbon Dioxide (21.6-31.8) mmol/L BUN (9.0-27.0) mg/dL Est GFR (CKD-EPI) (>=60) BUN/Creatinine Ratio (12.00-20.00) Ratio Glucose (70-110) mg/dL POC Glucose (mg/dL) 372 H (70-110) mg/dL Hemoglobin A1c 7.5 H (<=6.0) % 04/30/23 04/30/23 04/30/23 Range/Units 05:51 07:20 12:44 WBC (4.50-10.00) X 10*3/uL RBC (4.10-5.20) X 10*6/uL MCV (80.0-97.0) FL RDW (11.5-14.5) % Plt Count (140-440) X 10*3/uL MPV (9.5-12.2) FL Neutrophils # (1.80-7.70) X 10*3/uL Monocytes # (0.20-1.00) X 10*3/uL Eosinophils # (0.04-0.35) X 10*3/uL Basophils # (0.00-0.10) X 10*3/uL Immature Plt Fraction (1.1-6.1) % Acanthocytes (Spur) Sodium 134 L (135-145) mmol/L Carbon Dioxide 20.8 L (21.6-31.8) mmol/L BUN 62.1 H (9.0-27.0) mg/dL Est GFR (CKD-EPI) 48 L (>=60) BUN/Creatinine Ratio 56.45 H (12.00-20.00) Ratio Glucose 216 H (70-110) mg/dL POC Glucose (mg/dL) 182 H 228 H (70-110) mg/dL Hemoglobin A1c (<=6.0) % 04/30/23 Range/Units 17:36 WBC (4.50-10.00) X 10*3/uL RBC (4.10-5.20) X 10*6/uL MCV (80.0-97.0) FL RDW (11.5-14.5) % Plt Count (140-440) X 10*3/uL MPV (9.5-12.2) FL Neutrophils # (1.80-7.70) X 10*3/uL Monocytes # (0.20-1.00) X 10*3/uL Eosinophils # (0.04-0.35) X 10*3/uL Basophils # (0.00-0.10) X 10*3/uL Immature Plt Fraction (1.1-6.1) % Acanthocytes (Spur) Sodium (135-145) mmol/L Carbon Dioxide (21.6-31.8) mmol/L BUN (9.0-27.0) mg/dL Est GFR (CKD-EPI) (>=60) BUN/Creatinine Ratio (12.00-20.00) Ratio Glucose (70-110) mg/dL POC Glucose (mg/dL) 184 H (70-110) mg/dL Hemoglobin A1c (<=6.0) % Microbiology - Last 24 Hours (Table) 04/28/23 21:45 Blood Culture Gram Stain - Preliminary Blood Assessment and Plan Assessment: Left hip pain worsened with standing, in a patient with history of osteoarthritis CT reporting no acute fractures of bilateral hips, MRI pending Mental status changes with confusion prior to admission, metabolic encephalopathy secondary to potential steroids, resolved Leukocytosis in a patient who recently completed a Medrol Dosepak secondary to potential bursitis Bacteremia, pharmacy reporting staph Lugdunesis. Chronic Atrial fibrillation, controlled ventricular rate Chronic CHF, systolic dysfunction CAD, history of CABG Moderate bioprosthetic valve stenosis, further evaluation outpatient via [facility] as per cardiology. Hypertension Hyperlipidemia CKD III DM II Hypothyroidism Gastroesophageal reflux disease Plan: Continue on current medication regime ,monitoring and symptomatic treatment. Bacteremia, pharmacy reporting staph Lugdunesis and recommending change of antibiotics to ceftezolin. Antibiotics adjusted/ ID consulted secondary to bacteremia. HS Lantus increased , close monitoring of blood sugars.anticoagulated on eliquis. Pelvic MRI pending/review as per orthopedic surgery with recommendations pending. PT The impression and plan of care has been dictated as directed. : I performed a history and examination of this patient, discussed the same with the dictator. I agree with the dictator's note ,documented as a scribe. Any additional findings or plans will be noted.
[2023-04-30] MEDS: FOLIC ACID-VIT B COMPLEX-VIT C 1 CAP PO SCH (21:33)
[2023-04-30] MEDS: ATORVASTATIN 20 MG TAB PO SCH (21:35)
[2023-05-01] MEDS: LEVOTHYROXINE 50 MCG TAB PO SCH (06:25)
[2023-05-01 08:11] LABS: Glucose,Whole Blood 115 mg/dL (70-110)
[2023-05-01] MEDS: INSULIN ASPART (NovoLOG) 100 UNIT/ML VIAL SQ SCH ×4 (08:16→22:47)
[2023-05-01] MEDS: APIXABAN 2.5 MG TABLET PO SCH ×2 (08:33→22:47)
[2023-05-01] MEDS: ASPIRIN 81 MG PO SCH (08:33)
[2023-05-01] MEDS: hydrALAZINE HCL 25 MG TAB PO SCH ×3 (08:33→22:46)
[2023-05-01] MEDS: PANTOPRAZOLE 40 MG TABLET PO SCH (08:33)
[2023-05-01] MEDS: METOPROLOL TARTRATE 25 MG TAB PO SCH ×2 (08:33→22:47)
[2023-05-01] MEDS: CHOLECALCIFEROL 25 MCG (1000 IU) TABLET PO SCH (08:33)
[2023-05-01] MEDS: INSULIN DETEMIR (LEVEMIR) 100 UNIT/ML SYR SQ SCH ×2 (08:34→22:47)
[2023-05-01] MEDS ORDERED: LORazepam 2 MG/ML INJ IV PRN (08:40)
[2023-05-01 11:41] LABS: BUN/Creat Ratio 38.83 Ratio (12.00-20.00); Blood Urea Nitrogen 46.6 mg/dL (9.0-27.0); Calcium 9.6 mg/dL (8.7-10.3); Chloride 103 mmol/L (96-109); Glucose 117 mg/dL (70-110); Potassium 4.4 mmol/L (3.5-5.5); Sodium 136 mmol/L (135-145)
[2023-05-01 12:08] LABS: Glucose,Whole Blood 135 mg/dL (70-110)
[2023-05-01 12:41] LABS: Basophils # (A) 0.09 X 10*3/uL (0.00-0.10); Basophils % (A) 0.5 %; Eosinophils # (A) 0.13 X 10*3/uL (0.04-0.35); Eosinophils % (A) 0.7 %; HCT 39.5 % (37.2-46.3); HGB 12.9 d/dL (12.0-15.0); Lymphocytes # (A) 1.63 X 10*3/uL (0.90-5.00); Lymphocytes % (A) 8.3 %; MCH 32.2 pg (27.0-32.0); MCHC 32.7 d/dL (32.0-37.0); MCV 98.5 FL (80.0-97.0); Monocytes # (A) 1.65 X 10*3/uL (0.20-1.00); Monocytes % (A) 8.4 %; NRBC Per 100 WBC 0 X 10*3/uL (0.00-0.01); Neutrophils # (A) 15.78 X 10*3/uL (1.80-7.70); Platelet Count 87 X 10*3/uL (140-440); RBC 4.01 X 10*6/uL (4.10-5.20); RBC Morphology Normal (Normal); RDW 14.6 % (11.5-14.5); WBC 19.69 X 10*3/uL (4.50-10.00)
[2023-05-01] MEDS: ACETAMINOPHEN TAB 325 MG TAB PO PRN (12:57)
--- NOTE | 2023-05-01 13:21 | P.PN ---
Subjective Progress Note Date: 05/01/23 I am following-up with patient and she feels she continues to be doing well from neurological perspective. No new neurological issues. No further confusions. Objective - Vital Signs Vital signs: Vital Signs Temp 97.4 F L 05/01/23 11:45 Pulse 60 05/01/23 11:45 Resp 18 05/01/23 11:45 BP 158/78 05/01/23 11:45 Pulse Ox 99 05/01/23 11:45 FiO2 Intake & Output 04/30/23 05/01/23 05/01/23 18:59 06:59 18:59 Intake Total 270 590 Output Total 4833 253 5307 Balance -730 90 -1200 Intake: Intake, IV Titration 50 Amount cefTRIAXone 2 gm In 50 Sodium Chloride 0.9% 50 ml @ 100 mls/hr IVPB HS ELIJAH Rx#:[id number] Oral 220 590 Output: Urine 2486 709 6529 Other: Voiding Method Indwelling Catheter Indwelling Catheter # Voids 0 # Bowel Movements 0 - Labs CBC & Chem 7: 05/01/23 07:48 05/01/23 07:48 Labs: Abnormal Lab Results - Last 24 Hours (Table) 04/30/23 05/01/23 05/01/23 Range/Units 17:36 07:48 07:48 WBC 19.69 H (4.50-10.00) X 10*3/uL RBC 4.01 L (4.10-5.20) X 10*6/uL MCV 98.5 H (80.0-97.0) FL MCH 32.2 H (27.0-32.0) pg RDW 14.6 H (11.5-14.5) % Plt Count 87 L (140-440) X 10*3/uL Neutrophils # 15.78 H (1.80-7.70) X 10*3/uL Monocytes # 1.65 H (0.20-1.00) X 10*3/uL BUN 46.6 H (9.0-27.0) mg/dL Est GFR (CKD-EPI) 44 L (>=60) BUN/Creatinine Ratio 38.83 H (12.00-20.00) Ratio Glucose 117 H (70-110) mg/dL POC Glucose (mg/dL) 184 H (70-110) mg/dL 05/01/23 05/01/23 Range/Units 08:09 12:07 WBC (4.50-10.00) X 10*3/uL RBC (4.10-5.20) X 10*6/uL MCV (80.0-97.0) FL MCH (27.0-32.0) pg RDW (11.5-14.5) % Plt Count (140-440) X 10*3/uL Neutrophils # (1.80-7.70) X 10*3/uL Monocytes # (0.20-1.00) X 10*3/uL BUN (9.0-27.0) mg/dL Est GFR (CKD-EPI) (>=60) BUN/Creatinine Ratio (12.00-20.00) Ratio Glucose (70-110) mg/dL POC Glucose (mg/dL) 115 H 135 H (70-110) mg/dL Microbiology - Last 24 Hours (Table) 04/28/23 21:45 Blood Culture Gram Stain - Final Blood Blood Culture - Final Staphylococcus lugdunenisis Assessment and Plan Assessment: This is an 88-year-old woman with history of rheumatoid arthritis who was recently the been given steroids and had the recent confusion but that her confusion has resolved. He is having left hip pain. Encephalopathy likely due to underlying medication (steroids use). Mentation improved. Left hip pain Underlying Rheumatoid arthritis and seems as severe Plan: CT Brain: Is reported as mild cerebral atrophy. No acute intracranial abnormality seen. Similar anterior soft tissue extension within right side of sella as compared to 10/20/20 suggest a chronic benign etiology. Query any previous surgical intervention here. I spoke with family and unaware of surgery. I will obtain MRI Brain w/ and w/o since not being discharged but if being discharged then can be consider it as outpatient. Patient had a recent TSH on 04/18/2023 which was 5.610, the free T4 was 1.20. We'll defer the management to the primary team. Orthopedic surgery team is on board . Defer the rest of the medical management to primary team Plan discussed with the patient and her [id number]-mi-law. If MRI is negative then no further neurological work-up. Dr. Duncan will start neurology service tomorrow A.M. then Dr. No will resume neurology service. Time with Patient: Less than 30
--- NOTE | 2023-05-01 16:01 | P.PN ---
Subjective Progress Note Date: 05/01/23 H&P Date: 04/29/23 Chief Complaint: Altered mental status, This is an 88-year-old female with past medical history significant for CAD with prior CABG, persistent atrial fibrillation anticoagulated on Eliquis, hypertension,hyperlipidemia, diabetes mellitus, COVID, recently completed Lexiscan stress test on 04/21/2023 that failed to report reversible ischemia ,inconclusive EKG part and stress test due to left bundle branch block. Echo reported EF 50-55%, moderate mitral regurgitation ,moderate bioprosthetic valve stenosis with evaluation of prosthetic valve stenosis MARIELLE recommended for outpatient, pulmonary hypertension, admitted with altered mental [id number], minimal activity-normally ambulates with walker, comp laining of left hip pain upon standing. Denies numbness, tingling . Denies any fall or trauma. New-onset urinary incontinence, UA negative. Toxicology screen negative. Denies nausea vomiting or diarrhea. Denies abdominal pain. Denies chest pain, palpitations or shortness of breath. Denies lightheadedness, dizziness or focal deficits. Patient also reports she not been eating much. BUN elevated on admission in the 80s with creatinine near baseline 1.38. Afebrile, T-max 99.6, lactic acid 1.6, WBC 21.1, 22.4-patient had recently completed a Medrol Dosepak prescribed by PCP last week for possible bursitis. Bilateral Hips CT reported no acute Fractures. Chest x-ray. No acute pulmonary process. Blood sugars in the 300s, received a regular breakfast tray. 04/30/2023 pelvic MRI pending. No hip pain at rest. Denies chest pain, palpitations or shortness of breath. Lantus initiated yesterday, blood sugars improving. Neuro workup in progress .EEG performed yesterday, reported ab normal, background slowing suggestive of mild to moderate encephalopathy otherwise no focal slowing,epileptiform discharge or seizure on EEG. Brain CT reported similar anterior soft tissue extension within the right side of the sella compared to 10/20/2020 suggesting a chronic benign etiology. Brain MRI pending. Afebrile, WBC decreased to 21.8 to, MCV decreased ,100. Renal function improving, BUN 62, creatinine 1.1. Preliminary blood cultures reporting gram-positive cocci in clusters,pharmacy reporting staph Lugdunesis. 05/01/2023 mild lower extremity discomfort. Brain MRI tomorrow. BUN decreasing to 46.6, creatinine 1.2. Lantus increased yesterday, Blood sugars better controlled. Antibiotics adjusted yesterday to ceftazolin. Afebrile, WBC continues trending down, 19.69. Denies chestpain, palpitations or shortness of breath. Maintaining O2 sats in the high 90s on room air. Objective - Vital Signs Vital signs: Vital Signs Temp 97.4 F L 05/01/23 11:45 Pulse 60 05/01/23 11:45 Resp 18 05/01/23 11:45 BP 158/78 05/01/23 11:45 Pulse Ox 99 05/01/23 11:45 FiO2 Intake & Output 04/30/23 05/01/23 05/01/23 18:59 06:59 18:59 Intake Total 270 590 Output Total 8774 384 5496 Balance -730 90 -1200 Intake: Intake, IV Titration 50 Amount cefTRIAXone 2 gm In 50 Sodium Chloride 0.9% 50 ml @ 100 mls/hr IVPB [facility] Rx#:[id number] Oral 220 590 Output: Urine 1495 544 4351 Other: Voiding Method Indwelling Catheter Indwelling Catheter Indwelling Catheter # Voids 0 # Bowel Movements 0 - Exam GENERAL:alert and oriented x3, sitting up in bed, NAD. HEENT: Normocephalic, Pupils are round and equally reacting to light. EOMI. no scleral icterus. No conjunctival pallor. CARDIOVASCULAR: S1 and S2 muffled, irregular PULMONARY: Unlabored, equal air entry .CTA. ABDOMEN: soft. Nontender, non-distended, normoactive bowel sounds. No palpable organomegaly. EXTREMITIES: No cyanosis, clubbing, or pedal edema. NEUROLOGICAL: Gross neurological examination did not reveal any focal deficits. SKIN: No rashes. Warm and dry. Microbiology 04/28/23 21:45 Blood Blood Culture Gram Stain - Final 04/28/23 21:45 Blood Blood Culture - Final Staphylococcus lugdunenisis - Labs CBC & Chem 7: 05/01/23 07:48 05/01/23 07:48 Labs: Abnormal Lab Results - Last 24 Hours (Table) 04/30/23 05/01/23 05/01/23 Range/Units 17:36 07:48 07:48 WBC 19.69 H (4.50-10.00) X 10*3/uL RBC 4.01 L (4.10-5.20) X 10*6/uL MCV 98.5 H (80.0-97.0) FL MCH 32.2 H (27.0-32.0) pg RDW 14.6 H (11.5-14.5) % Plt Count 87 L (140-440) X 10*3/uL Neutrophils # 15.78 H (1.80-7.70) X 10*3/uL Monocytes # 1.65 H (0.20-1.00) X 10*3/uL BUN 46.6 H (9.0-27.0) mg/dL Est GFR (CKD-EPI) 44 L (>=60) BUN/Creatinine Ratio 38.83 H (12.00-20.00) Ratio Glucose 117 H (70-110) mg/dL POC Glucose (mg/dL) 184 H (70-110) mg/dL 05/01/23 05/01/23 Range/Units 08:09 12:07 WBC (4.50-10.00) X 10*3/uL RBC (4.10-5.20) X 10*6/uL MCV (80.0-97.0) FL MCH (27.0-32.0) pg RDW (11.5-14.5) % Plt Count (140-440) X 10*3/uL Neutrophils # (1.80-7.70) X 10*3/uL Monocytes # (0.20-1.00) X 10*3/uL BUN (9.0-27.0) mg/dL Est GFR (CKD-EPI) (>=60) BUN/Creatinine Ratio (12.00-20.00) Ratio Glucose (70-110) mg/dL POC Glucose (mg/dL) 115 H 135 H (70-110) mg/dL Microbiology - Last 24 Hours (Table) 04/28/23 21:45 Blood Culture Gram Stain - Final Blood Blood Culture - Final Staphylococcus lugdunenisis Assessment and Plan Assessment: Left hip pain worsened with standing, in a patient with history of osteoarthritis CT reporting no acute fractures of bilateral hips, pelvis MRI reported no acute fractures ,extensive muscle edema throughout multiple muscles of the left lower extremity mainly surrounding the hip, moderate bilateral hip OA. Mental status changes with confusion prior to admission, metabolic encephalopathy secondary to potential steroids, resolved Leukocytosis in a patient who recently completed a Medrol Dosepak secondary to potential bursitis Bacteremia, pharmacy reporting staph Lugdunenesis. Chronic Atrial fibrillation, controlled ventricular rate Chronic CHF, systolic dysfunction CAD, history of CABG Moderate bioprosthetic valve stenosis, further evaluation outpatient via MARIELLE as per cardiology. Hypertension Hyperlipidemia CKD III DM II Hypothyroidism Gastroesophageal reflux disease Plan: Continue on current medication regime ,monitoring and symptomatic treatment. Tylenol for pain. Antibiotics as per ID. Close monitoring of blood sugars. Bring MRI pending. PT. [facility] rehab at discharge. The impression and plan of care has been dictated as directed. : I performed a history and examination of this patient, discussed the same with the dictator. I agree with the dictator's note ,documented as a scribe. Any additional findings or plans will be noted.
[2023-05-01 17:27] LABS: Glucose,Whole Blood 202 mg/dL (70-110)
[2023-05-01 20:58] LABS: Glucose,Whole Blood 246 mg/dL (70-110)
--- NOTE | 2023-05-01 22:44 | P.CONS ---
History of Present Illness - Reason for Consult Consult date: 05/01/23 Positive blood culture Requesting physician: Bonita House - Chief Complaint Weakness and left hip pain x few days - History of Present Illness Patient is a 88-year-old female with a past medical history significant for diabetes mellitus hypertension hyperlipidemia atrial fibrillation coronary artery disease presenting to the hospital 3 days ago for evaluation of her mental status changes along with pain to the left hip area and incontinent of urine patient on presentation to the hospital was afebrile did have few low-grade fever of 99 F patient was not hypotensive or hypoxic did have vital of 21,000 which is down to 19.69 today did have elevated BUN and creatinine that are improving urine has been negative urine drug screen was negative patient did have a CT of bilateral hip that has been negative for any acute fracture did have a pelvis MRI extensive muscular edema deep to the left hip especially involving the left piriformis and left iliac muscle patient did have a blood culture which came back positive with Staphylococcus Lugduneneisis that is oxacillin sensitive patient is currently on cefazolin 1 g every 12 dosages to the kidney function infectious disease was consulted for further management of antibiotic therapy, the patient may send remains to be pain to the pelvic area describing need to be deep as well as sharp can be 10 of 10 in severity without any radiation Review of Systems Positive point and negatives has been mentioned in the HPI, complete review of systems was performed and all other systems are negative Past Medical History Past Medical History: Atrial Fibrillation, Coronary Artery Disease (CAD), Heart Failure, Diabetes Mellitus, GERD/Reflux, Hyperlipidemia, Hypertension, Osteoarthritis (OA), Renal Disease, Thyroid Disorder Additional Past Medical History / Comment(s): NIDDM type II, 07/24/17 echo with 20% EF, chronic kidney disease stage III, bilateral tinnitis, arthritis multiple joints, gout, back pain. 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 skin ca removed Past Anesthesia/Blood Transfusion Reactions: Previous Problems w/ Anesthesia Additional Past Anesthesia/Blood Transfusion Reaction / Comm: Pt states she was hypertensive after waking from D&C. Pt has clausterphobia. Smoking Status: Never smoker - Past Family History Father History Unknown: Yes Additional Family Medical History / Comment(s): pt was adopted Mother History Unknown: Yes Additional Family Medical History / Comment(s): Mother after childbirth at the age of 35yrs. Medications and Allergies Home Medications Medication Instructions Recorded Confirmed Type Levothyroxine Sodium [Synthroid] 50 mcg PO DAILY 07/21/17 04/28/23 History allopurinoL [Zyloprim] 100 mg PO DAILY 07/21/17 04/28/23 History Apixaban [Eliquis] 2.5 mg PO BID tablet 07/24/17 04/28/23 Rx Aspirin EC [Ecotrin Low Dose] 81 mg PO DAILY 07/28/17 04/28/23 History hydrALAZINE HCL [Apresoline] 25 mg PO BID #60 tab 07/28/17 04/28/23 Rx Metoprolol Tartrate [Lopressor] 25 mg PO BID #60 tab 11/25/18 04/28/23 Rx Furosemide [Lasix] 40 mg PO DAILY 10/21/20 04/28/23 History Nephro-Fabio 1 tab PO HS 10/21/20 04/28/23 History Pantoprazole [Protonix] 40 mg PO DAILY 10/21/20 04/28/23 History Simvastatin [Zocor] 40 mg PO HS 10/21/20 04/28/23 History Spironolactone [Aldactone] 25 mg PO BID 10/21/20 04/28/23 History Cholecalciferol [Vitamin D3 (25 50 mcg PO DAILY tablet 10/23/20 04/28/23 Rx Mcg = 1000 Iu)] Baclofen 10 mg PO BID PRN 04/28/23 04/28/23 History Acetaminophen Tab [Tylenol] 650 mg PO Q6HR PRN tab 05/04/23 Rx Insulin Detemir (Levemir) [Levemir] 15 unit SQ DAILY@0700 each 05/04/23 Rx ceFAZolin [Kefzol] 2 gm IVP Q8HR #42 each 05/05/23 Rx Allergies Allergy/AdvReac Type Severity Reaction Status Date / Time No Known Allergies Allergy Verified 04/28/23 21:54 Physical Exam Vitals: Vital Signs Temp Pulse Resp BP Pulse Ox 05/01/23 07:22 98.6 F 65 16 174/69 100 05/01/23 02:00 98.0 F 73 16 166/83 96 04/30/23 20:00 98.0 F 73 16 147/78 100 04/30/23 13:44 98.3 F 65 20 160/83 94 L Intake and Output 04/30/23 05/01/23 05/01/23 22:59 06:59 14:59 Intake Total 270 590 Output Total 8080 115 3150 Balance -730 90 -1200 Intake: Intake, IV Titration 50 Amount cefTRIAXone 2 gm In 50 Sodium Chloride 0.9% 50 ml @ 100 mls/hr IVPB [facility] Rx#:[id number] Oral 220 590 Output: Urine 3204 725 9784 Other: Voiding Method Indwelling Catheter # Voids 0 # Bowel Movements 0 GENERAL DESCRIPTION: An elderly female lying in bed, no distress. No tachypnea or accessory muscle of respiration use. HEENT: Shows Pallor , no scleral icterus. Oral mucous membrane is dry. No pharyngeal erythema or thrush NECK: Trachea central, no thyromegaly. LUNGS: Unlabored breathing. Clear to auscultation anteriorly. HEART: S1, S2, regular rate and rhythm. No loud murmur ABDOMEN: Soft, no tenderness EXTREMITIES: No edema of feet. SKIN: No rash, no masses palpable. NEUROLOGICAL: The patient is awake, alert, oriented x3, mood and affect normal. Results CBC & Chem 7: 05/06/23 06:36 05/06/23 06:36 Labs: Abnormal Lab Results - Last 24 Hours (Table) 04/30/23 04/30/23 04/30/23 Range/Units 05:51 12:44 17:36 WBC 21.82 H (4.50-10.00) X 10*3/uL RBC 3.88 L (4.10-5.20) X 10*6/uL MCV 100.0 H (80.0-97.0) FL RDW 14.6 H (11.5-14.5) % Plt Count 61 L (140-440) X 10*3/uL MPV 12.6 H (9.5-12.2) FL Neutrophils # 18.04 H (1.80-7.70) X 10*3/uL Monocytes # 1.58 H (0.20-1.00) X 10*3/uL Eosinophils # 0.02 L (0.04-0.35) X 10*3/uL Basophils # 0.11 H (0.00-0.10) X 10*3/uL Immature Plt Fraction 7.6 H (1.1-6.1) % Acanthocytes (Spur) 2+ A BUN (9.0-27.0) mg/dL Est GFR (CKD-EPI) (>=60) BUN/Creatinine Ratio (12.00-20.00) Ratio Glucose (70-110) mg/dL POC Glucose (mg/dL) 228 H 184 H (70-110) mg/dL 05/01/23 05/01/23 Range/Units 07:48 08:09 WBC (4.50-10.00) X 10*3/uL RBC (4.10-5.20) X 10*6/uL MCV (80.0-97.0) FL RDW (11.5-14.5) % Plt Count (140-440) X 10*3/uL MPV (9.5-12.2) FL Neutrophils # (1.80-7.70) X 10*3/uL Monocytes # (0.20-1.00) X 10*3/uL Eosinophils # (0.04-0.35) X 10*3/uL Basophils # (0.00-0.10) X 10*3/uL Immature Plt Fraction (1.1-6.1) % Acanthocytes (Spur) BUN 46.6 H (9.0-27.0) mg/dL Est GFR (CKD-EPI) 44 L (>=60) BUN/Creatinine Ratio 38.83 H (12.00-20.00) Ratio Glucose 117 H (70-110) mg/dL POC Glucose (mg/dL) 115 H (70-110) mg/dL Assessment and Plan (1) Bacteremia Status: Acute Code(s): R78.81 - BACTEREMIA SNOMED Code(s): 0325405 Plan: 1patient with the Staphylococcus lugdunenisis bacteremia usually of the skin or soft tissue origin in this patient present hospital with the deep pelvic pain and did have significant abnormality on the MRI with concern for possible myositis involving the left hip area however no significant swelling redness or any open wound was noticed to the left hip site on clinical examination 2-blood cultures will be repeated document clearance of bacteremia and check inflammatory markers 3-cefazolin 1 g every 12 to continue with the dosage adjusted to the kidney function by the pharmacy We will follow on clinical condition and cultures to further adjust medication if needed Thank you for this consultation we will follow the patient along with you Dictation was produced using [employer] dictation software. please excuse any grammatical, word or spelling errors. Time with Patient: Greater than 30
[2023-05-01] MEDS: FOLIC ACID-VIT B COMPLEX-VIT C 1 CAP PO SCH (22:48)
[2023-05-01] MEDS: ATORVASTATIN 20 MG TAB PO SCH (22:48)
[2023-05-02] MEDS: LEVOTHYROXINE 50 MCG TAB PO SCH (06:09)
[2023-05-02 07:56] LABS: African American GFR (CKD) 65 (>60 ml/min/1.73 sqM); Anion Gap 7 mmol/L; Blood Urea Nitrogen 47 mg/dL (7-17); C Reactive Protein 7.4 mg/dL (<1.0); Carbon Dioxide 20 mmol/L (22-30); Chloride 103 mmol/L (98-107); Glucose 125 mg/dL (74-99); Non-African American GFR(CKD) 57 (>60 ml/min/1.73 sqM); Potassium 4.6 mmol/L (3.5-5.1); Sodium 130 mmol/L (137-145)
[2023-05-02 09:01] LABS: Glucose,Whole Blood 147 mg/dL (70-110)
[2023-05-02] MEDS: INSULIN DETEMIR (LEVEMIR) 100 UNIT/ML SYR SQ SCH ×2 (09:13→22:43)
[2023-05-02] MEDS: ACETAMINOPHEN TAB 325 MG TAB PO PRN (09:13)
[2023-05-02] MEDS: INSULIN ASPART (NovoLOG) 100 UNIT/ML VIAL SQ SCH ×4 (09:13→20:34)
[2023-05-02] MEDS: CHOLECALCIFEROL 25 MCG (1000 IU) TABLET PO SCH (09:13)
[2023-05-02] MEDS: ASPIRIN 81 MG PO SCH (09:13)
[2023-05-02] MEDS: METOPROLOL TARTRATE 25 MG TAB PO SCH ×2 (09:14→20:33)
[2023-05-02] MEDS: PANTOPRAZOLE 40 MG TABLET PO SCH (09:14)
[2023-05-02] MEDS: hydrALAZINE HCL 25 MG TAB PO SCH ×4 (09:14→23:48)
[2023-05-02] MEDS: APIXABAN 2.5 MG TABLET PO SCH ×2 (09:14→20:33)
[2023-05-02] MEDS ORDERED: LORazepam 2 MG/ML INJ IV PRN (11:41)
[2023-05-02 12:28] LABS: Glucose,Whole Blood 185 mg/dL (70-110)
--- NOTE | 2023-05-02 14:34 | P.PN ---
Subjective Progress Note Date: 05/02/23 Principal diagnosis: Bacteremia Patient is a 88-year-old female with a past medical history significant for diabetes mellitus hypertension hyperlipidemia atrial fibrillat ion coronary artery disease presenting to the hospital patient did have elevated white count low-grade fever for evaluation of her mental status changes abnormal MRI to the left hip area and did have a positive blood culture with Staphylococcus lugdunensis On today's evaluation that is 05/02/2023, the patient denies having any fever or any chills, the patient is breathing comfortably on room air no chest pain shortness of the cough no nausea vomiting no abdominal pain or any worsening pain to the left hip area. Patient did have a white count of 19.69 as of yesterday creatinine 0.9 blood culture repeat pending Objective - Vital Signs Vital signs: Vital Signs Temp 97.3 F L 05/02/23 01:59 Pulse 56 L 05/02/23 01:59 Resp 15 05/02/23 01:59 BP 156/72 05/02/23 01:59 Pulse Ox 99 05/02/23 01:59 FiO2 Intake & Output 05/01/23 05/02/23 05/02/23 18:59 06:59 18:59 Intake Total 300 Output Total 1200 675 Balance -1200 -375 Intake: Intake, IV Titration 100 Amount ceFAZolin 2 gm In Sodium 100 Chloride 0.9% 50 ml @ 100 mls/hr IVPB Q8H [facility] Rx#: [id number] Oral 200 Output: Urine 1200 675 Other: Voiding Method Indwelling Catheter Indwelling Catheter - Exam GENERAL DESCRIPTION: Elderly female lying in bed in no distress RESPIRATORY SYSTEM: Unlabored breathing , decreased breath sounds at bases HEART: S1 S2 regular rate and rhythm ,no loud murmurs ABDOMEN: Soft , no tenderness EXTREMITIES: No edema feet - Labs CBC & Chem 7: 05/01/23 07:48 05/02/23 06:13 Labs: Abnormal Lab Results - Last 24 Hours (Table) 05/01/23 05/01/23 05/01/23 Range/Units 07:48 07:48 12:07 WBC 19.69 H (4.50-10.00) X 10*3/uL RBC 4.01 L (4.10-5.20) X 10*6/uL MCV 98.5 H (80.0-97.0) FL MCH 32.2 H (27.0-32.0) pg RDW 14.6 H (11.5-14.5) % Plt Count 87 L (140-440) X 10*3/uL Neutrophils # 15.78 H (1.80-7.70) X 10*3/uL Monocytes # 1.65 H (0.20-1.00) X 10*3/uL Sodium (137-145) mmol/L Carbon Dioxide (22-30) mmol/L BUN 46.6 H (9.0-27.0) mg/dL Est GFR (CKD-EPI) 44 L (>=60) BUN/Creatinine Ratio 38.83 H (12.00-20.00) Ratio Glucose 117 H (70-110) mg/dL POC Glucose (mg/dL) 135 H (70-110) mg/dL C-Reactive Protein (<1.0) mg/dL 05/01/23 05/01/23 05/02/23 Range/Units 17:26 20:57 06:13 WBC (4.50-10.00) X 10*3/uL RBC (4.10-5.20) X 10*6/uL MCV (80.0-97.0) FL MCH (27.0-32.0) pg RDW (11.5-14.5) % Plt Count (140-440) X 10*3/uL Neutrophils # (1.80-7.70) X 10*3/uL Monocytes # (0.20-1.00) X 10*3/uL Sodium 130 L (137-145) mmol/L Carbon Dioxide 20 L (22-30) mmol/L BUN 47 H (9.0-27.0) mg/dL Est GFR (CKD-EPI) (>=60) BUN/Creatinine Ratio (12.00-20.00) Ratio Glucose 125 H (70-110) mg/dL POC Glucose (mg/dL) 202 H 246 H (70-110) mg/dL C-Reactive Protein 7.4 H (<1.0) mg/dL 05/02/23 Range/Units 09:00 WBC (4.50-10.00) X 10*3/uL RBC (4.10-5.20) X 10*6/uL MCV (80.0-97.0) FL MCH (27.0-32.0) pg RDW (11.5-14.5) % Plt Count (140-440) X 10*3/uL Neutrophils # (1.80-7.70) X 10*3/uL Monocytes # (0.20-1.00) X 10*3/uL Sodium (137-145) mmol/L Carbon Dioxide (22-30) mmol/L BUN (9.0-27.0) mg/dL Est GFR (CKD-EPI) (>=60) BUN/Creatinine Ratio (12.00-20.00) Ratio Glucose (70-110) mg/dL POC Glucose (mg/dL) 147 H (70-110) mg/dL C-Reactive Protein (<1.0) mg/dL Microbiology - Last 24 Hours (Table) 04/28/23 21:45 Blood Culture Gram Stain - Final Blood Blood Culture - Final Staphylococcus lugdunenisis Assessment and Plan (1) Bacteremia Current Visit: Yes Status: Acute Code(s): R78.81 - BACTEREMIA SNOMED Code(s): 3589417 Plan: 1patient with the Staphylococcus lugdunenisis bacteremia usually of the skin or soft tissue origin in this patient present hospital with the deep pelvic pain and did have significant abnormality on the MRI with concern for possible myositis involving the left hip area however no significant swelling redness or any open wound was noticed to the left hip site on clinical examination 2-blood cultures has been repeated document clearance of bacteremia and inflammatory markers pending 3-patient to continue with the cefazolin 2 g every 8 hours while waiting for repeat cultures to be finalized Dictation was produced using [employer] dictation software. please excuse any grammatical, word or spelling errors.
--- NOTE | 2023-05-02 16:17 | MR ---
EXAMINATION TYPE: MR brain wo/w con DATE OF EXAM: 05/02/2023 12:24 PM CLINICAL INDICATION:Female, 88 years old with history of ?soft tissue sella; PHH, AMS, Unable to ambu late COMPARISON: 04/29/2023 10/20/2020, 05/19/2012 TECHNIQUE: Multi planar, multi sequence imaging was performed through the brain including: T1, T2, In version recovery, susceptibility weighted imaging and gradient echo imaging and Diffusion weighted im aging. The patient was then given intravenous contrast and multi planar, T1 fat-saturation images wer e obtained. IV Contrast: 7 cc Gadavist FINDINGS: Mild cerebral atrophy with proportional dilation of ventricular system. Anterior soft tissue extensio n on prior CTs felt to correlate with an expanded sella, the sphenoids sinus wall does appear intact on CT imaging. Findings when comparing to prior CTs dating back to 2011. No abnormal postcontrast enh ancement. Diffusion-weighted imaging shows no evidence of restricted diffusion to suggest acute/subac [place] infarct. Intracranial arterial flow voids are maintained. Midline structures show no abnormality. Scattered foci of high T2 signal intensity are seen within the periventricular white matter. The carlos ceptibility weighted images do not reveal any evidence for micro-hemorrhage. After administration of gadolinium, no abnormal enhancement is seen. The bone marrow signal is within normal limits. Paranasal sinuses and mastoid air cells: No significant paranasal sinus disease. Visualized orbits: Bilateral aphakia. IMPRESSION: 1. The abnormal expansion of the sella seen on most recent CTs is seen dating back to 2011 and felt t o represent benign etiology likely representing a retention cyst given at at that appearance on 05/19 CT. No abnormal soft tissue enhancement. 2. No evidence of intracranial mass, acute/subacute infarct, or abnormal enhancement. 3. Nonspecific white matter changes, likely related to small vessel ischemic disease
[2023-05-02 17:43] LABS: Glucose,Whole Blood 122 mg/dL (70-110)
[2023-05-02 20:13] LABS: Glucose,Whole Blood 179 mg/dL (70-110)
[2023-05-02] MEDS: FOLIC ACID-VIT B COMPLEX-VIT C 1 CAP PO SCH (20:33)
[2023-05-02] MEDS: ATORVASTATIN 20 MG TAB PO SCH (20:33)
[2023-05-02] MEDS: SODIUM CHLORIDE 0.9% 1,000 ML IV SCH (23:30)
[2023-05-03 07:09] LABS: Glucose,Whole Blood 113 mg/dL (70-110)
[2023-05-03 07:48] LABS: African American GFR (CKD) 67 (>60 ml/min/1.73 sqM); Anion Gap 8 mmol/L; Blood Urea Nitrogen 42 mg/dL (7-17); Calcium 9.4 mg/dL (8.4-10.2); Carbon Dioxide 15 mmol/L (22-30); Chloride 108 mmol/L (98-107); Glucose 117 mg/dL (74-99); Non-African American GFR(CKD) 58 (>60 ml/min/1.73 sqM); Sodium 131 mmol/L (137-145)
[2023-05-03 07:59] LABS: Basophils # (A) 0.1 k/uL (0-0.2); Basophils % (A) 0 %; Eosinophils # (A) 0.1 k/uL (0-0.7); Eosinophils % (A) 0 %; HCT 37.6 % (34.0-46.0); HGB 12.6 gm/dL (11.4-16.0); Hypochromasia Slight; Lymphocytes # (A) 0.9 k/uL (1.0-4.8); Lymphocytes % (A) 5 %; MCHC 33.5 g/dL (31.0-37.0); MCV 104.3 fL (80.0-100.0); Macrocytosis Moderate; Mean Platelet Volume 9.5; Monocytes # (A) 0.9 k/uL (0-1.0); Monocytes % (A) 5 %; Neutrophils # (A) 15.4 k/uL (1.3-7.7); Neutrophils % (A) 87 %; RBC 3.61 m/uL (3.80-5.40); RDW 14.1 % (11.5-15.5); WBC 17.6 k/uL (3.8-10.6)
[2023-05-03] MEDS: INSULIN ASPART (NovoLOG) 100 UNIT/ML VIAL SQ SCH ×4 (08:05→22:23)
[2023-05-03] MEDS: METOPROLOL TARTRATE 25 MG TAB PO SCH ×2 (08:12→22:24)
[2023-05-03] MEDS: CHOLECALCIFEROL 25 MCG (1000 IU) TABLET PO SCH (08:12)
[2023-05-03] MEDS: APIXABAN 2.5 MG TABLET PO SCH ×2 (08:12→22:23)
[2023-05-03] MEDS: hydrALAZINE HCL 25 MG TAB PO SCH ×4 (08:12→22:23)
[2023-05-03] MEDS: LEVOTHYROXINE 50 MCG TAB PO SCH (08:12)
[2023-05-03] MEDS: ASPIRIN 81 MG PO SCH (08:12)
[2023-05-03] MEDS: INSULIN DETEMIR (LEVEMIR) 100 UNIT/ML SYR SQ SCH ×2 (08:13→22:24)
[2023-05-03] MEDS: PANTOPRAZOLE 40 MG TABLET PO SCH (08:13)
[2023-05-03 08:16] LABS: Potassium 4.9 mmol/L (3.5-5.1)
[2023-05-03] MEDS: ACETAMINOPHEN TAB 325 MG TAB PO PRN (08:21)
[2023-05-03 08:23] LABS: Platelet Count 117 k/uL (150-450)
[2023-05-03 12:16] LABS: Glucose,Whole Blood 161 mg/dL (70-110)
[2023-05-03] MEDS: SODIUM CHLORIDE 0.9% 1,000 ML IV SCH (13:00)
--- NOTE | 2023-05-03 16:04 | P.PN ---
Subjective Progress Note Date: 05/03/23 The pt is an 88 y/o female who is seen in neurologic follow up on 2022, in collaboration with Marika Gifford, via teleneurology. The pt reports feeling fine. She denies further confusion. The chart has been reviewed. MRI brain images have been personally viewed. Objective - Vital Signs Vital signs: Vital Signs Temp 97.5 F L 05/03/23 12:15 Pulse 59 L 05/03/23 12:15 Resp 18 05/03/23 12:15 BP 139/65 05/03/23 12:15 Pulse Ox 98 05/03/23 12:15 FiO2 Intake & Output 05/02/23 05/03/23 05/03/23 18:59 06:59 18:59 Intake Total 180 Output Total 1201 Balance 180 -1201 Intake: Oral 180 Output: Urine 1200 Stool 1 Other: Voiding Method Indwelling Catheter Indwelling Catheter Indwelling Catheter - Exam General: The pt is resting in the bed. She is well nourished and in no acute distress HEENT: Head is atraumatic, normocephalic Neurologic examination Mental status: the pt is awake, alert and oriented to her name, , age, location, current month and year. Speech is clear CN: 2-12 grossly intact - Labs CBC & Chem 7: 05/03/23 06:51 05/03/23 06:51 Labs: Abnormal Lab Results - Last 24 Hours (Table) 05/02/23 05/02/23 05/03/23 Range/Units 17:41 20:11 06:51 WBC 17.6 H (3.8-10.6) k/uL RBC 3.61 L (3.80-5.40) m/uL MCV 104.3 H (80.0-100.0) fL Plt Count 117 L D (150-450) k/uL Neutrophils # 15.4 H (1.3-7.7) k/uL Lymphocytes # 0.9 L (1.0-4.8) k/uL Sodium (137-145) mmol/L Chloride (98-107) mmol/L Carbon Dioxide (22-30) mmol/L BUN (7-17) mg/dL Glucose (74-99) mg/dL POC Glucose (mg/dL) 122 H 179 H (70-110) mg/dL 05/03/23 05/03/23 05/03/23 Range/Units 06:51 07:08 12:14 WBC (3.8-10.6) k/uL RBC (3.80-5.40) m/uL MCV (80.0-100.0) fL Plt Count (150-450) k/uL Neutrophils # (1.3-7.7) k/uL Lymphocytes # (1.0-4.8) k/uL Sodium 131 L (137-145) mmol/L Chloride 108 H (98-107) mmol/L Carbon Dioxide 15 L (22-30) mmol/L BUN 42 H (7-17) mg/dL Glucose 117 H (74-99) mg/dL POC Glucose (mg/dL) 113 H 161 H (70-110) mg/dL Microbiology - Last 24 Hours (Table) 05/01/23 15:14 Blood Culture - Preliminary Blood 05/01/23 10:11 Blood Culture - Preliminary Blood Assessment and Plan Assessment: 1. Encephalopathy likely due to underlying medication (steroids use). Mentation improved. 2. Left hip pain 3. Underlying Rheumatoid arthritis Plan: 1. MRI of brain is negative for signs of infarct, bleed, mass and infection 2. Neurology will sign off at this time Time with Patient: Less than 30
[2023-05-03 17:09] LABS: Glucose,Whole Blood 196 mg/dL (70-110)
[2023-05-03 20:28] LABS: Glucose,Whole Blood 210 mg/dL (70-110)
[2023-05-03] MEDS: ATORVASTATIN 20 MG TAB PO SCH (22:23)
[2023-05-03] MEDS: FOLIC ACID-VIT B COMPLEX-VIT C 1 CAP PO SCH (22:23)
--- NOTE | 2023-05-04 00:36 | P.PN ---
Subjective Progress Note Date: 05/02/23 This is an 88-year-old female with past medical history significant for CAD with prior CABG, persistent atrial fibrillation anticoagulated on Eliquis, hypertension,hyperlipidemia, diabetes mellitus, COVID, recently completed Lexiscan stress test on 04/21/2023 that failed to report reversible ischemia ,inconclusive EKG part and stress test due to left bundle branch block. Echo r eported EF 50-55%, moderate mitral regurgitation ,moderate bioprosthetic valve stenosis with evaluation of prosthetic valve stenosis MARIELLE recommended for outpatient, pulmonary hypertension, admitted with altered mental [id number], minimal activity-normally ambulates with walker, complaining of left hip pain upon standing. Denies numbness, tingling . Denies any fall or trauma. New-onset urinary incontinence, UA negative. Toxicology screen negative. Denies nausea vomiting or diarrhea. Denies abdominal pain. Denies chest pain, palpitations or shortness of breath. Denies lightheadedness, dizziness or focal deficits. Patient also reports she not been eating much. BUN elevated on admission in the 80s with creatinine near baseline 1.38. Afebrile, T-max 99.6, lactic acid 1.6, WBC 21.1, 22.4-patient had recently completed a Medrol Dosepak prescribed by PCP last week for possible bursitis. Bilateral Hips CT reported no acute Fractures. Chest x-ray. No acute pulmonary process. Blood sugars in the 300s, received a regular breakfast tray. 04/30/2023 pelvic MRI pending. No hip pain at rest. Denies chest pain, palpitations or shortness of breath. Lantus initiated yesterday, blood sugars improving. Neuro workup in progress .EEG performed yesterday, reported abnormal, background slowing suggestive of mild to moderate encephalopathy otherwise no focal slowing,epileptiform discharge or seizure on EEG. Brain CT reported similar anterior soft tissue extension within the right side of the sella compared to 10/20/2020 suggesting a chronic benign etiology. Brain MRI p ending. Afebrile, WBC decreased to 21.8 to, MCV decreased ,100. Renal function improving, BUN 62, creatinine 1.1. Preliminary blood cultures reporting gram- positive cocci in clusters,pharmacy reporting staph Lugdunesis. 05/01/2023 mild lower extremity discomfort. Brain MRI tomorrow. BUN decreasing to 46.6, creatinine 1.2. Lantus increased yesterday, Blood sugars better controlled. Antibiotics adjusted yesterday to ceftazolin. Afebrile, WBC continues trending down, 19.69. Denies chestpain, palpitations or shortness of breath. Maintaining O2 sats in the high 90s on room air. 05/02/2023 Patient is resting in bed. Awake alert and oriented. No complaints of chest pain or shortness of breath. No nausea vomiting abdominal pain or diarrhea. Left hip pain is controlled. Patient had MRI of the brain today Laboratory pressure sodium 130 potassium 4.6 chloride 103 bicarb is 20 BUN 47 creatinine 0.91 and blood sugar is 125 and CRP 7.4 and ESR 41. Patient is being current on antibiotics involve cefazolin as per ID recommendations. Also on anticoagulation with Eliquis 2.5 mg twice daily. ID and neurology is on board. Current medications reviewed. Objective - Vital Signs Vital signs: Vital Signs Temp 97.7 F 05/02/23 08:00 Pulse 59 L 05/02/23 08:00 Resp 16 05/02/23 08:00 BP 127/70 05/02/23 08:00 Pulse Ox 100 05/02/23 08:00 FiO2 Intake & Output 05/01/23 05/02/23 05/02/23 18:59 06:59 18:59 Intake Total 300 Output Total 1200 675 Balance -1200 -375 Intake: Intake, IV Titration 100 Amount ceFAZolin 2 gm In Sodium 100 Chloride 0.9% 50 ml @ 100 mls/hr IVPB Q8H [facility] Rx#: [id number] Oral 200 Output: Urine 1200 675 Other: Voiding Method Indwelling Catheter Indwelling Catheter Indwelling Catheter - Exam - Exam GENERAL:alert and oriented x3, resting in bed, NAD. HEENT: Normocephalic, Pupils are round and equally reacting to light. EOMI. no scleral icterus. No conjunctival pallor. CARDIOVASCULAR: S1 and S2 muffled, irregular PULMONARY: Unlabored, equal air entry .CTA. ABDOMEN: soft. Nontender, non-distended, normoactive bowel sounds. No palpable organomegaly. EXTREMITIES: No cyanosis, clubbing, or pedal edema. NEUROLOGICAL: Gross neurological examination did not reveal any focal deficits. SKIN: No rashes. Warm and dry. - Labs CBC & Chem 7: 05/03/23 06:51 05/03/23 06:51 Labs: Abnormal Lab Results - Last 24 Hours (Table) 05/01/23 05/01/23 05/02/23 Range/Units 17:26 20:57 06:13 Sodium 130 L (137-145) mmol/L Carbon Dioxide 20 L (22-30) mmol/L BUN 47 H (7-17) mg/dL Glucose 125 H (74-99) mg/dL POC Glucose (mg/dL) 202 H 246 H (70-110) mg/dL C-Reactive Protein 7.4 H (<1.0) mg/dL 05/02/23 05/02/23 Range/Units 09:00 12:26 Sodium (137-145) mmol/L Carbon Dioxide (22-30) mmol/L BUN (7-17) mg/dL Glucose (74-99) mg/dL POC Glucose (mg/dL) 147 H 185 H (70-110) mg/dL C-Reactive Protein (<1.0) mg/dL Microbiology - Last 24 Hours (Table) 04/28/23 21:45 Blood Culture Gram Stain - Final Blood Blood Culture - Final Staphylococcus lugdunenisis Assessment and Plan Assessment: Left hip pain worsened with standing, in a patient with history of osteoarthritis CT reporting no acute fractures of bilateral hips, pelvis MRI reported no acute fractures ,extensive muscle edema throughout multiple muscles of the left lower extremity mainly surrounding the hip, moderate bilateral hip OA. Mental status changes with confusion prior to admission, metabolic encephalopathy secondary to potential steroids, resolved Leukocytosis in a patient who recently completed a Medrol Dosepak secondary to potential bursitis Bacteremia, pharmacy reporting staph Lugdunenesis. Chronic Atrial fibrillation, controlled ventricular rate Chronic CHF, systolic dysfunction CAD, history of CABG Moderate bioprosthetic valve stenosis, further evaluation outpatient via MARIELLE as per cardiology. Hypertension Hyperlipidemia CKD III DM II Hypothyroidism Gastroesophageal reflux disease Plan: Continue on current medication regime ,monitoring and symptomatic treatment. Tylenol for pain. Antibiotics as per ID. Close monitoring of blood sugars. Patient had the MRI of the brain today.. PT. [facility] at discharge. Time with Patient: Greater than 30
--- NOTE | 2023-05-04 00:41 | P.PN ---
Subjective Progress Note Date: 05/03/23 This is an 88-year-old female with past medical history significant for CAD with prior CABG, persistent atrial fibrillation anticoagulated on Eliquis, hypertension,hyperlipidemia, diabetes mellitus, COVID, recently completed Lexiscan stress test on 04/21/2023 that failed to report reversible ischemia ,inconclusive EKG part and stress test due to left bundle branch block. Echo r eported EF 50-55%, moderate mitral regurgitation ,moderate bioprosthetic valve stenosis with evaluation of prosthetic valve stenosis MARIELLE recommended for outpatient, pulmonary hypertension, admitted with altered mental [id number], minimal activity-normally ambulates with walker, complaining of left hip pain upon standing. Denies numbness, tingling . Denies any fall or trauma. New-onset urinary incontinence, UA negative. Toxicology screen negative. Denies nausea vomiting or diarrhea. Denies abdominal pain. Denies chest pain, palpitations or shortness of breath. Denies lightheadedness, dizziness or focal deficits. Patient also reports she not been eating much. BUN elevated on admission in the 80s with creatinine near baseline 1.38. Afebrile, T-max 99.6, lactic acid 1.6, WBC 21.1, 22.4-patient had recently completed a Medrol Dosepak prescribed by PCP last week for possible bursitis. Bilateral Hips CT reported no acute Fractures. Chest x-ray. No acute pulmonary process. Blood sugars in the 300s, received a regular breakfast tray. 04/30/2023 pelvic MRI pending. No hip pain at rest. Denies chest pain, palpitations or shortness of breath. Lantus initiated yesterday, blood sugars improving. Neuro workup in progress .EEG performed yesterday, reported abnormal, background slowing suggestive of mild to moderate encephalopathy otherwise no focal slowing,epileptiform discharge or seizure on EEG. Brain CT reported similar anterior soft tissue extension within the right side of the sella compared to 10/20/2020 suggesting a chronic benign etiology. Brain MRI p ending. Afebrile, WBC decreased to 21.8 to, MCV decreased ,100. Renal function improving, BUN 62, creatinine 1.1. Preliminary blood cultures reporting gram- positive cocci in clusters,pharmacy reporting staph Lugdunesis. 05/01/2023 mild lower extremity discomfort. Brain MRI tomorrow. BUN decreasing to 46.6, creatinine 1.2. Lantus increased yesterday, Blood sugars better controlled. Antibiotics adjusted yesterday to ceftazolin. Afebrile, WBC continues trending down, 19.69. Denies chestpain, palpitations or shortness of breath. Maintaining O2 sats in the high 90s on room air. 05/02/2023 Patient is resting in bed. Awake alert and oriented. No complaints of chest pain or shortness of breath. No nausea vomiting abdominal pain or diarrhea. Left hip pain is controlled. Patient had MRI of the brain today Laboratory pressure sodium 130 potassium 4.6 chloride 103 bicarb is 20 BUN 47 creatinine 0.91 and blood sugar is 125 and CRP 7.4 and ESR 41. Patient is being current on antibiotics involve cefazolin as per ID recommendations. Also on anticoagulation with Eliquis 2.5 mg twice daily. ID and neurology is on board. 05/03/2023 Patient is currently lying in the bed. Awake alert and oriented x3. No complaints of chest pain or shortness of breath. No headache or dizziness or li ghtheadedness. Mentation is at baseline. Left pain is also controlled. Patient is being continued on antibiotics for Staphylococcus lugdunensis bacteremia in the form of cefazolin. MRI of the brain was done showed no evidence for intracranial mass, acute/subacute infarct abnormal enhancement. Nonspecific white matter changes. Laboratory data showed WBC 17.6 hemoglobin 12.6 and platelets 117, sodium 131 potassium 4.9 chloride 108 bicarb is 15 BUN 4020 creatinine 0.89 blood sugar is 117 Current medications reviewed. Objective - Vital Signs Vital signs: Vital Signs Temp 98.9 F 05/03/23 20:00 Pulse 59 L 05/03/23 20:00 Resp 16 05/03/23 20:00 BP 149/71 05/03/23 20:00 Pulse Ox 99 05/03/23 20:00 FiO2 Intake & Output 05/03/23 05/03/23 05/04/23 06:59 18:59 06:59 Output Total 1201 400 Balance -1201 -400 Output: Urine 1200 400 Stool 1 Other: Voiding Method Indwelling Catheter Indwelling Catheter - Exam - Exam GENERAL:alert and oriented x3, resting in bed, NAD. HEENT: Normocephalic, Pupils are round and equally reacting to light. EOMI. no scleral icterus. No conjunctival pallor. CARDIOVASCULAR: S1 and S2 muffled, irregular PULMONARY: Unlabored, equal air entry .CTA. ABDOMEN: soft. Nontender, non-distended, normoactive bowel sounds. No palpable organomegaly. EXTREMITIES: No cyanosis, clubbing, or pedal edema. NEUROLOGICAL: Gross neurological examination did not reveal any focal deficits. SKIN: No rashes. Warm and dry. - Labs CBC & Chem 7: 05/03/23 06:51 05/03/23 06:51 Labs: Abnormal Lab Results - Last 24 Hours (Table) 05/03/23 05/03/23 05/03/23 Range/Units 06:51 06:51 07:08 WBC 17.6 H (3.8-10.6) k/uL RBC 3.61 L (3.80-5.40) m/uL MCV 104.3 H (80.0-100.0) fL Plt Count 117 L D (150-450) k/uL Neutrophils # 15.4 H (1.3-7.7) k/uL Lymphocytes # 0.9 L (1.0-4.8) k/uL Sodium 131 L (137-145) mmol/L Chloride 108 H (98-107) mmol/L Carbon Dioxide 15 L (22-30) mmol/L BUN 42 H (7-17) mg/dL Glucose 117 H (74-99) mg/dL POC Glucose (mg/dL) 113 H (70-110) mg/dL 05/03/23 05/03/23 05/03/23 Range/Units 12:14 17:08 20:11 WBC (3.8-10.6) k/uL RBC (3.80-5.40) m/uL MCV (80.0-100.0) fL Plt Count (150-450) k/uL Neutrophils # (1.3-7.7) k/uL Lymphocytes # (1.0-4.8) k/uL Sodium (137-145) mmol/L Chloride (98-107) mmol/L Carbon Dioxide (22-30) mmol/L BUN (7-17) mg/dL Glucose (74-99) mg/dL POC Glucose (mg/dL) 161 H 196 H 210 H (70-110) mg/dL Microbiology - Last 24 Hours (Table) 05/01/23 10:11 Blood Culture - Preliminary Blood 05/02/23 06:13 Blood Culture - Preliminary Blood 05/01/23 15:14 Blood Culture - Preliminary Blood Assessment and Plan Assessment: Left hip pain worsened with standing, in a patient with history of osteoarthritis CT reporting no acute fractures of bilateral hips, pelvis MRI reported no acute fractures ,extensive muscle edema throughout multiple muscles of the left lower extremity mainly surrounding the hip, moderate bilateral hip OA. improving Mental status changes with confusion prior to admission, metabolic ence phalopathy secondary to potential steroids, resolved Leukocytosis in a patient who recently completed a Medrol Dosepak secondary to potential bursitis Bacteremia, pharmacy reporting staph Lugdunenesis. Chronic Atrial fibrillation, controlled ventricular rate Chronic CHF, systolic dysfunction CAD, history of CABG Moderate bioprosthetic valve stenosis, further evaluation outpatient via MARIELLE as per cardiology. Hypertension Hyperlipidemia CKD III DM II Hypothyroidism Gastroesophageal reflux disease Plan: Continue on current medication regime ,monitoring and symptomatic treatment. Tylenol for pain. Antibiotics as per ID. Close monitoring of blood sugars. Encourage oral intake and gentle IV hydration. Follow-up repeat blood cultures MRI of the brain showed no acute infarct.. PT. [facility] at discharge. Time with Patient: Greater than 30
[2023-05-04] MEDS ORDERED: SODIUM CHLORIDE 0.9% 1,000 ML IV SCH (00:45)
[2023-05-04] MEDS: LEVOTHYROXINE 50 MCG TAB PO SCH (06:11)
[2023-05-04 07:23] LABS: Glucose,Whole Blood 99 mg/dL (70-110)
[2023-05-04 07:29] LABS: African American GFR (CKD) 61 (>60 ml/min/1.73 sqM); Anion Gap 4 mmol/L; Blood Urea Nitrogen 39 mg/dL (7-17); Calcium 9.1 mg/dL (8.4-10.2); Carbon Dioxide 19 mmol/L (22-30); Chloride 108 mmol/L (98-107); Glucose 84 mg/dL (74-99); Non-African American GFR(CKD) 53 (>60 ml/min/1.73 sqM); Sodium 131 mmol/L (137-145)
[2023-05-04 07:39] LABS: Potassium 4.8 mmol/L (3.5-5.1)
[2023-05-04] MEDS: INSULIN ASPART (NovoLOG) 100 UNIT/ML VIAL SQ SCH ×4 (07:55→21:36)
[2023-05-04] MEDS: ASPIRIN 81 MG PO SCH (07:59)
[2023-05-04] MEDS: CHOLECALCIFEROL 25 MCG (1000 IU) TABLET PO SCH (07:59)
[2023-05-04] MEDS: METOPROLOL TARTRATE 25 MG TAB PO SCH ×2 (07:59→21:36)
[2023-05-04] MEDS: INSULIN DETEMIR (LEVEMIR) 100 UNIT/ML SYR SQ SCH ×2 (08:00→21:36)
[2023-05-04] MEDS: hydrALAZINE HCL 25 MG TAB PO SCH ×4 (08:00→21:36)
[2023-05-04] MEDS: PANTOPRAZOLE 40 MG TABLET PO SCH (08:00)
[2023-05-04] MEDS: APIXABAN 2.5 MG TABLET PO SCH ×2 (08:00→21:36)
[2023-05-04 08:26] LABS: Basophils % (A) 0 %; Eosinophils # (A) 0.1 k/uL (0-0.7); Eosinophils % (A) 1 %; HCT 35.3 % (34.0-46.0); HGB 11.7 gm/dL (11.4-16.0); Lymphocytes # (A) 1.2 k/uL (1.0-4.8); Lymphocytes % (A) 7 %; MCH 33.4 pg (25.0-35.0); Macrocytosis Slight; Mean Platelet Volume 9.8; Monocytes # (A) 1.3 k/uL (0-1.0); Monocytes % (A) 7 %; Neutrophils # (A) 14.5 k/uL (1.3-7.7); Neutrophils % (A) 83 %; Platelet Count 167 k/uL (150-450); RDW 14.3 % (11.5-15.5); WBC 17.4 k/uL (3.8-10.6)
[2023-05-04] MEDS: ACETAMINOPHEN TAB 325 MG TAB PO PRN (10:28)
[2023-05-04 12:12] LABS: Glucose,Whole Blood 148 mg/dL (70-110)
--- NOTE | 2023-05-04 13:31 | P.DS ---
Providers Date of admission: 04/28/23 20:47 Expected date of discharge: 05/04/23 Attending physician: Rhys Strange Consults: 04/28/23 20:43 Consult Physician Urgent Consulting Provider: Luis Manuel Andres Consult Reason/Comments: Left hip pain Do you want consulting provider notified?: Yes 04/28/23 23:13 Consult Physician Urgent Consulting Provider: Armand Benavides Consult Reason/Comments: AMS changes Do you want consulting provider notified?: Yes, Notify in am 04/30/23 18:49 Consult Physician Routine Consulting Provider: Bebeto Hameed Consult Reason/Comments: pos. blood cultures Do you want consulting provider notified?: Yes Primary care physician: Rhys Strange - Discharge Diagnosis(es) (1) Altered mental status Current Visit: Yes Status: Acute (2) Bacteremia Current Visit: Yes Status: Acute (3) Inability to ambulate due to hip Current Visit: Yes Status: Acute (4) Acute metabolic encephalopathy Current Visit: Yes Status: Acute Hospital Course: This is a pleasantly confused 88-year-old white female who was admitted for altered mental status changes stemming from a medical metabolic encephalopathy. She also suffered from a urinary tract infection with a transient bacteremia her last blood culture was negative after 48 hours she had problems with the right hip and unable to ambulate because of weakness and pain this was inspected and worked up by orthopedics who thought this was due to degenerative osteoarthritis. Placed her on bedrest and steroids and she became transiently confused also with the administration of Ativan prior to an MRI aided in her confusion. Showed stable senile changes with a possible cyst with no mass no stroke in no acute abnormality was clear for discharge however is not ambulating more than 3-5 steps with 2 person assist she'll be good for inpatient extended care facility rehabilitation for this reason. Plan - Discharge Summary Discharge Rx Participant: No New Discharge Prescriptions: No Action Levothyroxine Sodium [Synthroid] 50 mcg PO DAILY allopurinoL [Zyloprim] 100 mg PO DAILY Apixaban [Eliquis] 2.5 mg PO BID tablet hydrALAZINE HCL [Apresoline] 25 mg PO BID #60 tab Aspirin EC [Ecotrin Low Dose] 81 mg PO DAILY Metoprolol Tartrate [Lopressor] 25 mg PO BID #60 tab Spironolactone [Aldactone] 25 mg PO BID Pantoprazole [Protonix] 40 mg PO DAILY Nephro-Fabio 1 tab PO HS Cholecalciferol [Vitamin D3 (25 Mcg = 1000 Iu)] 50 mcg PO DAILY tablet Baclofen 10 mg PO BID PRN PRN Reason: Muscle Spasm methylPREDNISolone [Medrol Dose Pack] See Taper PO DIRECTED Simvastatin [Zocor] 40 mg PO HS glyBURIDE [Diabeta] 5 mg PO BID Furosemide [Lasix] 40 mg PO DAILY Discharge Medication List Levothyroxine Sodium [Synthroid] 50 mcg PO DAILY 07/21/17 [History] allopurinoL [Zyloprim] 100 mg PO DAILY 07/21/17 [History] Apixaban [Eliquis] 2.5 mg PO BID tablet 07/24/17 [Rx] Aspirin EC [Ecotrin Low Dose] 81 mg PO DAILY 07/28/17 [History] hydrALAZINE HCL [Apresoline] 25 mg PO BID #60 tab 07/28/17 [Rx] Metoprolol Tartrate [Lopressor] 25 mg PO BID #60 tab 11/25/18 [Rx] Furosemide [Lasix] 40 mg PO DAILY 10/21/20 [History] Nephro-Fabio 1 tab PO HS 10/21/20 [History] Pantoprazole [Protonix] 40 mg PO DAILY 10/21/20 [History] Simvastatin [Zocor] 40 mg PO HS 10/21/20 [History] Spironolactone [Aldactone] 25 mg PO BID 10/21/20 [History] glyBURIDE [Diabeta] 5 mg PO BID 10/21/20 [History] Cholecalciferol [Vitamin D3 (25 Mcg = 1000 Iu)] 50 mcg PO DAILY tablet 10/23/20 [Rx] Baclofen 10 mg PO BID PRN 04/28/23 [History] methylPREDNISolone [Medrol Dose Pack] See Taper PO DIRECTED 04/28/23 [History] Follow up Appointment(s)/Referral(s): Rhys Strange DO [Primary Care Provider] - 1-2 days [facility] [NON-STAFF] - 1 Week Discharge Disposition: TRANSFER TO SNF/ECF
[2023-05-04 16:58] LABS: Glucose,Whole Blood 189 mg/dL (70-110)
[2023-05-04 20:18] LABS: Glucose,Whole Blood 230 mg/dL (70-110)
[2023-05-04] MEDS: ATORVASTATIN 20 MG TAB PO SCH (21:36)
[2023-05-04] MEDS: FOLIC ACID-VIT B COMPLEX-VIT C 1 CAP PO SCH (21:42)
--- NOTE | 2023-05-05 00:06 | P.PN ---
Subjective Progress Note Date: 05/03/23 Principal diagnosis: Bacteremia Patient is a 88-year-old female with a past medical history significant for diabetes mellitus hypertension hyperlipidemia atrial fibrillat ion coronary artery disease presenting to the hospital patient did have elevated white count low-grade fever for evaluation of her mental status changes abnormal MRI to the left hip area and did have a positive blood culture with Staphylococcus lugdunensis On today's evaluation that is 05/03/2023, the patient is afebrile, the patient is breathing comfortably on room air no chest pain shortness of the cough no nausea vomiting no abdominal pain or any worsening pain to the left hip area. Patient did have a white count down to 17.6 creatinine 0.9 blood culture repeat pending Objective - Vital Signs Vital signs: Vital Signs Temp 97.8 F 05/03/23 07:05 Pulse 62 05/03/23 07:05 Resp 18 05/03/23 07:05 BP 160/52 05/03/23 07:05 Pulse Ox 98 05/03/23 07:05 FiO2 Intake & Output 05/02/23 05/03/23 05/03/23 18:59 06:59 18:59 Intake Total 180 Output Total 1201 Balance 180 -1201 Intake: Oral 180 Output: Urine 1200 Stool 1 Other: Voiding Method Indwelling Catheter Indwelling Catheter Indwelling Catheter - Exam GENERAL DESCRIPTION: Elderly female lying in bed in no distress RESPIRATORY SYSTEM: Unlabored breathing , decreased breath sounds at bases HEART: S1 S2 regular rate and rhythm ,no loud murmurs ABDOMEN: Soft , no tenderness EXTREMITIES: No edema feet - Labs CBC & Chem 7: 05/04/23 06:46 05/04/23 06:46 Labs: Abnormal Lab Results - Last 24 Hours (Table) 05/02/23 05/02/23 05/02/23 Range/Units 06:13 12:26 17:41 WBC (3.8-10.6) k/uL RBC (3.80-5.40) m/uL MCV (80.0-100.0) fL Plt Count (150-450) k/uL Neutrophils # (1.3-7.7) k/uL Lymphocytes # (1.0-4.8) k/uL ESR 41 H (0-30) mm/Hr Sodium (137-145) mmol/L Chloride (98-107) mmol/L Carbon Dioxide (22-30) mmol/L BUN (7-17) mg/dL Glucose (74-99) mg/dL POC Glucose (mg/dL) 185 H 122 H (70-110) mg/dL 05/02/23 05/03/23 05/03/23 Range/Units 20:11 06:51 06:51 WBC 17.6 H (3.8-10.6) k/uL RBC 3.61 L (3.80-5.40) m/uL MCV 104.3 H (80.0-100.0) fL Plt Count 117 L D (150-450) k/uL Neutrophils # 15.4 H (1.3-7.7) k/uL Lymphocytes # 0.9 L (1.0-4.8) k/uL ESR (0-30) mm/Hr Sodium 131 L (137-145) mmol/L Chloride 108 H (98-107) mmol/L Carbon Dioxide 15 L (22-30) mmol/L BUN 42 H (7-17) mg/dL Glucose 117 H (74-99) mg/dL POC Glucose (mg/dL) 179 H (70-110) mg/dL 05/03/23 05/03/23 Range/Units 07:08 12:14 WBC (3.8-10.6) k/uL RBC (3.80-5.40) m/uL MCV (80.0-100.0) fL Plt Count (150-450) k/uL Neutrophils # (1.3-7.7) k/uL Lymphocytes # (1.0-4.8) k/uL ESR (0-30) mm/Hr Sodium (137-145) mmol/L Chloride (98-107) mmol/L Carbon Dioxide (22-30) mmol/L BUN (7-17) mg/dL Glucose (74-99) mg/dL POC Glucose (mg/dL) 113 H 161 H (70-110) mg/dL Microbiology - Last 24 Hours (Table) 05/01/23 15:14 Blood Culture - Preliminary Blood 05/01/23 10:11 Blood Culture - Preliminary Blood Assessment and Plan (1) Bacteremia Current Visit: Yes Status: Acute Code(s): R78.81 - BACTEREMIA SNOMED Code(s): 0456220 Plan: 1patient with the Staphylococcus lugdunenisis bacteremia usually of the skin or soft tissue origin in this patient present hospital with the deep pelvic pain and did have significant abnormality on the MRI with concern for possible myositis involving the left hip area however no significant swelling redness or any open wound was noticed to the left hip site on clinical examination 2-blood cultures has been repeated document clearance of bacteremia and inflammatory markers elevated 3-patient to continue with the cefazolin 2 g every 8 hours while waiting for repeat cultures to be finalized Dictation was produced using [employer] dictation software. please excuse any grammatical, word or spelling errors. Time with Patient: Less than 30
--- NOTE | 2023-05-05 00:08 | P.PN ---
Subjective Progress Note Date: 05/04/23 Principal diagnosis: Bacteremia Patient is a 88-year-old female with a past medical history significant for diabetes mellitus hypertension hyperlipidemia atrial fibrillat ion coronary artery disease presenting to the hospital patient did have elevated white count low-grade fever for evaluation of her mental status changes abnormal MRI to the left hip area and did have a positive blood culture with Staphylococcus lugdunensis On today's evaluation that is 05/04/2023, the patient denies having any fever or any chills, the patient is breathing comfortably on room air denies any chest pain shortness of the cough no nausea open abdominal pain pain to the left hip is slightly decreased intensity. Patient white count still elevated 17.4, creatinine 0.9 7 repeat blood culture so far negative. Objective - Vital Signs Vital signs: Vital Signs Temp 98.5 F 05/04/23 12:15 Pulse 41 L 05/04/23 12:15 Resp 17 05/04/23 12:15 BP 104/44 05/04/23 12:15 Pulse Ox 99 05/04/23 12:15 FiO2 Intake & Output 05/03/23 05/04/23 05/04/23 18:59 06:59 18:59 Intake Total 590 Output Total 400 601 Balance -400 -11 Intake: Oral 590 Output: Urine 400 600 Stool 1 Other: Voiding Method Indwelling Catheter Indwelling Catheter Indwelling Catheter # Voids 0 - Exam GENERAL DESCRIPTION: Elderly female lying in bed in no distress RESPIRATORY SYSTEM: Unlabored breathing , decreased breath sounds at bases HEART: S1 S2 regular rate and rhythm ,no loud murmurs ABDOMEN: Soft , no tenderness EXTREMITIES: No edema feet - Labs CBC & Chem 7: 05/04/23 06:46 05/04/23 06:46 Labs: Abnormal Lab Results - Last 24 Hours (Table) 05/03/23 05/03/23 05/04/23 Range/Units 17:08 20:11 06:46 WBC 17.4 H (3.8-10.6) k/uL RBC 3.50 L (3.80-5.40) m/uL MCV 101.0 H (80.0-100.0) fL Neutrophils # 14.5 H (1.3-7.7) k/uL Monocytes # 1.3 H (0-1.0) k/uL Sodium (137-145) mmol/L Chloride (98-107) mmol/L Carbon Dioxide (22-30) mmol/L BUN (7-17) mg/dL POC Glucose (mg/dL) 196 H 210 H (70-110) mg/dL 05/04/23 05/04/23 Range/Units 06:46 12:11 WBC (3.8-10.6) k/uL RBC (3.80-5.40) m/uL MCV (80.0-100.0) fL Neutrophils # (1.3-7.7) k/uL Monocytes # (0-1.0) k/uL Sodium 131 L (137-145) mmol/L Chloride 108 H (98-107) mmol/L Carbon Dioxide 19 L (22-30) mmol/L BUN 39 H (7-17) mg/dL POC Glucose (mg/dL) 148 H (70-110) mg/dL Microbiology - Last 24 Hours (Table) 05/01/23 15:14 Blood Culture - Preliminary Blood 05/01/23 10:11 Blood Culture - Preliminary Blood 05/02/23 06:13 Blood Culture - Preliminary Blood Assessment and Plan (1) Bacteremia Current Visit: Yes Status: Acute Code(s): R78.81 - BACTEREMIA SNOMED Code(s): 7034714 Plan: 1patient with the Staphylococcus lugdunenisis bacteremia usually of the skin or soft tissue origin in this patient present hospital with the deep pelvic pain and did have significant abnormality on the MRI with concern for possible myositis involving the left hip area however no significant swelling redness or any open wound was noticed to the left hip site on clinical examination 2the patient has cleared her bacteremia patient did have a elevated sed rate of 41 and a CRP of 7.4 3-we will obtain WBC scan to see help localize a source of this infection that may need further work-up 4-we will continue patient on cefazolin will likely need midline for outpatient IV antibiotic therapy This was discussed with the admitting physician on the phone Dictation was produced using [employer] software. please excuse any grammatical, word or spelling errors.
[2023-05-05] MEDS: ACETAMINOPHEN TAB 325 MG TAB PO PRN ×3 (06:18→20:41)
[2023-05-05] MEDS: LEVOTHYROXINE 50 MCG TAB PO SCH (06:45)
[2023-05-05 07:08] LABS: Glucose,Whole Blood 91 mg/dL (70-110)
[2023-05-05] MEDS: INSULIN ASPART (NovoLOG) 100 UNIT/ML VIAL SQ SCH ×4 (07:24→20:58)
[2023-05-05] MEDS: METOPROLOL TARTRATE 25 MG TAB PO SCH ×3 (08:35→20:41)
[2023-05-05] MEDS: CHOLECALCIFEROL 25 MCG (1000 IU) TABLET PO SCH (08:35)
[2023-05-05] MEDS: ASPIRIN 81 MG PO SCH (08:36)
[2023-05-05] MEDS: INSULIN DETEMIR (LEVEMIR) 100 UNIT/ML SYR SQ SCH ×2 (08:36→21:16)
[2023-05-05] MEDS: APIXABAN 2.5 MG TABLET PO SCH ×2 (08:36→20:41)
[2023-05-05] MEDS: hydrALAZINE HCL 25 MG TAB PO SCH ×2 (08:36→13:37)
[2023-05-05] MEDS: PANTOPRAZOLE 40 MG TABLET PO SCH (08:36)
[2023-05-05 11:04] LABS: ALT 7 U/L (8-44); AST 18 U/L (13-35); Albumin 2.6 d/dL (3.8-4.9); Albumin/Globulin Ratio 1.24 Ratio (1.60-3.17); Alkaline Phosphatase 64 U/L (41-126); BUN/Creat Ratio 30.17 Ratio (12.00-20.00); Blood Urea Nitrogen 36.2 mg/dL (9.0-27.0); Calcium 9.3 mg/dL (8.7-10.3); Carbon Dioxide 20.4 mmol/L (21.6-31.8); Chloride 102 mmol/L (96-109); Globulin 2.1 d/dL (1.6-3.3); Glucose 93 mg/dL (70-110); Potassium 4.5 mmol/L (3.5-5.5); Sodium 133 mmol/L (135-145); Total Bilirubin 0.5 mg/dL (0.3-1.2); Total Protein 4.7 d/dL (6.2-8.2)
[2023-05-05 11:13] LABS: Basophils # (A) 0.02 X 10*3/uL (0.00-0.10); Basophils % (A) 0.1 %; Eosinophils # (A) 0.12 X 10*3/uL (0.04-0.35); Eosinophils % (A) 0.7 %; HCT 33.8 % (37.2-46.3); HGB 10.9 d/dL (12.0-15.0); Lymphocytes # (A) 1.15 X 10*3/uL (0.90-5.00); MCH 32.7 pg (27.0-32.0); MCHC 32.2 d/dL (32.0-37.0); MCV 101.5 FL (80.0-97.0); Mean Platelet Volume 10.7 FL (9.5-12.2); Monocytes # (A) 1.12 X 10*3/uL (0.20-1.00); Monocytes % (A) 6.8 %; NRBC Per 100 WBC 0 X 10*3/uL (0.00-0.01); Neutrophils # (A) 13.94 X 10*3/uL (1.80-7.70); Neutrophils % (A) 84.4 %; Platelet Count 242 X 10*3/uL (140-440); RBC 3.33 X 10*6/uL (4.10-5.20); RDW 14.8 % (11.5-14.5); WBC 16.51 X 10*3/uL (4.50-10.00)
[2023-05-05 12:20] LABS: Glucose,Whole Blood 93 mg/dL (70-110)
--- NOTE | 2023-05-05 13:30 | P.PN ---
Subjective Progress Note Date: 05/05/23 Principal diagnosis: Bacteremia Patient is a 88-year-old female with a past medical history significant for diabetes mellitus hypertension hyperlipidemia atrial fibrillat ion coronary artery disease presenting to the hospital patient did have elevated white count low-grade fever for evaluation of her mental status changes abnormal MRI to the left hip area and did have a positive blood culture with Staphylococcus lugdunensis On today's evaluation that is 05/05/2023, the patient continues to be afebrile the patient is breathing comfortably on room air, the patient denies chest pain, shortness of breath or cough, patient denies abdominal pain, no nausea/vomiting and no diarrhea the patient pain to the left hip has decreased in intensity. Patient white count is slightly down to 16.51, creatinine is 1.2 repeat blood culture so far negative. Objective - Vital Signs Vital signs: Vital Signs Temp 98 F 05/05/23 08:25 Pulse 49 L 05/05/23 09:09 Resp 22 05/05/23 08:25 BP 118/84 05/05/23 08:25 Pulse Ox 96 05/05/23 08:25 FiO2 Intake & Output 05/04/23 05/05/23 05/05/23 18:59 06:59 18:59 Intake Total 590 Output Total 300 900 Balance -300 -310 Weight 68.039 kg Intake: Oral 590 Output: Urine 300 900 Other: Voiding Method Indwelling Catheter Indwelling Catheter Indwelling Catheter - Exam GENERAL DESCRIPTION: Elderly female lying in bed in no distress RESPIRATORY SYSTEM: Unlabored breathing , decreased breath sounds at bases HEART: S1 S2 regular rate and rhythm ,no loud murmurs ABDOMEN: Soft , no tenderness EXTREMITIES: No edema feet - Labs CBC & Chem 7: 05/05/23 06:05 05/05/23 06:05 Labs: Abnormal Lab Results - Last 24 Hours (Table) 05/04/23 05/04/23 05/05/23 Range/Units 16:54 20:16 06:05 WBC 16.51 H (4.50-10.00) X 10*3/uL RBC 3.33 L (4.10-5.20) X 10*6/uL Hgb 10.9 L (12.0-15.0) d/dL Hct 33.8 L (37.2-46.3) % MCV 101.5 H (80.0-97.0) FL MCH 32.7 H (27.0-32.0) pg RDW 14.8 H (11.5-14.5) % Neutrophils # 13.94 H (1.80-7.70) X 10*3/uL Monocytes # 1.12 H (0.20-1.00) X 10*3/uL Sodium (135-145) mmol/L Carbon Dioxide (21.6-31.8) mmol/L BUN (9.0-27.0) mg/dL Est GFR (CKD-EPI) (>=60) BUN/Creatinine Ratio (12.00-20.00) Ratio POC Glucose (mg/dL) 189 H 230 H (70-110) mg/dL ALT (8-44) U/L C-Reactive Protein (0.00-0.80) mg/dL Total Protein (6.2-8.2) d/dL Albumin (3.8-4.9) d/dL Albumin/Globulin Ratio (1.60-3.17) Ratio 05/05/23 Range/Units 06:05 WBC (4.50-10.00) X 10*3/uL RBC (4.10-5.20) X 10*6/uL Hgb (12.0-15.0) d/dL Hct (37.2-46.3) % MCV (80.0-97.0) FL MCH (27.0-32.0) pg RDW (11.5-14.5) % Neutrophils # (1.80-7.70) X 10*3/uL Monocytes # (0.20-1.00) X 10*3/uL Sodium 133 L (135-145) mmol/L Carbon Dioxide 20.4 L (21.6-31.8) mmol/L BUN 36.2 H (9.0-27.0) mg/dL Est GFR (CKD-EPI) 44 L (>=60) BUN/Creatinine Ratio 30.17 H (12.00-20.00) Ratio POC Glucose (mg/dL) (70-110) mg/dL ALT 7 L (8-44) U/L C-Reactive Protein 7.90 H (0.00-0.80) mg/dL Total Protein 4.7 L (6.2-8.2) d/dL Albumin 2.6 L (3.8-4.9) d/dL Albumin/Globulin Ratio 1.24 L (1.60-3.17) Ratio Microbiology - Last 24 Hours (Table) 05/01/23 15:14 Blood Culture - Preliminary Blood 05/01/23 10:11 Blood Culture - Preliminary Blood 05/02/23 06:13 Blood Culture - Preliminary Blood Assessment and Plan (1) Bacteremia Current Visit: Yes Status: Acute Code(s): R78.81 - BACTEREMIA SNOMED Code(s): 2769469 Plan: 1patient with the Staphylococcus lugdunenisis bacteremia usually of the skin or soft tissue origin in this patient present hospital with the deep pelvic pain and did have significant abnormality on the MRI with concern for possible myositis involving the left hip area however no significant swelling redness or any open wound was noticed to the left hip site on clinical examination 2the patient has cleared her bacteremia patient did have a elevated sed rate of 41 and a CRP of 7.4 3- WBC scan is currently in progress, CT MRI were reviewed with the radiologist no evidence of abscess to the iliopsoas or left hip area 4-patient to continue with cefazolin , will place the midline for at least 2 weeks of IV cefazolin on discharge and close patient follow-up Dictation was produced using [employer] dictation software. please excuse any grammatical, word or spelling errors. Time with Patient: Less than 30
[2023-05-05 18:10] LABS: Glucose,Whole Blood 80 mg/dL (70-110)
[2023-05-05 19:59] LABS: Glucose,Whole Blood 136 mg/dL (70-110)
[2023-05-05] MEDS: ATORVASTATIN 20 MG TAB PO SCH (20:41)
[2023-05-05] MEDS: FOLIC ACID-VIT B COMPLEX-VIT C 1 CAP PO SCH (20:41)
--- NOTE | 2023-05-05 22:31 | NM ---
EXAMINATION TYPE: NM WBC whole body DATE OF EXAM: 05/05/2023 COMPARISON: NONE CLINICAL INDICATION: Female, 88 years old with history of bacteremia , source; TECHNIQUE: Following administration of 18.8 mCi technetium 99 M labeled white blood cells . Images obtained for hours post injection. FINDINGS: Normal physiological tracer activity is noted in the liver and spleen and in the bone marrow of the a xial and appendicular skeleton. Attention is paid to the left hip. Suspicious uptake in or about the left hip is not identified. No suspicious foci to suggest underlying infection is identified. IMPRESSION: 1. No suspicious uptake to suggest a focus of infection. 2. Left hip appears unremarkable without suspicious uptake
[2023-05-06] MEDS: hydrALAZINE HCL 25 MG TAB PO SCH ×3 (01:12→13:09)
[2023-05-06] MEDS: LEVOTHYROXINE 50 MCG TAB PO SCH (05:21)
[2023-05-06 07:27] LABS: Glucose,Whole Blood 73 mg/dL (70-110)
[2023-05-06 08:51] VITALS: TEMP 97.6
[2023-05-06] MEDS: INSULIN ASPART (NovoLOG) 100 UNIT/ML VIAL SQ SCH ×2 (08:58→12:01)
[2023-05-06] MEDS: CHOLECALCIFEROL 25 MCG (1000 IU) TABLET PO SCH (09:02)
[2023-05-06] MEDS: METOPROLOL TARTRATE 25 MG TAB PO SCH (09:02)
[2023-05-06] MEDS: ASPIRIN 81 MG PO SCH (09:02)
[2023-05-06] MEDS: INSULIN DETEMIR (LEVEMIR) 100 UNIT/ML SYR SQ SCH (09:02)
[2023-05-06] MEDS: APIXABAN 2.5 MG TABLET PO SCH (09:02)
[2023-05-06] MEDS: PANTOPRAZOLE 40 MG TABLET PO SCH (09:03)
[2023-05-06 11:43] LABS: Basophils # (A) 0.05 X 10*3/uL (0.00-0.10); Basophils % (A) 0.4 %; Crenated RBC 2+; Eosinophils # (A) 0.09 X 10*3/uL (0.04-0.35); Eosinophils % (A) 0.7 %; HCT 33.3 % (37.2-46.3); Lymphocytes # (A) 1.05 X 10*3/uL (0.90-5.00); Lymphocytes % (A) 8.7 %; MCH 32.5 pg (27.0-32.0); MCV 108.1 FL (80.0-97.0); Mean Platelet Volume 10.3 FL (9.5-12.2); Monocytes # (A) 0.93 X 10*3/uL (0.20-1.00); Monocytes % (A) 7.7 %; NRBC Per 100 WBC 0 X 10*3/uL (0.00-0.01); Neutrophils # (A) 9.88 X 10*3/uL (1.80-7.70); Neutrophils % (A) 81.5 %; Platelet Count 238 X 10*3/uL (140-440); RBC 3.08 X 10*6/uL (4.10-5.20); RDW 14.8 % (11.5-14.5); WBC 12.12 X 10*3/uL (4.50-10.00)
[2023-05-06 11:54] LABS: Glucose,Whole Blood 139 mg/dL (70-110)
--- NOTE | 2023-05-06 12:06 | P.PN ---
Subjective Progress Note Date: 05/06/23 Principal diagnosis: Bacteremia Patient is a 88-year-old female with a past medical history significant for diabetes mellitus hypertension hyperlipidemia atrial fibrillat ion coronary artery disease presenting to the hospital patient did have elevated white count low-grade fever for evaluation of her mental status changes abnormal MRI to the left hip area and did have a positive blood culture with Staphylococcus lugdunensis On today's evaluation that is 05/06/2023, the patient remains to be afebrile the patient is breathing comfortably on room air, the patient denies chest pain, shortness of breath or cough, patient denies nausea/vomiting , no diarrhea and no abdominal pain the patient pain to the left hip has decreased in intensity. Patient white count is slightly down to 12.2, repeat blood culture so far negative. Objective - Vital Signs Vital signs: Vital Signs Temp 97.6 F 05/06/23 06:50 Pulse 50 L 05/06/23 08:40 Resp 14 05/06/23 08:40 BP 151/70 05/06/23 06:50 Pulse Ox 97 05/06/23 01:48 FiO2 Intake & Output 05/05/23 05/06/23 05/06/23 18:59 06:59 18:59 Intake Total 275 Output Total 700 250 401 Balance -700 25 -401 Intake: Oral 275 Output: Urine 700 250 400 Stool 1 Other: Voiding Method Indwelling Catheter Indwelling Catheter Indwelling Catheter - Exam GENERAL DESCRIPTION: Elderly female lying in bed in no distress RESPIRATORY SYSTEM: Unlabored breathing , decreased breath sounds at bases HEART: S1 S2 regular rate and rhythm ,no loud murmurs ABDOMEN: Soft , no tenderness EXTREMITIES: No edema feet - Labs CBC & Chem 7: 05/06/23 06:36 05/05/23 06:05 Labs: Abnormal Lab Results - Last 24 Hours (Table) 05/05/23 05/06/23 05/06/23 Range/Units 19:56 06:36 11:53 WBC 12.12 H (4.50-10.00) X 10*3/uL RBC 3.08 L (4.10-5.20) X 10*6/uL Hgb 10.0 L (12.0-15.0) d/dL Hct 33.3 L (37.2-46.3) % MCV 108.1 H (80.0-97.0) FL MCH 32.5 H (27.0-32.0) pg MCHC 30.0 L (32.0-37.0) d/dL RDW 14.8 H (11.5-14.5) % Neutrophils # 9.88 H (1.80-7.70) X 10*3/uL Crenated Cell 2+ A POC Glucose (mg/dL) 136 H 139 H (70-110) mg/dL Microbiology - Last 24 Hours (Table) 05/02/23 06:13 Blood Culture - Preliminary Blood Assessment and Plan (1) Bacteremia Current Visit: Yes Status: Acute Code(s): R78.81 - BACTEREMIA SNOMED Code(s): 3258081 Plan: 1patient with the Staphylococcus lugdunenisis bacteremia usually of the skin or soft tissue origin in this patient present hospital with the deep pelvic pain and did have significant abnormality on the MRI with concern for possible myositis involving the left hip area however no significant swelling redness or any open wound was noticed to the left hip site on clinical examination 2the patient has cleared her bacteremia patient did have a elevated sed rate of 41 and a CRP of 7.4 3- WBC scan is negative, CT MRI were reviewed with the radiologist no evidence of abscess to the iliopsoas or left hip area 4-patient seemed to have her clinical improvement and repeat blood cultures have been negative 5-patient to continue with cefazolin x 2 weeks on discharge and close patient follow-up Dictation was produced using [employer] dictation software. please excuse any grammatical, word or spelling errors. Time with Patient: Less than 30
[2023-05-06 12:23] VITALS: BP 112/40; PULSE 53; RESP 18
[2023-05-06] MEDS: ACETAMINOPHEN TAB 325 MG TAB PO PRN (13:08)
[2023-05-06 13:36] LABS: BUN/Creat Ratio 27.92 Ratio (12.00-20.00); Blood Urea Nitrogen 36.3 mg/dL (9.0-27.0); Calcium 8.8 mg/dL (8.7-10.3); Carbon Dioxide 17.4 mmol/L (21.6-31.8); Chloride 105 mmol/L (96-109); Glucose 67 mg/dL (70-110); Potassium 4.8 mmol/L (3.5-5.5); Sodium 132 mmol/L (135-145)
--- NOTE | 2023-05-08 10:49 | CDI ---
Documentation Clarification Form Date: 05/08/2023 10:34:35 AM From: Bonita Roy Phone: Admit Date: 04/28/2023 08:47:00 PM Patient Name: Kathryn oTrres Visit Number: [id number] Discharge Date: 05/06/2023 03:55:00 PM ATTENTION: The Clinical Documentation Specialists (CDI) and [facility] Coding Staff appreciate your assistance in clarifying documentation. Please respond to the clarification below the line at the bottom and electronically sign. The CDI & [facility] Coding staff will review the response and follow-up if needed. Please note: Queries are made part of the Legal Health Record. If you have any questions, please contact the author of this message via ITS. Dr. Rhys Strange Diabetes is documented per ED Note and following Progress Notes. Additional specificity regarding the diabetes diagnosis is requested. History/Risk Factors: 88yo F, encephalopathysecondary to potential steroids, CADwith CABG,persistent A Fib, HTN, HLD, DMII w CKD, bacteremia d/t staph Lugdunesis Clinical Indicators: Glucose 268 04/28 POC Glucose: 285 326 354 04/29 Treatment: .15ML Levemir Please clarify the type of diabetes, if known: [ ] Type 2 diabetes mellitus with hyperglycemia [ ] Other, please specify [ ] Unable to Determine (Template Last Revised: September 2020) MTDD
--- NOTE | 2023-05-26 10:54 | CDI ---
Documentation Clarification Form Date: 05/26/2023 10:52:29 AM From: Bonita Roy Phone: Admit Date: 04/28/2023 08:47:00 PM Patient Name: Kathryn Torres Visit Number: [id number] Discharge Date: 05/06/2023 03:55:00 PM ATTENTION: The Clinical Documentation Specialists (CDI) and [facility] Coding Staff appreciate your assistance in clarifying documentation. Please respond to the clarification below the line at the bottom and electronically sign. The CDI & [facility] Coding staff will review the response and follow-up if needed. Please note: Queries are made part of the Legal Health Record. If you have any questions, please contact the author of this message via ITS. Dr. Bebeto Hameed Diabetes is documented per ED Note and following Progress Notes. Additional specificity regarding the diabetes diagnosis is requested. History/Risk Factors: 88yo F, encephalopathysecondary to potential steroids, CADwith CABG,persistent A Fib, HTN, HLD, DMII w CKD, bacteremia d/t staph Lugdunesis Clinical Indicators: Glucose 268 04/28 POC Glucose: 285 326 354 04/29 Treatment: .15ML Levemir Please clarify the type of diabetes, if known: [ ] Type 2 diabetes mellitus with hyperglycemia [ x] Other, please specify___direct question to the admitting physican [ ] Unable to Determine (Template Last Revised: September 2020) MTDD
== END 2023-05-06 15:55 | DRG 92 ==
LOC: EC 13:30 → 5NMEDONC 20:47
PROVIDERS: ADMIT Family Medicine; ATTEND Family Medicine
PROC: 05HB33Z Insertion of Infusion Device into Right Basilic Vein, Percutaneous Approach (ICD-10-PCS; principal; 2023-05-05 08:30)
DX: G92.8 Other toxic encephalopathy (principal); I13.0 Hypertensive heart and chronic kidney disease with heart failure and stage 1 through stage 4 chronic kidney disease, or unspecified chronic kidney disease; I48.19 Other persistent atrial fibrillation; T82.6XXA Infection and inflammatory reaction due to cardiac valve prosthesis, initial encounter; I50.22 Chronic systolic (congestive) heart failure; R78.81 Bacteremia; T82.857A Stenosis of other cardiac prosthetic devices, implants and grafts, initial encounter; N39.0 Urinary tract infection, site not specified; I27.20 Pulmonary hypertension, unspecified; E11.22 Type 2 diabetes mellitus with diabetic chronic kidney disease; N18.30 Chronic kidney disease, stage 3 unspecified; G31.9 Degenerative disease of nervous system, unspecified; M06.9 Rheumatoid arthritis, unspecified; M46.1 Sacroiliitis, not elsewhere classified; E03.9 Hypothyroidism, unspecified; B95.7 Other staphylococcus as the cause of diseases classified elsewhere; I08.0 Rheumatic disorders of both mitral and aortic valves; G93.0 Cerebral cysts; R32 Unspecified urinary incontinence; I25.10 Atherosclerotic heart disease of native coronary artery without angina pectoris; K21.9 Gastro-esophageal reflux disease without esophagitis; E78.5 Hyperlipidemia, unspecified; I44.7 Left bundle-branch block, unspecified; M16.0 Bilateral primary osteoarthritis of hip; M60.9 Myositis, unspecified; T38.0X5A Adverse effect of glucocorticoids and synthetic analogues, initial encounter; F40.240 Claustrophobia; Y71.2 Prosthetic and other implants, materials and accessory cardiovascular devices associated with adverse incidents; Z96.652 Presence of left artificial knee joint; Z86.16 Personal history of COVID-19; Z91.81 History of falling; Z79.899 Other long term (current) drug therapy; Z79.890 Hormone replacement therapy; Z79.84 Long term (current) use of oral hypoglycemic drugs; Z79.82 Long term (current) use of aspirin; Z79.01 Long term (current) use of anticoagulants; Z87.39 Personal history of other diseases of the musculoskeletal system and connective tissue; Z95.1 Presence of aortocoronary bypass graft; Z79.4 Long term (current) use of insulin
CPT/HCPCS: 36410; 36415; 51798; 70450; 70553; 71046; 72195; 76937; 78306; 80048; 80053; 80306; 81001; 82140; 82607; 82746; 83036; 83605; 84484; 85025; 85027; 85610; 85652; 85730; 86140; 87040; 87077; 87186; 93005; 95816; 96361; 96365; 99285

== ENCOUNTER → 2023-10-26 | Outpatient (CLI) | payer MEDICARE ==
--- NOTE | 2023-10-26 10:48 | USB ---
Reason for Exam: Clinical finding. Patient History: Menarche at age 12. Hysterectomy at age 50. Postmenopausal. Technique: Method: Targeted. Doppler: Color. Patient Position: Supine. Prior Study Comparison: 08/20/1989 Screening Mammogram, Unknown. 09/02/2000 Bilateral Screening Mammogram, [facility]. 02/23/2008 Bilateral Screening Mammogram, [facility]. Findings: The axilla of the left breast and the retroareolar of the left breast were scanned. Hypoechoic mass measuring 1.7cm x 1.7 cm x .9 cm left breast at 12:00 is suspicious for malignancy. No axillary adenopathy. Overall Assessment: Highly suggestive of malignancy, BI-RAD 5 Management: Ultrasound Core Biopsy of the left breast. A clinical breast exam by your physician is recommended on an annual basis and results should be correlated with mammographic findings. This exam should not preclude additional follow-up of suspicious palpable abnormalities. Results were given to the patient verbally at the time of exam. Electronically signed and approved by: Aston Quintana M.D. Radiologis
--- NOTE | 2023-10-26 11:10 | MM ---
Reason for Exam: Clinical finding. Last mammogram was performed 15 year(s) and 8 month(s) ago. Indicated Problems: Lump or thickening of the left side for 3 Week(s). Patient History: Menarche at age 12. Hysterectomy at age 50. Postmenopausal. Prior Study Comparison: 02/23/2008 Bilateral Screening Mammogram, [facility]. Tissue Density: The breasts are heterogeneously dense, which may obscure small masses. Findings: Analyzed By CAD. Mass at the left 12:00 position approximately 1.6 x 1.8 cm mammographically. There appears to be a left nipple retraction. The mass is 2 cm from the nipple. Findings are highly suspicious for malignancy. Ultrasound is recommended. Overall Assessment: Incomplete: need additional imaging evaluation, BI-RAD 0 Management: Diagnostic Breast Ultrasound of the left breast. . Results were given to the patient verbally at the time of exam. Patient should continue monthly self-breast exams. A clinical breast exam by your physician is recommended on an annual basis. This exam should not preclude additional follow-up of suspicious palpable abnormalities. Note on Farnaz scores and lifetime risk: 1. A Farnaz score greater than 3% is considered moderate risk. If this is the case, consider specialist referral to assess eligibility for a risk reducing agent. 2. If overall lifetime risk for the development of breast cancer is 20% or higher, the patient may qualify for future screening with alternating mammogram and breast MRI. Electronically signed and approved by: Aston Quintana M.D. Radiologis
== END | disposition home or self-care (01) ==
LOC: RADMAMWWP 10:01
PROVIDERS: ATTEND Family Medicine
DX: R92.333 Mammographic heterogeneous density, bilateral breasts (principal); N63.20 Unspecified lump in the left breast, unspecified quadrant; Z78.0 Asymptomatic menopausal state
CPT/HCPCS: 77066; 76642; G0279; 77062

== ENCOUNTER → 2023-11-04 | Day surgery (SDC) | payer MEDICARE | LOC: RADUSWWP 10:07 | PROVIDERS: ATTEND Surgery | DX: N60.12 Diffuse cystic mastopathy of left breast (principal) | CPT/HCPCS: 88305; 88342; 77065; 19083; A4648 ==

== ENCOUNTER 2023-11-16 20:43 | Emergency (ER) | payer MEDICARE ==
--- NOTE | 2023-11-16 21:15 | ED ---
General Adult HPI - General Source: EMS, RN notes reviewed Mode of arrival: EMS Limitations: no limitations <Vern Finley - Last Filed: 11/16/23 21:16> <Mery Justin - Last Filed: 11/20/23 22:58> - General Chief complaint: Weakness Stated complaint: Weakness,Dizziness Time Seen by Provider: 11/16/23 21:10 - History of Present Illness Initial comments: 88-year-old female presenting to the ED with complaints of cough. Per patient and family, reports feeling generally unwell with some associated fatigue, heada anish, and cough. No changes in bowel or bladder habits. (Vern Finley) 88-year-old female presents emergency department reporting weakness. Today the family noticed that the patient was fatigued and became weak over the course of the day. She had a near syncopal event where family was able to catch her before she fell. Family states that the patient has a tendency to get weak very quickly. She lives alone and therefore they are concerned about her wellbeing. Patient admits to a cough, headache. No nausea or vomiting. Denies any abdominal pain. No changes in her bowel or bladder habits. Denies any chest pain or difficulty breathing. No sick contacts with similar symptoms. Denies any fevers. No lateralizing weakness. No confusion. No other alleviating, precipitating or modifying factors (Mery Justin) - Related Data Home Medications Medication Instructions Recorded Confirmed Levothyroxine Sodium [Synthroid] 50 mcg PO DAILY 07/21/17 11/19/23 allopurinoL [Zyloprim] 100 mg PO DAILY 07/21/17 11/19/23 Furosemide [Lasix] 40 mg PO DAILY 10/21/20 11/19/23 Pantoprazole [Protonix] 40 mg PO DAILY 10/21/20 11/19/23 Simvastatin [Zocor] 40 mg PO HS 10/21/20 11/19/23 Spironolactone [Aldactone] 25 mg PO BID 10/21/20 11/19/23 Insulin Lispro [humaLOG Kwikpen] See Protocol SQ ACHS 10/27/23 11/19/23 Acetaminophen Tab [Tylenol Tab] 1,000 mg PO Q4H 11/19/23 11/19/23 Vitamin B Complex/Folic Acid 0.4 mg PO DAILY 11/19/23 11/19/23 [Vitamin B Complex Tablet] Previous Rx's Medication Instructions Recorded Apixaban [Eliquis] 2.5 mg PO BID tablet 07/24/17 hydrALAZINE HCL [Apresoline] 25 mg PO BID #60 tab 07/28/17 Metoprolol Tartrate [Lopressor] 25 mg PO BID #60 tab 11/25/18 Cephalexin [Keflex] 500 mg PO BID #14 cap 11/17/23 Allergies Allergy/AdvReac Type Severity Reaction Status Date / Time No Known Allergies Allergy Verified 11/19/23 21:09 Review of Systems ROS Other: All systems not noted in ROS Statement are negative. <Vern Finley - Last Filed: 11/16/23 21:16> ROS Other: All systems not noted in ROS Statement are negative. <Mery Justin - Last Filed: 11/20/23 22:58> ROS Statement: Those systems with pertinent positive or pertinent negative responses have been documented in the HPI. Past Medical History Past Medical History: Atrial Fibrillation, Coronary Artery Disease (CAD), Heart Failure, Diabetes Mellitus, GERD/Reflux, Hyperlipidemia, Hypertension, Osteoarthritis (OA), Renal Disease, Thyroid Disorder Additional Past Medical History / Comment(s): NIDDM type II, 07/24/17 echo with 20% EF, chronic kidney disease stage III, bilateral tinnitis, arthritis multiple joints, gout, back pain. 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 skin ca removed Past Anesthesia/Blood Transfusion Reactions: Previous Problems w/ Anesthesia Additional Past Anesthesia/Blood Transfusion Reaction / Comment(s): Pt states she was hypertensive after waking from D&C. Pt has clausterphobia. Past Psychological History: Depression Smoking Status: Never smoker Past Alcohol Use History: None Reported Past Drug Use History: None Reported - Past Family History Father History Unknown: Yes Additional Family Medical History / Comment(s): pt was adopted Mother History Unknown: Yes Additional Family Medical History / Comment(s): Mother after childbirth at the age of 35yrs. <Vern Finley - Last Filed: 11/16/23 21:16> General Exam Limitations: no limitations <Vern Finley - Last Filed: 11/16/23 21:16> General appearance: alert, in no apparent distress Head exam: Present: atraumatic, normocephalic, normal inspection Eye exam: Present: normal appearance, PERRL, EOMI. Absent: scleral icterus, conjunctival injection, periorbital swelling ENT exam: Present: normal exam, mucous membranes moist Neck exam: Present: normal inspection. Absent: tenderness, meningismus, lymphadenopathy Respiratory exam: Present: normal lung sounds bilaterally. Absent: respiratory distress, wheezes, rales, rhonchi, stridor Cardiovascular Exam: Present: regular rate, normal rhythm, normal heart sounds. Absent: systolic murmur, diastolic murmur, rubs, gallop, clicks GI/Abdominal exam: Present: soft, normal bowel sounds. Absent: distended, tenderness, guarding, rebound, rigid Extremities exam: Present: normal inspection, full ROM, normal capillary refill. Absent: tenderness, pedal edema, joint swelling, calf tenderness Back exam: Present: normal inspection Neurological exam: Present: alert, oriented X3, CN II-XII intact Psychiatric exam: Present: normal affect, normal mood Skin exam: Present: warm, dry, intact, normal color. Absent: rash <Mery Justin - Last Filed: 11/20/23 22:58> - General Exam Comments Initial Comments: Visual Physical Exam Vital signs reviewed General: Well-appearing, nontoxic, no acute distress. Head: Normocephalic, atraumatic Eyes: PERRLA, EOMI ENT: Airway patent Chest: Nonlabored breathing Skin: No visual rash, normal skin tone Neuro: Alert and oriented 3 Musculoskeletal: No gross abnormalities (Vern Finley) Course Vital Signs 11/16/23 11/17/23 11/17/23 20:55 01:50 04:00 Temperature 98.8 F Pulse Rate 80 74 80 Respiratory 18 12 19 Rate Blood Pressure 132/56 154/58 144/48 O2 Sat by Pulse 96 99 98 Oximetry 04/30/24 04:44 Temperature Pulse Rate 79 Respiratory 18 Rate Blood Pressure 132/60 O2 Sat by Pulse 97 Oximetry Medical Decision Making <Vern Finley - Last Filed: 11/16/23 21:16> - Lab Data Result diagrams: 11/16/23 23:27 11/16/23 23:27 <Mery Justin - Last Filed: 11/20/23 22:58> - Medical Decision Making Quicknote portion performed. Signed Vern Finley PA-C (Vern Finley) Was pt. sent in by a medical professional or institution (, PA, STUDENT ASSISTANCE COUNSELOR, urgent care, hospital, or fdc...) When possible be specific @ -No Did you speak to anyone other than the patient for history (EMS, parent, family, police, friend...)? What history was obtained from this source @ -Spoke with the patient's family member Did you review nursing and triage notes (agree or disagree)? Why? @ -I reviewed and agree with nursing and triage notes Were old charts reviewed (outside hosp., previous admission, EMS record, old EKG, old radiological studies, urgent care reports/EKG's, fdc records)? Report findings @ -No old charts were reviewed Differential Diagnosis (chest pain, altered mental status, abdominal pain women, abdominal pain men, vaginal bleeding, weakness, fever, dyspnea, syncope, headache, dizziness, GI bleed, back pain, seizure, CVA, palpatations, mental health, musculoskeletal)? @ -Differential Weakness: Hypoglycemia, shock, sepsis, hyponatremia, anemia, infection, SC, ETOH, adverse medicine reaction, overdose, stroke, this is not meant to be an all-inclusive list. EKG interpreted by me (3pts min.). @ -Yes and demonstrates A-fib with a left bundle branch block. Rate of 79. QRS 162. QTc of 500. Negative for sgarbossa X-rays interpreted by me (1pt min.). @ -Yes and demonstrates no acute process CT interpreted by me (1pt min.). @ -None done U/S interpreted by me (1pt. min.). @ -None done What testing was considered but not performed or refused? (CT, X-rays, U/S, labs)? Why? @ -None What meds were considered but not given or refused? Why? @ -None Did you discuss the management of the patient with other professionals (professionals i.e. , PA, STUDENT ASSISTANCE COUNSELOR, lab, RT, psych nurse, social media specialist, aligner, teacher, air crew officer, outpatient case manager)? Give summary @ -No Was smoking cessation discussed for >3mins.? @ -No Was critical care preformed (if so, how long)? @ -No Were there social determinants of health that impacted care today? How? (Homelessness, low income, unemployed, alcoholism, drug addiction, transportation, low edu. Level, literacy, decrease access to med. care, group home, rehab)? @ -No Was there de-escalation of care discussed even if they declined (Discuss DNR or withdrawal of care, Hospice)? DNR status @ -No What co-morbidities impacted this encounter? (DM, HTN, Smoking, COPD, CAD, Cancer, CVA, ARF, Chemo, Hep., AIDS, mental health diagnosis, sleep apnea, morbid obesity)? @ -A-fib, congestive heart failure, hypertension, diabetes Was patient admitted / discharged? Hospital course, mention meds given and route, prescriptions, significant lab abnormalities, going to OR and other pertinent info. @ -Upon arrival patient was seen and evaluated in room 9. Thorough history and physical exam was performed. IV was established. Patient was given a liter bolus of normal saline. Laboratory studies are conducted. Chest x-ray was performed. Upon return of the results the patient does have a urinary tract infection. She was given a dose of IV antibiotics. I did offer admission as family is concerned about the patient's safety however patient feels okay at this time and would like to try to go home on oral antibiotics. She needs to follow-up with her primary care doctor in 2 to 4 days. Return for any new or worsening symptoms. Patient agreeable to plan was discharged in stable condition Undiagnosed new problem with uncertain prognosis? @ -No Drug Therapy requiring intensive monitoring for toxicity (Heparin, Nitro, Insulin, Cardizem)? @ -No Were any procedures done? @ -No Diagnosis/symptom? @ -Near syncope, acute UTI Acute, or Chronic, or Acute on Chronic? @ -Acute Uncomplicated (without systemic symptoms) or Complicated (systemic symptoms)? @ -Complicated Side effects of treatment? @ -No Exacerbation, Progression, or Severe Exacerbation? @ -No Poses a threat to life or bodily function? How? (Chest pain, USA, SC, pneumonia, PE, COPD, DKA, ARF, appy, cholecystitis, CVA, Diverticulitis, Homicidal, Suicidal, threat to staff... and all critical care pts) @ -No (Mery Justin) - Lab Data Lab Results 11/16/23 11/16/23 11/16/23 Range/Units 23:27 23:27 23:27 WBC 14.2 H (3.8-10.6) k/uL RBC 3.79 L (3.80-5.40) m/uL Hgb 12.2 (11.4-16.0) gm/dL Hct 39.8 (34.0-46.0) % MCV 105.1 H (80.0-100.0) fL MCH 32.3 (25.0-35.0) pg MCHC 30.7 L (31.0-37.0) g/dL RDW 14.5 (11.5-15.5) % Plt Count 176 (150-450) k/uL MPV 8.3 Neutrophils % 93 % Lymphocytes % 2 % Monocytes % 3 % Eosinophils % 0 % Basophils % 0 % Neutrophils # 13.2 H (1.3-7.7) k/uL Lymphocytes # 0.3 L (1.0-4.8) k/uL Monocytes # 0.4 (0-1.0) k/uL Eosinophils # 0.0 (0-0.7) k/uL Basophils # 0.0 (0-0.2) k/uL Hypochromasia Slight Macrocytosis Moderate Sodium 137 (137-145) mmol/L Potassium 4.5 (3.5-5.1) mmol/L Chloride 103 (98-107) mmol/L Carbon Dioxide 22 (22-30) mmol/L Anion Gap 12 mmol/L BUN 96 H (7-17) mg/dL Creatinine 1.88 H (0.52-1.04) mg/dL Est GFR (CKD-EPI)AfAm 27 (>60 ml/min/1.73 sqM) Est GFR (CKD-EPI)NonAf 24 (>60 ml/min/1.73 sqM) Glucose 202 H (74-99) mg/dL Calcium 9.6 (8.4-10.2) mg/dL Total Bilirubin 0.9 (0.2-1.3) mg/dL AST 20 (14-36) U/L ALT 9 (4-34) U/L Alkaline Phosphatase 71 (38-126) U/L Total Protein 6.0 L (6.3-8.2) g/dL Albumin 3.8 (3.5-5.0) g/dL Urine Color Urine Appearance (Clear) Urine pH (5.0-8.0) Ur Specific Haiku (1.001-1.035) Urine Protein (Negative) Urine Glucose (UA) (Negative) Urine Ketones (Negative) Urine Blood (Negative) Urine Nitrite (Negative) Urine Bilirubin (Negative) Urine Urobilinogen (<2.0) mg/dL Ur Leukocyte Esterase (Negative) Urine RBC (0-5) /hpf Urine WBC (0-5) /hpf Ur Squamous Epith Cells (0-4) /hpf Urine Bacteria (None) /hpf Hyaline Casts (0-2) /lpf Urine Mucus (None) /hpf Influenza Type A (PCR) Not Detected (Not Detectd) Influenza Type B (PCR) Not Detected (Not Detectd) RSV (PCR) Not Detected (Not Detectd) SARS-CoV-2 (PCR) Not Detected (Not Detectd) 11/17/23 Range/Units 01:45 WBC (3.8-10.6) k/uL RBC (3.80-5.40) m/uL Hgb (11.4-16.0) gm/dL Hct (34.0-46.0) % MCV (80.0-100.0) fL MCH (25.0-35.0) pg MCHC (31.0-37.0) g/dL RDW (11.5-15.5) % Plt Count (150-450) k/uL MPV Neutrophils % % Lymphocytes % % Monocytes % % Eosinophils % % Basophils % % Neutrophils # (1.3-7.7) k/uL Lymphocytes # (1.0-4.8) k/uL Monocytes # (0-1.0) k/uL Eosinophils # (0-0.7) k/uL Basophils # (0-0.2) k/uL Hypochromasia Macrocytosis Sodium (137-145) mmol/L Potassium (3.5-5.1) mmol/L Chloride (98-107) mmol/L Carbon Dioxide (22-30) mmol/L Anion Gap mmol/L BUN (7-17) mg/dL Creatinine (0.52-1.04) mg/dL Est GFR (CKD-EPI)AfAm (>60 ml/min/1.73 sqM) Est GFR (CKD-EPI)NonAf (>60 ml/min/1.73 sqM) Glucose (74-99) mg/dL Calcium (8.4-10.2) mg/dL Total Bilirubin (0.2-1.3) mg/dL AST (14-36) U/L ALT (4-34) U/L Alkaline Phosphatase (38-126) U/L Total Protein (6.3-8.2) g/dL Albumin (3.5-5.0) g/dL Urine Color Light Yellow Urine Appearance Cloudy H (Clear) Urine pH 5.0 (5.0-8.0) Ur Specific Haiku 1.015 (1.001-1.035) Urine Protein Trace H (Negative) Urine Glucose (UA) Negative (Negative) Urine Ketones Negative (Negative) Urine Blood Negative (Negative) Urine Nitrite Negative (Negative) Urine Bilirubin Negative (Negative) Urine Urobilinogen <2.0 (<2.0) mg/dL Ur Leukocyte Esterase Large H (Negative) Urine RBC <1 (0-5) /hpf Urine WBC 80 H (0-5) /hpf Ur Squamous Epith Cells 4 (0-4) /hpf Urine Bacteria Many H (None) /hpf Hyaline Casts 9 H (0-2) /lpf Urine Mucus Rare H (None) /hpf Influenza Type A (PCR) (Not Detectd) Influenza Type B (PCR) (Not Detectd) RSV (PCR) (Not Detectd) SARS-CoV-2 (PCR) (Not Detectd) Disposition <Vern Finley - Last Filed: 11/16/23 21:16> Is patient prescribed a controlled substance at d/c from ED?: No Time of Disposition: 04:28 <Mery Justin - Last Filed: 11/20/23 22:58> Clinical Impression: UTI (urinary tract infection), Generalized weakness Disposition: HOME SELF-CARE Condition: Stable Instructions (If sedation given, give patient instructions): Urinary Tract Infection in Women (ED) Additional Instructions: Please take the antibiotic as directed. Follow-up with your doctor and return for any new or worsening symptoms Prescriptions: Cephalexin [Keflex] 500 mg PO BID #14 cap Referrals: Rhys Strange DO [Primary Care Provider] - 1-2 days
[2023-11-16 21:39] VITALS: TEMP 98.8
--- NOTE | 2023-11-16 21:43 | XR ---
EXAMINATION TYPE: XR chest 2V DATE OF EXAM: 11/16/2023 9:34 PM CLINICAL INDICATION:Female, 88 years old with history of r/o pna; COMPARISON: Chest radiographs from 04/28/2023. TECHNIQUE: XR chest 2V Frontal and lateral views of the chest. FINDINGS: Lungs/Pleura: There is no evidence of pleural effusion, focal consolidation, or pneumothorax. Pulmonary vascularity: Unremarkable. Heart/mediastinum: Cardiomediastinal silhouette is enlarged and stable. Musculoskeletal: No acute osseous pathology. Midline sternotomy wires are noted. IMPRESSION: No acute cardiopulmonary disease/process.
[2023-11-16 23:37] LABS: Basophils % (A) 0 %; Eosinophils % (A) 0 %; HCT 39.8 % (34.0-46.0); HGB 12.2 gm/dL (11.4-16.0); Hypochromasia Slight; Lymphocytes # (A) 0.3 k/uL (1.0-4.8); Lymphocytes % (A) 2 %; MCH 32.3 pg (25.0-35.0); MCHC 30.7 g/dL (31.0-37.0); MCV 105.1 fL (80.0-100.0); Macrocytosis Moderate; Mean Platelet Volume 8.3; Monocytes # (A) 0.4 k/uL (0-1.0); Monocytes % (A) 3 %; Neutrophils # (A) 13.2 k/uL (1.3-7.7); Neutrophils % (A) 93 %; Platelet Count 176 k/uL (150-450); RBC 3.79 m/uL (3.80-5.40); RDW 14.5 % (11.5-15.5); WBC 14.2 k/uL (3.8-10.6)
[2023-11-16 23:45] LABS: ALT 9 U/L (4-34); AST 20 U/L (14-36); African American GFR (CKD) 27 (>60 ml/min/1.73 sqM); Albumin 3.8 g/dL (3.5-5.0); Alkaline Phosphatase 71 U/L (38-126); Anion Gap 12 mmol/L; Blood Urea Nitrogen 96 mg/dL (7-17); Calcium 9.6 mg/dL (8.4-10.2); Carbon Dioxide 22 mmol/L (22-30); Chloride 103 mmol/L (98-107); Glucose 202 mg/dL (74-99); Non-African American GFR(CKD) 24 (>60 ml/min/1.73 sqM); Potassium 4.5 mmol/L (3.5-5.1); Sodium 137 mmol/L (137-145); Total Bilirubin 0.9 mg/dL (0.2-1.3)
[2023-11-17 02:27] LABS: Appearance,Urine Cloudy (Clear); Bacteria,Urine Many /hpf; Bilirubin,Urine Negative (Negative); Blood,Urine Negative (Negative); Color,Urine Light Yellow; Glucose,Urine (UA) Negative (Negative); Hyaline Casts,Urine 9 /lpf (0-2); Ketones,Urine Negative (Negative); Leukocyte Esterase,Urine Large (Negative); Mucus,Urine Rare /hpf; Nitrite,Urine Negative (Negative); Protein,Urine Trace (Negative); RBC,Urine <1 /hpf (0-5); Specific Gravity,Urine 1.015 (1.001-1.035); Squamous Epithelial Cell,Urine 4 /hpf (0-4); Urobilinogen,Urine <2.0 mg/dL (<2.0); WBC,Urine 80 /hpf (0-5)
[2023-11-17] MEDS: cefTRIAXone IN SWFI 1,000 MG/10 ML SYRINGE IVP STA (03:04)
[2023-11-17] MEDS: SODIUM CHLORIDE 0.9% 1,000 ML IV ONE (03:04)
[2023-11-17 05:06] VITALS: BP 132/60; PULSE 79; RESP 18
== END 2023-11-17 04:45 | disposition home or self-care (01) ==
LOC: EC 20:43
DX: N39.0 Urinary tract infection, site not specified (principal); R53.1 Weakness; E11.22 Type 2 diabetes mellitus with diabetic chronic kidney disease; I13.0 Hypertensive heart and chronic kidney disease with heart failure and stage 1 through stage 4 chronic kidney disease, or unspecified chronic kidney disease; I50.9 Heart failure, unspecified; N18.30 Chronic kidney disease, stage 3 unspecified; I48.91 Unspecified atrial fibrillation; Z79.4 Long term (current) use of insulin; Z79.899 Other long term (current) drug therapy; Z95.1 Presence of aortocoronary bypass graft; Z95.2 Presence of prosthetic heart valve
CPT/HCPCS: 36415; 93005; 80053; 85025; 81001; 87040; 87636; 71046; 99285; 96374; 96361 ×2; J0696

== ENCOUNTER 2023-11-19 18:37 | Inpatient (IN) | payer MEDICARE ==
--- NOTE | 2023-11-19 19:10 | ED ---
Weakness HPI - General Chief complaint: Weakness Stated complaint: Weakness Time Seen by Provider: 11/19/23 18:40 Source: patient, RN/MD, RN notes reviewed, old records reviewed Mode of arrival: EMS - History of Present Illness Initial comments: This is an 88-year-old female to the ER for evaluation today. Patient to the ER today for evaluation regards to weakness MD Complaint: generalized weakness, focal weakness, lack of energy, difficulty walking -: days(s) Location: generalized Severity: severe Severity scale (1-10): 8 Quality: tingling, numbness Consistency: constant Improves with: none Worsens with: none Context: recent illness, history of similar Associated Symptoms: denies other symptoms - Related Data Home Medications Medication Instructions Recorded Confirmed Levothyroxine Sodium [Synthroid] 50 mcg PO DAILY 07/21/17 11/19/23 allopurinoL [Zyloprim] 100 mg PO DAILY 07/21/17 11/19/23 Furosemide [Lasix] 40 mg PO DAILY 10/21/20 11/19/23 Pantoprazole [Protonix] 40 mg PO DAILY 10/21/20 11/19/23 Simvastatin [Zocor] 40 mg PO HS 10/21/20 11/19/23 Spironolactone [Aldactone] 25 mg PO BID 10/21/20 11/19/23 Insulin Lispro [humaLOG Kwikpen] See Protocol SQ ACHS 10/27/23 11/19/23 Acetaminophen Tab [Tylenol Tab] 1,000 mg PO Q4H 11/19/23 11/19/23 Vitamin B Complex/Folic Acid 0.4 mg PO DAILY 11/19/23 11/19/23 [Vitamin B Complex Tablet] Previous Rx's Medication Instructions Recorded Apixaban [Eliquis] 2.5 mg PO BID tablet 07/24/17 hydrALAZINE HCL [Apresoline] 25 mg PO BID #60 tab 07/28/17 Metoprolol Tartrate [Lopressor] 25 mg PO BID #60 tab 11/25/18 Cephalexin [Keflex] 500 mg PO BID #14 cap 11/17/23 Allergies Allergy/AdvReac Type Severity Reaction Status Date / Time No Known Allergies Allergy Verified 11/19/23 21:09 Review of Systems ROS Statement: Those systems with pertinent positive or pertinent negative responses have been documented in the HPI. ROS Other: All systems not noted in ROS Statement are negative. Past Medical History Past Medical History: Atrial Fibrillation, Coronary Artery Disease (CAD), Heart Failure, Diabetes Mellitus, GERD/Reflux, Hyperlipidemia, Hypertension, Osteoarthritis (OA), Renal Disease, Thyroid Disorder Additional Past Medical History / Comment(s): NIDDM type II, 07/24/17 echo with 20% EF, chronic kidney disease stage III, bilateral tinnitis, arthritis multiple joints, gout, back pain. 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 skin ca removed Past Anesthesia/Blood Transfusion Reactions: Previous Problems w/ Anesthesia Additional Past Anesthesia/Blood Transfusion Reaction / Comment(s): Pt states she was hypertensive after waking from D&C. Pt has clausterphobia. Past Psychological History: Anxiety, Depression Smoking Status: Never smoker Past Alcohol Use History: None Reported Past Drug Use History: None Reported - Past Family History Father History Unknown: Yes Additional Family Medical History / Comment(s): pt was adopted Mother History Unknown: Yes Additional Family Medical History / Comment(s): Mother after childbirth at the age of 35yrs. General Exam General appearance: alert, in no apparent distress Head exam: Present: atraumatic, normocephalic, normal inspection Eye exam: Present: normal appearance, PERRL, EOMI. Absent: scleral icterus, conjunctival injection, periorbital swelling ENT exam: Present: normal exam, mucous membranes moist Neck exam: Present: normal inspection. Absent: tenderness, meningismus, lymphadenopathy Respiratory exam: Present: normal lung sounds bilaterally. Absent: respiratory distress, wheezes, rales, rhonchi, stridor Cardiovascular Exam: Present: regular rate, normal rhythm, normal heart sounds. Absent: systolic murmur, diastolic murmur, rubs, gallop, clicks GI/Abdominal exam: Present: soft, normal bowel sounds. Absent: distended, tenderness, guarding, rebound, rigid Extremities exam: Present: normal inspection, full ROM, normal capillary refill. Absent: tenderness, pedal edema, joint swelling, calf tenderness Back exam: Present: normal inspection Neurological exam: Present: alert, oriented X3, CN II-XII intact Psychiatric exam: Present: normal affect, normal mood Skin exam: Present: warm, dry, intact, normal color. Absent: rash Course Vital Signs 11/19/23 11/19/23 11/19/23 18:47 20:00 21:00 Temperature 98.6 F Pulse Rate 98 97 87 Pulse Rate [ [employer] ] Respiratory 20 20 20 Rate Blood Pressure 122/74 136/88 134/87 Blood Pressure [Right Arm] O2 Sat by Pulse 96 99 99 Oximetry 11/19/23 11/19/23 11/20/23 22:00 23:00 00:00 Temperature 98.5 F Pulse Rate 101 H 88 Pulse Rate [ 107 H Bead [employer]ing ] Respiratory 18 18 16 Rate Blood Pressure 141/80 124/57 Blood Pressure 123/59 [Right Arm] O2 Sat by Pulse 100 100 93 L Oximetry 11/20/23 11/20/23 11/20/23 02:46 04:00 05:13 Temperature 98.3 F 98.3 F Pulse Rate Pulse Rate [ 93 110 H Bead [employer]ing ] Respiratory 16 16 18 Rate Blood Pressure Blood Pressure 123/64 128/67 128/73 [Right Arm] O2 Sat by Pulse 98 100 100 Oximetry 11/20/23 11/20/23 11/20/23 07:39 09:32 10:00 Temperature Pulse Rate 78 88 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 sent in by a medical professional or institution (, PA, [employer], urgent care, hospital, or halfway...) When possible be specific @ -no Did you speak to anyone other than the patient for history (EMS, parent, family, police, friend...)? What history was obtained from this source @ -no Did you review nursing and triage notes (agree or disagree)? Why? @ -agree Are old charts reviewed (outside hosp., previous admission, EMS record, old EKG, old radiological studies, urgent care reports/EKG's, halfway records)? Report findings @ -yes Differential Diagnosis (chest pain, altered mental status, abdominal pain women, abdominal pain men, vaginal bleeding, weakness, fever, dyspnea, syncope, headache, dizziness, GI bleed, back pain, seizure, CVA, palpatations, mental health, musculoskeletal)? @ -prior EKG interpreted by me (3pts min.). @ -yes X-rays interpreted by me (1pt min.). @ -yes negative for acute disease CT interpreted by me (1pt min.). @ -no U/S interpreted by me (1pt. min.). @ -no What testing was considered but not performed or refused? (CT, X-rays, U/S, labs)? Why? @ -none What meds were considered but not given or refused? Why? @ -none Did you discuss the management of the patient with other professionals (professionals i.e. , PA, [employer], lab, RT, psych nurse, social media editor, search engine optimization analyst, teacher, airframe technical officer, outpatient case manager)? Give summary @ -no Was smoking cessation discussed for >3mins.? @ -no Was critical care preformed (if so, how long)? @ -no Were there social determinants of health that impacted care today? How? (Homelessness, low income, unemployed, alcoholism, drug addiction, transportation, low edu. Level, literacy, decrease access to med. care, senior living, rehab)? @ -none Was there de-escalation of care discussed even if they declined (Discuss DNR or withdrawal of care, Hospice)? DNR status @ -no What co-morbidities impacted this encounter? (DM, HTN, Smoking, COPD, CAD, Cancer, CVA, ARF, Chemo, Hep., AIDS, mental health diagnosis, sleep apnea, morbid obesity)? @ -none Was patient admitted / discharged? Hospital course, mention meds given and route, prescriptions, significant lab abnormalities, going to OR and other pertinent info. @ - 88 female to the ED co weakness with long complex medical history. Patient patient is a poor historian and will admit for supportive care secondary to extremes of age Admitted Undiagnosed new problem with uncertain prognosis? @ -no Drug Therapy requiring intensive monitoring for toxicity (Heparin, Nitro, Insulin, Cardizem)? @ -no Were any procedures done? @ -no Diagnosis/symptom? @ -Weakness Acute, or Chronic, or Acute on Chronic? @ -Acute Uncomplicated (without systemic symptoms) or Complicated (systemic symptoms)? @ -Complicated Side effects of treatment? @ -no Exacerbation, Progression, or Severe Exacerbation? @ -exacerbation Poses a threat to life or bodily function? How? (Chest pain, USA, MS, pneumonia, PE, COPD, DKA, ARF, appy, cholecystitis, CVA, Diverticulitis, Homicidal, Suicidal, threat to staff... and all critical care pts) @ -yes with extremes of age Reevaluation #5: Differential Weakness: Hypoglycemia, shock, sepsis, hyponatremia, anemia, infection, MS, ETOH, adverse medicine reaction, overdose, stroke, this is not meant to be an all-inclusive list. - Consultations Consultation #1: Spoke with [facility] who agreed to admit this patient EKG Findings - EKG Comments: EKG Findings:: EKG is A-fib with RVR 101 QRS 169 QTc 442 - EKG Results: EKG: interpreted by [facility] Medical Decision Making - Medical Decision Making 88 female to the ED co weakness with long complex medical history. Patient patient is a poor historian and will admit for supportive care secondary to extremes of age - Lab Data Result diagrams: 11/22/23 06:32 11/26/23 15:09 Lab Results 11/19/23 11/19/23 11/19/23 Range/Units 19:28 19:28 19:28 WBC 13.9 H (3.8-10.6) k/uL RBC 3.99 (3.80-5.40) m/uL Hgb 13.0 (11.4-16.0) gm/dL Hct 41.7 (34.0-46.0) % MCV 104.5 H (80.0-100.0) fL MCH 32.5 (25.0-35.0) pg MCHC 31.1 (31.0-37.0) g/dL RDW 14.4 (11.5-15.5) % Plt Count 194 (150-450) k/uL MPV 8.2 Neutrophils % 93 % Lymphocytes % 1 % Monocytes % 4 % Eosinophils % 0 % Basophils % 0 % Neutrophils # 12.9 H (1.3-7.7) k/uL Lymphocytes # 0.2 L (1.0-4.8) k/uL Monocytes # 0.6 (0-1.0) k/uL Eosinophils # 0.0 (0-0.7) k/uL Basophils # 0.0 (0-0.2) k/uL Macrocytosis Moderate PT 11.9 (10.0-12.5) sec INR 1.1 (<1.2) APTT 26.5 (22.0-30.0) sec Sodium 132 L (137-145) mmol/L Potassium 4.3 (3.5-5.1) mmol/L Chloride 99 (98-107) mmol/L Carbon Dioxide 20 L (22-30) mmol/L Anion Gap 13 mmol/L BUN 92 H (7-17) mg/dL Creatinine 1.81 H (0.52-1.04) mg/dL Est GFR (CKD-EPI)AfAm 28 (>60 ml/min/1.73 sqM) Est GFR (CKD-EPI)NonAf 25 (>60 ml/min/1.73 sqM) Glucose 186 H (74-99) mg/dL Calcium 9.9 (8.4-10.2) mg/dL Phosphorus 3.4 (2.5-4.5) mg/dL Magnesium 2.6 H (1.6-2.3) mg/dL Total Bilirubin 0.8 (0.2-1.3) mg/dL AST 32 (14-36) U/L ALT 16 (4-34) U/L Alkaline Phosphatase 68 (38-126) U/L Troponin I (0.000-0.034) ng/mL NT-Pro-B Natriuret Pep 46780 pg/mL Total Protein 6.1 L (6.3-8.2) g/dL Albumin 3.7 (3.5-5.0) g/dL TSH 2.420 (0.465-4.680) mIU/L Urine Color Urine Appearance (Clear) Urine pH (5.0-8.0) Ur Specific Omar (1.001-1.035) Urine Protein (Negative) Urine Glucose (UA) (Negative) Urine Ketones (Negative) Urine Blood (Negative) Urine Nitrite (Negative) Urine Bilirubin (Negative) Urine Urobilinogen (<2.0) mg/dL Ur Leukocyte Esterase (Negative) Urine RBC (0-5) /hpf Urine WBC (0-5) /hpf Ur Squamous Epith Cells (0-4) /hpf Hyaline Casts (0-2) /lpf Urine Yeast (Budding) (None) /hpf 11/19/23 11/19/23 Range/Units 19:28 20:32 WBC (3.8-10.6) k/uL RBC (3.80-5.40) m/uL Hgb (11.4-16.0) gm/dL Hct (34.0-46.0) % MCV (80.0-100.0) fL MCH (25.0-35.0) pg MCHC (31.0-37.0) g/dL RDW (11.5-15.5) % Plt Count (150-450) k/uL MPV Neutrophils % % Lymphocytes % % Monocytes % % Eosinophils % % Basophils % % Neutrophils # (1.3-7.7) k/uL Lymphocytes # (1.0-4.8) k/uL Monocytes # (0-1.0) k/uL Eosinophils # (0-0.7) k/uL Basophils # (0-0.2) k/uL Macrocytosis PT (10.0-12.5) sec INR (<1.2) APTT (22.0-30.0) sec Sodium (137-145) mmol/L Potassium (3.5-5.1) mmol/L Chloride (98-107) mmol/L Carbon Dioxide (22-30) mmol/L Anion Gap mmol/L BUN (7-17) mg/dL Creatinine (0.52-1.04) mg/dL Est GFR (CKD-EPI)AfAm (>60 ml/min/1.73 sqM) Est GFR (CKD-EPI)NonAf (>60 ml/min/1.73 sqM) Glucose (74-99) mg/dL Calcium (8.4-10.2) mg/dL Phosphorus (2.5-4.5) mg/dL Magnesium (1.6-2.3) mg/dL Total Bilirubin (0.2-1.3) mg/dL AST (14-36) U/L ALT (4-34) U/L Alkaline Phosphatase (38-126) U/L Troponin I 0.851 H* (0.000-0.034) ng/mL NT-Pro-B Natriuret Pep pg/mL Total Protein (6.3-8.2) g/dL Albumin (3.5-5.0) g/dL TSH (0.465-4.680) mIU/L Urine Color Yellow Urine Appearance Clear (Clear) Urine pH 5.0 (5.0-8.0) Ur Specific Omar 1.018 (1.001-1.035) Urine Protein Trace H (Negative) Urine Glucose (UA) Negative (Negative) Urine Ketones Negative (Negative) Urine Blood Negative (Negative) Urine Nitrite Negative (Negative) Urine Bilirubin Negative (Negative) Urine Urobilinogen <2.0 (<2.0) mg/dL Ur Leukocyte Esterase Small H (Negative) Urine RBC 3 (0-5) /hpf Urine WBC 10 H (0-5) /hpf Ur Squamous Epith Cells 6 H (0-4) /hpf Hyaline Casts 11 H (0-2) /lpf Urine Yeast (Budding) Few H (None) /hpf - EKG Data -: EKG Interpreted by Me - Radiology Data Radiology results: report reviewed (CXR is negative for acute disease), image reviewed Disposition Clinical Impression: UTI (urinary tract infection), Dehydration, Altered mental status, Dyspnea, Hypoglycemia Disposition: ADMITTED IP TO THIS [facility] Condition: Fair Is patient prescribed a controlled substance at d/c from ED?: No Time of Disposition: 20:00
[2023-11-19 19:44] LABS: INR 1.1 (<1.2); Partial Thromboplastin Time 26.5 sec (22.0-30.0); Prothrombin Time 11.9 sec (10.0-12.5)
[2023-11-19 19:46] LABS: ALT 16 U/L (4-34); AST 32 U/L (14-36); African American GFR (CKD) 28 (>60 ml/min/1.73 sqM); Albumin 3.7 g/dL (3.5-5.0); Alkaline Phosphatase 68 U/L (38-126); Anion Gap 13 mmol/L; Blood Urea Nitrogen 92 mg/dL (7-17); Calcium 9.9 mg/dL (8.4-10.2); Carbon Dioxide 20 mmol/L (22-30); Chloride 99 mmol/L (98-107); Glucose 186 mg/dL (74-99); Magnesium 2.6 mg/dL (1.6-2.3); Non-African American GFR(CKD) 25 (>60 ml/min/1.73 sqM); Phosphorus 3.4 mg/dL (2.5-4.5); Potassium 4.3 mmol/L (3.5-5.1); Sodium 132 mmol/L (137-145); Total Bilirubin 0.8 mg/dL (0.2-1.3); Total Protein 6.1 g/dL (6.3-8.2)
[2023-11-19] MEDS: SODIUM CHLORIDE 0.9% 1,000 ML IV STA (19:47)
[2023-11-19 19:50] LABS: Basophils % (A) 0 %; Eosinophils % (A) 0 %; HCT 41.7 % (34.0-46.0); Lymphocytes # (A) 0.2 k/uL (1.0-4.8); Lymphocytes % (A) 1 %; MCH 32.5 pg (25.0-35.0); MCHC 31.1 g/dL (31.0-37.0); MCV 104.5 fL (80.0-100.0); Macrocytosis Moderate; Mean Platelet Volume 8.2; Monocytes # (A) 0.6 k/uL (0-1.0); Monocytes % (A) 4 %; Neutrophils # (A) 12.9 k/uL (1.3-7.7); Neutrophils % (A) 93 %; Platelet Count 194 k/uL (150-450); RBC 3.99 m/uL (3.80-5.40); RDW 14.4 % (11.5-15.5); WBC 13.9 k/uL (3.8-10.6)
[2023-11-19] MEDS ORDERED: NALOXONE 0.4 MG/ML 1 ML VIAL IV PRN (20:19)
[2023-11-19 20:41] LABS: Appearance,Urine Clear (Clear); Bilirubin,Urine Negative (Negative); Blood,Urine Negative (Negative); Budding Yeast,Urine Few /hpf; Color,Urine Yellow; Glucose,Urine (UA) Negative (Negative); Hyaline Casts,Urine 11 /lpf (0-2); Ketones,Urine Negative (Negative); Leukocyte Esterase,Urine Small (Negative); Nitrite,Urine Negative (Negative); Protein,Urine Trace (Negative); RBC,Urine 3 /hpf (0-5); Specific Gravity,Urine 1.018 (1.001-1.035); Squamous Epithelial Cell,Urine 6 /hpf (0-4); Urobilinogen,Urine <2.0 mg/dL (<2.0); WBC,Urine 10 /hpf (0-5)
--- NOTE | 2023-11-19 21:20 | XR ---
EXAMINATION TYPE: XR chest 1V DATE OF EXAM: 11/19/2023 COMPARISON: 07/25/2017 HISTORY: Shortness of breath TECHNIQUE: Single frontal view of the chest is obtained. FINDINGS: There is an prior CABG surgery. There is moderate cardiomegaly with mild pulmonary vascular congestion and probable mild interstitial edema. There is no pneumothorax. There is no airspace consolidation. IMPRESSION: Findings most consistent with mild to moderate CHF. Short-term follow-up is recommended.
[2023-11-19] MEDS: SODIUM CHLORIDE 0.9% 1,000 ML IV SCH (22:03)
[2023-11-19] MEDS: ONDANSETRON 4 MG/2 ML VIAL IVP PRN (22:42)
[2023-11-19] MEDS: MORPHINE SULFATE 4 MG/ML SYRINGE IV PRN (22:43)
[2023-11-20 06:11] LABS: Basophils # (A) 0.1 k/uL (0-0.2); Basophils % (A) 0 %; Eosinophils # (A) 0.1 k/uL (0-0.7); Eosinophils % (A) 1 %; HCT 38.3 % (34.0-46.0); Hypochromasia Slight; Lymphocytes # (A) 0.4 k/uL (1.0-4.8); Lymphocytes % (A) 2 %; MCH 32.7 pg (25.0-35.0); MCHC 31.5 g/dL (31.0-37.0); Macrocytosis Moderate; Mean Platelet Volume 9.1; Monocytes # (A) 1.2 k/uL (0-1.0); Monocytes % (A) 6 %; Neutrophils # (A) 19.1 k/uL (1.3-7.7); Neutrophils % (A) 91 %; Platelet Count 174 k/uL (150-450); RBC 3.68 m/uL (3.80-5.40); RDW 14.4 % (11.5-15.5); WBC 21.1 k/uL (3.8-10.6)
[2023-11-20 06:59] LABS: Glucose,Whole Blood 162 mg/dL (70-110)
[2023-11-20] MEDS: INSULIN ASPART (NovoLOG) 100 UNIT/ML VIAL SQ SCH (07:45)
[2023-11-20] MEDS: APIXABAN 2.5 MG TABLET PO SCH (07:59)
[2023-11-20] MEDS: LEVOTHYROXINE 50 MCG TAB PO SCH (07:59)
[2023-11-20] MEDS: METOPROLOL TARTRATE 25 MG TAB PO SCH (07:59)
[2023-11-20] MEDS: allopurinoL 100 MG TAB PO SCH (07:59)
[2023-11-20] MEDS: SPIRONOLACTONE 25 MG TAB PO SCH (07:59)
[2023-11-20] MEDS: hydrALAZINE HCL 25 MG TAB PO SCH (07:59)
[2023-11-20] MEDS: FUROSEMIDE 40 MG TAB PO SCH (07:59)
[2023-11-20] MEDS: PANTOPRAZOLE 40 MG TABLET PO SCH (08:05)
[2023-11-20] MEDS: FUROSEMIDE 10 MG/ML 4 ML VIAL IV SCH (08:40)
[2023-11-20] MEDS ORDERED: NON FORMULARY DRUG (Vitamin B Complex/Folic Acid [Vitamin B Complex Tablet] 0.4 MG Tablet) PO SCH (09:00)
[2023-11-20 12:07] LABS: Glucose,Whole Blood 206 mg/dL (70-110)
--- NOTE | 2023-11-20 12:26 | P.CRDCN ---
History of Present Illness History of present illness: HISTORY OF PRESENT ILLNESS: This is a 88-year-old female with a past medical history significant for atrial fibrillation, aortic stenosis status post bioprosthetic aortic valve replacemen t, coronary artery disease status post CABG, hypertension, hyperlipidemia, diabetes, congestive heart failure, and recent breast biopsy. Patient follows in the office with Dr. Scott. We have been asked to see the patient in consultation for elevated troponins. Patient examined at the bedside in the emergency room. Patient presented to the hospital with a chief complaint of shortness of breath. Patient states she has been feeling short of breath for the past couple days. She denies any chest pain or pressure. She also reports having generalized weakness. She reports having a sore throat, runny nose, and a fever on and off. She does report having some nausea at home as well without vomiting. She reports worsening lower extremity edema. She states she has been waking up at night short of breath and feeling panicked. The patient reports that she had a recent breast biopsy performed. Final pathology reveals benign breast tissue with fibrocystic changes. DIAGNOSTICS: - EKG reveals atrial fibrillation with left bundle branch block. Heart rate 101.. - Chest xray findings most consistent with mild to moderate CHF. - Laboratory data: WBC 21.1. Hemoglobin 12.0. Platelet count 174. Sodium 132. Potassium 4.3. BUN 92. Creatinine 1.81. proBNP greater than 30,000. Troponin 0.851. 0.841. - Current home cardiac medications include Eliquis 2.5 mg twice a day, Lasix 40 mg daily, Toprol tartrate 25 mg twice a day, simvastatin 40 mg at night, Aldactone 25 mg twice a day, and hydralazine 25 mg twice a day. - Most recent echocardiogram obtained in 04/2023 reveals normal LV systolic function, moderate mitral regurgitation, moderate bioprosthetic valve stenosis with a peak gradient of 52 mmHg and a mean gradient of 35 mm across the aortic valve, moderate regurgitation of prosthetic aortic valve, moderate tricuspid regurgitation, pulmonary hypertension -Patient underwent Lexiscan stress test in April 2023 which was negative for ischemia REVIEW OF SYSTEMS: At the time of my exam: CONSTITUTIONAL: Denies fever or chills. HEENT: Denies blurred vision, vision changes, or eye pain. Denies hemoptysis CARDIOVASCULAR: Denies chest pain. Denies orthopnea. Denies PND. Denies palpitations RESPIRATORY: Reports shortness of breath. GASTROINTESTINAL: Denies abdominal pain. Denies nausea or vomiting. HEMATOLOGIC: Denies bleeding disorders. GENITOURINARY: Denies any blood in urine. SKIN: Denies pruitis. Denies rash. PHYSICAL EXAM: VITAL SIGNS: Reviewed. GENERAL: Well-developed in no acute distress. HEENT: Head is normocephalic. Pupils are equal, round. Sclerae anicteric. Mucous membranes of the mouth are moist. Neck supple. Positive JVD LUNGS: Respirations even and unlabored. Lungs with bilateral crackles HEART: Irregular rate and rhythm. S1 and S2 heard. Systolic and diastolic murmur noted. ABDOMEN: Soft. Nondistended. Nontender. EXTREMITIES: Normal range of motion. No clubbing or cyanosis. Peripheral pulses intact. 1-2+ pitting bilateral lower extremity edema NEUROLOGIC: Awake and alert. Oriented x 3. ASSESSMENT: Shortness of breath Acute on chronic heart failure with preserved EF Abnormal troponins, flat, type II WI, likely secondary to CKD and CHF Leukocytosis Chronic kidney disease Persistent atrial fibrillation History of aortic stenosis with previous bioprosthetic aortic valve replacement, approximately 30 years ago per patient Moderate bioprosthetic aortic valve stenosis Moderate tricuspid regurgitation and moderate mitral regurgitation Coronary artery disease with previous CABG Left bundle branch block Hypertension Hyperlipidemia Diabetes Recent breast biopsy, final pathology reveals benign breast tissue with fibrocystic changes PLAN: Obtain 2D echo to assess LV function and aortic valve Continue anticoagulation with Eliquis Begin IV Lasix 40 mg every 12 hours Daily weights, accurate intake and output, and monitoring of kidney function Decrease Aldactone to once daily dosing Discussed with patient at the bedside that her aortic valve that was replaced about 30 years ago is failing which is exacerbating patient's congestive heart failure Patient to talk with her family and make a decision regarding how aggressive she wants to be with her overall care and if she is wanting to undergo aggressive cardiac workup for valve replacement including MARIELLE and cardiac catheterization Further recommendations pending patient course Nurse practitioner note has been reviewed by physician. Signing provider agrees with the documented findings, assessment, and plan of care documented by [employer]ER as a scribe. Past Medical History Past Medical History: Atrial Fibrillation, Coronary Artery Disease (CAD), Heart Failure, Diabetes Mellitus, GERD/Reflux, Hyperlipidemia, Hypertension, Osteoarth ritis (OA), Renal Disease, Thyroid Disorder Additional Past Medical History / Comment(s): NIDDM type II, 07/24/17 echo with 20% EF, chronic kidney disease stage III, bilateral tinnitis, arthritis multiple joints, gout, back pain. 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 skin ca removed Past Anesthesia/Blood Transfusion Reactions: Previous Problems w/ Anesthesia Additional Past Anesthesia/Blood Transfusion Reaction / Comment(s): Pt states she was hypertensive after waking from D&C. Pt has clausterphobia. Smoking Status: Never smoker - Past Family History Father History Unknown: Yes Additional Family Medical History / Comment(s): pt was adopted Mother History Unknown: Yes Additional Family Medical History / Comment(s): Mother after childbirth at the age of 35yrs. Medications and Allergies Home Medications Medication Instructions Recorded Confirmed Type Levothyroxine Sodium [Synthroid] 50 mcg PO DAILY 07/21/17 11/19/23 History allopurinoL [Zyloprim] 100 mg PO DAILY 07/21/17 11/19/23 History Apixaban [Eliquis] 2.5 mg PO BID tablet 07/24/17 11/19/23 Rx hydrALAZINE HCL [Apresoline] 25 mg PO BID #60 tab 07/28/17 11/19/23 Rx Metoprolol Tartrate [Lopressor] 25 mg PO BID #60 tab 11/25/18 11/19/23 Rx Furosemide [Lasix] 40 mg PO DAILY 10/21/20 11/19/23 History Pantoprazole [Protonix] 40 mg PO DAILY 10/21/20 11/19/23 History Simvastatin [Zocor] 40 mg PO HS 10/21/20 11/19/23 History Spironolactone [Aldactone] 25 mg PO BID 10/21/20 11/19/23 History Insulin Lispro [humaLOG Kwikpen] See Protocol SQ ACHS 10/27/23 11/19/23 History Cephalexin [Keflex] 500 mg PO BID #14 cap 11/17/23 11/19/23 Rx Acetaminophen Tab [Tylenol Tab] 1,000 mg PO Q4H 11/19/23 11/19/23 History Vitamin B Complex/Folic Acid 0.4 mg PO DAILY 11/19/23 11/19/23 History [Vitamin B Complex Tablet] Allergies Allergy/AdvReac Type Severity Reaction Status Date / Time No Known Allergies Allergy Verified 11/19/23 21:09 Physical Exam Vitals: Vital Signs Temp Pulse Pulse Resp BP BP Pulse Ox 11/20/23 07:39 78 20 128/73 95 11/20/23 05:13 98.3 F 110 H 18 128/73 100 11/20/23 04:00 98.3 F 93 16 128/67 100 11/20/23 02:46 16 123/64 98 11/20/23 00:00 98.5 F 107 H 16 123/59 93 L 11/19/23 23:00 88 18 124/57 100 11/19/23 22:00 101 H 18 141/80 100 11/19/23 21:00 87 20 134/87 99 11/19/23 20:00 97 20 136/88 99 11/19/23 18:47 98.6 F 98 20 122/74 96 Intake and Output 11/19/23 11/20/23 11/20/23 22:59 06:59 14:59 Other: Weight 62.142 kg 62.142 kg Results 11/20/23 05:55 11/19/23 19:28 Cardiac Enzymes 11/19/23 11/19/23 11/20/23 Range/Units 19:28 19:28 00:17 AST 32 (14-36) U/L Troponin I 0.851 H* 0.841 H* (0.000-0.034) ng/mL Coagulation 11/19/23 Range/Units 19:28 PT 11.9 (10.0-12.5) sec APTT 26.5 (22.0-30.0) sec CBC 11/19/23 11/20/23 Range/Units 19:28 05:55 WBC 13.9 H 21.1 H (3.8-10.6) k/uL RBC 3.99 3.68 L (3.80-5.40) m/uL Hgb 13.0 12.0 (11.4-16.0) gm/dL Hct 41.7 38.3 (34.0-46.0) % Plt Count 194 174 (150-450) k/uL Comprehensive Metabolic Panel 11/19/23 Range/Units 19:28 Sodium 132 L (137-145) mmol/L Potassium 4.3 (3.5-5.1) mmol/L Chloride 99 (98-107) mmol/L Carbon Dioxide 20 L (22-30) mmol/L BUN 92 H (7-17) mg/dL Creatinine 1.81 H (0.52-1.04) mg/dL Glucose 186 H (74-99) mg/dL Calcium 9.9 (8.4-10.2) mg/dL AST 32 (14-36) U/L ALT 16 (4-34) U/L Alkaline Phosphatase 68 (38-126) U/L Total Protein 6.1 L (6.3-8.2) g/dL Albumin 3.7 (3.5-5.0) g/dL Current Medications Generic Name Dose Route Start Last Admin Trade Name Freq PRN Reason Stop Dose Admin Allopurinol 100 mg 11/20/23 09:00 11/20/23 07:59 Allopurinol 100 Mg Tab PO 100 mg DAILY ELIJAH Administration Apixaban 2.5 mg 11/20/23 09:00 11/20/23 07:59 Apixaban 2.5 Mg Tablet PO 2.5 mg BID ELIJAH Administration Protocol Atorvastatin Calcium 20 mg 11/20/23 21:00 Atorvastatin 20 Mg Tab PO HS ELIJAH Furosemide 40 mg 11/20/23 09:00 11/20/23 07:59 Furosemide 40 Mg Tab PO 40 mg DAILY ELIJAH Administration Hydralazine HCl 25 mg 11/20/23 09:00 11/20/23 07:59 Hydralazine Hcl 25 Mg Tab PO 25 mg BID ELIJAH Administration Sodium Chloride 1,000 mls @ 75 mls/hr 11/19/23 21:00 11/19/23 22:03 Saline 0.9% IV 75 mls/hr .[id number] ELIJAH Administration Ceftriaxone Sodium 2 gm/ 50 mls @ 100 mls/hr 11/20/23 09:00 11/20/23 07:58 Sodium Chloride IVPB 100 mls/hr Q24HR ELIJAH Administration Protocol Insulin Aspart 0 unit 11/20/23 07:30 11/20/23 07:45 Insulin Aspart (Novolog) 100 Unit/Ml Vial SQ 1 unit ACHS [facility] Administration Protocol Levothyroxine Sodium 50 mcg 11/20/23 09:00 11/20/23 07:59 Levothyroxine 50 Mcg Tab PO 50 mcg DAILY@0630 ELIJAH Administration Metoprolol Tartrate 25 mg 11/20/23 09:00 11/20/23 07:59 Metoprolol Tartrate 25 Mg Tab PO 25 mg BID ELIJAH Administration Morphine Sulfate 4 mg 11/19/23 20:49 11/19/23 22:43 Morphine Sulfate 4 Mg/Ml Syringe IV 4 mg Q4HR PRN Administration Severe Pain (Scale 7 to 10) Naloxone HCl 0.2 mg 11/19/23 20:19 Naloxone 0.4 Mg/Ml 1 Ml Vial IV Q2M PRN Opioid Reversal Ondansetron HCl 4 mg 11/19/23 20:49 11/19/23 22:42 Ondansetron 4 Mg/2 Ml Vial IVP 4 mg Q8HR PRN Administration Nausea And Vomiting Pantoprazole Sodium 40 mg 11/20/23 09:00 11/20/23 08:05 Pantoprazole 40 Mg Tablet PO 40 mg [id number] ELIJAH Administration Spironolactone 25 mg 11/20/23 09:00 11/20/23 07:59 Spironolactone 25 Mg Tab PO 25 mg BID ELIJAH Administration Intake and Output 11/19/23 11/20/23 11/20/23 22:59 06:59 14:59 Other: Weight 62.142 kg 62.142 kg 11/20/23 05:55 11/19/23 19:28
[2023-11-20 14:20] LABS: ALT 16 U/L (4-34); AST 23 U/L (14-36); African American GFR (CKD) 25 (>60 ml/min/1.73 sqM); Albumin 3.3 g/dL (3.5-5.0); Alkaline Phosphatase 62 U/L (38-126); Anion Gap 14 mmol/L; Blood Urea Nitrogen 91 mg/dL (7-17); Calcium 9.7 mg/dL (8.4-10.2); Carbon Dioxide 19 mmol/L (22-30); Chloride 101 mmol/L (98-107); Glucose 204 mg/dL (74-99); Lipase 59 U/L (23-300); Magnesium 2.6 mg/dL (1.6-2.3); Non-African American GFR(CKD) 22 (>60 ml/min/1.73 sqM); Potassium 5.3 mmol/L (3.5-5.1); Sodium 134 mmol/L (137-145); Total Bilirubin 0.4 mg/dL (0.2-1.3); Total Protein 5.6 g/dL (6.3-8.2)
[2023-11-20 14:25] LABS: NT-Pro-B-Type Natriuretic Pept 67100 pg/mL
[2023-11-20 17:29] LABS: Glucose,Whole Blood 256 mg/dL (70-110)
--- NOTE | 2023-11-20 18:27 | CA ---
Transthoracic Echo Report Name: Kathryn Torres Age: 88 Gender: F : 1935 Exam Date: 11/20/2023 13:28 Exam Location: [place] [facility] Ht (in): 63 Wt (lb): 137 Ordering Physician: Janett Gonzalez Attending/Referring Phys: [id number], Lisa Construction Specialist SV Procedure CPT: Indications: CHF, hx of AVR replacement Cardiac Hx: AV Replacement Technical Quality: Fair Contrast 1: Definity Total Dose (mL): 2 Contrast 2: Total Dose (mL): MEASUREMENTS (Male / Female) Normal Values 2D ECHO LV Diastolic Diameter PLAX 5.8 cm 4.2 - 5.9 / 3.9 - 5.3 cm LV Systolic Diameter PLAX 4.9 cm IVS Diastolic Thickness 1.0 cm 0.6 - 1.0 / 0.6 - 0.9 cm LVPW Diastolic Thickness 1.1 cm 0.6 - 1.0 / 0.6 - 0.9 cm LV Relative Wall Thickness 0.4 RV Internal Dim ED PLAX 2.7 cm LVOT Diameter 1.7 cm M-MODE Aortic Root Diameter MM 2.5 cm LA Systolic Diameter MM 4.2 cm LA Ao Ratio MM 1.7 DOPPLER AV Peak Velocity 329.6 cm/s AV Peak Gradient 43.5 mmHg AV Mean Velocity 218.2 cm/s AV Mean Gradient 21.8 mmHg AV Velocity Time Integral 62.4 cm AI Peak Velocity 354.9 cm/s AI Peak Gradient 50.4 mmHg AI Pressure Half Time 314.5 ms FINDINGS Left Ventricle Left ventricular ejection fraction is estimated at 20-25%.Mild left ventricular dilatation. Wells akinetic. Probable left ventricular apical thrombus. 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 Right Ventricle Moderate right ventricular dilatation. Right Atrium Severe right atrial dilatation. Left Atrium Severe left atrial dilatation. Mitral Valve Aortic Valve AV Replacement. Probable prosthetic aortic valve stenosis, with a peak gradient of 43 mmHg and a mean gradient of 21mmHg. Moderate periprosthetic regurgitation of the aortic valve. Tricuspid Valve Pulmonic Valve Pericardium No pericardial or pleural effusion. Aorta CONCLUSIONS Severely impaired LV function with EF between 20-25% with mid ventricle and apical akinesia Cannot rule out small apical thrombus Bioprosthetic aortic valve with a mean gradient of 20 mmHg and at least moderate aortic regurgitation No pericardial effusion Previewed by: Dr. Romeo Garcia MD (Electronically Signed) Final Date: 20 Nov 2023 18:26
[2023-11-20 20:20] LABS: Glucose,Whole Blood 220 mg/dL (70-110)
[2023-11-20] MEDS: ATORVASTATIN 20 MG TAB PO SCH (20:50)
--- NOTE | 2023-11-20 22:46 | P.HPIM ---
History of Present Illness H&P Date: 11/20/23 Patient is a pleasant white female this is a 88-year-old white female who was admitted to the hospital after atrial fibrillationPatient has been having problems with progressive shortness of breath she has been followed for many years with valvular heart disease and is at the point where she has to make some decisions about how aggressive she wants to be with her care.Currently she is fe eling well with moderate shortness of breath and congestion Review of Systems GENERAL: Patient denies fever. Denies chills. EYES: Denies blurred vision. Denies vision changes. Denies eye pain. EARS, NOSE, MOUTH, & THROAT: Denies headache. Denies sore throat. Denies ear pain. RESPIRATORY: Admits to cough. He has increased shortness of breath. Denies sputum production. Denies hemoptysis. CARDIOVASCULAR: Denies chest pain or pressure. Denies palpitations. Denies arrhythmias. GASTROINTESTINAL: Denies abdominal pain. Denies diarrhea. Denies constipation. Denies nausea. Denies vomiting. Denies heartburn. Denies blood in the stool. GENITOURINARY: Denies urinary frequency. Denies burning. Denies dysuria. Denies cloudy urine. Denies blood in the urine. MUSCULOSKELETAL: Denies myalgias. Denies joint swelling. Denies decreased range of motion beyond patients baseline. INTEGUMENTARY: Denies pruitis. Denies rash. PSYCHIATRIC: Denies suicidal or homicial ideations. ENDOCRINE: Denies weight change. Denies polydipsia. Denies polyuria. HEMATOLOGIC: Denies bleeding disorders. Past Medical History Past Medical History: Atrial Fibrillation, Coronary Artery Disease (CAD), Heart Failure, Diabetes Mellitus, GERD/Reflux, Hyperlipidemia, Hypertension, Osteoarthritis (OA), Renal Disease, Thyroid Disorder Additional Past Medical History / Comment(s): NIDDM type II, 07/24/17 echo with 20% EF, chronic kidney disease stage III, bilateral tinnitis, arthritis multiple joints, gout, back pain. 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 skin ca removed Past Anesthesia/Blood Transfusion Reactions: Previous Problems w/ Anesthesia Additional Past Anesthesia/Blood Transfusion Reaction / Comment(s): Pt states she was hypertensive after waking from D&C. Pt has clausterphobia. Smoking Status: Never smoker - Past Family History Father History Unknown: Yes Additional Family Medical History / Comment(s): pt was adopted Mother History Unknown: Yes Additional Family Medical History / Comment(s): Mother after childbirth at the age of 35yrs. Medications and Allergies Home Medications Medication Instructions Recorded Confirmed Type Levothyroxine Sodium [Synthroid] 50 mcg PO DAILY 07/21/17 11/19/23 History allopurinoL [Zyloprim] 100 mg PO DAILY 07/21/17 11/19/23 History Apixaban [Eliquis] 2.5 mg PO BID tablet 07/24/17 11/19/23 Rx hydrALAZINE HCL [Apresoline] 25 mg PO BID #60 tab 07/28/17 11/19/23 Rx Metoprolol Tartrate [Lopressor] 25 mg PO BID #60 tab 11/25/18 11/19/23 Rx Furosemide [Lasix] 40 mg PO DAILY 10/21/20 11/19/23 History Pantoprazole [Protonix] 40 mg PO DAILY 10/21/20 11/19/23 History Simvastatin [Zocor] 40 mg PO HS 10/21/20 11/19/23 History Spironolactone [Aldactone] 25 mg PO BID 10/21/20 11/19/23 History Insulin Lispro [humaLOG Kwikpen] See Protocol SQ ACHS 10/27/23 11/19/23 History Cephalexin [Keflex] 500 mg PO BID #14 cap 11/17/23 11/19/23 Rx Acetaminophen Tab [Tylenol Tab] 1,000 mg PO Q4H 11/19/23 11/19/23 History Vitamin B Complex/Folic Acid 0.4 mg PO DAILY 11/19/23 11/19/23 History [Vitamin B Complex Tablet] Allergies Allergy/AdvReac Type Severity Reaction Status Date / Time No Known Allergies Allergy Verified 11/19/23 21:09 Physical Exam Osteopathic Statement: *. No significant issues noted on an osteopathic structural exam other than those noted in the History and Physical/Consult. Vitals: Vital Signs Temp Pulse Pulse Resp BP BP Pulse Ox 11/20/23 21:01 88 11/20/23 20:45 98.0 F 88 18 115/64 95 11/20/23 19:05 98 11/20/23 17:55 98.8 F 106 H 18 112/64 100 11/20/23 17:31 100 20 135/68 95 11/20/23 10:55 83 20 118/49 100 11/20/23 10:00 88 16 118/49 98 11/20/23 09:32 98 11/20/23 07:39 78 20 128/73 95 11/20/23 05:13 98.3 F 110 H 18 128/73 100 11/20/23 04:00 98.3 F 93 16 128/67 100 11/20/23 02:46 16 123/64 98 11/20/23 00:00 98.5 F 107 H 16 123/59 93 L 11/19/23 23:00 88 18 124/57 100 Intake and Output 11/20/23 11/20/23 11/20/23 06:59 14:59 22:59 Intake Total 550 Output Total 50 Balance 500 Intake: IV 10 Invasive Line 1 10 Oral 540 Output: Urine 50 Other: Voiding Method Bedside Commode # Bowel Movements 3 Weight 62.142 kg GENERAL: This is a 88-year-old in acutet distress at the time of examination. Pleasant and cooperative. HEENT: Head is atraumatic, normocephalic. Pupils are equal, round, and reactive to light. Sclerae anicteric. Conjunctivae are clear. Mucus membranes of the mouth are moist. Neck is supple. RESPIRATORY: Positive for shortness and increased cough. CARDIOVASCULAR: Irregular rate and rhythm. . Positive for systolic murmur auscultated. GASTROINTESTINAL: No distention noted. Abdomen soft and round. Normal active bowel sounds auscultated x 4 quadrants. No pain or tenderness noted upon palpation. INTEGUMENTARY: No cyanosis. No jaundice. No rashes noted. No cellulitis noted. EXTREMITIES: 2+ peripheral pulses. No evidence of peripheral edema. No calf tenderness noted. NEUROLOGIC: Cranial nerves II-XII intact. PSYCHIATRIC: Awake, alert, and oriented X 3. Appropriate affect. Intact judgement and insight. Results CBC & Chem 7: 11/20/23 05:55 11/20/23 13:14 Labs: Abnormal Lab Results - Last 24 Hours (Table) 11/20/23 11/20/23 11/20/23 Range/Units 00:17 05:55 06:57 WBC 21.1 H (3.8-10.6) k/uL RBC 3.68 L (3.80-5.40) m/uL MCV 104.0 H (80.0-100.0) fL Neutrophils # 19.1 H (1.3-7.7) k/uL Lymphocytes # 0.4 L (1.0-4.8) k/uL Monocytes # 1.2 H (0-1.0) k/uL Sodium (137-145) mmol/L Potassium (3.5-5.1) mmol/L Carbon Dioxide (22-30) mmol/L BUN (7-17) mg/dL Creatinine (0.52-1.04) mg/dL Glucose (74-99) mg/dL POC Glucose (mg/dL) 162 H (70-110) mg/dL Magnesium (1.6-2.3) mg/dL Troponin I 0.841 H* (0.000-0.034) ng/mL Total Protein (6.3-8.2) g/dL Albumin (3.5-5.0) g/dL 11/20/23 11/20/23 11/20/23 Range/Units 12:05 13:14 13:14 WBC (3.8-10.6) k/uL RBC (3.80-5.40) m/uL MCV (80.0-100.0) fL Neutrophils # (1.3-7.7) k/uL Lymphocytes # (1.0-4.8) k/uL Monocytes # (0-1.0) k/uL Sodium 134 L (137-145) mmol/L Potassium 5.3 H (3.5-5.1) mmol/L Carbon Dioxide 19 L (22-30) mmol/L BUN 91 H (7-17) mg/dL Creatinine 1.99 H (0.52-1.04) mg/dL Glucose 204 H (74-99) mg/dL POC Glucose (mg/dL) 206 H (70-110) mg/dL Magnesium 2.6 H (1.6-2.3) mg/dL Troponin I 0.613 H* (0.000-0.034) ng/mL Total Protein 5.6 L (6.3-8.2) g/dL Albumin 3.3 L (3.5-5.0) g/dL 11/20/23 11/20/23 Range/Units 17:27 20:19 WBC (3.8-10.6) k/uL RBC (3.80-5.40) m/uL MCV (80.0-100.0) fL Neutrophils # (1.3-7.7) k/uL Lymphocytes # (1.0-4.8) k/uL Monocytes # (0-1.0) k/uL Sodium (137-145) mmol/L Potassium (3.5-5.1) mmol/L Carbon Dioxide (22-30) mmol/L BUN (7-17) mg/dL Creatinine (0.52-1.04) mg/dL Glucose (74-99) mg/dL POC Glucose (mg/dL) 256 H 220 H (70-110) mg/dL Magnesium (1.6-2.3) mg/dL Troponin I (0.000-0.034) ng/mL Total Protein (6.3-8.2) g/dL Albumin (3.5-5.0) g/dL Thrombosis Risk Factor Assmnt - Choose All That Apply Any of the Below Risk Factors Present?: Yes Each Factor Represents 1 point: Swollen legs (current) Other Risk Factors: Yes Each Risk Factor Represents 3 Points: Age 75 years or older Other congenital or acquired thrombophilia - If yes, enter type in comment: No Thrombosis Risk Factor Assessment Total Risk Factor Score: 4 Thrombosis Risk Factor Assessment Level: Moderate Risk Assessment and Plan Assessment: Valvular heart disease (1) Atrial fibrillation with rapid ventricular response Current Visit: Yes Status: Acute Code(s): I48.91 - UNSPECIFIED ATRIAL FIBRILLATION SNOMED Code(s): 205434660075272 (2) Chronic systolic (congestive) heart failure Current Visit: Yes Status: Acute Code(s): I50.22 - CHRONIC SYSTOLIC (CONGE STIVE) HEART FAILURE SNOMED Code(s): 132117599 (3) Chronic kidney disease Current Visit: No Status: Acute Code(s): N18.9 - CHRONIC KIDNEY DISEASE, UNSPECIFIED SNOMED Code(s): 425534742 (4) Dyspnea Current Visit: No Status: Acute Code(s): R06.00 - DYSPNEA, UNSPECIFIED SNOMED Code(s): 901642659 (5) Fluid overload Current Visit: No Status: Acute Code(s): E87.70 - FLUID OVERLOAD, UNSPECIFIED SNOMED Code(s): 08513748 (6) Generalized weakness Current Visit: No Status: Acute Code(s): R53.1 - WEAKNESS SNOMED Code(s): 75057455 Plan: Admit patient cardiology consultation in progress she is encouraged to talk with family regarding her CODE STATUS which currently she wishes to be no code no CPR she will decide whether to pursue any type of invasive cardiac testing versus valvular replacement versus observation. Full conversation with daughter Alena was done today she is leaning towards more hospice care if patient's condition deteriorates.
[2023-11-21 06:12] LABS: Glucose,Whole Blood 185 mg/dL (70-110)
[2023-11-21] MEDS: SPIRONOLACTONE 25 MG TAB PO SCH (07:54)
[2023-11-21 08:06] LABS: African American GFR (CKD) 25 (>60 ml/min/1.73 sqM); Anion Gap 12 mmol/L; Blood Urea Nitrogen 97 mg/dL (7-17); Calcium 9.2 mg/dL (8.4-10.2); Carbon Dioxide 17 mmol/L (22-30); Chloride 98 mmol/L (98-107); Glucose 157 mg/dL (74-99); Non-African American GFR(CKD) 22 (>60 ml/min/1.73 sqM); Potassium 4.5 mmol/L (3.5-5.1); Sodium 127 mmol/L (137-145)
[2023-11-21 11:32] LABS: Glucose,Whole Blood 193 mg/dL (70-110)
--- NOTE | 2023-11-21 11:39 | P.PN ---
Subjective HISTORY OF PRESENT ILLNESS: This is a 88-year-old female with a past medical history significant for atrial fibrillation, aortic stenosis status post bioprosthetic aortic valve replacement, coronary artery disease status post CABG, hypertension, hyperlipidemia, diabetes, congestive heart failure, and recent breast biopsy. Patient follows in the office with Dr. Scott. We have been asked to see the patient in consultation for elevated troponins. Patient examined at the bedside in the emergency room. Patient presented to the hospital with a chief complaint of shortness of breath. Patient states she has been feeling short of breath for the past couple days. She denies any chest pain or pressure. She also reports having generalized weakness. She reports having a sore throat, runny nose, and a fever on and off. She does report having some nausea at home as well without vomiting. She reports worsening lower extremity edema. She states she has been waking up at night short of breath and feeling panicked. The patient reports that she had a recent breast biopsy performed. Final pathology reveals benign breast tissue with fibrocystic changes. DIAGNOSTICS: - EKG reveals atrial fibrillation with left bundle branch block. Heart rate 101.. - Chest xray findings most consistent with mild to moderate CHF. - Laboratory data: WBC 21.1. Hemoglobin 12.0. Platelet count 174. Sodium 132. Potassium 4.3. BUN 92. Creatinine 1.81. proBNP greater than 30,000. Troponin 0.851. 0.841. - Current home cardiac medications include Eliquis 2.5 mg twice a day, Lasix 40 mg daily, Toprol tartrate 25 mg twice a day, simvastatin 40 mg at night, Aldactone 25 mg twice a day, and hydralazine 25 mg twice a day. - Most recent echocardiogram obtained in 04/2023 reveals normal LV systolic function, moderate mitral regurgitation, moderate bioprosthetic valve stenosis with a peak gradient of 52 mmHg and a mean gradient of 35 mm across the aortic valve, moderate regurgitation of prosthetic aortic valve, moderate tricuspid regurgitation, pulmonary hypertension -Patient underwent Lexiscan stress test in April 2023 which was negative for ischemia 11/21/2023 Patient examined this morning at the bedside. Patient reports improvement in her shortness of breath. She denies chest pain or pressure. She is laying flat in bed and appears to be comfortable this morning. She remains on IV Lasix. Sodium this morning is down to 127 from 134 yesterday. Echocardiogram completed revealing ejection fraction 20 to 25%, apex akinetic, probable left ventricular apical thrombus, possible Takotsubo syndrome, moderate periprosthetic regurgitation of aortic valve PHYSICAL EXAM: VITAL SIGNS: Reviewed. GENERAL: Well-developed in no acute distress. HEENT: Head is normocephalic. Pupils are equal, round. Sclerae anicteric. Mucous membranes of the mouth are moist. Neck supple. Positive JVD LUNGS: Respirations even and unlabored. Lungs diminished with crackles at the bases, improving HEART: Irregular rate and rhythm. S1 and S2 heard. Systolic and diastolic murmur noted. ABDOMEN: Soft. Nondistended. Nontender. EXTREMITIES: Normal range of motion. No clubbing or cyanosis. Peripheral pulses intact. 1-2+ pitting bilateral lower extremity edema NEUROLOGIC: Awake and alert. Oriented x 3. ASSESSMENT: Shortness of breath Acute on chronic heart failure with preserved EF Abnormal troponins, flat, type II [place], likely secondary to CKD and CHF Leukocytosis Chronic kidney disease Persistent atrial fibrillation History of aortic stenosis with previous bioprosthetic aortic valve replacement, approximately 30 years ago per patient Moderate bioprosthetic aortic valve stenosis Moderate tricuspid regurgitation and moderate mitral regurgitation Coronary artery disease with previous CABG Left bundle branch block Hypertension Hyperlipidemia Diabetes Recent breast biopsy, final pathology reveals benign breast tissue with fibrocystic changes Possible small apical thrombus per echo New onset cardiomyopathy, 20 to 25% with apical akinesia Hyponatremia PLAN: Continue current cardiac medications Continue anticoagulation with Eliquis Discontinue IV Lasix. Begin oral Lasix 40 mg twice a day Daily weights, accurate intake and output, and monitoring of kidney function Repeat sodium level in the morning. Begin fluid restriction of 1500 cc. Possible addition of Farxiga tomorrow pending kidney function Discussed with patient at the bedside that her aortic valve that was replaced about 30 years ago is failing which is exacerbating patient's congestive heart failure Patient to talk with her family and make a decision regarding how aggressive she wants to be with her overall care and if she is wanting to undergo aggressive cardiac workup for valve replacement including MARIELLE and cardiac catheterization Dr. Strange did speak to the patient yesterday and according to his documentation patient is requesting to be a DNR. However she remains a full code in the computer. Will defer CODE STATUS to primary medicine. Further recommendations pending patient course Nurse practitioner note has been reviewed by physician. Signing provider agrees with the documented findings, assessment, and plan of care documented by VETERINARY NURSE as a scribe. Objective - Vital Signs Vital signs: Vital Signs Temp 97.5 F L 11/21/23 07:50 Pulse 86 11/21/23 07:51 Resp 18 11/21/23 07:50 BP 107/64 11/21/23 07:50 Pulse Ox 98 11/21/23 09:25 FiO2 Intake & Output 11/20/23 11/21/23 11/21/23 18:59 06:59 18:59 Intake Total 540 10 118 Output Total 50 Balance 490 10 118 Weight 66.5 kg Intake: IV 10 Invasive Line 1 10 Oral 540 118 Output: Urine 50 Other: Voiding Method Bedside Commode Bedside Commode # Voids 1 # Bowel Movements 3 1 - Labs CBC & Chem 7: 11/20/23 05:55 11/21/23 06:45 Labs: Abnormal Lab Results - Last 24 Hours (Table) 11/20/23 11/20/23 11/20/23 Range/Units 12:05 13:14 13:14 Sodium 134 L (137-145) mmol/L Potassium 5.3 H (3.5-5.1) mmol/L Carbon Dioxide 19 L (22-30) mmol/L BUN 91 H (7-17) mg/dL Creatinine 1.99 H (0.52-1.04) mg/dL Glucose 204 H (74-99) mg/dL POC Glucose (mg/dL) 206 H (70-110) mg/dL Magnesium 2.6 H (1.6-2.3) mg/dL Troponin I 0.613 H* (0.000-0.034) ng/mL Total Protein 5.6 L (6.3-8.2) g/dL Albumin 3.3 L (3.5-5.0) g/dL 11/20/23 11/20/23 11/21/23 Range/Units 17:27 20:19 06:10 Sodium (137-145) mmol/L Potassium (3.5-5.1) mmol/L Carbon Dioxide (22-30) mmol/L BUN (7-17) mg/dL Creatinine (0.52-1.04) mg/dL Glucose (74-99) mg/dL POC Glucose (mg/dL) 256 H 220 H 185 H (70-110) mg/dL Magnesium (1.6-2.3) mg/dL Troponin I (0.000-0.034) ng/mL Total Protein (6.3-8.2) g/dL Albumin (3.5-5.0) g/dL 11/21/23 11/21/23 Range/Units 06:45 11:31 Sodium 127 L (137-145) mmol/L Potassium (3.5-5.1) mmol/L Carbon Dioxide 17 L (22-30) mmol/L BUN 97 H (7-17) mg/dL Creatinine 2.01 H (0.52-1.04) mg/dL Glucose 157 H (74-99) mg/dL POC Glucose (mg/dL) 193 H (70-110) mg/dL Magnesium (1.6-2.3) mg/dL Troponin I (0.000-0.034) ng/mL Total Protein (6.3-8.2) g/dL Albumin (3.5-5.0) g/dL
--- NOTE | 2023-11-21 13:24 | P.PN ---
Subjective Progress Note Date: 11/21/23 This is a 88-year-old female with a past medical history significant for atrial fibrillation, aortic stenosis status post bioprosthetic aortic valve replacement, coronary artery disease status post CABG, hypertension, hyperlipidemia, diabetes, congestive heart failure, and recent breast biopsy presented to the hospital with a chief complaint of shortness of breath. Patient states she has been feeling short of breath for the past couple days. She denies any chest pain or pressure. She also reports having generalized weakness. She reports having a sore throat, runny nose, and a fever on and off. She does report having some nausea at home as well without vomiting. She reports worsening lower extremity edema. She states she has been waking up at night short of breath and feeling panicked. The patient reports that she had a recent breast biopsy performed. Final pathology reveals benign breast tissue with fibrocystic changes. 11/20. Patient seen and examined. States breathing is improved. Denies any swelling of lower extremities REVIEW OF SYSTEMS: CONSTITUTIONAL: No fever, no malaise,. CARDIOVASCULAR: No chest pain, no palpitations, no syncope. PULMONARY: No shortness of breath, no cough, GASTROINTESTINAL: No diarrhea, no nausea, no vomiting, no abdominal pain. NEUROLOGICAL: No headaches, no weakness, PHYSICAL EXAMINATION: GENERAL: The patient is alert and oriented x3, not in any acute distress. Well developed, well nourished. HEENT: Pupils are round and equally reacting to light. EOMI. No scleral icterus. No conjunctival pallor. Normocephalic, atraumatic. No pharyngeal erythema. No thyromegaly. CARDIOVASCULAR: S1 and S2 present. Murmur audible PULMONARY: Chest is clear to auscultation, no wheezing or crackles. ABDOMEN: Soft, nontender, nondistended, normoactive bowel sounds. No palpable organomegaly. MUSCULOSKELETAL: No joint swelling or deformity. EXTREMITIES: No cyanosis, clubbing, or pedal edema. NEUROLOGICAL: Gross neurological examination did not reveal any focal deficits. SKIN: No rashes. Assessment and plan Acute on chronic heart failure with preserved EF Hyponatremia Elevated troponin, type II [place], likely secondary to CKD and CHF Leukocytosis Chronic kidney disease Persistent atrial fibrillation History of aortic stenosis with previous bioprosthetic aortic valve replacement, approximately 30 years ago per patient Moderate bioprosthetic aortic valve stenosis Moderate tricuspid regurgitation and moderate mitral regurgitation Coronary artery disease with previous CABG Left bundle branch block Hypertension Hyperlipidemia Diabetes Recent breast biopsy, final pathology reveals benign breast tissue with fibrocystic changes Monitor vital signs Monitor CBC Monitor CMP Continue telemetry monitoring Encourage use of incentive spirometer Strict I's and O's, daily weights continue Lasix 40 g every 12 2D echo Cardiology following Labs and medication were reviewed.. Continue same treatment. Continue with symptomatic treatment. Resume home medication. Monitor labs and vitals. DVT and GI prophylaxis. Further recommendations as per clinical course of the patient Dictation was produced using [employer] dictation software. please excuse any grammatical, word or spelling errors. Objective - Vital Signs Vital signs: Vital Signs Temp 97.5 F L 11/21/23 07:50 Pulse 86 11/21/23 07:51 Resp 18 11/21/23 07:50 BP 107/64 11/21/23 07:50 Pulse Ox 98 11/21/23 09:25 FiO2 Intake & Output 11/20/23 11/21/23 11/21/23 18:59 06:59 18:59 Intake Total 540 10 118 Output Total 50 Balance 490 10 118 Weight 66.5 kg Intake: IV 10 Invasive Line 1 10 Oral 540 118 Output: Urine 50 Other: Voiding Method Bedside Commode Bedside Commode # Voids 1 # Bowel Movements 3 2 - Labs CBC & Chem 7: 11/20/23 05:55 11/21/23 06:45 Labs: Abnormal Lab Results - Last 24 Hours (Table) 11/20/23 11/20/23 11/20/23 Range/Units 12:05 13:14 13:14 Sodium 134 L (137-145) mmol/L Potassium 5.3 H (3.5-5.1) mmol/L Carbon Dioxide 19 L (22-30) mmol/L BUN 91 H (7-17) mg/dL Creatinine 1.99 H (0.52-1.04) mg/dL Glucose 204 H (74-99) mg/dL POC Glucose (mg/dL) 206 H (70-110) mg/dL Magnesium 2.6 H (1.6-2.3) mg/dL Troponin I 0.613 H* (0.000-0.034) ng/mL Total Protein 5.6 L (6.3-8.2) g/dL Albumin 3.3 L (3.5-5.0) g/dL 11/20/23 11/20/23 11/21/23 Range/Units 17:27 20:19 06:10 Sodium (137-145) mmol/L Potassium (3.5-5.1) mmol/L Carbon Dioxide (22-30) mmol/L BUN (7-17) mg/dL Creatinine (0.52-1.04) mg/dL Glucose (74-99) mg/dL POC Glucose (mg/dL) 256 H 220 H 185 H (70-110) mg/dL Magnesium (1.6-2.3) mg/dL Troponin I (0.000-0.034) ng/mL Total Protein (6.3-8.2) g/dL Albumin (3.5-5.0) g/dL 11/21/23 Range/Units 06:45 Sodium 127 L (137-145) mmol/L Potassium (3.5-5.1) mmol/L Carbon Dioxide 17 L (22-30) mmol/L BUN 97 H (7-17) mg/dL Creatinine 2.01 H (0.52-1.04) mg/dL Glucose 157 H (74-99) mg/dL POC Glucose (mg/dL) (70-110) mg/dL Magnesium (1.6-2.3) mg/dL Troponin I (0.000-0.034) ng/mL Total Protein (6.3-8.2) g/dL Albumin (3.5-5.0) g/dL
[2023-11-21] MEDS: FUROSEMIDE 40 MG TAB PO SCH (15:47)
[2023-11-21 16:37] LABS: Glucose,Whole Blood 189 mg/dL (70-110)
[2023-11-21 20:04] LABS: Glucose,Whole Blood 192 mg/dL (70-110)
[2023-11-22 06:03] LABS: Glucose,Whole Blood 148 mg/dL (70-110)
[2023-11-22] MEDS: ZINC OXIDE PASTE (Z-GUARD) 1 APPLIC TOPICAL PRN (06:19)
[2023-11-22 07:39] LABS: Basophils % (A) 0 %; Eosinophils # (A) 0.1 k/uL (0-0.7); Eosinophils % (A) 0 %; HCT 35.5 % (34.0-46.0); HGB 11.3 gm/dL (11.4-16.0); Lymphocytes # (A) 0.8 k/uL (1.0-4.8); Lymphocytes % (A) 4 %; MCH 32.5 pg (25.0-35.0); MCHC 31.8 g/dL (31.0-37.0); Macrocytosis Slight; Mean Platelet Volume 9.5; Monocytes # (A) 1.4 k/uL (0-1.0); Monocytes % (A) 7 %; Neutrophils # (A) 18.5 k/uL (1.3-7.7); Neutrophils % (A) 87 %; Platelet Count 204 k/uL (150-450); RBC 3.48 m/uL (3.80-5.40); RDW 14.5 % (11.5-15.5); WBC 21.3 k/uL (3.8-10.6)
[2023-11-22 08:03] LABS: ALT 19 U/L (4-34); African American GFR (CKD) 22 (>60 ml/min/1.73 sqM); Albumin 2.7 g/dL (3.5-5.0); Anion Gap 14 mmol/L; Blood Urea Nitrogen 98 mg/dL (7-17); Carbon Dioxide 13 mmol/L (22-30); Chloride 97 mmol/L (98-107); Glucose 138 mg/dL (74-99); Non-African American GFR(CKD) 19 (>60 ml/min/1.73 sqM); Sodium 124 mmol/L (137-145); Total Bilirubin 0.5 mg/dL (0.2-1.3)
[2023-11-22 08:06] LABS: AST 34 U/L (14-36); Alkaline Phosphatase 55 U/L (38-126); Potassium 4.3 mmol/L (3.5-5.1)
--- NOTE | 2023-11-22 10:32 | P.PN ---
Subjective HISTORY OF PRESENT ILLNESS: This is a 88-year-old female with a past medical history significant for atrial fibrillation, aortic stenosis status post bioprosthetic aortic valve replacement, coronary artery disease status post CABG, hypertension, hyperlipidemia, diabetes, congestive heart failure, and recent breast biopsy. Patient follows in the office with Dr. Soctt. We have been asked to see the patient in consultation for elevated troponins. Patient examined at the bedside in the emergency room. Patient presented to the hospital with a chief complaint of shortness of breath. Patient states she has been feeling short of breath for the past couple days. She denies any chest pain or pressure. She also reports having generalized weakness. She reports having a sore throat, runny nose, and a fever on and off. She does report having some nausea at home as well without vomiting. She reports worsening lower extremity edema. She states she has been waking up at night short of breath and feeling panicked. The patient reports that she had a recent breast biopsy performed. Final pathology reveals benign breast tissue with fibrocystic changes. DIAGNOSTICS: - EKG reveals atrial fibrillation with left bundle branch block. Heart rate 101.. - Chest xray findings most consistent with mild to moderate CHF. - Laboratory data: WBC 21.1. Hemoglobin 12.0. Platelet count 174. Sodium 132. Potassium 4.3. BUN 92. Creatinine 1.81. proBNP greater than 30,000. Troponin 0.851. 0.841. - Current home cardiac medications include Eliquis 2.5 mg twice a day, Lasix 40 mg daily, Toprol tartrate 25 mg twice a day, simvastatin 40 mg at night, Aldactone 25 mg twice a day, and hydralazine 25 mg twice a day. - Most recent echocardiogram obtained in 04/2023 reveals normal LV systolic function, moderate mitral regurgitation, moderate bioprosthetic valve stenosis with a peak gradient of 52 mmHg and a mean gradient of 35 mm across the aortic valve, moderate regurgitation of prosthetic aortic valve, moderate tricuspid regurgitation, pulmonary hypertension -Patient underwent Lexiscan stress test in April 2023 which was negative for ischemia 11/21/2023 Patient examined this morning at the bedside. Patient reports improvement in her shortness of breath. She denies chest pain or pressure. She is laying flat in bed and appears to be comfortable this morning. She remains on IV Lasix. Sodium this morning is down to 127 from 134 yesterday. Echocardiogram completed revealing ejection fraction 20 to 25%, apex akinetic, probable left ventricular apical thrombus, possible Takotsubo syndrome, moderate periprosthetic regurgitation of aortic valve 11/22/2023 Patient examined this morning at the bedside. Patient reports having diarrhea overnight. She currently denies any chest pain or pressure. She denies shortness of breath. Sodium worsened today at 124. Kidney function also worse today at 2.22. Vital signs are stable. PHYSICAL EXAM: VITAL SIGNS: Reviewed. GENERAL: Well-developed in no acute distress. HEENT: Head is normocephalic. Pupils are equal, round. Sclerae anicteric. Mucous membranes of the mouth are moist. Neck supple. LUNGS: Respirations even and unlabored. Lungs diminished with crackles at the bases, improving HEART: Irregular rate and rhythm. S1 and S2 heard. Systolic and diastolic murmur noted. ABDOMEN: Soft. Nondistended. Nontender. EXTREMITIES: Normal range of motion. No clubbing or cyanosis. Peripheral pulses intact. 1-2+ pitting bilateral lower extremity edema NEUROLOGIC: Awake and alert. Oriented x 3. ASSESSMENT: Shortness of breath Acute on chronic heart failure with preserved EF Abnormal troponins, flat, type II [place], likely secondary to CKD and CHF Leukocytosis Chronic kidney disease Persistent atrial fibrillation History of aortic stenosis with previous bioprosthetic aortic valve replacement, approximately 30 years ago per patient Moderate bioprosthetic aortic valve stenosis Moderate tricuspid regurgitation and moderate mitral regurgitation Coronary artery disease with previous CABG Left bundle branch block Hypertension Hyperlipidemia Diabetes Recent breast biopsy, final pathology reveals benign breast tissue with fibrocystic changes Possible small apical thrombus per echo New onset cardiomyopathy, 20 to 25% with apical akinesia Hyponatremia PLAN: Continue current cardiac medications Continue anticoagulation with Eliquis Decrease Lasix to 40 mg daily secondary to worsening kidney function Daily weights, accurate intake and output, and monitoring of kidney function Repeat sodium level in the morning. Continue fluid restriction of 1500 cc. Patient would eventually benefit from Farxiga when kidney function improves Discussed with patient at the bedside that her aortic valve that was replaced about 30 years ago is failing which is exacerbating patient's congestive heart failure Patient to talk with her family and make a decision regarding how aggressive she wants to be with her overall care and if she is wanting to undergo aggressive cardiac workup for valve replacement including MARIELLE and cardiac catheterization Dr. Strange did speak to the patient on Thursday and according to his documentation patient is requesting to be a DNR. However she remains a full code in the computer. Will defer CODE STATUS to primary medicine. Further recommendations pending patient course Nurse practitioner note has been reviewed by physician. Signing provider agrees with the documented findings, assessment, and plan of care documented by OR DIRECTOR as a scribe. Objective - Vital Signs Vital signs: Vital Signs Temp 97.4 F L 11/22/23 08:45 Pulse 85 11/22/23 08:45 Resp 18 11/22/23 08:45 BP 111/64 11/22/23 08:45 Pulse Ox 98 11/22/23 08:45 FiO2 Intake & Output 11/21/23 11/22/23 11/22/23 18:59 06:59 18:59 Intake Total 118 130 120 Output Total 275 Balance 118 -145 120 Weight 66.9 kg Intake: IV 10 Invasive Line 1 10 Oral 118 120 120 Output: Urine 75 Urine/Stool Mix 200 Other: Voiding Method Bedside Commode Bedside Commode Bedside Commode # Voids 1 1 1 # Bowel Movements 1 1 1 - Labs CBC & Chem 7: 11/22/23 06:32 11/22/23 06:32 Labs: Abnormal Lab Results - Last 24 Hours (Table) 11/21/23 11/21/23 11/21/23 Range/Units 11:31 16:36 20:02 WBC (3.8-10.6) k/uL RBC (3.80-5.40) m/uL Hgb (11.4-16.0) gm/dL MCV (80.0-100.0) fL Neutrophils # (1.3-7.7) k/uL Lymphocytes # (1.0-4.8) k/uL Monocytes # (0-1.0) k/uL Sodium (137-145) mmol/L Chloride (98-107) mmol/L Carbon Dioxide (22-30) mmol/L BUN (7-17) mg/dL Creatinine (0.52-1.04) mg/dL Glucose (74-99) mg/dL POC Glucose (mg/dL) 193 H 189 H 192 H (70-110) mg/dL Total Protein (6.3-8.2) g/dL Albumin (3.5-5.0) g/dL 11/22/23 11/22/2311/21/24 Range/Units 06:00 06:32 06:32 WBC 21.3 H (3.8-10.6) k/uL RBC 3.48 L (3.80-5.40) m/uL Hgb 11.3 L (11.4-16.0) gm/dL MCV 102.0 H (80.0-100.0) fL Neutrophils # 18.5 H (1.3-7.7) k/uL Lymphocytes # 0.8 L (1.0-4.8) k/uL Monocytes # 1.4 H (0-1.0) k/uL Sodium 124 L (137-145) mmol/L Chloride 97 L (98-107) mmol/L Carbon Dioxide 13 L (22-30) mmol/L BUN 98 H (7-17) mg/dL Creatinine 2.22 H (0.52-1.04) mg/dL Glucose 138 H (74-99) mg/dL POC Glucose (mg/dL) 148 H (70-110) mg/dL Total Protein 5.0 L (6.3-8.2) g/dL Albumin 2.7 L (3.5-5.0) g/dL
[2023-11-22] MEDS: LACTOBACILLUS ACIDOPHILUS/PECT 1 EACH CAPSULE PO SCH (10:59)
--- NOTE | 2023-11-22 11:14 | P.NPCON ---
History of Present Illness - Reason for Consult acute renal failure, chronic renal failure - History of Present Illness Reason for consultation: Acute kidney injury on chronic kidney disease History of present illness: Patient is a 88-year-old female seen in renal consultation for acute kidney injury on chronic kidney disease. Patient has chronic kidney disease stage IIIb with creatinine 1.6-1.7 in April and May 2023. Patient came to the hospital due to worsening shortness of breath and feeling weak. Patient was noted to be in acute CHF and was given IV Lasix. She was then tapered to oral Lasix which was then decreased to 40 mg orally once daily starting today due to worsening renal function. Creatinine was 1.8 on admission and is up to 2.2 today. Sodium level is also trending down and is 124 today. Patient states her oral intake is poor and she does feel nauseated at times. No vomiting. No fever or chills. She is currently on room air. Echocardiogram done this admission showed ejection fraction of 20 to 25% with moderate aortic regurgitation. Patient has history of aortic valve replacement. There is also concern for apical thrombus. She is being followed by cardiology. Patient has history of diabetes. Also has history of coronary disease status post CABG. Denies gross hematuria or dysuria. Hemodynamically stable. Denies use of nonsteroidals. Vital signs are stable. General: No acute distress. HEENT: Head exam is unremarkable. LUNGS: No audible rhonchi or wheezes. HEART: Rate and Rhythm are regular. ABDOMEN: Nontender. EXTREMITITES: 1+ edema. Past Medical History Past Medical History: Atrial Fibrillation, Coronary Artery Disease (CAD), Heart Failure, Diabetes Mellitus, GERD/Reflux, Hyperlipidemia, Hypertension, Osteoarthritis (OA), Renal Disease, Thyroid Disorder Additional Past Medical History / Comment(s): NIDDM type II, 07/24/17 echo with 20% EF, chronic kidney disease stage III, bilateral tinnitis, arthritis multiple joints, gout, back pain. 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 skin ca removed Past Anesthesia/Blood Transfusion Reactions: Previous Problems w/ Anesthesia Additional Past Anesthesia/Blood Transfusion Reaction / Comment(s): Pt states she was hypertensive after waking from D&C. Pt has clausterphobia. Smoking Status: Never smoker - Past Family History Father History Unknown: Yes Additional Family Medical History / Comment(s): pt was adopted Mother History Unknown: Yes Additional Family Medical History / Comment(s): Mother after childbirth at the age of 35yrs. Medications and Allergies Home Medications Medication Instructions Recorded Confirmed Type Levothyroxine Sodium [Synthroid] 50 mcg PO DAILY 07/21/17 11/19/23 History allopurinoL [Zyloprim] 100 mg PO DAILY 07/21/17 11/19/23 History Apixaban [Eliquis] 2.5 mg PO BID tablet 07/24/17 11/19/23 Rx hydrALAZINE HCL [Apresoline] 25 mg PO BID #60 tab 07/28/17 11/19/23 Rx Metoprolol Tartrate [Lopressor] 25 mg PO BID #60 tab 11/25/18 11/19/23 Rx Furosemide [Lasix] 40 mg PO DAILY 10/21/20 11/19/23 History Pantoprazole [Protonix] 40 mg PO DAILY 10/21/20 11/19/23 History Simvastatin [Zocor] 40 mg PO HS 10/21/20 11/19/23 History Spironolactone [Aldactone] 25 mg PO BID 10/21/20 11/19/23 History Insulin Lispro [humaLOG Kwikpen] See Protocol SQ ACHS 10/27/23 11/19/23 History Cephalexin [Keflex] 500 mg PO BID #14 cap 11/17/23 11/19/23 Rx Acetaminophen Tab [Tylenol Tab] 1,000 mg PO Q4H 11/19/23 11/19/23 History Vitamin B Complex/Folic Acid 0.4 mg PO DAILY 11/19/23 11/19/23 History [Vitamin B Complex Tablet] Allergies Allergy/AdvReac Type Severity Reaction Status Date / Time No Known Allergies Allergy Verified 11/19/23 21:09 Physical Exam Vitals: Vital Signs Temp Pulse Resp BP Pulse Ox 11/22/23 10:58 69 18 112/67 97 11/22/23 08:45 97.4 F L 85 18 111/64 98 11/22/23 04:09 98.1 F 88 18 117/56 100 11/21/23 23:57 81 16 108/65 96 11/21/23 20:21 87 11/21/23 19:50 97.6 F 87 16 118/67 100 11/21/23 15:46 93 18 111/68 99 11/21/23 13:39 75 11/21/23 11:39 75 18 109/66 96 Intake and Output 11/21/23 11/22/23 11/22/23 22:59 06:59 14:59 Intake Total 10 120 360 Output Total 275 Balance 10 -155 360 Intake: IV 10 Invasive Line 1 10 Oral 120 360 Output: Urine 75 Urine/Stool Mix 200 Other: Voiding Method Bedside Commode Bedside Commode Bedside Commode # Voids 1 1 1 # Bowel Movements 2 1 1 Weight 66.9 kg Results - Lab Results Most recent lab results Calcium 9.0 mg/dL (8.4-10.2) 11/22/23 06:32 Phosphorus 3.4 mg/dL (2.5-4.5) 11/19/23 19:28 Magnesium 2.6 mg/dL (1.6-2.3) H 11/20/23 13:14 11/22/23 06:32 11/22/23 06:32 Assessment and Plan Plan: Assessment: 1. Acute kidney injury secondary to ATN secondary to cardiorenal syndrome. Creatinine 2.22 today. UA with trace protein. 2. Chronic kidney disease stage IIIb with baseline creatinine 1.6-1.7 in April and May 2023. Etiology is nephrosclerosis. 3. Acute on chronic systolic CHF with ejection fraction of 20 to 25% with moderate aortic regurgitation. 4. Hypervolemic hyponatremia. 5. Metabolic acidosis secondary to acute kidney injury. 6. Diabetes mellitus. 7. Coronary artery disease status post CABG. Plan: Maintain oral Lasix. Encouraged oral intake, particularly protein. Maintain fluid restriction. Samsca 7.5 mg once today. Check renal ultrasound. Check bladder scan to rule out urinary retention. Add oral bicarb. Avoid nephrotoxins. Continue to monitor renal function and urine output. Thank you for the consultation. I will continue to follow the patient with you during her hospital stay.
[2023-11-22 11:25] LABS: Glucose,Whole Blood 183 mg/dL (70-110)
[2023-11-22] MEDS: TOLVAPTAN 15 MG TABLET PO ONE (12:06)
[2023-11-22] MEDS: SODIUM BICARB 8.4% 50 ML SYR (1 MEQ/ML) IV STA (12:06)
[2023-11-22] MEDS: SODIUM BICARBONATE TAB 650 MG TAB PO SCH (12:07)
--- NOTE | 2023-11-22 13:15 | P.PN ---
Subjective Progress Note Date: 11/22/23 This is a 88-year-old female with a past medical history significant for atrial fibrillation, aortic stenosis status post bioprosthetic aortic valve replacement, coronary artery disease status post CABG, hypertension, hyperlipidemia, diabetes, congestive heart failure, and recent breast biopsy presented to the hospital with a chief complaint of shortness of breath. Patient states she has been feeling short of breath for the past couple days. She denies any chest pain or pressure. She also reports having generalized weakness. She reports having a sore throat, runny nose, and a fever on and off. She does report having some nausea at home as well without vomiting. She reports worsening lower extremity edema. She states she has been waking up at night short of breath and feeling panicked. The patient reports that she had a recent breast biopsy performed. Final pathology reveals benign breast tissue with fibrocystic changes. 11/20. Patient seen and examined. States breathing is improved. Denies any swelling of lower extremities. 11/21. Patient seen and examined. Lab work done in the hospital showed WBC 21.3, hemoglobin 9.3, sodium 124, potassium 4.3, BUN 19, creatinine 2.22. Patient has persistent leukocytosis, but is afebrile. Patient having diarrhea, ordered stool for C. difficile, stop IV Rocephin. REVIEW OF SYSTEMS: CONSTITUTIONAL: No fever, no malaise,. CARDIOVASCULAR: No chest pain, no palpitations, no syncope. PULMONARY: No shortness of breath, no cough, GASTROINTESTINAL: As mentioned above NEUROLOGICAL: No headaches, no weakness, PHYSICAL EXAMINATION: GENERAL: The patient is alert and oriented x3, not in any acute distress. Well developed, well nourished. HEENT: Pupils are round and equally reacting to light. EOMI. No scleral icterus. No conjunctival pallor. Normocephalic, atraumatic. No pharyngeal erythema. No thyromegaly. CARDIOVASCULAR: S1 and S2 present. Murmur audible PULMONARY: Chest is clear to auscultation, no wheezing or crackles. ABDOMEN: Soft, nontender, nondistended, normoactive bowel sounds. No palpable organomegaly. MUSCULOSKELETAL: No joint swelling or deformity. EXTREMITIES: No cyanosis, clubbing, or pedal edema. NEUROLOGICAL: Gross neurological examination did not reveal any focal deficits. SKIN: No rashes. Assessment and plan Acute on chronic heart failure with preserved EF Hyponatremia Elevated troponin, type II MN, likely secondary to CKD and CHF Leukocytosis UTI Chronic kidney disease Persistent atrial fibrillation History of aortic stenosis with previous bioprosthetic aortic valve replacement, approximately 30 years ago per patient Moderate bioprosthetic aortic valve stenosis Moderate tricuspid regurgitation and moderate mitral regurgitation Coronary artery disease with previous CABG Left bundle branch block Hypertension Hyperlipidemia Diabetes Recent breast biopsy, final pathology reveals benign breast tissue with fibrocystic changes Monitor vital signs Monitor CBC Monitor CMP Continue telemetry monitoring Encourage use of incentive spirometer Strict I's and O's, daily weights continue Lasix 40 g every 12 Ordered stool for C. difficile Added lactobacillus and cholestyramine Cardiology following Nephrology consulted Labs and medication were reviewed.. Continue same treatment. Continue with symptomatic treatment. Resume home medication. Monitor labs and vitals. DVT and GI prophylaxis. Further recommendations as per clinical course of the patient Dictation was produced using [employer] dictation software. please excuse any grammatical, word or spelling errors. Objective - Vital Signs Vital signs: Vital Signs Temp 97.4 F L 11/22/23 08:45 Pulse 85 11/22/23 08:45 Resp 18 11/22/23 08:45 BP 111/64 11/22/23 08:45 Pulse Ox 98 11/22/23 08:45 FiO2 Intake & Output 11/21/23 11/22/23 11/22/23 18:59 06:59 18:59 Intake Total 118 130 120 Output Total 275 Balance 118 -145 120 Weight 66.9 kg Intake: IV 10 Invasive Line 1 10 Oral 118 120 120 Output: Urine 75 Urine/Stool Mix 200 Other: Voiding Method Bedside Commode Bedside Commode Bedside Commode # Voids 1 1 1 # Bowel Movements 1 1 1 - Labs CBC & Chem 7: 11/22/23 06:32 11/22/23 06:32 Labs: Abnormal Lab Results - Last 24 Hours (Table) 11/21/23 11/21/23 11/21/23 Range/Units 11:31 16:36 20:02 WBC (3.8-10.6) k/uL RBC (3.80-5.40) m/uL Hgb (11.4-16.0) gm/dL MCV (80.0-100.0) fL Neutrophils # (1.3-7.7) k/uL Lymphocytes # (1.0-4.8) k/uL Monocytes # (0-1.0) k/uL Sodium (137-145) mmol/L Chloride (98-107) mmol/L Carbon Dioxide (22-30) mmol/L BUN (7-17) mg/dL Creatinine (0.52-1.04) mg/dL Glucose (74-99) mg/dL POC Glucose (mg/dL) 193 H 189 H 192 H (70-110) mg/dL Total Protein (6.3-8.2) g/dL Albumin (3.5-5.0) g/dL 11/22/23 11/22/23 11/22/23 Range/Units 06:00 06:32 06:32 WBC 21.3 H (3.8-10.6) k/uL RBC 3.48 L (3.80-5.40) m/uL Hgb 11.3 L (11.4-16.0) gm/dL MCV 102.0 H (80.0-100.0) fL Neutrophils # 18.5 H (1.3-7.7) k/uL Lymphocytes # 0.8 L (1.0-4.8) k/uL Monocytes # 1.4 H (0-1.0) k/uL Sodium 124 L (137-145) mmol/L Chloride 97 L (98-107) mmol/L Carbon Dioxide 13 L (22-30) mmol/L BUN 98 H (7-17) mg/dL Creatinine 2.22 H (0.52-1.04) mg/dL Glucose 138 H (74-99) mg/dL POC Glucose (mg/dL) 148 H (70-110) mg/dL Total Protein 5.0 L (6.3-8.2) g/dL Albumin 2.7 L (3.5-5.0) g/dL
[2023-11-22] MEDS: VANCOMYCIN 125 MG CAPSULE PO SCH (13:39)
[2023-11-22] MEDS: CHOLESTYRAMINE (WITH SUGAR) 4 GM PACKET PO SCH (15:41)
[2023-11-22 16:26] LABS: Glucose,Whole Blood 174 mg/dL (70-110)
[2023-11-22 20:26] LABS: Glucose,Whole Blood 180 mg/dL (70-110)
[2023-11-23 06:09] LABS: Glucose,Whole Blood 143 mg/dL (70-110)
--- NOTE | 2023-11-23 07:53 | US ---
EXAMINATION TYPE: US kidneys/renal and bladder DATE OF EXAM: 11/22/2023 Exam done portable COMPARISON: CT 2018, US 2012 CLINICAL INDICATION: Female, 88 years old with history of joseph; EXAM MEASUREMENTS: Right Kidney: 9.8 x 4.4 x 3.9 cm Left Kidney: 9.1 x 4.4 x 3.8 cm Right Kidney: no hydronephrosis, nephrolithiasis or masses seen Left Kidney: no hydronephrosis, nephrolithiasis or masses seen Bladder: wnl Gallbladder: borderline hydropic, cholelithiasis Renal echogenicity and thickness is normal. Could not exclude trace fluid in the right quadrant. IMPRESSION: 1. No hydronephrosis or nephrolithiasis. 2. Gallbladder is distended without evidence of cholelithiasis correlate clinically.
[2023-11-23] MEDS: FUROSEMIDE 40 MG TAB PO SCH (08:25)
--- NOTE | 2023-11-23 10:18 | P.PN ---
Subjective Patient is seen in follow-up for acute kidney injury on chronic kidney disease. Has been voiding. Hemodynamically stable. Denies chest pain or shortness of breath. Vital signs are stable. General: No acute distress. HEENT: Head exam is unremarkable. LUNGS: No audible rhonchi or wheezes. HEART: Rate and Rhythm are regular. ABDOMEN: Nontender. EXTREMITITES: Trace edema. Objective - Vital Signs Vital signs: Vital Signs Temp 97.9 F 11/23/23 03:45 Pulse 86 11/23/23 03:45 Resp 19 11/23/23 03:45 BP 119/57 11/23/23 03:45 Pulse Ox 98 11/23/23 03:45 FiO2 Intake & Output 11/22/23 11/23/23 11/23/23 18:59 06:59 18:59 Intake Total 800 240 Output Total 400 Balance 800 -400 240 Intake: Oral 800 240 Output: Urine 400 Other: Voiding Method Bedside Commode Bedside Commode # Voids 2 3 # Bowel Movements 9 4 - Labs CBC & Chem 7: 11/22/23 06:32 11/22/23 06:32 Labs: Abnormal Lab Results - Last 24 Hours (Table) 11/22/23 11/22/23 11/22/23 Range/Units 11:23 12:00 16:24 POC Glucose (mg/dL) 183 H 174 H (70-110) mg/dL C. difficile (EIA) Intrp Positive A (Negative) 11/22/23 11/23/23 Range/Units 20:23 06:04 POC Glucose (mg/dL) 180 H 143 H (70-110) mg/dL C. difficile (EIA) Intrp (Negative) Assessment and Plan Plan: Assessment: 1. Acute kidney injury secondary to ATN secondary to cardiorenal syndrome. Creatinine 2.22 yesterday. UA with trace protein. No hydronephrosis noted on kidney ultrasound. 2. Chronic kidney disease stage IIIb with baseline creatinine 1.6-1.7 in April and May 2023. Etiology is nephrosclerosis. 3. Acute on chronic systolic CHF with ejection fraction of 20 to 25% with moderate aortic regurgitation. 4. Hypervolemic hyponatremia. Status post Samsca yesterday. 5. Metabolic acidosis secondary to acute kidney injury and GI losses. On oral bicarb. 6. Diabetes mellitus. 7. Coronary artery disease status post CABG. 8. C. difficile colitis on oral vancomycin. Plan: Maintain oral Lasix. Encouraged oral intake, particularly protein. Maintain fluid restriction. Avoid nephrotoxins. Continue to monitor renal function and urine output. Morning labs pending.
[2023-11-23 11:34] LABS: Glucose,Whole Blood 193 mg/dL (70-110)
[2023-11-23 11:53] LABS: African American GFR (CKD) 21 (>60 ml/min/1.73 sqM); Anion Gap 10 mmol/L; Blood Urea Nitrogen 100 mg/dL (7-17); Calcium 8.7 mg/dL (8.4-10.2); Carbon Dioxide 20 mmol/L (22-30); Chloride 94 mmol/L (98-107); Glucose 194 mg/dL (74-99); Non-African American GFR(CKD) 18 (>60 ml/min/1.73 sqM); Potassium 3.3 mmol/L (3.5-5.1); Sodium 124 mmol/L (137-145)
--- NOTE | 2023-11-23 13:56 | XR ---
EXAMINATION TYPE: XR chest 1V DATE OF EXAM: 11/23/2023 COMPARISON: 11/19/2023, chest x-ray 05/19/2012 HISTORY: Shortness of breath TECHNIQUE: Single frontal view of the chest is obtained. FINDINGS: The heart is enlarged and there are sternotomy changes. There is widened mediastinum with atherosclerotic change aorta. A diffuse interstitial pattern with small bilateral effusions. Mild dif fuse osteopenia. A prominence of the right suprahilar region. Underlying mass not excluded. IMPRESSION: 1. Cardiomegaly correlate for mild venous congestion. Underlying pneumonia not excluded. 2. There is prominence of the right upper lobe and mediastinum. This is stable dating back to 2011 ap pears to be related to vascular ectasia.
--- NOTE | 2023-11-23 15:10 | P.PN ---
Subjective Progress Note Date: 11/23/23 HISTORY OF PRESENT ILLNESS: This is a 88-year-old female with a past medical history significant for atrial fibrillation, aortic stenosis status post bioprosthetic aortic valve replacement, coronary artery disease status post CABG, hypertension, hyperlipidemia, diabetes, congestive heart failure, and recent breast biopsy. Patient follows in the office with Dr. Scott. We have been asked to see the pat ient in consultation for elevated troponins. Patient examined at the bedside in the emergency room. Patient presented to the hospital with a chief complaint of shortness of breath. Patient states she has been feeling short of breath for the past couple days. She denies any chest pain or pressure. She also reports having generalized weakness. She reports having a sore throat, runny nose, and a fever on and off. She does report having some nausea at home as well without vomiting. She reports worsening lower extremity edema. She states she has been waking up at night short of breath and feeling panicked. The patient reports that she had a recent breast biopsy performed. Final pathology reveals benign breast tissue with fibrocystic changes. DIAGNOSTICS: - EKG reveals atrial fibrillation with left bundle branch block. Heart rate 101.. - Chest xray findings most consistent with mild to moderate CHF. - Laboratory data: WBC 21.1. Hemoglobin 12.0. Platelet count 174. Sodium 132. Potassium 4.3. BUN 92. Creatinine 1.81. proBNP greater than 30,000. Troponin 0.851. 0.841. - Current home cardiac medications include Eliquis 2.5 mg twice a day, Lasix 40 mg daily, Toprol tartrate 25 mg twice a day, simvastatin 40 mg at night, Aldactone 25 mg twice a day, and hydralazine 25 mg twice a day. - Most recent echocardiogram obtained in 04/2023 reveals normal LV systolic function, moderate mitral regurgitation, moderate bioprosthetic valve stenosis with a peak gradient of 52 mmHg and a mean gradient of 35 mm across the aortic valve, moderate regurgitation of prosthetic aortic valve, moderate tricuspid regurgitation, pulmonary hypertension -Patient underwent Lexiscan stress test in April 2023 which was negative for ischemia 11/21/2023 Patient examined this morning at the bedside. Patient reports improvement in her shortness of breath. She denies chest pain or pressure. She is laying flat in bed and appears to be comfortable this morning. She remains on IV Lasix. So dium this morning is down to 127 from 134 yesterday. Echocardiogram completed revealing ejection fraction 20 to 25%, apex akinetic, probable left ventricular apical thrombus, possible Takotsubo syndrome, moderate periprosthetic regurgitation of aortic valve 11/22/2023 Patient examined this morning at the bedside. Patient reports having diarrhea overnight. She currently denies any chest pain or pressure. She denies shortness of breath. Sodium worsened today at 124. Kidney function also worse today at 2.22. Vital signs are stable. 11/22 Patient is currently in isolation for C. difficile colitis. Patient is noted to have frequent coughing. Noted to have worsening leukocytosis and kidney function. Repeat blood work reveals sodium 134, potassium 3.3, BUN 100 and creatinine 2.33. Patient's nurse states that patient has not had diarrhea today. She is currently on Lasix 40 mg oral daily which will be continued. Potassium has been replaced. Patient is followed by nephrology. PHYSICAL EXAM: VITAL SIGNS: Reviewed. GENERAL: Well-developed in no acute distress. HEENT: Head is normocephalic. Pupils are equal, round. Sclerae anicteric. Mucous membranes of the mouth are moist. Neck supple. LUNGS: Respirations even and unlabored. Lungs diminished with crackles at the bases, improving HEART: Irregular rate and rhythm. S1 and S2 heard. Systolic and diastolic murmur noted. ABDOMEN: Soft. Nondistended. Nontender. EXTREMITIES: Normal range of motion. No clubbing or cyanosis. Peripheral pulses intact. 1-2+ pitting bilateral lower extremity edema NEUROLOGIC: Awake and alert. Oriented x 3. ASSESSMENT: Shortness of breath Acute on chronic heart failure with preserved EF Abnormal troponins, flat, type II [place], likely secondary to CKD and CHF Leukocytosis Chronic kidney disease Persistent atrial fibrillation History of aortic stenosis with previous bioprosthetic aortic valve replacement, approximately 30 years ago per patient Moderate bioprosthetic aortic valve stenosis Moderate tricuspid regurgitation and moderate mitral regurgitation Coronary artery disease with previous CABG Left bundle branch block Hypertension Hyperlipidemia Diabetes Recent breast biopsy, final pathology reveals benign breast tissue with fibrocystic changes Possible small apical thrombus per echo New onset cardiomyopathy, 20 to 25% with apical akinesia Hyponatremia C. difficile colitis PLAN: Continue current cardiac medications Continue anticoagulation with Eliquis Continue Lasix to 40 mg daily secondary to worsening kidney function Daily weights, accurate intake and output, and monitoring of kidney function Repeat sodium level in the morning. Continue fluid restriction of 1500 cc. Patient would eventually benefit from Farxiga when kidney function improves Discussed with patient at the bedside that her aortic valve that was replaced about 30 years ago is failing which is exacerbating patient's congestive heart failure Patient to talk with her family and make a decision regarding how aggressive she wants to be with her overall care and if she is wanting to undergo aggressive cardiac workup for valve replacement including MARIELLE and cardiac catheterization Dr. Strange did speak to the patient on Thursday and according to his documentation patient is requesting to be a DNR. However she remains a full code in the computer. Will defer CODE STATUS to primary medicine. Further recommendations pending patient course Nurse practitioner note has been reviewed by physician. Signing provider agrees with the documented findings, assessment, and plan of care documented by [employer]ATIONS CONSULTANT as a scribe. Objective - Vital Signs Vital signs: Vital Signs Temp 97.1 F L 11/23/23 08:20 Pulse 81 11/23/23 08:20 Resp 18 11/23/23 08:20 BP 107/51 11/23/23 08:20 Pulse Ox 98 11/23/23 08:20 FiO2 Intake & Output 11/22/23 11/23/23 11/23/23 18:59 06:59 18:59 Intake Total 800 240 Output Total 400 Balance 800 -400 240 Intake: Oral 800 240 Output: Urine 400 Other: Voiding Method Bedside Commode Bedside Commode Bedside Commode # Voids 2 3 # Bowel Movements 9 4 - Labs CBC & Chem 7: 11/22/23 06:32 11/23/23 10:39 Labs: Abnormal Lab Results - Last 24 Hours (Table) 11/22/23 11/22/23 11/23/23 Range/Units 16:24 20:23 06:04 Sodium (137-145) mmol/L Potassium (3.5-5.1) mmol/L Chloride (98-107) mmol/L Carbon Dioxide (22-30) mmol/L BUN (7-17) mg/dL Creatinine (0.52-1.04) mg/dL Glucose (74-99) mg/dL POC Glucose (mg/dL) 174 H 180 H 143 H (70-110) mg/dL 11/23/23 11/23/23 Range/Units 10:39 11:29 Sodium 124 L (137-145) mmol/L Potassium 3.3 L (3.5-5.1) mmol/L Chloride 94 L (98-107) mmol/L Carbon Dioxide 20 L (22-30) mmol/L BUN 100 H (7-17) mg/dL Creatinine 2.33 H (0.52-1.04) mg/dL Glucose 194 H (74-99) mg/dL POC Glucose (mg/dL) 193 H (70-110) mg/dL
[2023-11-23] MEDS: TOLVAPTAN 15 MG TABLET PO ONE (16:07)
[2023-11-23] MEDS: POTASSIUM CHLORIDE ER 20 MEQ TAB.ER PO STA (16:07)
[2023-11-23 16:41] LABS: Glucose,Whole Blood 153 mg/dL (70-110)
[2023-11-23 20:50] LABS: Glucose,Whole Blood 158 mg/dL (70-110)
--- NOTE | 2023-11-23 22:52 | P.PN ---
Subjective Progress Note Date: 11/23/23 Patient 88-year-old white female who is seen today she is feeling better regarding her shortness of breath did have some problems with low blood pressure and she continues to suffer from valvular heart disease. Objective - Vital Signs Vital signs: Vital Signs Temp 98.0 F 11/23/23 20:00 Pulse 82 11/23/23 20:00 Resp 19 11/23/23 20:00 BP 128/59 11/23/23 20:00 Pulse Ox 100 11/23/23 20:00 FiO2 Intake & Output 11/23/23 11/23/23 11/24/23 06:59 18:59 06:59 Intake Total 480 Output Total 400 Balance -400 480 Intake: Oral 480 Output: Urine 400 Other: Voiding Method Bedside Commode Bedside Commode Bedside Commode # Voids 3 4 # Bowel Movements 4 1 - Exam GENERAL: This is a 88-year-old in acutet distress at the time of examination. Pleasant and cooperative. HEENT: Head is atraumatic, normocephalic. Pupils are equal, round, and reactive to light. Sclerae anicteric. Conjunctivae are clear. Mucus membranes of the mouth are moist. Neck is supple. RESPIRATORY: Positive for shortness and increased cough. CARDIOVASCULAR: Irregular rate and rhythm. . Positive for systolic murmur auscultated. GASTROINTESTINAL: No distention noted. Abdomen soft and round. Normal active bowel sounds auscultated x 4 quadrants. No pain or tenderness noted upon palpation. INTEGUMENTARY: No cyanosis. No jaundice. No rashes noted. No cellulitis noted. EXTREMITIES: 2+ peripheral pulses. No evidence of peripheral edema. No calf tenderness noted. NEUROLOGIC: Cranial nerves II-XII intact. PSYCHIATRIC: Awake, alert, and oriented X 3. Appropriate affect. Intact judgement and insight. - Labs CBC & Chem 7: 11/22/23 06:32 11/23/23 10:39 Labs: Abnormal Lab Results - Last 24 Hours (Table) 11/23/23 11/23/23 11/23/23 Range/Units 06:04 10:39 11:29 Sodium 124 L (137-145) mmol/L Potassium 3.3 L (3.5-5.1) mmol/L Chloride 94 L (98-107) mmol/L Carbon Dioxide 20 L (22-30) mmol/L BUN 100 H (7-17) mg/dL Creatinine 2.33 H (0.52-1.04) mg/dL Glucose 194 H (74-99) mg/dL POC Glucose (mg/dL) 143 H 193 H (70-110) mg/dL 11/23/23 11/23/23 Range/Units 16:39 20:34 Sodium (137-145) mmol/L Potassium (3.5-5.1) mmol/L Chloride (98-107) mmol/L Carbon Dioxide (22-30) mmol/L BUN (7-17) mg/dL Creatinine (0.52-1.04) mg/dL Glucose (74-99) mg/dL POC Glucose (mg/dL) 153 H 158 H (70-110) mg/dL Assessment and Plan Assessment: Valvular heart disease (1) Atrial fibrillation with rapid ventricular response Current Visit: Yes Status: Acute Code(s): I48.91 - UNSPECIFIED ATRIAL FIBRILLATION SNOMED Code(s): 003996706560672 (2) Chronic systolic (congestive) heart failure Current Visit: Yes Status: Acute Code(s): I50.22 - CHRONIC SYSTOLIC (C ONGESTIVE) HEART FAILURE SNOMED Code(s): 216301857 (3) Chronic kidney disease Current Visit: No Status: Acute Code(s): N18.9 - CHRONIC KIDNEY DISEASE, UNSPECIFIED SNOMED Code(s): 692562894 (4) Dyspnea Current Visit: No Status: Acute Code(s): R06.00 - DYSPNEA, UNSPECIFIED SNOMED Code(s): 759568163 (5) Fluid overload Current Visit: No Status: Acute Code(s): E87.70 - FLUID OVERLOAD, UNSPECIFIED SNOMED Code(s): 13649686 (6) Generalized weakness Current Visit: No Status: Acute Code(s): R53.1 - WEAKNESS SNOMED Code(s): 57854276 (7) C. difficile colitis Current Visit: Yes Status: Acute Code(s): A04.72 - ENTEROCOLITIS D/T CLOSTRIDIUM DIFFICILE, NOT SPCF RECUR SNOMED Code(s): 228119389 Plan: Continue to diurese patient continued to administer cardiac medications continue to discuss potential valvular procedures. Continue to treat with hydration and C. difficile colitis care patient did wish to be no code no CPR and will address this with family tomorrow
[2023-11-24 06:14] LABS: Glucose,Whole Blood 120 mg/dL (70-110)
[2023-11-24 09:19] LABS: Glucose 121 mg/dL (74-99); Potassium 3.6 mmol/L (3.5-5.1); Sodium 127 mmol/L (137-145)
[2023-11-24 09:20] LABS: African American GFR (CKD) 22 (>60 ml/min/1.73 sqM); Anion Gap 10 mmol/L; Blood Urea Nitrogen 99 mg/dL (7-17); Calcium 8.8 mg/dL (8.4-10.2); Carbon Dioxide 23 mmol/L (22-30); Chloride 94 mmol/L (98-107); Magnesium 2.4 mg/dL (1.6-2.3); Non-African American GFR(CKD) 19 (>60 ml/min/1.73 sqM)
--- NOTE | 2023-11-24 10:29 | P.PN ---
Subjective Patient is seen in follow-up for acute kidney injury on chronic kidney disease. Has been voiding. Hemodynamically stable. Denies chest pain or shortness of breath. Renal function stable. Sodium level better. Vital signs are stable. General: No acute distress. HEENT: Head exam is unremarkable. LUNGS: No audible rhonchi or wheezes. HEART: Rate and Rhythm are regular. ABDOMEN: Nontender. EXTREMITITES: 1+ edema. Objective - Vital Signs Vital signs: Vital Signs Temp 97.7 F 11/24/23 09:09 Pulse 82 11/24/23 09:09 Resp 15 11/24/23 09:09 BP 108/53 11/24/23 09:09 Pulse Ox 99 11/24/23 09:09 FiO2 Intake & Output 11/23/23 11/24/23 11/24/23 18:59 06:59 18:59 Intake Total 480 180 Output Total 250 100 Balance 480 -250 80 Weight 67.5 kg Intake: Oral 480 180 Output: Urine 250 100 Other: Voiding Method Bedside Commode Bedside Commode Bedside Commode # Voids 4 # Bowel Movements 1 1 - Labs CBC & Chem 7: 11/22/23 06:32 11/24/23 07:50 Labs: Abnormal Lab Results - Last 24 Hours (Table) 11/23/23 11/23/23 11/23/23 Range/Units 10:39 11:29 16:39 Sodium 124 L (137-145) mmol/L Potassium 3.3 L (3.5-5.1) mmol/L Chloride 94 L (98-107) mmol/L Carbon Dioxide 20 L (22-30) mmol/L BUN 100 H (7-17) mg/dL Creatinine 2.33 H (0.52-1.04) mg/dL Glucose 194 H (74-99) mg/dL POC Glucose (mg/dL) 193 H 153 H (70-110) mg/dL Magnesium (1.6-2.3) mg/dL 11/23/23 11/24/23 11/24/23 Range/Units 20:34 06:04 07:50 Sodium 127 L (137-145) mmol/L Potassium (3.5-5.1) mmol/L Chloride 94 L (98-107) mmol/L Carbon Dioxide (22-30) mmol/L BUN 99 H (7-17) mg/dL Creatinine 2.28 H (0.52-1.04) mg/dL Glucose 121 H (74-99) mg/dL POC Glucose (mg/dL) 158 H 120 H (70-110) mg/dL Magnesium 2.4 H (1.6-2.3) mg/dL Assessment and Plan Plan: Assessment: 1. Acute kidney injury secondary to ATN secondary to cardiorenal syndrome. Creatinine stable at 2.28 today. UA with trace protein. No hydronephrosis noted on kidney ultrasound. 2. Chronic kidney disease stage IIIb with baseline creatinine 1.6-1.7 in April and May 2023. Etiology is nephrosclerosis. 3. Acute on chronic systolic CHF with ejection fraction of 20 to 25% with moderate aortic regurgitation. 4. Hypervolemic hyponatremia. [place] [facility] [place]. Better. 5. Metabolic acidosis secondary to acute kidney injury and GI losses. On oral bicarb. Better. 6. Diabetes mellitus. 7. Coronary artery disease status post CABG. 8. C. difficile colitis on oral vancomycin. Plan: Maintain oral Lasix. Additional dose of 40 mg IV Lasix later this afternoon. Encouraged oral intake, particularly protein. Maintain fluid restriction. Avoid nephrotoxins. Continue to monitor renal function and urine output. Replace potassium.
[2023-11-24] MEDS: ACETAMINOPHEN TAB 500 MG TAB PO STA (10:45)
[2023-11-24] MEDS: POTASSIUM CHLORIDE ER 20 MEQ TAB.ER PO STA (10:45)
[2023-11-24 11:30] LABS: Glucose,Whole Blood 199 mg/dL (70-110)
--- NOTE | 2023-11-24 15:56 | P.PN ---
Subjective Progress Note Date: 11/24/23 HISTORY OF PRESENT ILLNESS: This is a 88-year-old female with a past medical history significant for atrial fibrillation, aortic stenosis status post bioprosthetic aortic valve replacement, coronary artery disease status post CABG, hypertension, hyperlipidemia, diabetes, congestive heart failure, and recent breast biopsy. Patient follows in the office with Dr. Scott. We have been asked to see the pat ient in consultation for elevated troponins. Patient examined at the bedside in the emergency room. Patient presented to the hospital with a chief complaint of shortness of breath. Patient states she has been feeling short of breath for the past couple days. She denies any chest pain or pressure. She also reports having generalized weakness. She reports having a sore throat, runny nose, and a fever on and off. She does report having some nausea at home as well without vomiting. She reports worsening lower extremity edema. She states she has been waking up at night short of breath and feeling panicked. The patient reports that she had a recent breast biopsy performed. Final pathology reveals benign breast tissue with fibrocystic changes. DIAGNOSTICS: - EKG reveals atrial fibrillation with left bundle branch block. Heart rate 101.. - Chest xray findings most consistent with mild to moderate CHF. - Laboratory data: WBC 21.1. Hemoglobin 12.0. Platelet count 174. Sodium 132. Potassium 4.3. BUN 92. Creatinine 1.81. proBNP greater than 30,000. Troponin 0.851. 0.841. - Current home cardiac medications include Eliquis 2.5 mg twice a day, Lasix 40 mg daily, Toprol tartrate 25 mg twice a day, simvastatin 40 mg at night, Aldactone 25 mg twice a day, and hydralazine 25 mg twice a day. - Most recent echocardiogram obtained in 04/2023 reveals normal LV systolic function, moderate mitral regurgitation, moderate bioprosthetic valve stenosis with a peak gradient of 52 mmHg and a mean gradient of 35 mm across the aortic valve, moderate regurgitation of prosthetic aortic valve, moderate tricuspid regurgitation, pulmonary hypertension -Patient underwent Lexiscan stress test in April 2023 which was negative for ischemia 11/21/2023 Patient examined this morning at the bedside. Patient reports improvement in her shortness of breath. She denies chest pain or pressure. She is laying flat in bed and appears to be comfortable this morning. She remains on IV Lasix. So dium this morning is down to 127 from 134 yesterday. Echocardiogram completed revealing ejection fraction 20 to 25%, apex akinetic, probable left ventricular apical thrombus, possible Takotsubo syndrome, moderate periprosthetic regurgitation of aortic valve 11/22/2023 Patient examined this morning at the bedside. Patient reports having diarrhea overnight. She currently denies any chest pain or pressure. She denies shortness of breath. Sodium worsened today at 124. Kidney function also worse today at 2.22. Vital signs are stable. 11/22 Patient is currently in isolation for C. difficile colitis. Patient is noted to have frequent coughing. Noted to have worsening leukocytosis and kidney function. Repeat blood work reveals sodium 134, potassium 3.3, BUN 100 and creatinine 2.33. Patient's nurse states that patient has not had diarrhea today. She is currently on Lasix 40 mg oral daily which will be continued. Potassium has been replaced. Patient is followed by nephrology. 11/23 Patient states that she had a little diarrhea this morning. She states her breathing is okay. She denies any chest pain. She states she has had some problems with choking. Blood pressure 97/55, heart rate 71, pulse ox 98% on room air. Repeat blood work reveals sodium 127, potassium 3.6, chloride 94, CO2 23, BUN 99 creatinine 2.28. Patient states that she does not want to undergo cardiac workup for valve replacement which would include the MARIELLE and cardiac catheterization. PHYSICAL EXAM: VITAL SIGNS: Reviewed. GENERAL: Well-developed in no acute distress. HEENT: Head is normocephalic. Pupils are equal, round. Sclerae anicteric. Mucous membranes of the mouth are moist. Neck supple. LUNGS: Respirations even and unlabored. Lungs diminished with crackles at the bases, improving HEART: Irregular rate and rhythm. S1 and S2 heard. Systolic and diastolic murmur noted. ABDOMEN: Soft. Nondistended. Nontender. EXTREMITIES: Normal range of motion. No clubbing or cyanosis. Peripheral pul ses intact. 1-2+ pitting bilateral lower extremity edema NEUROLOGIC: Awake and alert. Oriented x 3. ASSESSMENT: Shortness of breath Acute on chronic heart failure with preserved EF Abnormal troponins, flat, type II CT, likely secondary to CKD and CHF C. difficile colitis Acute kidney injury and chronic kidney disease Persistent atrial fibrillation History of aortic stenosis with previous bioprosthetic aortic valve replacement, approximately 30 years ago per patient Moderate bioprosthetic aortic valve stenosis Moderate tricuspid regurgitation and moderate mitral regurgitation Coronary artery disease with previous CABG Left bundle branch block Hypertension Hyperlipidemia Diabetes Recent breast biopsy, final pathology reveals benign breast tissue with fibrocystic changes Possible small apical thrombus per echo New onset cardiomyopathy, 20 to 25% with apical akinesia Hyponatremia PLAN: Continue current cardiac medications Continue anticoagulation with Eliquis Continue Lasix to 40 mg daily Daily weights, accurate intake and output, and monitoring of kidney function Patient would eventually benefit from Farxiga when kidney function improves Discussed with patient at the bedside that her aortic valve that was replaced about 30 years ago is failing which is exacerbating patient's congestive heart failure Further recommendations pending patient course Nurse practitioner note has been reviewed by physician. Signing provider agrees with the documented findings, assessment, and plan of care documented by PHYSICAL EDUCATION DEPARTMENT CHAIR as a scribe. Objective - Vital Signs Vital signs: Vital Signs Temp 97.7 F 11/24/23 09:09 Pulse 71 11/24/23 12:15 Resp 16 11/24/23 12:15 BP 97/55 11/24/23 12:15 Pulse Ox 98 11/24/23 12:15 FiO2 Intake & Output 11/23/23 11/24/23 11/24/23 18:59 06:59 18:59 Intake Total 480 180 Output Total 250 100 Balance 480 -250 80 Weight 67.5 kg Intake: Oral 480 180 Output: Urine 250 100 Other: Voiding Method Bedside Commode Bedside Commode Bedside Commode # Voids 4 # Bowel Movements 1 1 - Labs CBC & Chem 7: 11/22/23 06:32 11/24/23 07:50 Labs: Abnormal Lab Results - Last 24 Hours (Table) 11/23/23 11/23/23 11/24/23 Range/Units 16:39 20:34 06:04 Sodium (137-145) mmol/L Chloride (98-107) mmol/L BUN (7-17) mg/dL Creatinine (0.52-1.04) mg/dL Glucose (74-99) mg/dL POC Glucose (mg/dL) 153 H 158 H 120 H (70-110) mg/dL Magnesium (1.6-2.3) mg/dL 11/24/23 11/24/23 Range/Units 07:50 11:27 Sodium 127 L (137-145) mmol/L Chloride 94 L (98-107) mmol/L BUN 99 H (7-17) mg/dL Creatinine 2.28 H (0.52-1.04) mg/dL Glucose 121 H (74-99) mg/dL POC Glucose (mg/dL) 199 H (70-110) mg/dL Magnesium 2.4 H (1.6-2.3) mg/dL
[2023-11-24 16:27] LABS: Glucose,Whole Blood 213 mg/dL (70-110)
[2023-11-24] MEDS: FUROSEMIDE 10 MG/ML 4 ML VIAL IV ONE (16:37)
--- NOTE | 2023-11-24 18:17 | P.PN ---
Subjective Progress Note Date: 11/24/23 Objective - Vital Signs Vital signs: Vital Signs Temp 97.9 F 11/24/23 16:35 Pulse 80 11/24/23 16:35 Resp 16 11/24/23 16:35 BP 106/53 11/24/23 16:35 Pulse Ox 100 11/24/23 16:35 FiO2 Intake & Output 11/23/23 11/24/23 11/24/23 18:59 06:59 18:59 Intake Total 480 180 Output Total 250 100 Balance 480 -250 80 Weight 67.5 kg Intake: Oral 480 180 Output: Urine 250 100 Other: Voiding Method Bedside Commode Bedside Commode Bedside Commode # Voids 4 1 # Bowel Movements 1 1 - Labs CBC & Chem 7: 11/22/23 06:32 11/24/23 07:50 Labs: Abnormal Lab Results - Last 24 Hours (Table) 11/23/23 11/24/23 11/24/23 Range/Units 20:34 06:04 07:50 Sodium 127 L (137-145) mmol/L Chloride 94 L (98-107) mmol/L BUN 99 H (7-17) mg/dL Creatinine 2.28 H (0.52-1.04) mg/dL Glucose 121 H (74-99) mg/dL POC Glucose (mg/dL) 158 H 120 H (70-110) mg/dL Magnesium 2.4 H (1.6-2.3) mg/dL 11/24/23 11/24/23 Range/Units 11:27 16:25 Sodium (137-145) mmol/L Chloride (98-107) mmol/L BUN (7-17) mg/dL Creatinine (0.52-1.04) mg/dL Glucose (74-99) mg/dL POC Glucose (mg/dL) 199 H 213 H (70-110) mg/dL Magnesium (1.6-2.3) mg/dL
--- NOTE | 2023-11-24 18:58 | P.PN ---
Subjective Progress Note Date: 11/24/23 11/23/23 Patient is a 72-year-old white male who was admitted for increasing shortness of breath in the metastatic lung cancer with pneumonia patient is doing slightly be tter today he is going to continue to work with radiation oncology and oncology for his metastatic lung cancer if they do not have any options for him then he is can determine whether he needs to be moved to hospice. 11/24/2023 patient is sitting up in his chair, reports mild stomach ache after her lab draw. Denies nausea or vomiting. CODE STATUS discussed and patient wishes to be a no code, no CPR, no intubation. Denies chest pain, palpitations or increased shortness of breath. Maintaining O2 sats in the high 90s on room air. Labs pending. Per cardiology evaluation, recommending further workup for aortic valve replacement occluding MARIELLE and cardiac catheterization. Patient adamant that she does not want to undergo any further cardiac workup for valve replacement. Cardiology notified. Diarrhea improving. Afebrile Objective - Vital Signs Vital signs: Vital Signs Temp 97.9 F 11/24/23 16:35 Pulse 80 11/24/23 16:35 Resp 16 11/24/23 16:35 BP 106/53 11/24/23 16:35 Pulse Ox 100 11/24/23 16:35 FiO2 Intake & Output 11/23/23 11/24/23 11/24/23 18:59 06:59 18:59 Intake Total 480 360 Output Total 250 100 Balance 480 -250 260 Weight 67.5 kg Intake: Oral 480 360 Output: Urine 250 100 Other: Voiding Method Bedside Commode Bedside Commode Bedside Commode # Voids 4 1 # Bowel Movements 1 1 - Exam GENERAL: This is a 88-year-old in acutet distress at the time of examination. Pleasant and cooperative. HEENT: Head is atraumatic, normocephalic. Pupils are equal, round, and reactive to light. Sclerae anicteric. Conjunctivae are clear. Mucus membranes of the mouth are moist. Neck is supple. RESPIRATORY: Unlabored, bibasilar crackles CARDIOVASCULAR: Irregular rate and rhythm. . Positive systolic murmur auscultated. GASTROINTESTINAL: No distention noted. Abdomen soft and round. Normal active bowel sounds auscultated x 4 quadrants. No pain or tenderness noted upon palpa tion. INTEGUMENTARY: No cyanosis. No jaundice. No rashes noted. No cellulitis noted. EXTREMITIES: 2+ peripheral pulses. Positive peripheral edema. No calf tenderness noted. NEUROLOGIC: Cranial nerves II-XII intact. PSYCHIATRIC: Awake, alert, and oriented X 3. Appropriate affect. Intact judgement and insight. - Labs CBC & Chem 7: 11/22/23 06:32 11/24/23 07:50 Labs: Abnormal Lab Results - Last 24 Hours (Table) 11/23/23 11/24/23 11/24/23 Range/Units 20:34 06:04 07:50 Sodium 127 L (137-145) mmol/L Chloride 94 L (98-107) mmol/L BUN 99 H (7-17) mg/dL Creatinine 2.28 H (0.52-1.04) mg/dL Glucose 121 H (74-99) mg/dL POC Glucose (mg/dL) 158 H 120 H (70-110) mg/dL Magnesium 2.4 H (1.6-2.3) mg/dL 11/24/23 11/24/23 Range/Units 11:27 16:25 Sodium (137-145) mmol/L Chloride (98-107) mmol/L BUN (7-17) mg/dL Creatinine (0.52-1.04) mg/dL Glucose (74-99) mg/dL POC Glucose (mg/dL) 199 H 213 H (70-110) mg/dL Magnesium (1.6-2.3) mg/dL Assessment and Plan Assessment: (1) Atrial fibrillation with rapid ventricular response Current Visit: Yes Status: Acute Code(s): I48.91 - UNSPECIFIED ATRIAL FIBRILLATION SNOMED Code(s): 789805706757580 (2) Chronic systolic (congestive) heart failure Current Visit: Yes Status: Acute Code(s): I50.22 - CHRONIC SYSTOLIC (CONGESTIVE) HEART FAILURE SNOMED Code(s): 319791884 (3) Chronic kidney disease stage IIIb Current Visit: No Status: Acute Code(s): N18.9 - CHRONIC KIDNEY DISEASE, UNSPECIFIED SNOMED Code(s): 267236580 (4) Dyspnea Current Visit: No Status: Acute Code(s): R06.00 - DYSPNEA, UNSPECIFIED SNOMED Code(s): 988684090 (5) Fluid overload Current Visit: No Status: Acute Code(s): E87.70 - FLUID OVERLOAD, UNSPECIFIED SNOMED Code(s): 22717693 (6) Generalized weakness Current Visit: No Status: Acute Code(s): R53.1 - WEAKNESS SNOMED Code(s): 95206558 (7) C. difficile colitis Current Visit: Yes Status: Acute Code(s): A04.72 - ENTEROCOLITIS D/T CLOSTRIDIUM DIFFICILE, NOT SPCF RECUR SNOMED Code(s): 208909267 (8) Moderate bioprosthetic aortic valve stenosis in a patient with history of aortic stenosis with previous bioprosthetic aortic valve replacement, approximately 30 years ago per patient, declining further workup for valve replacement. (9) Moderate tricuspid regurgitation and moderate mitral regurgitation (10)Coronary artery disease with previous CABG (11) New onset cardiomyopathy, 20 to 25% with apical akinesia (12) hyponatremia, hypervolemic, status post [place] (13) diabetes mellitus, hemoglobin A1c pending Plan: Continue on current medication regimen ,monitoring and symptomatic treatment. Maintained on fluid restrictions, labs pending. C Diff regimen ,continue on lactobacillus. CODE STATUS has been changed to no code, no CPR, no intubation per patient's wishes. As mentioned above patient declines further workup regarding valve replacement. The impression and plan of care has been dictated as directed. : I performed a history and examination of this patient, discussed the same with the dictator. I agree with the dictator's note ,documented as a scribe. Any additional findings or plans will be noted.
[2023-11-24] MEDS ORDERED: LEVOFLOXACIN 500MG-D5W PMX 500 MG in DEXTROSE/WATER 1 100ML.BAG IVPB ONE (19:00)
[2023-11-24] MEDS: metroNIDAZOLE-NS PMX 500 MG in SALINE 1 100ML.BAG IVPB SCH (19:02)
[2023-11-24 20:24] LABS: Glucose,Whole Blood 202 mg/dL (70-110)
[2023-11-24] MEDS: LEVOFLOXACIN 500MG-D5W PMX 500 MG in DEXTROSE/WATER 1 100ML.BAG IVPB SCH (21:23)
[2023-11-25] MEDS: ACETAMINOPHEN TAB 325 MG TAB PO PRN (00:37)
[2023-11-25 06:25] LABS: Glucose,Whole Blood 129 mg/dL (70-110)
[2023-11-25 11:16] LABS: Glucose,Whole Blood 211 mg/dL (70-110)
--- NOTE | 2023-11-25 12:00 | P.PN ---
Subjective Patient is seen in follow-up for acute kidney injury on chronic kidney disease. Has been voiding. Hemodynamically stable. Denies chest pain or shortness of breath. Renal function stable as of yesterday. Sodium level 127 yesterday. Vital signs are stable. General: No acute distress. HEENT: Head exam is unremarkable. LUNGS: No audible rhonchi or wheezes. HEART: Rate and Rhythm are regular. ABDOMEN: Nontender. EXTREMITITES: 1+ edema. Objective - Vital Signs Vital signs: Vital Signs Temp 97.5 F L 11/25/23 08:00 Pulse 80 11/25/23 11:53 Resp 16 11/25/23 11:53 BP 119/58 11/25/23 11:53 Pulse Ox 99 11/25/23 11:53 FiO2 Intake & Output 11/24/23 11/25/23 11/25/23 18:59 06:59 18:59 Intake Total 360 180 Output Total 100 Balance 260 180 Weight 68.1 kg Intake: Oral 360 180 Output: Urine 100 Other: Voiding Method Bedside Commode Bedside Commode Toilet # Voids 1 1 # Bowel Movements 1 2 - Labs CBC & Chem 7: 11/22/23 06:32 11/24/23 07:50 Labs: Abnormal Lab Results - Last 24 Hours (Table) 11/24/23 11/24/23 11/25/23 Range/Units 16:25 20:17 06:23 POC Glucose (mg/dL) 213 H 202 H 129 H (70-110) mg/dL 11/25/23 Range/Units 11:15 POC Glucose (mg/dL) 211 H (70-110) mg/dL Assessment and Plan Plan: Assessment: 1. Acute kidney injury secondary to ATN secondary to cardiorenal syndrome. Creatinine stable at 2.28 yesterday. UA with trace protein. No hydronephrosis noted on kidney ultrasound. 2. Chronic kidney disease stage IIIb with baseline creatinine 1.6-1.7 in April and May 2023. Etiology is nephrosclerosis. 3. Acute on chronic systolic CHF with ejection fraction of 20 to 25% with moderate aortic regurgitation. Patient does have history of aortic valve replacement in the past. 4. Hypervolemic hyponatremia. Status post [facility] [place]. Better. 5. Metabolic acidosis secondary to acute kidney injury and GI losses. On oral bicarb. Better. 6. Diabetes mellitus. 7. Coronary artery disease status post CABG. 8. C. difficile colitis on oral vancomycin. Plan: Maintain oral Lasix. Received additional dose of IV Lasix November 24, 2023. Encouraged oral intake, particularly protein. Maintain fluid restriction. Avoid nephrotoxins. Continue to monitor renal function and urine output. Morning labs pending.
[2023-11-25 15:01] LABS: African American GFR (CKD) 24 (>60 ml/min/1.73 sqM); Anion Gap 8 mmol/L; Blood Urea Nitrogen 96 mg/dL (7-17); Calcium 8.5 mg/dL (8.4-10.2); Carbon Dioxide 19 mmol/L (22-30); Chloride 99 mmol/L (98-107); Glucose 190 mg/dL (74-99); Magnesium 2.3 mg/dL (1.6-2.3); Non-African American GFR(CKD) 21 (>60 ml/min/1.73 sqM); Potassium 4.1 mmol/L (3.5-5.1); Sodium 126 mmol/L (137-145)
--- NOTE | 2023-11-25 15:28 | P.PN ---
Subjective Progress Note Date: 11/25/23 HISTORY OF PRESENT ILLNESS: This is a 88-year-old female with a past medical history significant for atrial fibrillation, aortic stenosis status post bioprosthetic aortic valve replacement, coronary artery disease status post CABG, hypertension, hyperlipidemia, diabetes, congestive heart failure, and recent breast biopsy. Patient follows in the office with Dr. Scott. We have been asked to see the pat ient in consultation for elevated troponins. Patient examined at the bedside in the emergency room. Patient presented to the hospital with a chief complaint of shortness of breath. Patient states she has been feeling short of breath for the past couple days. She denies any chest pain or pressure. She also reports having generalized weakness. She reports having a sore throat, runny nose, and a fever on and off. She does report having some nausea at home as well without vomiting. She reports worsening lower extremity edema. She states she has been waking up at night short of breath and feeling panicked. The patient reports that she had a recent breast biopsy performed. Final pathology reveals benign breast tissue with fibrocystic changes. DIAGNOSTICS: - EKG reveals atrial fibrillation with left bundle branch block. Heart rate 101.. - Chest xray findings most consistent with mild to moderate CHF. - Laboratory data: WBC 21.1. Hemoglobin 12.0. Platelet count 174. Sodium 132. Potassium 4.3. BUN 92. Creatinine 1.81. proBNP greater than 30,000. Troponin 0.851. 0.841. - Current home cardiac medications include Eliquis 2.5 mg twice a day, Lasix 40 mg daily, Toprol tartrate 25 mg twice a day, simvastatin 40 mg at night, Aldactone 25 mg twice a day, and hydralazine 25 mg twice a day. - Most recent echocardiogram obtained in 04/2023 reveals normal LV systolic function, moderate mitral regurgitation, moderate bioprosthetic valve stenosis with a peak gradient of 52 mmHg and a mean gradient of 35 mm across the aortic valve, moderate regurgitation of prosthetic aortic valve, moderate tricuspid regurgitation, pulmonary hypertension -Patient underwent Lexiscan stress test in April 2023 which was negative for ischemia 11/21/2023 Patient examined this morning at the bedside. Patient reports improvement in her shortness of breath. She denies chest pain or pressure. She is laying flat in bed and appears to be comfortable this morning. She remains on IV Lasix. So dium this morning is down to 127 from 134 yesterday. Echocardiogram completed revealing ejection fraction 20 to 25%, apex akinetic, probable left ventricular apical thrombus, possible Takotsubo syndrome, moderate periprosthetic regurgitation of aortic valve 11/22/2023 Patient examined this morning at the bedside. Patient reports having diarrhea overnight. She currently denies any chest pain or pressure. She denies shortness of breath. Sodium worsened today at 124. Kidney function also worse today at 2.22. Vital signs are stable. 11/22 Patient is currently in isolation for C. difficile colitis. Patient is noted to have frequent coughing. Noted to have worsening leukocytosis and kidney function. Repeat blood work reveals sodium 134, potassium 3.3, BUN 100 and creatinine 2.33. Patient's nurse states that patient has not had diarrhea today. She is currently on Lasix 40 mg oral daily which will be continued. Potassium has been replaced. Patient is followed by nephrology. 11/23 Patient states that she had a little diarrhea this morning. She states her breathing is okay. She denies any chest pain. She states she has had some problems with choking. Blood pressure 97/55, heart rate 71, pulse ox 98% on room air. Repeat blood work reveals sodium 127, potassium 3.6, chloride 94, CO2 23, BUN 99 creatinine 2.28. Patient states that she does not want to undergo cardiac workup for valve replacement which would include the MARIELLE and cardiac catheterization. 11/24 Patient has been transition to oral Lasix 40 mg daily. Blood pressure 103/54, heart rate 84, pulse ox 99% on room air. Repeat blood work reveals sodium 126, potassium 4.1, CO2 19, BUN 96 and creatinine 2.07. PHYSICAL EXAM: VITAL SIGNS: Reviewed. GENERAL: Well-developed in no acute distress. HEENT: Head is normocephalic. Pupils are equal, round. Sclerae anicteric. Mucous membranes of the mouth are moist. Neck supple. LUNGS: Respirations even and unlabored. Lungs diminished with crackles at the bases, improving HEART: Irregular rate and rhythm. S1 and S2 heard. Systolic and diastolic murmur noted. ABDOMEN: Soft. Nondistended. Nontender. EXTREMITIES: No clubbing or cyanosis. Peripheral pulses intact. 1+ pitting bilateral lower extremity edema NEUROLOGIC: Awake and alert. Oriented x 3. ASSESSMENT: Shortness of breath Acute on chronic heart failure with preserved EF Abnormal troponins, flat, type II CT, likely secondary to CKD and CHF C. difficile colitis Acute kidney injury and chronic kidney disease Persistent atrial fibrillation History of aortic stenosis with previous bioprosthetic aortic valve replacement, approximately 30 years ago per patient Moderate bioprosthetic aortic valve stenosis Moderate tricuspid regurgitation and moderate mitral regurgitation Coronary artery disease with previous CABG Left bundle branch block Hypertension Hyperlipidemia Diabetes Recent breast biopsy, final pathology reveals benign breast tissue with fibrocystic changes Possible small apical thrombus per echo New onset cardiomyopathy, 20 to 25% with apical akinesia Hyponatremia PLAN: Continue current cardiac medications Continue anticoagulation with Eliquis Continue Lasix oral 40 mg daily Daily weights, accurate intake and output, and monitoring of kidney function Patient would eventually benefit from Farxiga when kidney function improves Patient is not interested and pursuing aortic valve repair/replacement. Cardiology will sign off and follow on an as-needed basis. Please reconsult for any new concerns. Nurse practitioner note has been reviewed by physician. Signing provider agrees with the documented findings, assessment, and plan of care documented by FARM REPORTER as a scribe. Objective - Vital Signs Vital signs: Vital Signs Temp 97.5 F L 11/25/23 08:00 Pulse 80 11/25/23 11:53 Resp 16 11/25/23 11:53 BP 119/58 11/25/23 11:53 Pulse Ox 99 11/25/23 11:53 FiO2 Intake & Output 11/24/23 11/25/23 11/25/23 18:59 06:59 18:59 Intake Total 360 180 Output Total 100 300 Balance 260 -120 Weight 68.1 kg Intake: Oral 360 180 Output: Urine 100 300 Other: Voiding Method Bedside Commode Bedside Commode Toilet # Voids 1 1 # Bowel Movements 1 2 - Labs CBC & Chem 7: 11/22/23 06:32 11/25/23 14:37 Labs: Abnormal Lab Results - Last 24 Hours (Table) 11/24/23 11/24/23 11/25/23 Range/Units 16:25 20:17 06:23 POC Glucose (mg/dL) 213 H 202 H 129 H (70-110) mg/dL 11/25/23 Range/Units 11:15 POC Glucose (mg/dL) 211 H (70-110) mg/dL
[2023-11-25] MEDS: TOLVAPTAN 15 MG TABLET PO ONE (16:10)
[2023-11-25 16:21] LABS: Glucose,Whole Blood 181 mg/dL (70-110)
--- NOTE | 2023-11-25 19:45 | P.PN ---
Subjective Progress Note Date: 11/25/23 11/23/23 Patient is a 72-year-old white male who was admitted for increasing shortness of breath in the metastatic lung cancer with pneumonia patient is doing slightly be tter today he is going to continue to work with radiation oncology and oncology for his metastatic lung cancer if they do not have any options for him then he is can determine whether he needs to be moved to hospice. 11/24/2023 patient is sitting up in his chair, reports mild stomach ache after her lab draw. Denies nausea or vomiting. CODE STATUS discussed and patient wishes to be a no code, no CPR, no intubation. Denies chest pain, palpitations or increased shortness of breath. Maintaining O2 sats in the high 90s on room air. Labs pending. Per cardiology evaluation, recommending further workup for aortic valve replacement occluding MARIELLE and cardiac catheterization. Patient adamant that she does not want to undergo any further cardiac workup for valve replacement. Cardiology notified. Diarrhea improving. Afebrile. 11/25/2023 Maintained on Oral Vancomycin, reports feeling better with much less diarrhea. Denies chest pain, palpitations or shortness of breath. Decreased lower extremity edema. maintaining O2 sats in the high 90s on room air. Transitioning to oral Lasix today. Labs pending. Objective - Vital Signs Vital signs: Vital Signs Temp 97.7 F 11/25/23 15:20 Pulse 84 11/25/23 15:20 Resp 16 11/25/23 15:20 BP 103/54 11/25/23 15:20 Pulse Ox 99 11/25/23 15:20 FiO2 Intake & Output 11/25/23 11/25/23 11/26/23 06:59 18:59 06:59 Intake Total 720 Output Total 300 Balance 420 Weight 68.1 kg Intake: Oral 720 Output: Urine 300 Other: Voiding Method Bedside Commode Toilet # Voids 1 1 # Bowel Movements 2 2 - Exam GENERAL: This is a 88-year-old in acutet distress at the time of examination. Pleasant and cooperative. HEENT: Head is atraumatic, normocephalic. Pupils are equal, round, and reactive to light. Sclerae anicteric. Conjunctivae are clear. Mucus membranes of the mouth are moist. Neck is supple. RESPIRATORY: Unlabored, equal air entry, decreased fine bibasilar crackles. CARDIOVASCULAR: Irregular rate and rhythm. . Positive systolic murmur ausc ultated. GASTROINTESTINAL: No distention noted. Abdomen soft and round. Normal active bowel sounds auscultated x 4 quadrants. No pain or tenderness noted upon palpation. INTEGUMENTARY: No cyanosis. No jaundice. No rashes noted. No cellulitis noted. EXTREMITIES: 2+ peripheral pulses. Decreased peripheral edema. No calf tenderness noted. NEUROLOGIC: Cranial nerves II-XII intact. PSYCHIATRIC: Awake, alert, and oriented X 3. Appropriate affect. Intact judgement and insight. - Labs CBC & Chem 7: 11/22/23 06:32 11/25/23 14:37 Labs: Abnormal Lab Results - Last 24 Hours (Table) 11/24/23 11/25/23 11/25/23 Range/Units 20:17 06:23 11:15 Sodium (137-145) mmol/L Carbon Dioxide (22-30) mmol/L BUN (7-17) mg/dL Creatinine (0.52-1.04) mg/dL Glucose (74-99) mg/dL POC Glucose (mg/dL) 202 H 129 H 211 H (70-110) mg/dL Hemoglobin A1c (<=6.0) % 11/25/23 11/25/23 11/25/23 Range/Units 14:37 14:37 16:19 Sodium 126 L (137-145) mmol/L Carbon Dioxide 19 L (22-30) mmol/L BUN 96 H (7-17) mg/dL Creatinine 2.07 H (0.52-1.04) mg/dL Glucose 190 H (74-99) mg/dL POC Glucose (mg/dL) 181 H (70-110) mg/dL Hemoglobin A1c 7.2 H (<=6.0) % Assessment and Plan Assessment: (1) Atrial fibrillation with rapid ventricular response Current Visit: Yes Status: Acute Code(s): I48.91 - UNSPECIFIED ATRIAL FIBRILLATION SNOMED Code(s): 999193238771464 (2) Chronic systolic (congestive) heart failure Current Visit: Yes Status: Acute Code(s): I50.22 - CHRONIC SYSTOLIC (CONGESTIVE) HEART FAILURE SNOMED Code(s): 025044154 (3) Chronic kidney disease stage IIIb Current Visit: No Status: Acute Code(s): N18.9 - CHRONIC KIDNEY DISEASE, UNSPECIFIED SNOMED Code(s): 871839167 (4) Dyspnea Current Visit: No Status: Acute Code(s): R06.00 - DYSPNEA, UNSPECIFIED SNOMED Code(s): 750972245 (5) Fluid overload Current Visit: No Status: Acute Code(s): E87.70 - FLUID OVERLOAD, UNSPECIFIED SNOMED Code(s): 11499539 (6) Generalized weakness Current Visit: No Status: Acute Code(s): R53.1 - WEAKNESS SNOMED Code(s): 46236970 (7) C. difficile colitis Current Visit: Yes Status: Acute Code(s): A04.72 - ENTEROCOLITIS D/T CLOSTRIDIUM DIFFICILE, NOT SPCF RECUR SNOMED Code(s): 498623587 (8) Moderate bioprosthetic aortic valve stenosis in a patient with history of aortic stenosis with previous bioprosthetic aortic valve replacement, approximately 30 years ago per patient, declining further workup for valve replacement. (9) Moderate tricuspid regurgitation and moderate mitral regurgitation (10)Coronary artery disease with previous CABG (11) New onset cardiomyopathy, 20 to 25% with apical akinesia (12) hyponatremia, hypervolemic, status post Samsca (13) diabetes mellitus, hemoglobin A1c pending Plan: Continue on current medication regimen ,monitoring and symptomatic treatment. Labs pending. Continue on fluid restrictions. C Diff regimen. Discharge planning in progress for tomorrow,pending labs, final DC recommendations and clearance per cardiology and nephrology. The impression and plan of care has been dictated as directed. : I performed a history and examination of this patient, discussed the same with the dictator. I agree with the dictator's note ,documented as a scribe. Any additional findings or plans will be noted.
[2023-11-25 19:52] LABS: Glucose,Whole Blood 194 mg/dL (70-110)
[2023-11-26 06:11] LABS: Glucose,Whole Blood 123 mg/dL (70-110)
[2023-11-26 11:30] LABS: Glucose,Whole Blood 182 mg/dL (70-110)
--- NOTE | 2023-11-26 11:30 | P.PN ---
Subjective Patient is seen in follow-up for acute kidney injury on chronic kidney disease. Has been voiding. Hemodynamically stable. Denies chest pain or shortness of breath. Renal function stable as of yesterday. Sodium level 126 yesterday. She was given a dose of Samsca. Vital signs are stable. General: No acute distress. HEENT: Head exam is unremarkable. LUNGS: No audible rhonchi or wheezes. HEART: Rate and Rhythm are regular. ABDOMEN: Nontender. EXTREMITITES: 1+ edema. Objective - Vital Signs Vital signs: Vital Signs Temp 98.1 F 11/26/23 08:00 Pulse 91 11/26/23 08:00 Resp 18 11/26/23 08:00 BP 124/61 11/26/23 08:00 Pulse Ox 100 11/26/23 08:00 FiO2 Intake & Output 11/25/23 11/26/23 11/26/23 18:59 06:59 18:59 Intake Total 720 180 Output Total 300 Balance 420 180 Intake: Oral 720 180 Output: Urine 300 Other: Voiding Method Toilet Toilet Toilet # Voids 1 # Bowel Movements 2 - Labs CBC & Chem 7: 11/22/23 06:32 11/25/23 14:37 Labs: Abnormal Lab Results - Last 24 Hours (Table) 11/25/23 11/25/23 11/25/23 Range/Units 14:37 14:37 16:19 Sodium 126 L (137-145) mmol/L Carbon Dioxide 19 L (22-30) mmol/L BUN 96 H (7-17) mg/dL Creatinine 2.07 H (0.52-1.04) mg/dL Glucose 190 H (74-99) mg/dL POC Glucose (mg/dL) 181 H (70-110) mg/dL Hemoglobin A1c 7.2 H (<=6.0) % 11/25/23 11/26/23 Range/Units 19:51 06:10 Sodium (137-145) mmol/L Carbon Dioxide (22-30) mmol/L BUN (7-17) mg/dL Creatinine (0.52-1.04) mg/dL Glucose (74-99) mg/dL POC Glucose (mg/dL) 194 H 123 H (70-110) mg/dL Hemoglobin A1c (<=6.0) % Assessment and Plan Plan: Assessment: 1. Acute kidney injury secondary to ATN secondary to cardiorenal syndrome. Creatinine stable at 2.07 yesterday. UA with trace protein. No hydronephrosis noted on kidney ultrasound. 2. Chronic kidney disease stage IIIb with baseline creatinine 1.6-1.7 in April and May 2023. Etiology is nephrosclerosis. 3. Acute on chronic systolic CHF with ejection fraction of 20 to 25% with moderate aortic regurgitation. Patient does have history of aortic valve replacement in the past. 4. Hypervolemic hyponatremia. Status post Samsca this admission. 5. Metabolic acidosis secondary to acute kidney injury and GI losses. On oral bicarb. 6. Diabetes mellitus. 7. Coronary artery disease status post CABG. 8. C. difficile colitis on oral vancomycin. Plan: Maintain oral Lasix. Status post Samsca given yesterday evening. Encouraged oral intake, particularly protein. Maintain fluid restriction. Avoid nephrotoxins. Continue to monitor renal function and urine output. Morning labs pending.
--- NOTE | 2023-11-26 13:32 | P.PN ---
Subjective Progress Note Date: 11/26/23 Patient is a 72-year-old white male who was admitted for increasing shortness of breath in the metastatic lung cancer with pneumonia patient is doing slightly better today he is going to continue to work with radiation oncology and oncology for his metastatic lung cancer if they do not have any options for him then he is can determine whether he needs to be moved to hospice. 11/24/2023 patient is sitting up in his chair, reports mild stomach ache after her lab draw. Denies nausea or vomiting. CODE STATUS discussed and patient wishes to be a no code, no CPR, no intubation. Denies chest pain, palpitations or increased shortness of breath. Maintaining O2 sats in the high 90s on room air. Labs pending. Per cardiology evaluation, recommending further workup for aortic valve replacement occluding MARIELLE and cardiac catheterization. Patient adamant that she does not want to undergo any further cardiac workup for valve replacement. Cardiology notified. Diarrhea improving. Afebrile. 11/25/2023 Maintained on Oral Vancomycin, reports feeling better with much less diarrhea. Denies chest pain, palpitations or shortness of breath. Decreased lower extremity edema. maintaining O2 sats in the high 90s on room air. Transitioning to oral Lasix today. Labs pending. 11/26/2023 Patient is seen and evaluated in follow-up continues on oral vancomycin for C. difficile colitis reports diarrhea has significantly improved. Patient also being followed by nephrology along with cardiology. Adjustments to medications have been made and cardiology recommending outpatient follow-up. Sodium continues to be slightly low at 124 and also creatinine slightly worsened with nephrology following making adjustments to medications recommend monitoring and follow-up labs. Patient reports to feeling improved and has been up and walking to the bathroom. Patient is anxious and would like to go home. Review of systems: Constitutional: No reports of fatigue, fever, or chills Cardiovascular: No reports of chest pain or palpitations Respiratory: No reports of shortness of breath or cough GI: No reports of nausea, vomiting, reports improvement in diarrhea : No reports of dysuria or retention Neurovascular: No reports of weakness or numbness All medications have been reviewed Physical exam: GENERAL: This is a 88-year-old in acutet distress at the time of examination. Pleasant and cooperative. HEENT: Head is atraumatic, normocephalic. Pupils are equal, round, and reactive to light. Sclerae anicteric. Conjunctivae are clear. Mucus membranes of the mouth are moist. Neck is supple. RESPIRATORY: Unlabored, equal air entry, decreased fine bibasilar crackles. CARDIOVASCULAR: Irregular rate and rhythm. . Positive systolic murmur auscultated. GASTROINTESTINAL: No distention noted. Abdomen soft and round. Normal active bowel sounds auscultated x 4 quadrants. No pain or tenderness noted upon palpation. INTEGUMENTARY: No cyanosis. No jaundice. No rashes noted. No cellulitis noted. EXTREMITIES: 2+ peripheral pulses. Decreased peripheral edema. No calf ten derness noted. NEUROLOGIC: Cranial nerves II-XII intact. PSYCHIATRIC: Awake, alert, and oriented X 3. Appropriate affect. Intact judgement and insight. Assessment: Atrial fibrillation with RVR, currently rate controlled Acute on chronic congestive heart failure, acute exacerbation, systolic dysfu nction Chronic kidney disease stage IIIb Dyspnea with fluid overload secondary to acute CHF exacerbation Generalized weakness Diarrhea secondary to C. difficile colitis Moderate bioprosthetic aortic valve stenosis in a patient with history of aortic stenosis and valve replacement, approximately 30 years ago. Patient is refusing any further treatments Moderate tricuspid regurgitation and moderate mitral regurgitation Coronary artery disease history with previous CABG New onset cardiomyopathy with apical akinesia, EF is 20-25 Hyponatremia secondary to hypervolemia Diabetes mellitus GI prophylaxis DVT prophylaxis No code Plan: Patient being followed by cardiology along with nephrology has been transition to oral Lasix Patient is maintained on oral vancomycin and will continue and reports her diarrhea is significantly improving Continue with fluid restrictions and will follow-up on repeat labs. Patient was status post a dose of Samsca and awaiting repeat sodium levels. Nephrology foll owing recommending monitoring overnight and repeat labs with possible discharge planning in the next 24 to 48 hours Patient is anxious and wants to go home, encouraged to increase activity as tolerated Due to multiple complex medical issues, prognosis is guarded Plans for discharge in 24 hours if labs have improved. The impression and plan of care has been dictated by Kaya Lewis, Nurse Practitioner as directed. Dr. Deidre MD I have performed a history and examination and MDM of this patient, discussed the same with the dictator, and agree with the dictator's assessment and plan as written ,documented as a scribe. Based on total visit time, I have performed more than 50% of the visit. Objective - Vital Signs Vital signs: Vital Signs Temp 98 F 11/26/23 12:00 Pulse 76 11/26/23 12:00 Resp 16 11/26/23 12:00 BP 121/55 11/26/23 12:00 Pulse Ox 99 11/26/23 12:00 FiO2 Intake & Output 11/25/23 11/26/23 11/26/23 18:59 06:59 18:59 Intake Total 720 180 Output Total 300 Balance 420 180 Weight 68.1 kg Intake: Oral 720 180 Output: Urine 300 Other: Voiding Method Toilet Toilet Toilet # Voids 1 # Bowel Movements 2 - Labs CBC & Chem 7: 11/22/23 06:32 11/25/23 14:37 Labs: Abnormal Lab Results - Last 24 Hours (Table) 11/25/23 11/25/23 11/25/23 Range/Units 14:37 14:37 16:19 Sodium 126 L (137-145) mmol/L Carbon Dioxide 19 L (22-30) mmol/L BUN 96 H (7-17) mg/dL Creatinine 2.07 H (0.52-1.04) mg/dL Glucose 190 H (74-99) mg/dL POC Glucose (mg/dL) 181 H (70-110) mg/dL Hemoglobin A1c 7.2 H (<=6.0) % 11/25/23 11/26/23 11/26/23 Range/Units 19:51 06:10 11:28 Sodium (137-145) mmol/L Carbon Dioxide (22-30) mmol/L BUN (7-17) mg/dL Creatinine (0.52-1.04) mg/dL Glucose (74-99) mg/dL POC Glucose (mg/dL) 194 H 123 H 182 H (70-110) mg/dL Hemoglobin A1c (<=6.0) %
[2023-11-26 13:40] VITALS: BMI 26.6
[2023-11-26 16:08] LABS: African American GFR (CKD) 29 (>60 ml/min/1.73 sqM); Anion Gap 8 mmol/L; Blood Urea Nitrogen 88 mg/dL (7-17); Calcium 8.7 mg/dL (8.4-10.2); Carbon Dioxide 20 mmol/L (22-30); Chloride 101 mmol/L (98-107); Glucose 225 mg/dL (74-99); Non-African American GFR(CKD) 25 (>60 ml/min/1.73 sqM); Sodium 129 mmol/L (137-145)
[2023-11-26 16:11] LABS: Magnesium 2.3 mg/dL (1.6-2.3); Potassium 4.8 mmol/L (3.5-5.1)
[2023-11-26 16:42] LABS: Glucose,Whole Blood 196 mg/dL (70-110)
[2023-11-26 20:06] LABS: Glucose,Whole Blood 180 mg/dL (70-110)
[2023-11-27 04:01] VITALS: RESP 16
[2023-11-27 06:52] LABS: Glucose,Whole Blood 136 mg/dL (70-110)
[2023-11-27 09:57] VITALS: TEMP 97.3
--- NOTE | 2023-11-27 11:14 | P.PN ---
Subjective Patient is seen in follow-up for acute kidney injury on chronic kidney disease. Has been voiding. Hemodynamically stable. Denies chest pain or shortness of breath. Renal function improving. Creatinine 1.8 yesterday. Sodium level also up to 129 yesterday. Vital signs are stable. General: No acute distress. HEENT: Head exam is unremarkable. LUNGS: No audible rhonchi or wheezes. HEART: Rate and Rhythm are regular. ABDOMEN: Nontender. EXTREMITITES: 1+ edema. Objective - Vital Signs Vital signs: Vital Signs Temp 97.3 F L 11/27/23 09:17 Pulse 84 11/27/23 09:17 Resp 16 11/27/23 09:17 BP 114/55 11/27/23 09:17 Pulse Ox 100 11/27/23 09:17 FiO2 Intake & Output 11/26/23 11/27/23 11/27/23 18:59 06:59 18:59 Intake Total 540 Balance 540 Weight 68.1 kg Intake: Oral 540 Other: Voiding Method Toilet Toilet Toilet # Voids 2 2 - Labs CBC & Chem 7: 11/22/23 06:32 11/26/23 15:09 Labs: Abnormal Lab Results - Last 24 Hours (Table) 11/26/23 11/26/23 11/26/23 Range/Units 11:28 15:09 16:40 Sodium 129 L (137-145) mmol/L Carbon Dioxide 20 L (22-30) mmol/L BUN 88 H (7-17) mg/dL Creatinine 1.80 H (0.52-1.04) mg/dL Glucose 225 H (74-99) mg/dL POC Glucose (mg/dL) 182 H 196 H (70-110) mg/dL 11/26/23 11/27/23 Range/Units 20:03 06:50 Sodium (137-145) mmol/L Carbon Dioxide (22-30) mmol/L BUN (7-17) mg/dL Creatinine (0.52-1.04) mg/dL Glucose (74-99) mg/dL POC Glucose (mg/dL) 180 H 136 H (70-110) mg/dL Assessment and Plan Plan: Assessment: 1. Acute kidney injury secondary to ATN secondary to cardiorenal syndrome. Creatinine stable at 2.0 improved to 1.8 yesterday. UA with trace protein. No hydronephrosis noted on kidney ultrasound. 2. Chronic kidney disease stage IIIb with baseline creatinine 1.6-1.7 in April and May 2023. Etiology is nephrosclerosis. 3. Acute on chronic systolic CHF with ejection fraction of 20 to 25% with moderate aortic regurgitation. Patient does have history of aortic valve replacement in the past. 4. Hypervolemic hyponatremia. Status post [facility] [place]. 5. Metabolic acidosis secondary to acute kidney injury and GI losses. On oral bicarb. 6. Diabetes mellitus. 7. Coronary artery disease status post CABG. 8. C. difficile colitis on oral vancomycin. Plan: Maintain oral Lasix. Increase frequency to twice daily. Status post [facility] this admission. Encouraged oral intake, particularly protein. Maintain fluid restriction. Avoid nephrotoxins. Continue to monitor renal function and urine output. Repeat BMP and magnesium level 2 to 3 days postdischarge. Follow-up outpatient in 1 week.
[2023-11-27 11:43] LABS: Glucose,Whole Blood 192 mg/dL (70-110)
[2023-11-27 12:14] VITALS: BP 133/58; PULSE 69
[2023-11-27 13:33] LABS: African American GFR (CKD) 31 (>60 ml/min/1.73 sqM); Anion Gap 8 mmol/L; Blood Urea Nitrogen 81 mg/dL (7-17); Calcium 8.9 mg/dL (8.4-10.2); Carbon Dioxide 24 mmol/L (22-30); Chloride 100 mmol/L (98-107); Glucose 169 mg/dL (74-99); Magnesium 2.3 mg/dL (1.6-2.3); Non-African American GFR(CKD) 27 (>60 ml/min/1.73 sqM); Potassium 3.8 mmol/L (3.5-5.1); Sodium 132 mmol/L (137-145)
[2023-11-27] MEDS ORDERED: FUROSEMIDE 40 MG TAB PO SCH (16:00)
--- NOTE | 2023-11-30 09:45 | P.DS ---
Providers Date of admission: 11/19/23 20:53 Expected date of discharge: 11/27/23 Attending physician: Rhys Strange Consults: 11/19/23 21:24 Consult Physician Routine Consulting Provider: Romeo Garcia Consult Reason/Comments: elevated troponin Do you want consulting provider notified?: Yes 11/22/23 09:56 Consult Physician Routine Consulting Provider: You Swann Consult Reason/Comments: Hyponatremia, acute kidney injury Do you want consulting provider notified?: Yes Primary care physician: Rhys Strange Hospital Course: Final diagnosis Atrial fibrillation with RVR, currently rate controlled Acute on chronic congestive heart failure, acute exacerbation, systolic dysfunction Chronic kidney disease stage IIIb Dyspnea with fluid overload secondary to acute CHF exacerbation Generalized weakness Diarrhea secondary to C. difficile colitis Moderate bioprosthetic aortic valve stenosis in a patient with history of aortic stenosis and valve replacement, approximately 30 years ago. 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 Patient will follow-up with Dr. Rhys Strange in the outpatient setting upon discharge. Patient is to continue with close outpatient follow-up with nephrology and cardiology as scheduled. Total time taken is greater than 35 minutes. Hospital course This is a 88-year-old female who was recently admitted with A-fib with RVR with cardiology following. Patient also with CHF exacerbation maintained on IV Lasix with chronic kidney disease. Patient was noted to have excessive diarrhea and found to be positive for C. difficile colitis. Patient maintained on vancomycin showing some improvements and will continue for another 8 days to complete the course. Patient reports diarrhea is significantly improved. Patient being followed by nephrology for hyponatremia and most recent sodium improved after Samsca. Patient to continue on fluid restrictions and close outpatient follow- up with nephrology and repeat labs. Patient will follow-up with cardiology as well. Patient has been cleared by consultations for discharge home. Please refer to consultation notes for further HPI. Patient reports to feeling significantly improved and would like to go home. Currently no reports of chest pain, shortness of breath, or palpitations. Patient is afebrile. No reports of nausea or vomiting and patient is tolerating diet. Patient will be discharged home today. Guarded prognosis given significant comorbidities. Physical exam: Gen: This is a 88-year-old female who is awake, alert and oriented x 3, well- developed, elderly appearing HEENT: Head is atraumatic, normocephalic. Pupils equal, round. Sclerae is anicteric. NECK: Supple. No JVD. No lymphadenopathy. No thyromegaly. LUNGS: Diminished breath sounds bilaterally otherwise clear to auscultation. No wheezes or rhonchi. No intercostal retractions. HEART: S1, S2 are muffled ABDOMEN: Soft. Bowel sounds are present. No masses. No tenderness. EXTREMITIES: No pedal edema. No calf tenderness. Generalized edema noted to bilateral lower extremities NEUROLOGICAL: Patient is awake, alert and oriented x3. Cranial nerves 2 through 12 are grossly intact. Please refer to medication reconciliation sheet for a list of medications. The impression and plan of care has been dictated by Kaya Lewis, Nurse Practitioner as directed. Dr. Carlos Alberto MD I have performed a history and examination and MDM of this patient, discussed the same with the dictator, and agree with the dictator's assessment and plan as written ,documented as a scribe. Based on total visit time, I have performed more than 50% of the visit. Patient Condition at Discharge: Fair Plan - Discharge Summary Discharge Rx Participant: No New Discharge Prescriptions: New Spironolactone [Aldactone] 25 mg PO DAILY #30 tab Furosemide [Lasix] 40 mg PO BID@0900,1600 #60 tab Sodium Bicarbonate Tab 650 mg PO TID #90 tab Vancomycin Oral Solution [Vancomycin HCl Oral Soln] 125 mg PO Q6HR 8 Days #80 ml Cholestyramine (with Sugar) [Questran Packet] 4 gm PO TID BETWEEN MEALS PRN #20 packet PRN Reason: Diarrhea Continue Levothyroxine Sodium [Synthroid] 50 mcg PO DAILY allopurinoL [Zyloprim] 100 mg PO DAILY Apixaban [Eliquis] 2.5 mg PO BID tablet hydrALAZINE HCL [Apresoline] 25 mg PO BID #60 tab Metoprolol Tartrate [Lopressor] 25 mg PO BID #60 tab Pantoprazole [Protonix] 40 mg PO DAILY Simvastatin [Zocor] 40 mg PO HS Insulin Lispro [humaLOG Kwikpen] See Protocol SQ ACHS Acetaminophen Tab [Tylenol] 1,000 mg PO Q4H Vitamin B Complex/Folic Acid [Vitamin B Complex Tablet] 0.4 mg PO DAILY Discontinued Spironolactone [Aldactone] 25 mg PO BID Cephalexin [Keflex] 500 mg PO BID #14 cap Furosemide [Lasix] 40 mg PO DAILY Discharge Medication List Levothyroxine Sodium [Synthroid] 50 mcg PO DAILY 07/21/17 [History] allopurinoL [Zyloprim] 100 mg PO DAILY 07/21/17 [History] Apixaban [Eliquis] 2.5 mg PO BID tablet 07/24/17 [Rx] hydrALAZINE HCL [Apresoline] 25 mg PO BID #60 tab 07/28/17 [Rx] Metoprolol Tartrate [Lopressor] 25 mg PO BID #60 tab 11/25/18 [Rx] Pantoprazole [Protonix] 40 mg PO DAILY 10/21/20 [History] Simvastatin [Zocor] 40 mg PO HS 10/21/20 [History] Insulin Lispro [humaLOG Kwikpen] See Protocol SQ ACHS 10/27/23 [History] Acetaminophen Tab [Tylenol] 1,000 mg PO Q4H 11/19/23 [History] Vitamin B Complex/Folic Acid [Vitamin B Complex Tablet] 0.4 mg PO DAILY 11/19/23 [History] Cholestyramine (with Sugar) [Questran Packet] 4 gm PO TID BETWEEN MEALS PRN #20 packet 11/27/23 [Rx] Furosemide [Lasix] 40 mg PO BID@0900,1600 #60 tab 11/27/23 [Rx] Sodium Bicarbonate Tab 650 mg PO TID #90 tab 11/27/23 [Rx] Spironolactone [Aldactone] 25 mg PO DAILY #30 tab 11/27/23 [Rx] Vancomycin Oral Solution [Vancomycin HCl Oral Soln] 125 mg PO Q6HR 8 Days #80 ml 11/27/23 [Rx] Follow up Appointment(s)/Referral(s): Rhys Strange DO [Primary Care Provider] - 1-2 days (Office is not answering, please call and schedule your follow up appointment. ) You Swann DO [STAFF PHYSICIAN] - 1 Week (Please call and schedule your appointment, office wants me to leave a voicemail. ) Ambulatory/Diagnostic Orders: Comprehensive Metabolic Panel [LAB.AMB] Time Frame: 3 Days, Location: None Selected Patient Instructions/Handouts: Heart Failure (DC), A-fib (Atrial Fibrillation) (DC), Dehydration (DC), Urinary Tract Infection in Women (DC), C. Diff (Clostridioides Difficile) Infection (DC), Dyspnea (DC), Altered Mental Status (ED), What to Do if Your Blood Sugar is Low (DC) Activity/Diet/Wound Care/Special Instructions: Activity limited until follow-up Follow-up with primary care provider this week Follow-up with nephrology outpatient in 1 week Continue taking antibiotics until finished Continue with fluid restrictions of 45 ounces throughout the day Elevate lower extremities while at rest Continue taking medications as prescribed Repeat labs in 2 to 3 days to monitor kidney functions and electrolytes Discharge Disposition: HOME SELF-CARE
== END 2023-11-27 15:50 | disposition home health service (06) | DRG 280 ==
LOC: EC 18:37 → 3SCARD 20:53
PROVIDERS: ADMIT Family Medicine; ATTEND Family Medicine
DX: I13.0 Hypertensive heart and chronic kidney disease with heart failure and stage 1 through stage 4 chronic kidney disease, or unspecified chronic kidney disease (principal); I50.23 Acute on chronic systolic (congestive) heart failure; I21.A1 Myocardial infarction type 2; N17.0 Acute kidney failure with tubular necrosis; J18.9 Pneumonia, unspecified organism; A04.72 Enterocolitis due to Clostridium difficile, not specified as recurrent; E87.20 Acidosis, unspecified; I48.19 Other persistent atrial fibrillation; E87.1 Hypo-osmolality and hyponatremia; T82.897A Other specified complication of cardiac prosthetic devices, implants and grafts, initial encounter; C79.9 Secondary malignant neoplasm of unspecified site; C34.90 Malignant neoplasm of unspecified part of unspecified bronchus or lung; N39.0 Urinary tract infection, site not specified; E86.0 Dehydration; I42.9 Cardiomyopathy, unspecified; E11.22 Type 2 diabetes mellitus with diabetic chronic kidney disease; N18.32 Chronic kidney disease, stage 3b; I08.1 Rheumatic disorders of both mitral and tricuspid valves; Z95.3 Presence of xenogenic heart valve; F32.A Depression, unspecified; Z79.4 Long term (current) use of insulin; I25.10 Atherosclerotic heart disease of native coronary artery without angina pectoris; E78.5 Hyperlipidemia, unspecified; I44.7 Left bundle-branch block, unspecified; K21.9 Gastro-esophageal reflux disease without esophagitis; E07.9 Disorder of thyroid, unspecified; F41.9 Anxiety disorder, unspecified; M10.9 Gout, unspecified; M19.90 Unspecified osteoarthritis, unspecified site; M54.9 Dorsalgia, unspecified; Z79.01 Long term (current) use of anticoagulants; Z79.890 Hormone replacement therapy; Z79.899 Other long term (current) drug therapy; Z95.1 Presence of aortocoronary bypass graft; Z85.828 Personal history of other malignant neoplasm of skin; Z86.14 Personal history of Methicillin resistant Staphylococcus aureus infection; Z96.652 Presence of left artificial knee joint; Y83.1 Surgical operation with implant of artificial internal device as the cause of abnormal reaction of the patient, or of later complication, without mention of misadventure at the time of the procedure
CPT/HCPCS: 36415; 71045; 76770; 80048; 80053; 81001; 83036; 83605; 83690; 83735; 83880; 84100; 84443; 84484; 85025; 85610; 85730; 87324; 87636; 93005; 93308; 94760; 96361; 96365; 96366; 96375; 99285